=== PATIENT | male | born 1955 | race Caucasian/White ===

== ENCOUNTER 2017-03-15 04:21 | Inpatient (IN) | payer MEDICAID ==
[~2017-03-15] VITALS: Ht 170.2 cm; Wt 123.0 kg
[~2017-03-15 04:21] MED LIST: ADVAIR 250-501 EACH; ALBUTEROL2.5 MG/0.1 INH; AMARYL4 MG PO; ASPIRIN EC325 M1 PO; AZITHROMYCIN 2250 MG PO; B-121000 MC2 PO; CELEXA 20 MG TA20 MG PO; CLARITIN10 M2 PO; COMPLETE MULTI1 EAC3 PO; DEPAKOTE ER500 MG PO; ELIQUIS2.5 MG PO; FOLIC ACID1 MG PO; GLUCOPHAGE XR500 MG; IMDUR 30 MG TAB30 M1 PO; INVOKANA100 MG PO; JANUVIA100 MG PO; KLOR-CON 1010 MEQ PO; LASIX 20 MG TAB20 MG PO; MOBIC15 MG; NASONEX17 GM INH; NITROGLYCERIN0.4 MG SUBLING; NORCO 5-325 TA1 EACH PO; PLAVIX 75 MG TA75 MG; PRAVASTATIN SOD40 MG PO; PRINIVIL5 MG PO; SINGULAIR 10 MG10 M1 PO; SPIRIVA INH; SYMBICORT80 MCG/4.1 INH; TOPAMAX 25 MG T25 M1 PO; TRAZODONE HCL100 MG PO; ULTRAM 50MG TAB50 MG PO; VITAMIN D3400 UNIT PO; ZANTAC 150MG T150 M1 PO
[2017-03-15 04:35] LABS: ABSOLUTE EOSINOPHILS 0.1 thou/uL (0.0-0.7); ABSOLUTE LYMPHOCYTES 0.7 thou/uL (0.8-5.3); ABSOLUTE MONOCYTES 0.4 thou/uL (0.0-1.2); ABSOLUTE NEUTROPHILS 1.5 thou/uL (1.6-8.1); BASOPHILS 0.7 %; EOSINOPHILS 3.6 %; HEMATOCRIT 41.9 % (42.0-52.0); HEMOGLOBIN 13.5 gm/dL (14.0-18.0); LYMPHOCYTES 26.4 %; MCH 30.2 pg (26.0-34.0); MCHC 32.3 g/dL (28.0-37.0); MCV 93.6 fL (80.0-100.0); MONOCYTES 15.4 %; MPV 7.2 fl. (7.2-11.1); NUCLEATED RBCS 0 /100WBC; PLATELET COUNT* 80 thou/uL (150-400); POLYS 53.9 %; RBC 4.48 mil/uL (4.50-6.00); RDW-CV 16.4 % (10.5-14.5); WBC 2.8 thou/uL (4.0-11.0)
[2017-03-15 04:38] VITALS: BP 123/91
[2017-03-15 04:48] LABS: INR 1.1; PROTIME 10.8 Seconds (9.20-11.50)
[2017-03-15 05:00] LABS: ANION GAP 6 mmol/L (7-16); BUN 20 mg/dL (7-18); CALCIUM 9.2 mg/dL (8.5-10.1); CHLORIDE 103 mmol/L (98-107); CO2 31 mmol/L (21-32); CREATININE 0.9 mg/dL (0.6-1.3); GLUCOSE 76 mg/dL (70-99); POTASSIUM 3.9 mmol/L (3.5-5.1); SODIUM 140 mmol/L (136-145)
[2017-03-15 05:10] LABS: ALBUMIN 3.3 g/dL (3.4-5.0); ALKALINE PHOSPHATASE 42 U/L (46-116); NT-PRO BRAIN NAT PEPTIDE 578 pg/mL (<300); SGOT 25 U/L (15-37); SGPT 26 U/L (30-65); TOTAL BILIRUBIN 0.3 mg/dL (<0.1-1.0); TROPONIN-I LEVEL <0.06 ng/mL (<0.06)
[2017-03-15 05:48] LABS: INFLUENZA A ANTIGEN None Detected (None Detect); INFLUENZA B ANTIGEN None Detected (None Detect)
[2017-03-15 06:33] VITALS: BP 119/53
[2017-03-15 08:22] VITALS: BP 143/72
[2017-03-15 11:51] VITALS: BP 117/53
--- NOTE | 2017-03-15 13:51 | EKG ---
[place] [address] ELECTROCARDIOGRAM REPORT Name: NITZA BEAR Room: [facility] ADM IN M.R.#: [id number] Admission: 03/15/17 Attend Phys: Azra Akers MD Discharge: Date of : 51 Report #: [id number] THIS REPORT FOR: //name// [facility] ED Test Date: 2017-03-15 Test Time: 04:42:51 Pat Name: NITZA BEAR Department: Room: [facility] Gender: M Bed Manager: : 1955 Requested By: Zunilda Thomas Order Number: [id number] MD: Costa Saucedo Measurements Intervals [place] Rate: 66 P: -53 IN: 64 QRS: -64 QRSD: 195 T: 79 QT: 460 QTc: 482 Interpretive Statements AV sequential pacing No further analysis attempted due to paced rhythm Compared to ECG 11/08/2016 20:10:35 AV dual-paced complex(es) or rhythm no longer present Electronically Signed On 03-15-2017 13:51:12 ORE MINER BLASTING by Costa Saucedo [email or web address] <ELECTRONICALLY SIGNED> By: Costa Saucedo MD, FACC 03/15/17 1351 [id number] [id number] Costa Saucedo MD, FAC /EPI
--- NOTE | 2017-03-15 15:24 | NUR ---
CM SPOKE TO THE PATIENT TO DISCUSS HOME SITUATION, DISCHARGE PLANNING, AND TO INFORM OF THE ROLE OF CM. PATIENT ALERT AND ORIENTED. PATIENT ABLE TO PREPARE MEALS AND PERFORM HYDROGRAPHIC SURVEYOR. PATIENT RESIDES AT HOME WITH . PATIENT USES A CANE OR WALKER AT HOME FOR MOBILITY, PATIENT USES A BIPAP AND OXYGEN AT HOME PROVIDED BY [facility]. PATIENT HAS A HX OF HH WITH [facility]. PATIENT HAS NO HX OF SNF AND PLANS TO RETURN HOME AT DISCHARGE. CM WILL REMAIN AVAILABLE TO ASSIST AND FOLLOW NEEDED.
--- NOTE | 2017-03-15 15:42 | NUR ---
ADMISSION ASSESSMENT AND HISTORY COMPLETED REFER TO COMPUTER CHARTING. BACK MAKER TRACKING SR. PATIENT RESTING IN BED REPORTING NO PAIN, NAUSEA OR INCREASED SHORTNESS OF BREATH. BED IN LOW AND LOCKED POSITION. CALL LIGHT WITHIN REACH. PATIENT ON 2.5 LITERS O2 VIA NASAL CANNULA. IV SALINE LOCKED. [facility]
[2017-03-15 15:53] VITALS: BP 127/49
[2017-03-15 20:00] VITALS: BP 106/51
[2017-03-16] VITALS (7 sets, daily range): BP systolic 111–146; BP diastolic 60–95
--- NOTE | 2017-03-16 06:57 | NUR ---
ASSUMED CARE AROUND 1930. PT A/OX4, LETHARGIC AT TIMES- AROUSABLE TO MILD PHYSICAL STIMULI. TELE MONITOR TRACING AVPACED. BP STABLE- LOW GRADE TEMP TONIGHT, TREATED WITH ICE PACKS. ON 2L NC. IV SALINE LOCKED. ATTEMPTED BM IN BEDPAN. VOIDING PER URINAL. H/A AND PAIN TREATED WITH PRN MEDS. SEE CHARTING. CALL LIGHT IN REACH, WILL CONTINUE WITH PLAN OF CARE.
--- NOTE | 2017-03-16 18:38 | NUR ---
ASSUMED PT CARE AT 0730, FULL ASSESMENT DONE CHARTED. PT ORIENTED X4, DROWSY AND HARD TO WAKE AT TIMES. PT C/O SOME PAIN IN RIGHT KNEE. PT ON 2.5L O2 SATS 99%PT REPORTS HE WEARS BIPAP AT HOME, RECIEVED ORDER TO HAVE PT ON BIPAP HS WHILE HERE. VSS, AV PACED ON THE MONITOR. PT USING URINAL/BSC.PT UP TO CHAIR FOR MEALS AND WITH PHYSICAL THERAPY. PT CALLS APPROPRIALTY FOR HELP. FALL PRECATUIONS IN PLACE, CALL LIGHT IN REACH WILL CONTINUE WITH PLAN OF CARE.
[2017-03-17] VITALS (7 sets, daily range): BP systolic 115–137; BP diastolic 57–75
--- NOTE | 2017-03-17 05:31 | NUR ---
PT IS ABLE TO COMMUNICATE NEEDS TO STAFF EFFECTIVELY. CURRENT PAIN MEDICATION REGIMEN HAS BEEN ADEQUATE FOR CONTROLLING HIS PAIN UP TO THIS TIME. PT TRIED TO USE HOSPITAL BIPAP LAST NIGHT, BUT COULD NOT TOLERATE; TO BRING HIS BIPAP FROM HOME, POSSIBLY TODAY.
[2017-03-17 06:35] LABS: URINE BILIRUBIN NEGATIVE (Negative); URINE BLOOD NEGATIVE (Negative); URINE CLARITY CLEAR; URINE COLOR YELLOW; URINE GLUCOSE-RANDOM 1+ (Negative); URINE KETONES TRACE (Negative); URINE LEUKOCYTES-REFLEX NEGATIVE (Negative); URINE NITRITE-REFLEX NEGATIVE (Negative); URINE PROTEIN NEGATIVE (Negative); URINE UROBILINOGEN 0.2 E.U./dl (0.2-1.0)
[2017-03-17 16:08] LABS: HEMATOCRIT 37.1 % (42.0-52.0); HEMOGLOBIN 12.4 gm/dL (14.0-18.0); MCH 30.8 pg (26.0-34.0); MCHC 33.3 g/dL (28.0-37.0); MCV 92.4 fL (80.0-100.0); MPV 7.4 fl. (7.2-11.1); RBC 4.01 mil/uL (4.50-6.00); RDW-CV 15.9 % (10.5-14.5); WBC 3.5 thou/uL (4.0-11.0)
[2017-03-17 16:18] LABS: CALCIUM 9.1 mg/dL (8.5-10.1); POTASSIUM 4.7 mmol/L (3.5-5.1)
--- NOTE | 2017-03-17 17:59 | NUR ---
RECEIVED REPORT FROM MARGARETTE RN. PT SITTING IN CHAIR DURING UPON FIRST ENCOUNTER. VS OBTAINED. ASSESSMENT COMPLETE. A/V PACED ON THE MONITOR. O2 SATS >92% ON 2L NC. A & O X4. ABLE TO COMMUNICATE NEEDS TO STAFF. MEDS GIVEN PER APR. PT C/O HEADACHE THIS AFTERNOON, PRN TRAMADOL GIVEN PER APR. PT AMBULATED WITH KNEE BRACE AND WALKER TO BR WITH SUPERVISION. OBSERVED STEADY GAIT WHILE AMBULATING. PT DYSPNEIC WHEN RETURNED TO BED. RECOVERED COMFORTABLE BREATHING IN SHORT AMOUNT OF TIME. NEEDED ITEMS AND CALL LIGHT WITHIN REACH OF PT. HOURLY ROUNDING WITH GOAL OF PT SAFETY.
[2017-03-18 03:47] VITALS: BP 136/74
--- NOTE | 2017-03-18 05:39 | NUR ---
PT IS ABLE TO COMMUNICATE HIS NEEDS TO STAFF EFFECTIVELY. CURRENT PAIN MEDICATION REGIMEN HAS BEEN ADEQUATE FOR CONTROLLING HIS PAIN UP TO THIS TIME. PT WEARING HIS BIPAP FROM HOME WHILE SLEEPING, DURING THIS SHIFT.
[2017-03-18 08:00] VITALS: BP 137/64
[2017-03-18] MEDS ORDERED: AZITHROMYCIN 2250 MG PO (10:42)
[2017-03-18] MEDS ORDERED: CEFDINIR300 MG PO (10:42)
[2017-03-18] MEDS ORDERED: PREDNISONE 10 M10 MG PO (10:42)
[2017-03-18 11:53] VITALS: BP 117/62
--- NOTE | 2017-03-19 08:37 | NUR ---
CALLED AND FAXED DC ORDERS TO [facility]/NIA [phone]
== END 2017-03-18 15:00 | disposition home health service (06) | DRG 871 ==
LOC: M.ERS 04:21 → M.TBA-ER 06:03 → M.2W 06:03
PROVIDERS: Emergency Medicine; Internal Medicine; ADMIT Internal Medicine
PROC: 5A09357 Assistance with Respiratory Ventilation, Less than 24 Consecutive Hours, Continuous Positive Airway Pressure (ICD-10-PCS; principal; 2017-03-16)
PROC: 5A09357 Assistance with Respiratory Ventilation, Less than 24 Consecutive Hours, Continuous Positive Airway Pressure (ICD-10-PCS; 2017-03-17)
DX: A41.9 Sepsis, unspecified organism (principal); J15.9 Unspecified bacterial pneumonia; J96.11 Chronic respiratory failure with hypoxia; I25.110 Atherosclerotic heart disease of native coronary artery with unstable angina pectoris; I50.22 Chronic systolic (congestive) heart failure; J44.1 Chronic obstructive pulmonary disease with (acute) exacerbation; J44.0 Chronic obstructive pulmonary disease with (acute) lower respiratory infection; E11.9 Type 2 diabetes mellitus without complications; I48.91 Unspecified atrial fibrillation; I11.0 Hypertensive heart disease with heart failure; G43.909 Migraine, unspecified, not intractable, without status migrainosus; J06.9 Acute upper respiratory infection, unspecified; H53.8 Other visual disturbances; D64.9 Anemia, unspecified; F39 Unspecified mood [affective] disorder; R12 Heartburn; K21.9 Gastro-esophageal reflux disease without esophagitis; E11.649 Type 2 diabetes mellitus with hypoglycemia without coma; T38.3X5A Adverse effect of insulin and oral hypoglycemic [antidiabetic] drugs, initial encounter; Z95.5 Presence of coronary angioplasty implant and graft; Z90.49 Acquired absence of other specified parts of digestive tract; Z87.891 Personal history of nicotine dependence; Z88.0 Allergy status to penicillin; Z88.8 Allergy status to other drugs, medicaments and biological substances; Z99.81 Dependence on supplemental oxygen; Z95.810 Presence of automatic (implantable) cardiac defibrillator; Y92.89 Other specified places as the place of occurrence of the external cause; Z79.84 Long term (current) use of oral hypoglycemic drugs; Z79.899 Other long term (current) drug therapy

== ENCOUNTER 2017-03-31 03:38 | Inpatient (IN) | payer MEDICAID ==
[~2017-03-31] VITALS: Ht 170.2 cm; Wt 124.7 kg
[~2017-03-31 03:38] MED LIST changes: +CEFDINIR300 MG PO; +PREDNISONE 10 M10 MG PO
[2017-03-31 03:39] VITALS: BP 116/63
[2017-03-31 04:54] LABS: URINE BILIRUBIN NEGATIVE (Negative); URINE BLOOD NEGATIVE (Negative); URINE CLARITY CLEAR; URINE COLOR YELLOW; URINE GLUCOSE-RANDOM 3+ (Negative); URINE KETONES 1+ (Negative); URINE LEUKOCYTES-REFLEX NEGATIVE (Negative); URINE NITRITE-REFLEX NEGATIVE (Negative); URINE PROTEIN NEGATIVE (Negative); URINE SPECIFIC GRAVITY 1.015 (1.005-1.030); URINE UROBILINOGEN 0.2 E.U./dl (0.2-1.0)
[2017-03-31 05:23] LABS: HEMATOCRIT 36.8 % (42.0-52.0); MCH 30.5 pg (26.0-34.0); MCHC 32.5 g/dL (28.0-37.0); MCV 93.8 fL (80.0-100.0); MPV 7.7 fl. (7.2-11.1); NUCLEATED RBCS 0 /100WBC; PLATELET COUNT* 86 thou/uL (150-400); RBC 3.92 mil/uL (4.50-6.00); RDW-CV 16.4 % (10.5-14.5); WBC 7.3 thou/uL (4.0-11.0)
[2017-03-31 05:32] LABS: INFLUENZA A ANTIGEN None Detected (None Detect); INFLUENZA B ANTIGEN None Detected (None Detect)
[2017-03-31 05:46] LABS: CALCIUM 8.6 mg/dL (8.5-10.1); POTASSIUM 4.3 mmol/L (3.5-5.1)
[2017-03-31 05:58] LABS: ALBUMIN 3.1 g/dL (3.4-5.0); TOTAL BILIRUBIN 0.6 mg/dL (<0.1-1.0); TOTAL PROTEIN 6.4 g/dL (6.4-8.2)
[2017-03-31 06:31] LABS: ABSOLUTE EOSINOPHILS 0.1 thou/uL (0.0-0.7); ABSOLUTE LYMPHOCYTES 0.5 thou/uL (0.8-5.3); ABSOLUTE MONOCYTES 0.5 thou/uL (0.0-1.2); ABSOLUTE NEUTROPHILS 6.2 thou/uL (1.6-8.1)
[2017-03-31 06:32] LABS: ANISOCYTOSIS 1+; HYPOCHROMASIA 1+; PLATELET ESTIMATE DECREASED
[2017-03-31 08:11] VITALS: BP 115/70
[2017-03-31 08:30] VITALS: BP 131/78
[2017-03-31] MEDS ORDERED: HYDROCODONE-AP1 EAC6 PO (08:53)
[2017-03-31 12:00] VITALS: BP 116/63
[2017-03-31 12:57] LABS: BE -3.3 mmol/L (-2 to +3); HCO3 20.1 mmol/L (22.0-26.0); PCO2 30.9 mmHg (35.0-45.0); PO2 78.4 mmHg (75.0-100.0); pH 7.431 (7.340-7.450)
--- NOTE | 2017-03-31 16:37 | EKG ---
[place] [address] ELECTROCARDIOGRAM REPORT Name: NITZA BEAR Room: [address] ADM IN M.R.#: [id number] Admission: 03/31/17 Attend Phys: Azra Akers MD Discharge: Date of : 51 Report #: [id number] THIS REPORT FOR: //name// [facility] ED Test Date: 2017-03-31 Test Time: 03:54:05 Pat Name: NITZA BEAR Department: Room: [facility] Gender: M Blade Operator: ARIANNA Arnold : 1955 Requested By: Zunilda Thomas Order Number: [id number] Reading MD: Rakesh Hawkins Measurements Intervals [place] Rate: 87 P: -82 FL: 57 QRS: -47 QRSD: 170 T: 95 QT: 395 QTc: 476 Interpretive Statements Atrial-sensed ventricular-paced complexes No further analysis attempted due to paced rhythm Compared to ECG 03/15/2017 04:42:51 AV dual-paced complex(es) or rhythm no longer present Electronically Signed On 03-31-2017 16:36:55 PASTING INSPECTOR by Rakesh Hawkins [email or web address] <ELECTRONICALLY SIGNED> By: Jennifer Hawkins MD, [facility] 03/31/17 1636 0354 0354 Jennifer Hawkins MD, [facility] /EPI
[2017-03-31 20:00] VITALS: BP 130/68
[2017-04-01] VITALS: BP 147/69
[2017-04-01 05:05] LABS: HEMATOCRIT 35.7 % (42.0-52.0); HEMOGLOBIN 11.5 gm/dL (14.0-18.0); MCH 30.1 pg (26.0-34.0); MCHC 32.2 g/dL (28.0-37.0); MCV 93.6 fL (80.0-100.0); MPV 7.2 fl. (7.2-11.1); RBC 3.82 mil/uL (4.50-6.00); RDW-CV 16.6 % (10.5-14.5); WBC 4.1 thou/uL (4.0-11.0)
[2017-04-01 06:09] LABS: CREATININE 0.9 mg/dL (0.6-1.3); MAGNESIUM 2.2 mg/dL (1.8-2.4); POTASSIUM 4.4 mmol/L (3.5-5.1)
[2017-04-01 09:00] VITALS: BP 152/79
[2017-04-01 20:10] VITALS: BP 118/47
[2017-04-02 05:12] LABS: ABSOLUTE LYMPHOCYTES 0.3 thou/uL (0.8-5.3); ABSOLUTE MONOCYTES 0.2 thou/uL (0.0-1.2); ABSOLUTE NEUTROPHILS 4.1 thou/uL (1.6-8.1); BASOPHILS 0.3 %; EOSINOPHILS 0.1 %; HEMATOCRIT 34.2 % (42.0-52.0); HEMOGLOBIN 11.2 gm/dL (14.0-18.0); LYMPHOCYTES 6.4 %; MCH 30.6 pg (26.0-34.0); MCHC 32.7 g/dL (28.0-37.0); MCV 93.6 fL (80.0-100.0); MONOCYTES 3.7 %; MPV 7.7 fl. (7.2-11.1); NUCLEATED RBCS 0 /100WBC; PLATELET COUNT* 69 thou/uL (150-400); POLYS 89.5 %; RBC 3.66 mil/uL (4.50-6.00); RDW-CV 16.2 % (10.5-14.5); WBC 4.6 thou/uL (4.0-11.0)
[2017-04-02 05:42] LABS: ALBUMIN 2.8 g/dL (3.4-5.0); CALCIUM 8.7 mg/dL (8.5-10.1); CREATININE 0.9 mg/dL (0.6-1.3); MAGNESIUM 2.2 mg/dL (1.8-2.4); POTASSIUM 4.2 mmol/L (3.5-5.1); TOTAL BILIRUBIN 0.5 mg/dL (<0.1-1.0); TOTAL PROTEIN 6.4 g/dL (6.4-8.2)
[2017-04-02 10:00] VITALS: BP 152/71
[2017-04-02 16:12] VITALS: BP 119/61
[2017-04-03] VITALS: BP 135/67
[2017-04-03 08:05] VITALS: BP 155/92
[2017-04-03 16:10] VITALS: BP 135/69
[2017-04-04] VITALS: BP 119/52
[2017-04-04 04:43] LABS: ALBUMIN 2.9 g/dL (3.4-5.0); CALCIUM 8.9 mg/dL (8.5-10.1); CREATININE 0.8 mg/dL (0.6-1.3); MAGNESIUM 2.2 mg/dL (1.8-2.4); POTASSIUM 4.8 mmol/L (3.5-5.1); TOTAL BILIRUBIN 0.6 mg/dL (<0.1-1.0); TOTAL PROTEIN 6.3 g/dL (6.4-8.2)
[2017-04-04 04:53] LABS: HEMATOCRIT 36.1 % (42.0-52.0); HEMOGLOBIN 11.7 gm/dL (14.0-18.0); MCHC 32.5 g/dL (28.0-37.0); MCV 92.4 fL (80.0-100.0); MPV 7.8 fl. (7.2-11.1); RBC 3.91 mil/uL (4.50-6.00); WBC 3.3 thou/uL (4.0-11.0)
[2017-04-04 07:55] VITALS: BP 155/91
[2017-04-04 17:09] VITALS: BP 140/80
[2017-04-04 21:00] VITALS: BP 147/75
[2017-04-05 02:07] LABS: ADENOVIRUS Negative (Negative); INFLUENZA A Negative (Negative); INFLUENZA B Negative (Negative); METAPNEUMOVIRUS Negative (Negative); PARAINFLUENZA 1 Negative (Negative); PARAINFLUENZA 2 Negative (Negative); PARAINFLUENZA 3 Negative (Negative); RHINOVIRUS Negative (Negative); RSV A Negative (Negative); RSV B Negative (Negative)
[2017-04-05 08:50] VITALS: BP 130/68
[2017-04-05] MEDS ORDERED: TRAMADOL 50 MG50 MG PO (09:21)
[2017-04-05] MEDS ORDERED: LEVAQUIN 500 M500 M2 PO (09:21)
[2017-04-05] MEDS ORDERED: PREDNISONE 10 M10 MG PO (09:21)
[2017-04-05] MEDS ORDERED: DUONEB 2.5-0.5 M3 ML INH (09:21)
[2017-04-05] MEDS ORDERED: PULMICORT0.5 MG/2 M INH (09:21)
[2017-04-05 09:46] LABS: HEMATOCRIT 43.6 % (42.0-52.0); MCH 31.1 pg (26.0-34.0); MCHC 33.5 g/dL (28.0-37.0); MCV 92.9 fL (80.0-100.0); MPV 7.7 fl. (7.2-11.1); RBC 4.7 mil/uL (4.50-6.00); WBC 4.7 thou/uL (4.0-11.0)
[2017-04-05 10:08] LABS: HEMOGLOBIN 14.6 gm/dL (14.0-18.0)
[2017-04-05 11:37] VITALS: BP 130/68
[2017-04-05 11:45] VITALS: BP 130/68
== END 2017-04-05 14:41 | disposition home health service (06) | DRG 193 ==
LOC: M.ERS 03:38 → M.3W 06:45 → M.TBA-ER 06:45 → M.2W 08:18 → M.3W 04-01 16:56
PROVIDERS: Emergency Medicine; ADMIT Internal Medicine
DX: J18.9 Pneumonia, unspecified organism (principal); J96.21 Acute and chronic respiratory failure with hypoxia; I50.20 Unspecified systolic (congestive) heart failure; J90 Pleural effusion, not elsewhere classified; D61.818 Other pancytopenia; J44.0 Chronic obstructive pulmonary disease with (acute) lower respiratory infection; E11.9 Type 2 diabetes mellitus without complications; I25.10 Atherosclerotic heart disease of native coronary artery without angina pectoris; I48.91 Unspecified atrial fibrillation; I11.0 Hypertensive heart disease with heart failure; G43.909 Migraine, unspecified, not intractable, without status migrainosus; Z90.49 Acquired absence of other specified parts of digestive tract; Z88.0 Allergy status to penicillin; Z88.8 Allergy status to other drugs, medicaments and biological substances; Z95.5 Presence of coronary angioplasty implant and graft; Z87.891 Personal history of nicotine dependence; Z79.899 Other long term (current) drug therapy

== ENCOUNTER 2017-05-12 18:15 | Inpatient (IN) | payer MEDICAID ==
[~2017-05-12] VITALS: Ht 170.2 cm; Wt 121.5 kg
[~2017-05-12 18:15] MED LIST changes: +DUONEB 2.5-0.5 M3 ML INH; +HYDROCODONE-AP1 EAC6 PO; +LEVAQUIN 500 M500 M2 PO; +PULMICORT0.5 MG/2 M INH; +TRAMADOL 50 MG50 MG PO
[2017-05-12 18:18] VITALS: BP 119/51
[2017-05-12 19:27] LABS: ABSOLUTE LYMPHOCYTES 0.6 thou/uL (0.8-5.3); ABSOLUTE MONOCYTES 0.4 thou/uL (0.0-1.2); ABSOLUTE NEUTROPHILS 2.1 thou/uL (1.6-8.1); BASOPHILS 0.6 %; EOSINOPHILS 1.1 %; HEMATOCRIT 37.1 % (42.0-52.0); HEMOGLOBIN 12.2 gm/dL (14.0-18.0); LYMPHOCYTES 19.6 %; MCH 31.3 pg (26.0-34.0); MCV 94.8 fL (80.0-100.0); MONOCYTES 12.8 %; NUCLEATED RBCS 0 /100WBC; PLATELET COUNT* 82 thou/uL (150-400); POLYS 65.9 %; RBC 3.92 mil/uL (4.50-6.00); RDW-CV 17.4 % (10.5-14.5); WBC 3.2 thou/uL (4.0-11.0)
[2017-05-12 19:37] LABS: ANION GAP 6 mmol/L (7-16); BUN 13 mg/dL (7-18); CHLORIDE 105 mmol/L (98-107); CO2 31 mmol/L (21-32); GLUCOSE 86 mg/dL (70-99); POTASSIUM 3.8 mmol/L (3.5-5.1); SODIUM 142 mmol/L (136-145)
[2017-05-12 19:45] LABS: INFLUENZA A ANTIGEN None Detected (None Detect); INFLUENZA B ANTIGEN None Detected (None Detect)
[2017-05-12 19:48] LABS: ALBUMIN 3.2 g/dL (3.4-5.0); ALKALINE PHOSPHATASE 43 U/L (46-116); NT-PRO BRAIN NAT PEPTIDE 974 pg/mL (<300); SGOT 25 U/L (15-37); SGPT 21 U/L (30-65); TOTAL BILIRUBIN 0.4 mg/dL (<0.1-1.0); TOTAL PROTEIN 6.4 g/dL (6.4-8.2); TROPONIN-I LEVEL <0.06 ng/mL (<0.06)
[2017-05-12] MEDS ORDERED: CEFUROXIME500 MG PO (21:29)
--- NOTE | 2017-05-12 22:30 | NUR ---
SPOKE TO PT REGARDING [facility] CARE AND THE PT STATED HE WAS WILLING TO GO TO A [facility] IF HIS CONTINUED TO HAVE MONEY TO LIVE ON.
[2017-05-12 23:55] VITALS: BP 112/51
[2017-05-13 00:20] VITALS: BP 130/60
[2017-05-13 00:34] LABS: URINE BILIRUBIN NEGATIVE (Negative); URINE BLOOD TRACE (Negative); URINE CLARITY CLEAR; URINE COLOR YELLOW; URINE GLUCOSE-RANDOM NEGATIVE (Negative); URINE KETONES NEGATIVE (Negative); URINE LEUKOCYTES-REFLEX 1+ (Negative); URINE NITRITE-REFLEX NEGATIVE (Negative); URINE PROTEIN NEGATIVE (Negative); URINE SPECIFIC GRAVITY 1.025 (1.005-1.030); URINE UROBILINOGEN 0.2 E.U./dl (0.2-1.0)
[2017-05-13 00:51] LABS: BACTERIA-REFLEX >30 Many /HPF (None Seen); SQUAMOUS 0-3 Few /LPF (0-3); URINE RBC 3-10 Few /HPF (0-2); WBC CLUMPS Few (None Seen)
[2017-05-13 00:52] LABS: CASTS None Seen /LPF (None Seen); CRYSTALS None Seen /LPF (None Seen); MUCUS 4-6 Moderate strn/LPF (None Seen)
[2017-05-13 03:51] VITALS: BP 109/34
--- NOTE | 2017-05-13 05:24 | NUR ---
PT ARRIVED ON UNIT AT 0020, REPORT RECIEVED FROM LIO IN ER. PT ORIENTED TO ROOM, FALL AGREEMENT WENT OVER AND SIGNED, CALL LIGHT SHOWN. PT STATED UNDERSTANDING. ASSESSMENT DOCUMENTED. IV PATENT. PT REPORTED PAIN, DR NOTIFIED, ORDERS RECIEVED. PT AWAKE MOST OF SHIFT. PT HAD 2 EPISODED OF DIARRHEA. PT STATES HE NEEDS TO STAY 3 DAYS SO HE CAN GO TO [facility] TO REGAIN HIS STREANGTH. WILL CONTINUE WITH PLAN OF CARE.
[2017-05-13 09:00] VITALS: BP 131/62
--- NOTE | 2017-05-13 12:41 | EKG ---
[place] [address] ELECTROCARDIOGRAM REPORT Name: MARIANELA,NITZA E Room: [address] ADM IN .R.#: [id number] Admission: 05/12/17 Attend Phys: Xander Zuniga Discharge: Date of : 51 Report #: [id number] THIS REPORT FOR: //name// [facility] ED Test Date: 2017-05-12 Test Time: 18:22:05 Pat Name: NITZA BEAR Department: Room: [facility] Gender: M Curing Supervisor: ASHKAN : 1955 Requested By: Valeria Whaley Order Number: [id number] MD: Allan Wellington Measurements Intervals [place] Rate: 67 P: -16 [place]: 64 QRS: -47 QRSD: 201 T: 73 QT: 468 QTc: 494 Interpretive Statements Ventricular-paced complexes No further analysis attempted due to paced rhythm Compared to ECG 03/31/2017 03:54:05 Atrial-sensed ventricular-paced complex(es) or rhythm no longer present Electronically Signed On 05-13-2017 12:41:10 CDT by Allan Wellington [email or web address] <ELECTRONICALLY SIGNED> By: Allan Wellington MD, FACC 05/13/17 [phone] Allan Wellington MD, FAC /EPI
[2017-05-13 13:17] LABS: ABSOLUTE LYMPHOCYTES 0.7 thou/uL (0.8-5.3); ABSOLUTE MONOCYTES 0.4 thou/uL (0.0-1.2); ABSOLUTE NEUTROPHILS 1.9 thou/uL (1.6-8.1); BASOPHILS 0.2 %; EOSINOPHILS 0.8 %; HEMOGLOBIN 12.4 gm/dL (14.0-18.0); LYMPHOCYTES 23.4 %; MCH 30.6 pg (26.0-34.0); MCHC 32.5 g/dL (28.0-37.0); MONOCYTES 12.7 %; MPV 7.4 fl. (7.2-11.1); NUCLEATED RBCS 0 /100WBC; PLATELET COUNT* 82 thou/uL (150-400); POLYS 62.9 %; RBC 4.04 mil/uL (4.50-6.00); RDW-CV 17.9 % (10.5-14.5)
[2017-05-13 13:21] LABS: CREATININE 0.9 mg/dL (0.6-1.3); MAGNESIUM 1.9 mg/dL (1.8-2.4); POTASSIUM 3.8 mmol/L (3.5-5.1)
[2017-05-13 16:52] VITALS: BP 110/52
--- NOTE | 2017-05-13 19:56 | NUR ---
PATIENT HAS BEEN A/O X 4 THIS SHIFT. HAS DENIED PAIN THIS SHIFT. PLACED ON B2B SALES CONSULTANT, TRACING V PACED. PATIENT SEEN BY PULMONARY AND CARDIOLOGY THIS SHIFT, TO HAVE STRESS TEST IN THE AM. CONTINUES ON O2 AT 2L/NC. REFUSING TO TURN OR ELEVATE HEELS THIS SHIFT. UTILIZING THE BEDPAN, KIT-CARE PROVIDED AND BARRIER CREAM APPLIED. SALINE LOCK PATENT. STEROIDS TO START THIS EVENING AND CONTINUES ON RT TREATMENTS. FALL PRECAUTIONS IN PLACE. HOURLY ROUNDING COMPLETED. CALL LIGHT WITHIN REACH. WILL CONTINUE WITH PLAN OF CARE.
[2017-05-13 23:54] VITALS: BP 118/66
[2017-05-14 04:29] VITALS: BP 138/79
--- NOTE | 2017-05-14 05:23 | NUR ---
PT SLEPT MOST OF SHIFT. ASSESSMENT DOCUMENTED. MEDS GIVEN PER E-MAR. NEW IV STARTED IN LEFT HAND. PT REQUESTING HIS HOME MEDICATIONS BE REORDERED, DR NOTIFIED, ORDERS RECIEVED. PT REFUSED MOST OF REPOSITIONINGS THIS SHIFT, PT STATED HE IS JUST TO UNCOMFORTABLE ANYWHERE OTHER THAN FLAT ON HIS BACK. TELE MONITOR ON READING PACED RHYTHM. NO REPORTS OF PAIN. WILL CONTINUE WITH PLAN OF CARE.
[2017-05-14 08:00] VITALS: BP 131/71
--- NOTE | 2017-05-14 09:55 | CON ---
[address] [address] CONSULTATION Name: NITZA BEAR Room: [address] IN M.R.#: [id number] Admission: 05/12/17 Attend Phys: Xander Zuniga Discharge: Date of : 51 Report #: [id number] THIS REPORT FOR: //name// CC: Maicol Gonzalez DO DATE OF SERVICE: 05/13/2017 ATTENDING PHYSICIAN: Dr. Herbie Gonzalez. INDICATION FOR CONSULTATION: COPD and obstructive sleep apnea. HISTORY OF PRESENT ILLNESS: The patient is a 61-year-old male, remote smoker, who was admitted to the hospital with shortness of air. The patient was sleepy during the day. When he stood up yesterday afternoon, he felt lightheaded and fell and hit his face. He hit the right side of his face and his forehead on his oxygen concentrator. He denies any focal weakness. He denied any loss of consciousness. He has had a couple episodes of bronchitis over the past couple of months, he has been oxygen dependent at night at 2 liters, he is on CPAP at 9 cm with nasal pillows that he has had for about the last 7 or 8 years and states he has been using that. He did bring it in with him. He denies that he is having more restless sleep or daytime hypersomnolence at least to me at this time. He is asking for another breathing treatment. He appears clear and comfortable on 2 liters at this time. PAST MEDICAL HISTORY: He has a history of COPD for the past several years, he has been oxygen dependent, he has not been steroid dependent. He has had a recent facial injury and fall. He has had a couple episodes of bronchitis and also appears to look to have cor pulmonale on his chest x-ray. ALLERGIES: INCLUDE LOVENOX WITH WHICH SUPPOSEDLY HE HAD SOME TREMORS AND THEN PENICILLIN, POSSIBLE RASH. OUTPATIENT MEDICATIONS: Included inhaled Pulmicort nebulizer, but he is only taking his breathing treatments, DuoNeb p.r.n. at home. He was on tramadol 50 mg q.4 hours given to him on 04/05/2017 and he was on a Prednisone taper 60 tabs also given to him on 04/05/2017. He has finished his Levaquin, which was mg for 7 tabs given to him on 04/05/2017. Other outpatient meds, DuoNeb treatments 4 times a day and albuterol nebulizer p.r.n. He states he was on Advair 250/50 one puff b.i.d. and Spiriva inhaler 1 puff daily. I do not see those on his list though. Also, he was supposed to be on apixaban 5 mg daily, not certain what indication that is 4. He is on Depakote 500 mg t.i.d. He was on Spiriva and HandiHaler 1 puff daily and Imdur 30 mg daily, lisinopril was 5 mg daily, Lasix was 20 mg daily. He was not steroid dependent. [address] [place] [address] CONSULTATION Name: NITZA BEAR Room: [address] IN M.R.#: [id number] Admission: 05/12/17 Attend Phys: Xander Zuniga Discharge: Date of : 51 Report #: [id number] OTHER PAST MEDICAL HISTORY: Diabetes, coronary artery disease with stent placement, chronic migraines, hypertension, obesity, obstructive sleep apnea on CPAP 9 cm with nasal pillows. He has had previous biopsy of temporal arteries, pacemaker noted. He does have myelofibrosis also. SOCIAL HISTORY: He has a 29-islx-eevm history of smoking. He states he quit about 7-8 years ago. He states he uses alcohol on special occasions. Lives at home. FAMILY HISTORY: Negative for premature cardiopulmonary disease. REVIEW OF SYSTEMS: A 14-point review of systems reviewed and negative except for pertinent positives noted in HPI. PHYSICAL EXAMINATION: GENERAL: This is a 61-year-old male lying comfortably in bed, in no acute distress. VITAL SIGNS: Blood pressure is 110/54, heart rate is 66, respirations 16, temperature is 37.7, saturation on 2 liters is 95%. He is 5 feet 9 inches tall, weight 121 kilograms or 250 pounds, BMI is 42. HEENT: Some mild erythema and ecchymoses across his right forehead. Pupils are reactive and equal. He is alert and oriented. Pharynx is clear. NECK: Supple without nodes. It is thick. CHEST: Shows clear breath sounds, mildly diminished with prolonged expiratory phase. CARDIOVASCULAR: Regular rate and rhythm without murmur, gallop or rub. Heart rate is 66. ABDOMEN: Obese without masses or megaly. EXTREMITIES: He has some chronic venous stasis changes. He has a knee brace on his right knee. Negative Homans sign bilaterally. NEUROLOGIC: Grossly intact. LABORATORY DATA: Hemoglobin is 12, white count 3000, platelets are 82,000. He has had previous platelets of 60,000 prior to transfusion from myelofibrosis. I think he sees the [facility] for his fibrosis. Sodium is 141, potassium 3.8, bicarbonate is mildly elevated at 33 and glucose is 114. Anion gap is 5, BUN 13, creatinine 0.9. Troponin less than 0.6. Influenza A and B smears were negative. Chest x-ray shows a patchy left lower lobe infiltrate, elevated left hemidiaphragm. I think he has some pulmonary artery enlargement bilaterally. Pacemaker noted. IMPRESSION: 1. Moderately severe chronic obstructive pulmonary disease, oxygen dependent, exacerbation. 2. Falls at home, probably multiple factors, could [place] [address] CONSULTATION Name: NITZA BEAR Room: [address] IN [facility].#: [id number] Admission: 05/12/17 Attend Phys: Xander Zuniga Discharge: Date of : 51 Report #: [id number] chronic obstructive pulmonary disease and possibly from obstructive sleep apnea. 3. Chronic venous stasis changes in his extremities. 4. Myelofibrosis. 5. Obstructive sleep apnea. PLAN: Continue on his home CPAP at this time. He may need to repeat sleep study at some point in time if he is adequately treated. He may need ABGs again at some point in time to see if he has any CO2 retention. We will just start him back on his routine meds, some oral montelukast and we can resume Advair at home. A short course of IV Solu-Medrol at a lower dose so as not to exacerbate his diabetes, and he has been on antibiotics from the primary care service, Levaquin mg p.o. daily. We will see if he does not get some improvement, do another followup PA and lateral chest x-ray in a couple of days and then proceed from there. He may need some full outpatient PFTs again as well as a repeat sleep study at some point in time. He may also need an echocardiogram to rule out pulmonary artery hypertension. Thank you very much for allowing us to participate in this man's care. We will follow up along with you while he is in the hospital. <ELECTRONICALLY SIGNED> By: Vinicius Neri MD 05/14/17 0955 1430 [id number] Neri MD /nt
[2017-05-14 12:00] VITALS: BP 135/67
--- NOTE | 2017-05-14 12:30 | NUR ---
SW met with pt to complete initial assessment, introduce self, and SW role as well as discuss safe dc planning. Pt known to this SW from previous admission. Pt lives at home with his and niece's family. Pt nurse today discussed with SW that pt expressed wanting a SNF placement possibly at dc. SW explained to pt that Medicaid does not cover SNF/therapy or HH therapy only inpt therapies if pt would meet criteria for that. Pt felt that he probably wouldn't be able to tolerate 3 hrs of therapy. SW discussed LTC option and pt said that he would think about everything and discuss with his as well. SW discussed with nurse the pt situation to clarify options. Doctor Radha ordered a Palliative Care Consult...SW to arrange meeting and SW to continue to follow to assist with safe dc planning.
[2017-05-14] MEDS ORDERED: NEURONTIN 300M300 M2 PO (14:23)
[2017-05-14] MEDS ORDERED: JANUVIA100 MG PO (14:24)
[2017-05-14] MEDS ORDERED: HYDROCODONE-AP1 EAC6 PO (14:25)
[2017-05-14 16:00] VITALS: BP 128/77
--- NOTE | 2017-05-14 17:09 | CARDNUC ---
[place] [address] CARDIAC NUCLEAR IMAGING REPORT Name: NITZA BEAR Room: [facility]-[address] [facility] IN [facility]#: [id number] Admission: 05/12/17 Attend Phys: Herbie Gonzalez Discharge: Date of : 51 Date of Service: 05/14/17 1709 Report #: [id number] THIS REPORT FOR: //name// APPROVED REPORT Study performed: 05/13/2017 13:12:00 Exam: Nuclear Stress Test Indication: Chest pain Patient Location: In-Patient Room #: 304 Stress Tech: Raya Klein Stress Nurse: Tiara Gaytan RN Ht: 5 ft 7 in Wt: 267 lbs BSA: 2.29 m2 BMI: 41.81 Medical History Medical History: CAD s/p [place], CAD s/p stent, HTN, Hyperlipidemia, Diabetes, Pacemaker in situ, CHF, Atrial Fibrillation, COPD Medications: apixaban, atorvastatin, isosorbide, lisinopril, asa, furosemide Allergies: PCN, enoxaparin Cardiac Risk Factors: Age, DM, HTN, Hyperlipidemia Previous Cardiac Procedures: PCI, Myocardial infarction Exercise History: Sedentary Stress Test Details Stress Test: Pharmacologic stress testing performed using 0.4 mg of regadenoson per 5 mL given IV over 10 seconds. Reason for pharmacologic stress test: physical limitation. HR Resting HR: 72 bpm Max Heart Rate (APMHR): 157 bpm Max HR Achieved: 88 bpm Target HR (85% APMHR): 133 bpm % of APMHR: 56 Recovery HR: 86 bpm BP Resting BP: 117/72 mmHg Max BP: 149/72 mmHg ECG Resting ECG: [place] [address] CARDIAC NUCLEAR IMAGING REPORT Name: MARIANELANITZA E Room: [address]#: [id number] Admission: 05/12/17 Attend Phys: Herbie Gonzalez Discharge: Date of : 51 Date of Service: 05/14/17 1709 Report #: [id number] Stress ECG: Ventricular paced rhythm ST Change: None Arrhythmia: None Recovery ECG: Ventricular paced rhythm Recovery ST Change: None Recovery Arrhythmia: None Clinical Reason for Termination: Completed protocol Stress Symptoms: None Exercise duration: 0 min sec Exercise capacity: 1.0 METs The patient tolerated Lexiscan infusion without symptoms. Stress ECG Conclusion The baseline 12-lead elect cardiogram showed a ventricularly paced rhythm. EKGs obtained during and post Lexiscan infusion showed a ventricularly paced rhythm. There were no stress-induced arrhythmias. NM EXAM: Myocardial Perfusion REST/STRESS Imaging Protocol: Stress Tc-99m/Rest Tc-99m 2 days Pharmacologic Stress Pharmacologic stress test was performed by injecting Regadenoson 0.4 mg IV push followed by the intravenous injection of 37.7 mCi of Tc-99m Sestamibi. Time of stress injection: 13:30 Date: 05/14/2017 Time of stress imagin:10 Date: 05/14/2017 Administration Route: IV Administration Site: Left Hand Heart Rate at time of stress injection: 88 bpm. Gated Stress SPECT was performed 40 minutes after stress injection. The images were gated to evaluate regional wall motion and calculate left ventricular ejection fraction. Study Quality Study: Good Artifact: No artifact Study Data Post stress, the left ventricular ejection was 48%.. [place] [address] CARDIAC NUCLEAR IMAGING REPORT Name: MARIANELANITZA E Room: [address] IN [facility]#: [id number] Admission: 05/12/17 Attend Phys: Herbie Gonzalez Discharge: Date of : 51 Date of Service: 05/14/17 1709 Report #: [id number] Perfusion images obtained post Lexiscan infusion show no defect to suggest infarct or ischemia. Wall Motion There was a septal wall motion abnormality noted consistent with paced rhythm. No other wall motion abnormalities noted. Nuclear Conclusion ECG Findings: non-diagnostic Clinical Findings: negative for ischemia Nuclear Findings: negative for ischemia Exercise Capacity: not assessed Left Ventricular Function: abnormal Risk Study: low Myocardial perfusion images showed no defect to suggest infarct or ischemia. Left ventricular systolic function was mildly decreased with an ejection fraction calculated be percent with a septal wall motion abnormality noted consistent with a paced rhythm. This is not a high risk study. <Conclusion> The baseline 12-lead elect cardiogram showed a ventricularly paced rhythm. EKGs obtained during and post Lexiscan infusion showed a ventricularly paced rhythm. There were no stress-induced arrhythmias. <ELECTRONICALLY SIGNED> By: Costa Saucedo MD, FACC 05/14/17 1709 08 08 Costa Saucedo MD, FACC /INF
--- NOTE | 2017-05-14 17:11 | NUR ---
PT RESTING IN BED THROUGHOUT SHIFT. PT TO STRESS TEST THIS AFTERNOON. UP TO CHAIR WITH MUCH ENCOURAGEMENT. PT STATES HE IS WORRIED ABOUT FALLING. PT UP WITH SB ASSIST,STEADY. PT ON O2@2L WHICH IS HIS HOME USE. VOIDING PER URINAL
--- NOTE | 2017-05-14 18:45 | NUR ---
PT CALLED STAFF INTO HIS ROOM. PT STATES "I HAVEN'T BEEN TRUTHFUL WITH WHAT IS GOING ON. I DIDN'T PASS OUT. I FELL BECAUSE I CAN'T HARDLY FEEL MY LEFT LEG." NO NEURO DEFICITS NOTICED. DR BRANCH NOTIFIED
[2017-05-14 20:00] VITALS: BP 106/61
[2017-05-15 00:10] VITALS: BP 134/66
[2017-05-15 04:18] VITALS: BP 131/61
--- NOTE | 2017-05-15 05:57 | NUR ---
PT SLEPT FAIRLY WELL OVERNIGHT, O2 2L NC. TELE VPACED. HAS DENIED PAIN OR PROBLEMS THIS SHIFT. USING URINAL TO VOID. UP WITH SBA FROM CHAIR TO BED AT HS. CO LLE NUMBNESS, MAINLY FROM KNEE DOWN AND BOTTOM OF FOOT. LLE PINK, WARM, BRISK CAP REFILL, +PEDAL PULSE. HS ACCUCHECK 185, HAD BOX LUNCH SHORTLY BEFORE ACCUCHECK OBTAINED. NO LABS THIS MORNING. LUNGS WITH WHEEZES, ELECTRONIC OPERATOR COUGH HEARD OCC, RT TX GIVEN ORDERED. PT/OT WORKING WITH PT. ABLE TO USE CALL LITE AND MAKE NEEDS KNOWN. BED ALARM ON FOR SAFETY OVERNIGHT.
[2017-05-15 08:30] VITALS: BP 123/56
[2017-05-15] MEDS ORDERED: PREDNISONE 10 M10 MG PO (09:31)
[2017-05-15] MEDS ORDERED: SINGULAIR 10 MG10 M1 PO (09:31)
[2017-05-15] MEDS ORDERED: LEVAQUIN 750 M750 MG PO (09:31)
[2017-05-15 10:30] VITALS: BP 123/56
--- NOTE | 2017-05-15 10:40 | NUR ---
MARISOL discussed with Raquel with [facility] pt possibility of dc today. Raquel met with pt and pt who are in agreement with hospice services and Raquel accepted referral and has needed info and orders. Pt to dc home with and [facility] services.
[2017-05-15 11:39] VITALS: BP 104/54
--- NOTE | 2017-05-15 12:05 | NUR ---
RECIEVED O.T. ORDERS AND CHART REVIEWED. PER CASE MANAGMENT, O.T. SERVICES ARE NO LONGER NECESSARY SINCE PT. WILL DISCHARGE TO HOME WITH [facility] AND HOSPICE CAN PROVIDE WHAT TRAINING AND/OR DME NEEDED. THUS, O.T. SERVICES ARE NOT INDICATED NOW.
--- NOTE | 2017-05-15 14:36 | NUR ---
PATIENT ON BUS GREASER THIS SHIFT, V-PACED. CARDIOLOGY SAW PATIENT THIS AM. OK FOR PATIENT TO DC BEFORE PULMONARY SEES PATIENT. PATIENT DISCHARGING WITH [facility]. IV DC'D. VERBALIZES UNDERSTANDING OF PAPERWORK AND SCRIPTS. ALL BELONGINGS SENT WITH PATIENT, PATIENT TAKEN OUT VIA WHEELCHAIR WITH STAFF.
--- NOTE | 2017-05-18 11:18 | CON ---
[address] [address] CONSULTATION Name: NITZA BEAR Room: [address] IN .R.#: [id number] Admission: 05/12/17 Attend Phys: Xander Zuniga Discharge: 05/15/17 Date of : 51 Report #: [id number] THIS REPORT FOR: //name// CC: Maicol Gonzalez PRIMARY CARE PHYSICIAN: Dr. Hoyt REASON FOR CONSULTATION: Chest pain and coronary artery disease. HISTORY OF PRESENT ILLNESS: The patient is a 61-year-old man who presented with a COPD exacerbation and near syncopal episode after a severe episode of coughing. During this, he had been having complaints of some chest discomfort. Occasionally, he will use nitroglycerin for chest discomfort lasting more than a few minutes along with resolution of his symptoms. They are not always reproducible with physical activity, but they are left-sided and sometimes radiates upward towards his neck. He has an underlying paced rhythm. He is anticoagulated because of atrial arrhythmias and denies falls, GI or bleeding otherwise. He usually receives his cardiovascular care at [facility]. He has a routine device followup at the hospital. This hospitalization, he presented more with COPD exacerbation with minimal weight gain. He does have a history of mild LV dysfunction and is on diuretic therapy. PAST MEDICAL HISTORY: He has a history of an ischemic cardiomyopathy, ejection fraction in the 40-45% range based on hospital testing last year when he presented with symptoms of respiratory failure. He has a history of coronary artery disease, prior PCI in 2008. He has a history of permanent pacemaker implanted at [facility]. Details of this are not available. He has the aforementioned chronic COPD, hypertension, hyperlipidemia, diabetes mellitus, and morbid obesity. HOME MEDICATIONS: Include the following: Eliquis, baby aspirin, Lasix 20 mg daily, potassium chloride 20 mEq daily, Celexa, Prinivil 5 mg daily, Imdur 30 mg daily, pravastatin 40 mg daily, Invokana 100 mg daily and his Eliquis dose is 2.5 mg p.o. b.i.d. SOCIAL HISTORY: He is a tobacco user, 2 packs per day, done so for more than 3 decades. REVIEW OF SYSTEMS: GASTROINTESTINAL: No nausea, abdominal pain, hematemesis or melena. GENITOURINARY: No dysuria [place] [address] CONSULTATION Name: NITZA BEAR Room: [address]#: [id number] Admission: 05/12/17 Attend Phys: Xander Zuniga Discharge: 05/15/17 Date of : 51 Report #: [id number] CARDIOVASCULAR: Positive chest discomfort, positive dizziness upon standing. No orthopnea, no PND. Positive dyspnea with exertion. PULMONARY: Positive shortness of breath, positive cough. MUSCULOSKELETAL: Chronic back pain. EXTREMITIES: No new symptoms though. He has mild chronic lower extremity edema. SKIN: No rashes. NEUROLOGIC: Denies focal symptoms of slurred speech, numbness, weakness, visual changes or facial numbness. PSYCHIATRIC: No depression or anxiety. VITAL SIGNS: Blood pressure this morning is 109/34 with a heart rate of 66, temperature 37.7, O2 sats on 2 liters is 92%. GENERAL: A morbidly obese, middle-aged male. He is pleasant, sitting up, breathing comfortably. CARDIOVASCULAR: Regular, heart tones are distant. I cannot hear a rub or gallop. LUNGS: Diminished breath sounds bilaterally. Faint expiratory wheezes noted. ABDOMEN: Protuberant, nontender, nondistended. EXTREMITIES: There is 1-2+ pretibial edema with some brawny edema appearance. LABORATORY DATA: Electrocardiogram is a V-paced rhythm. Chest x-ray shows mild increased opacity to the left lung base, mild cardiomegaly. Pulmonary vasculature is normal though. CT of the head demonstrated no evidence for maxillofacial fracture, chronic sinus disease. Cardiac troponin level yesterday was 0.06, second set is pending. Sodium is 142, potassium 3.8, BUN is 13, creatinine is 1.0, and glucose is 125. D-dimer is 0.6. IMPRESSION: 1. Chest pain, certainly a substrate for angina. He has a history of an ischemic cardiomyopathy. He has a remote history of PCI in 2008, his last evaluation apparently was at this institution with a pharmacologic stress test, which revealed a fixed defect. Given his use of frequent nitrates and his chest discomfort, I have arranged for further evaluation with cardiac troponin level and if this is normal, then we can proceed with a pharmacologic stress test tomorrow. 2. Chronic systolic congestive heart failure. His x-ray was unremarkable for the presence of congestive heart failure. I will continue with his low-dose Lasix. I think he has mostly right-sided heart failure. 3. Coronary artery disease. We will evaluate him with a pharmacologic stress testing. I would like to continue with his current medications, but I will hold his nitrate for his pharmacologic stress test. 4. Chronic obstructive pulmonary disease exacerbation as per hospital colleagues. 5. Permanent pacemaker. He is V paced on the telemetry and apparently his device was checked within the last year. Details of this evaluation are not available at this time. [address] [place] [address] CONSULTATION Name: NITZA BEAR Room: [address] IN M.R.#: [id number] Admission: 05/12/17 Attend Phys: Xander Zuniga Discharge: 05/15/17 Date of : 51 Report #: [id number] 6. History of atrial arrhythmias. I will continue with anticoagulation. He is asymptomatic. <ELECTRONICALLY SIGNED> By: Allan Wellington MD, FACC 05/18/17 1118 1320 1401Allan Wellington MD, FACC /nt
== END 2017-05-15 14:44 | disposition home or self-care (01) | DRG 194 ==
LOC: M.ERS 18:15 → M.TBA-ER 22:50 → M.3W 22:50
PROVIDERS: Nurse Practitioner Family; ADMIT Internal Medicine
DX: J18.9 Pneumonia, unspecified organism (principal); J96.11 Chronic respiratory failure with hypoxia; Z68.41 Body mass index [BMI] 40.0-44.9, adult; I50.22 Chronic systolic (congestive) heart failure; J44.0 Chronic obstructive pulmonary disease with (acute) lower respiratory infection; J44.1 Chronic obstructive pulmonary disease with (acute) exacerbation; D75.81 Myelofibrosis; N39.0 Urinary tract infection, site not specified; D61.818 Other pancytopenia; I25.10 Atherosclerotic heart disease of native coronary artery without angina pectoris; I48.91 Unspecified atrial fibrillation; G43.909 Migraine, unspecified, not intractable, without status migrainosus; I11.0 Hypertensive heart disease with heart failure; I25.5 Ischemic cardiomyopathy; E78.5 Hyperlipidemia, unspecified; E66.01 Morbid (severe) obesity due to excess calories; I87.8 Other specified disorders of veins; G47.33 Obstructive sleep apnea (adult) (pediatric); I95.1 Orthostatic hypotension; I27.81 Cor pulmonale (chronic); Z51.5 Encounter for palliative care; E11.42 Type 2 diabetes mellitus with diabetic polyneuropathy; Z90.49 Acquired absence of other specified parts of digestive tract; Z95.0 Presence of cardiac pacemaker; Z95.5 Presence of coronary angioplasty implant and graft; Z79.899 Other long term (current) drug therapy; Z88.0 Allergy status to penicillin; Z88.8 Allergy status to other drugs, medicaments and biological substances; Z87.891 Personal history of nicotine dependence

== ENCOUNTER 2017-10-10 03:00 | Observation (INO) | payer MEDICAID ==
[2017-10-10] VITALS (7 sets, daily range): BP systolic 119–137; BP diastolic 63–80
[~2017-10-10] VITALS: Ht 170.2 cm; Wt 122.5 kg
--- NOTE | ~2017-10-10 | EKG ---
[place] [address] ELECTROCARDIOGRAM REPORT Name: NITZA BEAR Room: [address] ADM IN M.R.#: [id number] Admission: 10/10/17 Attend Phys: Xander Zuniga Discharge: Date of : 51 Report #: [id number] THIS REPORT FOR: //name// [facility] Test Date: 2017-10-10 Test Time: 15:41:45 Pat Name: NITZA BEAR Department: Room: [address] Gender: M Body Specialist: JOCELINE : 1955 Requested By: Ashish Javed Order Number: [id number] Feliciano MD: Measurements Intervals [place] Rate: 63 P: -50 SC: 67 QRS: -67 QRSD: 197 T: 57 QT: 467 QTc: 479 Interpretive Statements Ventricular-paced rhythm No further analysis attempted due to paced rhythm Compared to ECG 05/12/2017 18:22:05 No significant changes [email or web address] By: 1541 1541 Epiphany EpiphanyMD /EPI
--- NOTE | ~2017-10-10 | EKG ---
[place] [address] ELECTROCARDIOGRAM REPORT Name: MARIANELANITZA DAVENPORT Room: [address] ADM IN .R.#: [id number] Admission: 10/10/17 Attend Phys: Xander Zuniga Discharge: Date of : 51 Report #: [id number] THIS REPORT FOR: //name// [facility] ED Test Date: 2017-10-10 Test Time: 03:07:24 Pat Name: NITZA BEAR Department: Room: [facility] Gender: M City Dispatch Supervisor: DEMETRIO : 1955 Requested By: Mela Romero Order Number: [id number] MD: Measurements Intervals [place] Rate: 90 P: NV: QRS: 256 QRSD: 195 T: 80 QT: 461 QTc: 564 Interpretive Statements Afib/flut and V-paced complexes No further analysis attempted due to paced rhythm Baseline wander in lead(s) V3,V4,V5 No previous ECG available for comparison [email or web address] By: 0307 0307 Epiphany Epiphany, /EPI
--- NOTE | ~2017-10-10 | EKG ---
[place] [address] ELECTROCARDIOGRAM REPORT Name: NITZA BEAR Room: [address] ADM IN M.R.#: [id number] Admission: 10/10/17 Attend Phys: Xander Zuniga Discharge: Date of : 51 Report #: [id number] THIS REPORT FOR: //name// [facility] Test Date: 2017-10-11 Test Time: 08:27:55 Pat Name: NITZA BEAR Department: Room: [address] Gender: M Interior Assemblies Developer Prover: : 1955 Requested By: Ashish Javed Order Number: [id number] Reading MD: Measurements Intervals [place] Rate: 64 P: 0 NM: 126 QRS: -49 QRSD: 197 T: 63 QT: 440 QTc: 454 Interpretive Statements Atrial-ventricular dual-paced rhythm No further analysis attempted due to paced rhythm Compared to ECG 05/12/2017 18:22:05 No significant changes [email or web address] By: 0827 0827 Epiphany EpiphanyMD /EPI
[~2017-10-10 03:00] MED LIST changes: +CEFUROXIME500 MG PO; +LEVAQUIN 750 M750 MG PO; +NEURONTIN 300M300 M2 PO
[2017-10-10 03:49] LABS: ABSOLUTE EOSINOPHILS 0.1 thou/uL (0.0-0.7); ABSOLUTE MONOCYTES 0.3 thou/uL (0.0-1.2); ABSOLUTE NEUTROPHILS 2.7 thou/uL (1.6-8.1); BASOPHILS 0.8 %; EOSINOPHILS 2.6 %; HEMATOCRIT 38.4 % (42.0-52.0); HEMOGLOBIN 12.7 gm/dL (14.0-18.0); LYMPHOCYTES 24.7 %; MCH 31.1 pg (26.0-34.0); MONOCYTES 7.3 %; MPV 7.5 fl. (7.2-11.1); NUCLEATED RBCS 0 /100WBC; PLATELET COUNT* 90 thou/uL (150-400); POLYS 64.6 %; RBC 4.09 mil/uL (4.50-6.00); RDW-CV 15.7 % (10.5-14.5); WBC 4.2 thou/uL (4.0-11.0)
[2017-10-10 04:01] LABS: APTT 25.1 Seconds (25.0-31.3)
[2017-10-10 04:08] LABS: NT-PRO BRAIN NAT PEPTIDE 338 pg/mL (<300); TROPONIN-I LEVEL <0.06 ng/mL (<0.06)
[2017-10-10 05:02] LABS: ALBUMIN 3.2 g/dL (3.4-5.0); CALCIUM 8.5 mg/dL (8.5-10.1); CREATININE 0.8 mg/dL (0.6-1.3); POTASSIUM 4.3 mmol/L (3.5-5.1); TOTAL BILIRUBIN 0.3 mg/dL (<0.1-1.0); TOTAL PROTEIN 6.7 g/dL (6.4-8.2)
--- NOTE | 2017-10-10 05:48 | NUR ---
PATIENT WAS ADMITTED TO THE FLOOR FOR CHEST PAIN. DENIES ANY FURTHER COMPLAINTS OF CP. NO SIGN OF DISTRESS. CONT. 02 AT 2 LITERS. UP WITH CANE GERHARD. CONT. WITH PLAN OF CARE AT THIS TIME.
--- NOTE | 2017-10-10 11:15 | NUR ---
SW met with pt to complete initial assessment, introduce self, and SW role. Pt known to this SW from pt previous admissions. Pt lives at home with and niece and niece's family. Pt has oxygen, cane, RW, nebulizer. Pt has history with [facility] and [facility] services. Pt anticipates to be able to dc home with family and does not express any dc needs or concerns at this time. SW to continue to follow to assist with safe dc planning.
--- NOTE | 2017-10-10 13:45 | NUR ---
PT RETURNED FROM CARDIAC CATH. R GROIN INSERTION. SITE SOFT, NO BRUISING OR DRAINAGE. DRESSING CDI.
--- NOTE | 2017-10-10 19:18 | NUR ---
PT C/O PAIN IN R KNEE. PAIN MED GIVEN WITH STATED RELIEF ON REASSESSMENT.
[2017-10-11] VITALS: BP 105/61
[2017-10-11 04:00] VITALS: BP 142/77
[2017-10-11 05:41] LABS: HEMATOCRIT 38.9 % (42.0-52.0); MCH 31.1 pg (26.0-34.0); MCHC 33.3 g/dL (28.0-37.0); MCV 93.5 fL (80.0-100.0); RBC 4.16 mil/uL (4.50-6.00); RDW-CV 16.1 % (10.5-14.5); WBC 4.4 thou/uL (4.0-11.0)
[2017-10-11 06:05] LABS: ALBUMIN 3.2 g/dL (3.4-5.0); ALKALINE PHOSPHATASE 42 U/L (46-116); ANION GAP 5 mmol/L (7-16); BUN 14 mg/dL (7-18); CALCIUM 8.4 mg/dL (8.5-10.1); CHLORIDE 102 mmol/L (98-107); CO2 29 mmol/L (21-32); CREATININE 0.9 mg/dL (0.6-1.3); GLUCOSE 90 mg/dL (70-99); POTASSIUM 4.3 mmol/L (3.5-5.1); SGOT 23 U/L (15-37); SGPT 28 U/L (30-65); SODIUM 136 mmol/L (136-145); TOTAL BILIRUBIN 0.4 mg/dL (<0.1-1.0); TOTAL PROTEIN 6.8 g/dL (6.4-8.2)
[2017-10-11 06:06] LABS: SERUM ASSESSMENT CLEAR
[2017-10-11 06:16] LABS: CHOLESTEROL 142 mg/dL (<200); HDL CHOLESTEROL 33 mg/dL (>40); LDL CHOLESTEROL 61 mg/dL (<100); TC:HDL 4.3 Ratio (Not establshd); TRIGLYCERIDE 243 mg/dL (<150); VLDL 49 mg/dL (<40)
[2017-10-11 08:00] VITALS: BP 122/66
--- NOTE | 2017-10-11 08:06 | NUR ---
RECEIVED REPORT AND ASSUMED CARE AT 1900. VSS. CARDIAC MONITORING IN PLACE. PT DENIES ANY COMPLAINTS OF PAIN. ASSESSMENT COMPLETED CHARTED. DISCUSSED PLAN OF CARE WITH PT. VERBALIZED UNDERSTANDING. MEDICATION ADMIN PER EMAR. PT UP WITH ASSIST WITH CANE IN ROOM, 2L NC. BED LOCKED IN LOWEST POSITION, CALL LIGHT WITHIN REACH. HOURLY ROUNDING COMPLETED. ALL NEEDS MET. WILL CONTINUE TO MONITOR
--- NOTE | 2017-10-11 08:44 | NUR ---
ASSUMED PT CARE AT 0730, FULL ASSESMENT DONE CHARTED. PT A/O X4, DENIES PAIN, STATES HE "IS FEELING MUCH BETTER". VSS, AV PACED ON THE MONITOR, RIGHT GROIN SOFT, NO DRAINAGE, SMALL AMOUNT OF BRUISING PRESENT. DRESSING FROM CATH IN PLACE. PT WANTS TO SHOWER, PT EDUCATED TO WAIT UNTILL LUNCH TIME. PT VERBALIZED UNDERSTANDING OF EDUCATION. PT USES CALL LIGHT APPROPRIALTY. WILL CONTINUE WITH PLAN OF CARE.
[2017-10-11 11:14] VITALS: BP 132/77
[2017-10-11] MEDS ORDERED: EFFIENT10 MG PO (11:30)
[2017-10-11] MEDS ORDERED: ASPIR 8181 MG PO (11:30)
--- NOTE | 2017-10-12 11:50 | CARD ---
[address] [address] CARDIAC CATH REPORT Name: NITZA BEAR Room: [address] Vinicio Malik#: [id number] Admission: 10/10/17 Attend Phys: Xander Zuniga Discharge: 10/11/17 Date of : 51 Report #: [id number] THIS REPORT FOR: //name// APPROVED REPORT Study performed: 10/10/2017 10:36:42 Patient Details Patient Status: In-Patient Room #: 229 The patient is a 62 year-old male Event Personnel Ashish Javed Substitute Nurse, Magdalene Carrera RN Balloon Artist, Vinicisu Kowalski (R) Monitor, Laura Mack RTR Scrub, Mackenzie Frias RTR Monitor Procedures Performed Art Access - R femoral artery* , Left Heart Catheterization BEATRIZ Place w/wo Plasty Single LAD BEATRIZ place w/wo Plasty Single Circ Indication Unstable angina Risk Factors Hypercholesterolemia, Hypertension Admission/Lab Medications/Medications given during procedure Aspirin, Platelet Aff. Inhib. Procedure Narrative The patient was brought electively to the Cardiac Catheterization Laboratory and was prepped and draped in a sterile manner. The right femoral was infiltrated with 2% Lidocaine subcutaneous anesthesia. A 6Fr pinnacle sheath was inserted into the right femoral artery. Coronary angiography was performed using coronary diagnostic catheters. The right coronary system was accessed and visualized with a Diagnostic 6Fr JR4 catheter. The left coronary system was accessed and visualized with a Diagnostic 6Fr JL4 catheter. The left ventricle was accessed and visualized with a Diagnostic 6Fr straight pigtail catheter. Left ventricular/Aortic Valve gradient assessed via catheter pullback. An aortogram of the KIM was performed. Closure device was deployed with a 6 Fr Angioseal STS 6Fr. Hemostasis was obtained with manual pressure following sheath removal without any complications. The patient tolerated [place] [address] CARDIAC CATH REPORT Name: NITZA BEAR Room: [address] M.RLudin#: [id number] Admission: 10/10/17 Attend Phys: Xander Zuniga Discharge: 10/11/17 Date of : 51 Report #: [id number] were no complications associated with the procedure. There was no hematoma. Intraoperative Conscious Sedation Sedation start time: 11:20am Case end Time: 1:00pm Fentanyl 100 mcg Versed 2 mg Fluoro Time: 23.6 minutes Dose: DAP 080837 cGycm2 4562 mGy Contrast Type and Amount: Visipaque 510 ml Diagnostic Cath Left Main 0% narrowing LAD 30% proximal narrowing with 70-90% calcified mid vessel stenosis and 30% distal narrowing Circumflex Large dominant vessel with 80% stenosis of the second posterior lateral branch of the distal circumflex Right Coronary Small nondominant vessel with 30% proximal narrowing Hemodynamics The aortic pressure is 126/63 mmHg with a mean of 86 mmHg. The left ventricular pressure is 127/5 mmHg with a mean of mmHg. The left ventricular end diastolic pressure is 13 mmHg. There was no gradient across the aortic valve upon pullback. PCI Technique Lesion Percutaneous coronary intervention was performed on the second left posterolateral descending artery segment. The lesion stenosis prior to intervention was 80% with MOISES 3 flow. A 6FR XB 3.5 100CM Guide Catheter was used to engage the ostium. A BMMW 190CM Interventional Guidewire was used to cross the lesion. BALLOON DILATION A Balloon catheter NC Trek RX 2.5 X 12 was inserted and inflated up to 10.00atm for 14seconds. STENT DEPLOYMENT A drug-eluting stent Xience Alpine RX 2.75X15 was inserted and inflated up to 10.00atm for 11seconds. Additional Inflation: 14.00atm for 13seconds. Additional Inflation: 16.00atm for 10seconds. Final angiography reveals 10 % stenosis with MOISES 3 flow. PCI Technique Lesion 2 [place] [address] CARDIAC CATH REPORT Name: NITZA BEAR Room: [address] Vinicio Malik#: [id number] Admission: 10/10/17 Attend Phys: Xander Zuniga Discharge: 10/11/17 Date of : 51 Report #: [id number] Percutaneous Coronary Intervention was performed on the mid left anterior descending artery segment. The lesion stenosis prior to intervention was 90% with MOISES 3 flow. A 6FR XB 3.5 100CM Guide Catheter was used to engage the ostium. A BMW 190 Interventional Guidewire was used to cross the lesion. Balloon Dilation A Balloon catheter NC Trek RX 2.25x12 was inserted and inflated up to 18.00atm for 18seconds. Additional Inflation: 18.00atm for 11seconds. Additional Inflation: 20.00atm for 11seconds. Stent Deployment A drug-eluting stent Xience Alpine RX 2.25X23 was inserted and inflated up to 12.00atm for 12seconds. Additional Inflation: 15.00atm for 15seconds. XIENCE ALPINE RX 2.5X12 INSERTED INTO MID LEFT ANTERIOR DESCENDING ARTERY SEGMENT INFLATED FOR 10 MARIIA @ 12 SEC, 12 MARIIA @ 11 SEC Post Stent Deployment Balloon Dilation A Balloon catheter NC Trek RX 2.5 X 12 was inserted and inflated up to 14.00atm for 7seconds. Additional Inflation: 15:00atm for 10seconds. Additional Inflation: 16:00atm for 11seconds. Final angiography reveals 0 % stenosis with MOISES 3 flow. Comments Mid LAD was a heavily calcified segment Conclusion #1 significant coronary artery disease characterized by the following: A 30% proximal with 90% heavily calcified mid LAD stenosis B large dominant circumflex with 80% narrowing of the proximal portion of the second posterior lateral branch of the distal circumflex C small nondominant right coronary artery 30% proximal narrowing #2 normal left ventricular systolic function, estimate ejection fraction being 60% #3 normal left-[place] [address] CARDIAC CATH REPORT Name: NITZA BEAR Room: [address] Vinicio Malik#: [id number] Admission: 10/10/17 Attend Phys: Xander Zuniga Discharge: 10/11/17 Date of : 51 Report #: [id number] #4 successful percutaneous coronary intervention with deployment of a drug-eluting stent inside 80% stenosis in the second posterolateral branch of the distal circumflex with 10% residual narrowing #5 successful percutaneous coronary intervention with deployment of drug-eluting stent at site of 90% calcified mid LAD stenosis with 0% residual narrowing and MOISES-3 flow to the distal vessel Recommendations Cardiac Risk Reduction Program Aggressive Medical Therapy Medications Administered Aspirin (any) Prasugrel Diagnostic Cath Approved by: Ashish Javed MD Date/Time: 10/12/2017 11:49:58 <ELECTRONICALLY SIGNED> By: Ashish Javed MD, [facility] 10/12/17 1150 1150 1150Ashish Javde MD, FAC /INF
== END 2017-10-11 13:38 | disposition home or self-care (01) ==
LOC: M.ERS 03:00 → M.TBA-ER 03:56 → M.2W 03:56
PROVIDERS: Internal Medicine; Personal Emergency Response Attendant; ADMIT Internal Medicine
DX: R07.9 Chest pain, unspecified (principal); I25.119 Atherosclerotic heart disease of native coronary artery with unspecified angina pectoris; I11.0 Hypertensive heart disease with heart failure; I50.20 Unspecified systolic (congestive) heart failure; J44.9 Chronic obstructive pulmonary disease, unspecified; E11.9 Type 2 diabetes mellitus without complications; I48.91 Unspecified atrial fibrillation; I25.2 Old myocardial infarction; I49.9 Cardiac arrhythmia, unspecified; Z95.0 Presence of cardiac pacemaker; Z87.891 Personal history of nicotine dependence; Z72.89 Other problems related to lifestyle; Z95.5 Presence of coronary angioplasty implant and graft; I42.9 Cardiomyopathy, unspecified; Z90.49 Acquired absence of other specified parts of digestive tract; Z98.890 Other specified postprocedural states

== ENCOUNTER 2017-10-11 14:56 | Emergency (ER) | payer MEDICAID ==
[~2017-10-11] VITALS: Ht 170.2 cm; Wt 130.6 kg
[~2017-10-11 14:56] MED LIST changes: +ASPIR 8181 MG PO; +EFFIENT10 MG PO
[2017-10-11 17:09] VITALS: BP 127/50
--- NOTE | 2017-10-23 11:01 | EKG ---
[place] [address] ELECTROCARDIOGRAM REPORT Name: NITZA BEAR [id number] Admission: 10/11/17 Attend Phys: Discharge: 10/11/17 Date of : 51 Report #: [id number] THIS REPORT FOR: //name// Atrial-ventricular dual-paced rhythm No further analysis attempted due to paced rhythm Compared to ECG 05/12/2017 18:22:05 No significant changes Electronically Signed On 10-12-2017 10:22:42 CDT by Allan Wellington By: 1022 1058 Allan Wellington MD, FACC /JW
--- NOTE | 2017-10-23 11:04 | EKG ---
[place] [address] ELECTROCARDIOGRAM REPORT Name: NITZA BEAR [id number] Admission: 10/11/17 Attend Phys: Discharge: 10/11/17 Date of : 51 Report #: [id number] THIS REPORT FOR: //name// Ventricular-paced rhythm No further analysis attempted due to paced rhythm Compared to ECG 05/12/2017 18:22:05 No significant changes Electronically Signed On 10-12-2017 10:21:31 CDT by Allan Wellington By: 1021 1103 Allan Wellington MD, FACC /JW
--- NOTE | 2017-10-23 11:07 | EKG ---
[address] [address] ELECTROCARDIOGRAM REPORT Name: NITZA BEAR Room: [facility]#: [id number] Admission: 10/11/17 Attend Phys: Discharge: 10/11/17 Date of : 51 Report #: [id number] THIS REPORT FOR: //name// Afib/flut and V-paced complexes No further analysis attempted due to paced rhythm Baseline wander in lead(s) V3,V4,V5 Compared to ECG 05/12/2017 18:22:05 No significant changes Electronically Signed On 10-11-2017 17:29:35 CDT by Allan Wellington By: 1729 1105 Allan Wellington MD, FACC /JW
== END 2017-10-11 17:10 | disposition short-term general hospital (02) ==
LOC: M.ERS 14:56
DX: S09.90XA Unspecified injury of head, initial encounter (principal); R07.9 Chest pain, unspecified; E11.9 Type 2 diabetes mellitus without complications; I11.0 Hypertensive heart disease with heart failure; I50.9 Heart failure, unspecified; J44.9 Chronic obstructive pulmonary disease, unspecified; Z95.0 Presence of cardiac pacemaker; Z87.891 Personal history of nicotine dependence; Z88.0 Allergy status to penicillin; W10.9XXA Fall (on) (from) unspecified stairs and steps, initial encounter; Y93.89 Activity, other specified; Y92.009 Unspecified place in unspecified non-institutional (private) residence as the place of occurrence of the external cause; Y99.8 Other external cause status

== ENCOUNTER 2017-11-13 15:24 | Inpatient (IN) | payer MEDICAID ==
[~2017-11-13] VITALS: Ht 170.2 cm; Wt 128.2 kg
--- NOTE | ~2017-11-13 | H ---
[address] [address] HISTORY AND PHYSICAL Name: NITZA BEAR Room: [address] IN .R.#: [id number] Admission: 11/13/17 Attend Phys: Jose G Toribio MD, F Discharge: 11/14/17 Date of : 51 Report #: [id number] THIS REPORT FOR: //name// Please refer to the History and Physical performed in the physician's office. By: 0654Medical Records Staff JULITO /VANNESSA
[2017-11-13 15:52] LABS: ABSOLUTE EOSINOPHILS 0.1 thou/uL (0.0-0.7); ABSOLUTE MONOCYTES 0.5 thou/uL (0.0-1.2); ABSOLUTE NEUTROPHILS 4.1 thou/uL (1.6-8.1); BASOPHILS 0.8 %; EOSINOPHILS 2.4 %; HEMATOCRIT 41.1 % (42.0-52.0); HEMOGLOBIN 13.5 gm/dL (14.0-18.0); LYMPHOCYTES 18.1 %; MCHC 32.8 g/dL (28.0-37.0); MCV 94.6 fL (80.0-100.0); MONOCYTES 7.9 %; MPV 6.9 fl. (7.2-11.1); NUCLEATED RBCS 0 /100WBC; PLATELET COUNT* 117 thou/uL (150-400); POLYS 70.8 %; RBC 4.34 mil/uL (4.50-6.00); RDW-CV 16.2 % (10.5-14.5); WBC 5.7 thou/uL (4.0-11.0)
[2017-11-13 16:00] LABS: APTT 28.8 Seconds (25.0-31.3); PROTIME 10.7 Seconds (9.20-11.50)
[2017-11-13 16:03] LABS: ANION GAP 9 mmol/L (7-16); BUN 19 mg/dL (7-18); CALCIUM 8.5 mg/dL (8.5-10.1); CHLORIDE 101 mmol/L (98-107); CO2 29 mmol/L (21-32); GLUCOSE 136 mg/dL (70-99); SODIUM 139 mmol/L (136-145)
[2017-11-13 16:26] LABS: ALBUMIN 3.4 g/dL (3.4-5.0); ALKALINE PHOSPHATASE 59 U/L (46-116); CK-MB MASS 1.1 ng/mL (<0.5-3.6); LIPASE 145 U/L (73-393); MAGNESIUM 1.7 mg/dL (1.8-2.4); NT-PRO BRAIN NAT PEPTIDE 306 pg/mL (<300); SGOT 15 U/L (15-37); SGPT 21 U/L (30-65); TOTAL BILIRUBIN 0.3 mg/dL (<0.1-1.0); TOTAL PROTEIN 7.1 g/dL (6.4-8.2); TROPONIN-I LEVEL <0.06 ng/mL (<0.06)
[2017-11-13 16:42] VITALS: BP 139/93
[2017-11-13 16:50] VITALS: BP 127/73
[2017-11-13 20:00] VITALS: BP 111/63
[2017-11-14] VITALS (10 sets, daily range): BP systolic 82–145; BP diastolic 47–77
--- NOTE | 2017-11-14 10:01 | EKG ---
[place] [address] ELECTROCARDIOGRAM REPORT Name: NITZA BEAR Room: [address] ADM IN .R.#: [id number] Admission: 11/13/17 Attend Phys: Jose G Toribio MD, F Discharge: Date of : 51 Report #: [id number] THIS REPORT FOR: //name// [facility] ED Test Date: 2017-11-13 Test Time: 15:29:24 Pat Name: NITZA BEAR Department: Room: [facility] Gender: M Paste Up Artist: RUTH : 1955 Requested By: Lj Pat Order Number: [id number] MD: Jose G Toribio Measurements Intervals [place] Rate: 74 P: 0 AR: 200 QRS: -61 QRSD: 190 T: 66 QT: 446 QTc: 495 Interpretive Statements A-V dual-paced complexes w/ some inhibition pvc's No further analysis attempted due to paced rhythm Compared to ECG 10/11/2017 08:27:55 pvc's noted Electronically Signed On 11-14-2017 10:01:13 CDT by Jose G Toribio [email or web address] <ELECTRONICALLY SIGNED> By: Jose G Toribio MD, FAC 11/14/17 1001 1529 1529 Jose G Toribio MD, [facility] /EPI
--- NOTE | 2017-11-14 10:10 | EKG ---
[place] [address] ELECTROCARDIOGRAM REPORT Name: NITZA BEAR Room: [address] ADM IN M.R.#: [id number] Admission: 11/13/17 Attend Phys: Jose G Toribio MD, F Discharge: Date of : 51 Report #: [id number] THIS REPORT FOR: //name// [facility] Test Date: 2017-11-14 Test Time: 08:51:48 Pat Name: NITZA BEAR Department: Room: [address] Gender: M Development Manager: : 1955 Requested By: Jose G Toribio Order Number: [id number] Feliciano MD: Jose G Toribio Measurements Intervals [place] Rate: 61 P: 0 OK: 149 QRS: -58 QRSD: 200 T: 63 QT: 475 QTc: 479 Interpretive Statements ventricular paced rhythm No further analysis attempted due to paced rhythm Compared to ECG 10/11/2017 08:27:55 pvc's no longer seen Electronically Signed On 11-14-2017 10:09:47 CDT by Jose G Toribio [email or web address] <ELECTRONICALLY SIGNED> By: Jose G Toribio MD, [facility] 11/14/17 1009 0851 0851 Jose G Toribio MD, [facility] /EPI
--- NOTE | 2017-11-14 18:45 | CARD ---
[address] [address] CARDIAC CATH REPORT Name: NITZA BEAR Room: [address] IN [facility]#: [id number] Admission: 11/13/17 Attend Phys: Jose G Toribio MD, F Discharge: 11/14/17 Date of : 51 Report #: [id number] THIS REPORT FOR: //name// APPROVED REPORT Study performed: 11/14/2017 12:15:34 Patient Details Patient Status: In-Patient Room #: The patient is a 62 year-old male Event Personnel Jose G Toribio [employer] Customer Service, Ene Rodriguez Ultrasound Tester , Magdalene Carrera RN Monitor, Vinicius Kowalski (R) Scrub Procedures Performed Right transradial approach, Left Heart Catheterization Indication Abnormal ECG, Chest pain Risk Factors Dysplipidemia , Coronary Artery Disease, Diabetes Tobacco History () Previous Procedures/Diagnoses Previous PCI Admission/Lab Medications/Medications given during procedure Aspirin, Lipid Lowering Agents, Platelet Aff. Inhib. Procedure Narrative The patient was brought electively to the Cardiac Catheterization Laboratory and was prepped and draped in a sterile manner. The right wrist was infiltrated with 1% Lidocaine subcutaneous anesthesia. A 6Fr Slender [place] sheath was inserted into the Right radial Artery. Coronary angiography was performed using coronary diagnostic catheters. The right coronary system was accessed and visualized with a 6Fr JR4 catheter. The left coronary system was accessed and visualized with a 6Fr JL4 catheter. Left ventricular/Aortic Valve gradient assessed via catheter pullback There was no gradient.. The patient tolerated the procedure well and there were no complications associated with the procedure. There was no hematoma. Hemostasis was obtained with a radial VascBand with 9[place] [address] CARDIAC CATH REPORT Name: NITZA BEAR Room: [address]#: [id number] Admission: 11/13/17 Attend Phys: Jose G Toribio MD, F Discharge: 11/14/17 Date of : 51 Report #: [id number] pressure. Intraoperative Conscious Sedation Fentanyl 25 mcg Fluoro Time: 1.6 minutes Dose: DAP 01427 cGycm2 833 mGy Contrast Type and Amount: 65 Coronary Angiography The patient's coronary anatomy is left dominant. Diagnostic Cath Left Main 0% stenosis LAD 30% proximal stenosis. Long stent in mid lad with 0% stenosis Circumflex 0% stenosis OM2 30% proximal stenosis L GEENA stent with 0% stenosis Right Coronary 0% stenosis Left Ventriculography Left Ventriculography was not performed. Hemodynamics The aortic pressure is 90/56 mmHg with a mean of 69 mmHg. The left ventricular pressure is 97/15 mmHg with a mean of mmHg. The left ventricular end diastolic pressure is 15 mmHg. There was no gradient across the aortic valve upon pullback. Pullback from the left ventricle to the aorta revealed no gradient across the aortic valve. Conclusion 1. no restenosis of stents in the mid lad and distal circumflex Recommendations Aggressive Medical Therapy <ELECTRONICALLY SIGNED> By: Jose G Toribio MD, [facility] 11/14/171843 43 shikha Toribio MD, FAC /INF
--- NOTE | 2017-11-14 18:50 | D ---
[address] [address] DISCHARGE SUMMARY Name: NITZA BEAR Room: [address] IN M.R.#: [id number] Admission: 11/13/17 Attend Phys: Jose G Toribio MD, F Discharge: 11/14/17 Date of : 51 Report #: [id number] THIS REPORT FOR: //name// CC: Maicol Toribio DATE OF SERVICE: 11/14/2017 DISCHARGE DIAGNOSES: 1. Unstable angina. 2. Coronary artery disease. 3. Sick sinus syndrome. 4. Paroxysmal atrial fibrillation. 5. History of deep venous thrombosis. 6. Diabetes. 7. Cardiomyopathy. CONSULTANTS: None. PROCEDURE: Left heart catheterization from the right radial artery. HISTORY OF PRESENT ILLNESS: The patient is a 62-year-old white male who was admitted after an episode of chest pain. The patient has an extensive past medical history. He received a lot of his care in [place], [place]. He had been a heavy smoker in the past. He has also had a gastric bypass surgery for obesity. He has a long history of diabetes. He had previous stents placed in [place], [place]. He had a history of paroxysmal atrial fibrillation and had a previous pacemaker inserted in [place]. He is not very active because of his multiple medical problems. He was admitted to [facility] a month ago with chest pain. He ruled out for myocardial infarction. Dr. Javed performed repeat cardiac catheterization. He had restenosis of the stent in the mid LAD. There was also stenosis in the distal circumflex artery. His ejection fraction was normal. Dr. Javed then placed new drug-eluting stents in the LAD and distal circumflex. He was discharged on aspirin and Effient, but was switched to Brilinta to obtain free samples. The patient returned to the office on 11/13/2017. However, on the way, he did begin to have severe chest heaviness, numbness of his jaw, he felt it was similar to his previous angina. He was seen by my nurse practitioner, Allyson Brito, and sent to the Emergency Room to be admitted. He denies any bleeding, fever. He is on oxygen at home. PAST MEDICAL HISTORY: Otherwise significant for hypertension, hyperlipidemia. MEDICATIONS: Consists of Eliquis, aspirin, Invokana, Celexa, Depakote, Lasix, Neurontin, Amaryl, Imdur, lisinopril, Singulair, potassium, Pravachol, Zantac, Januvia, Brilinta, [place] [address] DISCHARGE SUMMARY Name: NITZA BEAR Room: [address] IN ..#: [id number] Admission: 11/13/17 Attend Phys: Jose G Toribio MD, F Discharge: 11/14/17 Date of : 51 Report #: [id number] ALLERGIES: He had a previous intolerance to PENICILLIN. PHYSICAL EXAMINATION: GENERAL: Revealed a middle-aged male, appeared in no acute distress. VITAL SIGNS: Blood pressure 110/60, pulse is 70. CHEST: Clear to auscultation. HEART: Regular rate and rhythm. ABDOMEN: Obese. EXTREMITIES: No edema. SKIN: Warm and dry. ECG on admission showed a ventricular paced rhythm. His workup in the Emergency Room, he had a portable chest x-ray that showed heart size upper limits normal, pacemaker in place, clear lung cifuentes. LABORATORY DATA: Sodium 139, creatinine 1.0. Liver function studies were normal. Troponin 0.06. His white blood cell count 5.7, hemoglobin 13.5. HOSPITAL COURSE: The patient admitted to a monitored bed. During the second hospital day, I performed coronary angiography from the right radial artery. Results showed no significant restenosis of the stents in the LAD or circumflex. It was felt his chest pain was noncardiac. He tolerated the procedure well. Prior to discharge, there was no hematoma in the wrist. He was discharged to return to care of Dr. Hoyt for routine medical care. He will see Dr. Javed in [facility] one month. He was discharged on his home medications, although he is not to resume Eliquis for 24 hours. He was to continue aspirin 81 mg a day, Invokana, Celexa, Depakote, Lasix, Neurontin, Amaryl, Imdur, Prinivil, Singulair, potassium, pravastatin, ranitidine, Januvia. The patient cannot afford the Brilinta, he was therefore switched to Plavix 75 mg a day and he was to continue Topamax. He was felt to have a good prognosis from cardiac standpoint because of preserved left ventricular function by echocardiogram. I did recommend he start an exercise program and attempt to lose weight. If he continues to have chest pain, he might talk to Dr. Hoyt about other cause of chest pain such as GI tract. <ELECTRONICALLY SIGNED> By: Jose G Toribio MD, [facility] 11/14/17 1850 [id number] [id number] Toribio MD, FACC /nt
== END 2017-11-14 18:21 | disposition home or self-care (01) | DRG 287 ==
LOC: M.ERS 15:24 → M.2W 16:10 → M.TBA-ER 16:10 → M.2W 16:47
PROVIDERS: Family Medicine; ADMIT Internal Medicine Cardiovascular Disease
PROC: B2111ZZ Fluoroscopy of Multiple Coronary Arteries using Low Osmolar Contrast (ICD-10-PCS; principal; 2017-11-14)
PROC: 4A023N7 Measurement of Cardiac Sampling and Pressure, Left Heart, Percutaneous Approach (ICD-10-PCS; principal; 2017-11-14)
DX: I25.110 Atherosclerotic heart disease of native coronary artery with unstable angina pectoris (principal); Z68.41 Body mass index [BMI] 40.0-44.9, adult; I11.0 Hypertensive heart disease with heart failure; I50.9 Heart failure, unspecified; J44.9 Chronic obstructive pulmonary disease, unspecified; E11.9 Type 2 diabetes mellitus without complications; E66.9 Obesity, unspecified; G43.909 Migraine, unspecified, not intractable, without status migrainosus; I49.5 Sick sinus syndrome; I48.0 Paroxysmal atrial fibrillation; E78.5 Hyperlipidemia, unspecified; Z86.718 Personal history of other venous thrombosis and embolism; I25.5 Ischemic cardiomyopathy; I25.2 Old myocardial infarction; Z95.0 Presence of cardiac pacemaker; Z79.899 Other long term (current) drug therapy; Z79.82 Long term (current) use of aspirin; Z88.8 Allergy status to other drugs, medicaments and biological substances; Z88.0 Allergy status to penicillin; Z87.891 Personal history of nicotine dependence; Z98.84 Bariatric surgery status; Z95.5 Presence of coronary angioplasty implant and graft; Z82.49 Family history of ischemic heart disease and other diseases of the circulatory system

== ENCOUNTER 2018-07-09 04:25 | Inpatient (IN) | payer MEDICAID ==
[~2018-07-09] VITALS: Ht 170.2 cm; Wt 127.9 kg
[2018-07-09 04:26] VITALS: BP 145/70
[2018-07-09 04:52] LABS: ABSOLUTE BASOPHILS 0.1 thou/uL (0.0-0.2); ABSOLUTE EOSINOPHILS 0.1 thou/uL (0.0-0.7); ABSOLUTE LYMPHOCYTES 1.5 thou/uL (0.8-5.3); ABSOLUTE MONOCYTES 0.3 thou/uL (0.0-1.2); ABSOLUTE NEUTROPHILS 2.5 thou/uL (1.6-8.1); BASOPHILS 1.5 %; EOSINOPHILS 2.7 %; HEMATOCRIT 41.6 % (42.0-52.0); HEMOGLOBIN 13.5 gm/dL (14.0-18.0); LYMPHOCYTES 33.3 %; MCH 30.3 pg (26.0-34.0); MCHC 32.5 g/dL (28.0-37.0); MCV 93.3 fL (80.0-100.0); MONOCYTES 6.9 %; MPV 7.5 fl. (7.2-11.1); NUCLEATED RBCS 0 /100WBC; PLATELET COUNT* 69 thou/uL (150-400); POLYS 55.6 %; RBC 4.46 mil/uL (4.50-6.00); RDW-CV 15.7 % (10.5-14.5); WBC 4.6 thou/uL (4.0-11.0)
[2018-07-09] MEDS ORDERED: IMDUR 30 MG TAB30 M1 (04:57)
[2018-07-09] MEDS ORDERED: SYMBICORT (05:02)
[2018-07-09] MEDS ORDERED: FLONASE 0.05%50 MCG (05:03)
[2018-07-09 05:04] LABS: ANION GAP 9 mmol/L (7-16); BUN 12 mg/dL (7-18); CALCIUM 9.3 mg/dL (8.5-10.1); CHLORIDE 102 mmol/L (98-107); CO2 30 mmol/L (21-32); CREATININE 1.1 mg/dL (0.6-1.3); GLUCOSE 159 mg/dL (70-99); POTASSIUM 3.9 mmol/L (3.5-5.1); SODIUM 141 mmol/L (136-145)
[2018-07-09 05:09] LABS: PROTIME 9.9 Seconds (9.20-11.50)
[2018-07-09 05:15] LABS: ALBUMIN 3.4 g/dL (3.4-5.0); ALKALINE PHOSPHATASE 58 U/L (46-116); NT-PRO BRAIN NAT PEPTIDE 532 pg/mL (<300); SGOT 39 U/L (15-37); SGPT 52 U/L (30-65); TOTAL BILIRUBIN 0.4 mg/dL (<0.1-1.0); TOTAL PROTEIN 7.6 g/dL (6.4-8.2); TROPONIN-I LEVEL <0.06 ng/mL (<0.06)
[2018-07-09 05:59] LABS: URINE BILIRUBIN NEGATIVE (Negative); URINE BLOOD NEGATIVE (Negative); URINE CLARITY CLEAR; URINE COLOR YELLOW; URINE GLUCOSE-RANDOM 3+ (Negative); URINE KETONES TRACE (Negative); URINE LEUKOCYTES-REFLEX NEGATIVE (Negative); URINE NITRITE-REFLEX NEGATIVE (Negative); URINE PROTEIN NEGATIVE (Negative); URINE SPECIFIC GRAVITY 1.015 (1.005-1.030); URINE UROBILINOGEN 0.2 E.U./dl (0.2-1.0)
--- NOTE | 2018-07-09 07:45 | NUR ---
PT RECIEVED BREAKFAST TRAY WITH MILK, COFFEE, AND OJ AT THIS TIME.
[2018-07-09 09:21] VITALS: BP 133/62
--- NOTE | 2018-07-09 12:50 | NUR ---
PT RECIEVED LUNCH TRAY AT THIS TIME
--- NOTE | 2018-07-09 12:56 | EKG ---
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: : 1955 Requested By: Zunilda Thomas Order Number: [id number] MD: Costa Saucedo Measurements Intervals [place] Rate: 77 P: [place]: QRS: -48 QRSD: 196 T: 82 QT: 450 QTc: 510 Interpretive Statements Atrial fibrillation and V-paced complexes No further analysis attempted due to paced rhythm Compared to ECG 11/14/2017 08:51:48 No significant changes Electronically Signed On 07-09-2018 12:56:29 CDT by Costa Saucedo [email or web address] <ELECTRONICALLY SIGNED> By: Costa Saucedo MD, [facility] 07/09/18 1256 0517 0517 Costa Saucedo MD, [facility] /EPI
[2018-07-09 13:11] VITALS: BP 105/54
[2018-07-09 14:12] VITALS: BP 105/54
[2018-07-09 14:45] VITALS: BP 104/62
--- NOTE | 2018-07-09 18:38 | NUR ---
PATIENT ADMITTED TO ROOM 308 FROM ER. ALERT AND ORIENTED X 4. IV TO RIGHT AC WAS OUT WHEN PATIENT ARRIVED TO FLOOR. RIGHT HAND IV WAS DISCONTINUED BY PATIENT WHEN USING THE BATHROOM, BLOOD WAS NOTED IN THE TOILET. PATIENT AND STAFF BELEIVE IT WAS FROM THE IV WHEN PATIENT WAS ADJUSTING SELF ON TOILET. DR. VALE NOTIFIED. UP WITH ASSISTANCE TO BATHROOM, UTILIZING CANE. [address] NO SKIN BREAKDOWN NOTED. INSULIN GIVEN WITH EVENING MEAL ORDERED. ORIENTED TO CALL LIGHT. CALL LIGHT WITHN REACH, WILL CONTINUE TO MONITOR.
[2018-07-10] VITALS: BP 108/63
[2018-07-10 04:00] VITALS: BP 124/63
--- NOTE | 2018-07-10 05:04 | NUR ---
PATIENT SLEPT WELL DURING THIS SHIFT. PT UP TO BATHROOM WITH USE OF HIS CANE AND O2. PT WEARS O2 @ 3 LITERS DURING THE DAY AND HOME CPAP AT NIGHT. PT WITH DIMINISHED LUNG SOUNDS. PT WITH GENERALIZED EDEMA. PT DENIES PAIN/NAUSEA. FREQUENTLY USED ITEMS AND CALL LIGHT WITHIN REACH. SIDERAILS UPX2. WILL CONTINUE TO MONITOR.
[2018-07-10 07:40] VITALS: BP 136/49
--- NOTE | 2018-07-10 10:23 | NUR ---
SW met with pt to complete initial assessment, introduce self, and SW role. Pt alert, oriented, talkative. Pt continues to live at home with his . Pt has hx of [facility] and [facility]; pt says that all services have signed off for now. Pt has cane, RW, O2, nebulizer. Pt has hx of needing cab voucher rides home; pt and pt still don't have a car. Pt last hospitalization at [facility] was 11/06; pt says that he feels things are going well for him at home. SW to continue to follow to assist with safe dc planning.
[2018-07-10 15:45] VITALS: BP 113/60
--- NOTE | 2018-07-10 17:49 | NUR ---
PATIENT REMAINS ON 3L NC, NO DIFFICULTY NOTED. INSULIN GIVEN WITH MEALS WHEN REQUIRED. IV ABX INFUSED THIS AM ORDERED. PATIENT C/P RIGHT KNEE PAIN AFTER SCOOTING HIMSELF UP IN BED, PRN TRAMADOL AND LIDODERM PATCH ORDERED AND GIVEN. 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 BORREGO WAS NOTIFIED THIS AM THAT WHEN PATIENT COUGHS HR GOES UP. NOTED OT BE 170 THEN BACK DOWN TO 60'S. SCHED COUGH SUPPRESSANTS ORDERED.
[2018-07-11] VITALS (7 sets, daily range): BP systolic 95–136; BP diastolic 48–78
[2018-07-11 04:51] LABS: HEMOGLOBIN 11.7 gm/dL (14.0-18.0); MCH 30.2 pg (26.0-34.0); MCHC 32.6 g/dL (28.0-37.0); MCV 92.8 fL (80.0-100.0); MPV 7.8 fl. (7.2-11.1); RBC 3.88 mil/uL (4.50-6.00); RDW-CV 15.1 % (10.5-14.5); WBC 3.9 thou/uL (4.0-11.0)
[2018-07-11 05:01] LABS: CALCIUM 8.9 mg/dL (8.5-10.1); CREATININE 1.1 mg/dL (0.6-1.3); POTASSIUM 4.8 mmol/L (3.5-5.1)
--- NOTE | 2018-07-11 05:21 | NUR ---
PATIENT SLEPT WELL DURING THIS SHIFT. PT IS ON O2 @ 3 LITERS PER NASAL CANNULA WITH HOME CPAP AT NIGHT. PT REQUESTED PAIN MEDICATION THIS AM AND RECEIVED TRAMADOL X2 FOR KNEE PAIN. PT RETURNED TO SLEEP. PT DENIES NEEDS AT THIS TIME. FREQUENTLY USED ITEMS AND CALL LIGHT WITHIN REACH. SIDERAILS UPX2 AND BED ALARM ON. PT USES CALL LIGHT APPROPRIATELY FOR ASSISTANCE TO BATHRROM. PT IS UP WITH ONE PLUS USE OF CANE. WILL CONTINUE TO MONITOR.
[2018-07-12] VITALS: BP 126/70
[2018-07-12 04:00] VITALS: BP 132/67
--- NOTE | 2018-07-12 06:35 | NUR ---
PT AOX4, PLEASANT, [place]. AWAKE MUCH OF THE NIGHT. UP WITH SBA AND CANE TO BR TO VOID. O2 3L NC WHILE AWAKE AND CPAP WHILE SLEEPING-WEARS AT HOME. PT STATES HE FEELS BETTER BUT STILL A LITTLE "TIGHT". RT TX GIVEN. RFA SL, SOLUMEDROL GIVEN ORDERED, TESSALON PERLES FOR OCC COUGH. HS ACCUCHECK 241, INSULIN GIVEN WITH SNACK. NO LABS THIS MORNING. HAD TYLENOL FOR HEADACHE OVERNIGHT WITH GOOD RESULTS. TELE VPACED. ABLE TO USE CALL LITE AND MAKE NEEDS KNOWN.
[2018-07-12 08:15] VITALS: BP 125/62
--- NOTE | 2018-07-12 14:23 | NUR ---
PATIENT IS ALERT AND ORIENTED TODAY VERY PLEASANT, VITAL SIGNS STABLE ON 2 LITERS OF OXYGEN THROUGH NASAL CANNULA. APPETITE IS GOOD, UP WITH STAND BY TO THE BATHROOM. NO COMPLAINTS OF PAIN TODAY. CALL LIGHT IS IN REACH, WILL CONTINUE TO MONITOR.
[2018-07-12 16:00] VITALS: BP 111/50
--- NOTE | 2018-07-12 17:51 | NUR ---
PT RESTING IN ROOM. PT ALERT AND ORIENTED. PT RESTING IN ROOM. FALL RISK PRECAUTIONS IN PLACE. HOURLY ROUNDING COMPLETED. WILL CONTINUE TO MONITOR.
[2018-07-12 22:15] VITALS: BP 127/65
--- NOTE | 2018-07-13 05:54 | NUR ---
PATIENT HAS SLEPT WELL THROUGHOUT THE NIGHT. VSS ON 3L 02 VIA NASAL CANNULA. PATIENT UP WITH SBA TO THE BATHROOM. MEDICATIONS GIVEN ORDERED AND CHARTED. IV IN RIGHT FOREARM-SL. PATIENT INSTRUCTED TO USE CALL LIGHT WHEN NEEDING ASSISTANCE. HOURLY ROUNDS MADE. WILL CONTINUE WITH PLAN OF CARE AND NURSING TO MONITOR.
[2018-07-13 08:00] VITALS: BP 126/75
[2018-07-13 16:00] VITALS: BP 85/61
--- NOTE | 2018-07-13 17:24 | NUR ---
SHIFT NOTE - PT UP IN CHAIR FOR PART OF THIS SHIFT. O2 PRESENT AT 3L NC. USING URINAL. WILL CONTINUE TO MONITOR.
[2018-07-13 21:40] VITALS: BP 104/53
--- NOTE | 2018-07-14 05:33 | NUR ---
PT ALERT AND ORIENTED. VSS ON CPAP CPAP @ HS, OTHERWISE 3 L NC. MEDS GIVEN PER EMAR. PT WALK UP TO BATHROOM WITH CANE ON STANDBY ASSIST, TOLERATES WELL. PT CALLS OUT APPROPRIATELY. CALL LIGHT WITHIN REACH. HOURLY ROUNDINGS MADE. WILL CONTINUE PLAN OF CARE.
[2018-07-14 07:20] VITALS: BP 107/62
--- NOTE | 2018-07-14 16:04 | NUR ---
PATIENT SITTING IN CHAIR OR UP ON SIDE OF BED MOST OF SHIFT. UP WITH SBA AND USE OF CANE. 02 REMAINS AT 3L NC. PATIENT GIVEN ONE TIME IV DOSE OF STEROIDS THIS AM AND ONE TIME ZOFRAN DOSE FOR NAUSEA WITH GOOD RELIEF NOTED. VOIDING LARGE AMOUNTS OF URINE PER URINAL. PATIENT HOPING TO GO HOME SOON.
[2018-07-14 16:41] VITALS: BP 130/46
[2018-07-14 19:50] VITALS: BP 109/53
--- NOTE | 2018-07-15 05:22 | NUR ---
PATIENT HAS REMAINED ALERT AND ORIENTED X 4 THROUGHOUT THE SHIFT AND RESTING QUIETLY AT INTERVALS. UP AT BEDSIDE WITH CGA/SBA AND CANE. O2 AT 3L/MIN NASAL CANNULA WAKING HOURS AND HOME CPAP HS. VITAL SIGNS WITH O2 SATS STABLE. PATIENT DID REPORT HE BIT HIS TONGUE. BLEEDING SUBSIDED WITHOUT INTERVENTION. NOTED SMALL LACERATION AT TIP OF TONGUE. NO INCREASE IN SHORTNESS OF AIR AND NO NAUSEA TONIGHT REPORTED. CONTINUE TO MONITOR.
[2018-07-15 08:00] VITALS: BP 104/62
[2018-07-15] MEDS ORDERED: LIDOPATCH1 EACH TOP (08:51)
[2018-07-15] MEDS ORDERED: IPRAT-ALBUT 0.5-3 ML INH (08:51)
[2018-07-15] MEDS ORDERED: PULMICORT0.5 MG/2 M INH (08:51)
[2018-07-15] MEDS ORDERED: CEFDINIR300 MG PO (08:51)
[2018-07-15] MEDS ORDERED: DELSYM COU30 MG/5 M1 PO (08:51)
[2018-07-15] MEDS ORDERED: PREDNISONE 10 M10 MG PO (08:51)
[2018-07-15] MEDS ORDERED: BENZONATATE100 MG PO (08:51)
[2018-07-15] MEDS ORDERED: MUCINEX600 MG PO (08:51)
[2018-07-15 09:34] VITALS: BP 109/53
== END 2018-07-15 19:25 | disposition home or self-care (01) | DRG 189 ==
LOC: M.ERS 04:25 → M.TBA-ER 05:11 → M.3W 14:25 → M.ORTHSURG 07-12 17:34
PROVIDERS: Emergency Medicine; ADMIT Internal Medicine
DX: J96.01 Acute respiratory failure with hypoxia (principal); I50.32 Chronic diastolic (congestive) heart failure; J44.1 Chronic obstructive pulmonary disease with (acute) exacerbation; I11.0 Hypertensive heart disease with heart failure; E11.9 Type 2 diabetes mellitus without complications; I25.10 Atherosclerotic heart disease of native coronary artery without angina pectoris; J40 Bronchitis, not specified as acute or chronic; Z88.0 Allergy status to penicillin; Z88.8 Allergy status to other drugs, medicaments and biological substances; Z79.899 Other long term (current) drug therapy; Z95.0 Presence of cardiac pacemaker; Z87.891 Personal history of nicotine dependence

== ENCOUNTER 2018-08-05 04:27 | Inpatient (IN) | payer MEDICAID ==
[~2018-08-05] VITALS: Ht 170.2 cm; Wt 129.3 kg
[~2018-08-05 04:27] MED LIST changes: +BENZONATATE100 MG PO; +DELSYM COU30 MG/5 M1 PO; +FLONASE 0.05%50 MCG; +IMDUR 30 MG TAB30 M1; +IPRAT-ALBUT 0.5-3 ML INH; +LIDOPATCH1 EACH TOP; +MUCINEX600 MG PO; +SYMBICORT
[2018-08-05 04:28] VITALS: BP 115/83
[2018-08-05] MEDS ORDERED: DAILY VITE1 EACH (04:45)
[2018-08-05 04:59] LABS: ABSOLUTE EOSINOPHILS 0.1 thou/uL (0.0-0.7); ABSOLUTE LYMPHOCYTES 0.7 thou/uL (0.8-5.3); ABSOLUTE MONOCYTES 0.2 thou/uL (0.0-1.2); ABSOLUTE NEUTROPHILS 1.9 thou/uL (1.6-8.1); BASOPHILS 0.7 %; EOSINOPHILS 2.6 %; HEMATOCRIT 39.3 % (42.0-52.0); HEMOGLOBIN 12.7 gm/dL (14.0-18.0); LYMPHOCYTES 23.4 %; MCH 29.9 pg (26.0-34.0); MCHC 32.3 g/dL (28.0-37.0); MCV 92.4 fL (80.0-100.0); MONOCYTES 7.5 %; NUCLEATED RBCS 0 /100WBC; POLYS 65.8 %; RBC 4.25 mil/uL (4.50-6.00); RDW-CV 16.1 % (10.5-14.5); WBC 2.9 thou/uL (4.0-11.0)
[2018-08-05 05:02] LABS: PLATELET COUNT* 49 thou/uL (150-400)
[2018-08-05 05:14] LABS: PROTIME 10.6 Seconds (9.20-11.50)
[2018-08-05 05:17] LABS: ANION GAP 9 mmol/L (7-16); BUN 10 mg/dL (7-18); CALCIUM 8.7 mg/dL (8.5-10.1); CHLORIDE 103 mmol/L (98-107); CO2 29 mmol/L (21-32); CREATININE 0.9 mg/dL (0.6-1.3); GLUCOSE 89 mg/dL (70-99); POTASSIUM 4.1 mmol/L (3.5-5.1); SODIUM 141 mmol/L (136-145)
[2018-08-05 05:21] LABS: ALBUMIN 3.1 g/dL (3.4-5.0); ALKALINE PHOSPHATASE 48 U/L (46-116); NT-PRO BRAIN NAT PEPTIDE 634 pg/mL (<300); SGOT 44 U/L (15-37); SGPT 65 U/L (30-65); TOTAL BILIRUBIN 0.4 mg/dL (<0.1-1.0); TOTAL PROTEIN 6.4 g/dL (6.4-8.2); TROPONIN-I LEVEL <0.06 ng/mL (<0.06)
[2018-08-05 07:43] VITALS: BP 94/47
[2018-08-05 08:52] LABS: URINE BILIRUBIN NEGATIVE (Negative); URINE BLOOD NEGATIVE (Negative); URINE CLARITY CLEAR; URINE COLOR YELLOW; URINE GLUCOSE-RANDOM NEGATIVE (Negative); URINE KETONES NEGATIVE (Negative); URINE LEUKOCYTES-REFLEX TRACE (Negative); URINE NITRITE-REFLEX NEGATIVE (Negative); URINE PROTEIN NEGATIVE (Negative); URINE SPECIFIC GRAVITY 1.015 (1.005-1.030); URINE UROBILINOGEN 0.2 E.U./dl (0.2-1.0)
[2018-08-05 08:59] LABS: URINE RBC 0-2 Rare /HPF (0-2); URINE WBC-REFLEX 0-5 Rare /HPF (0-5)
[2018-08-05 09:00] LABS: BACTERIA-REFLEX 1-9 Few /HPF (None Seen); CASTS None Seen /LPF (None Seen); CRYSTALS None Seen /LPF (None Seen); MUCUS 0-3 Light strn/LPF (None Seen)
[2018-08-05 09:02] LABS: SQUAMOUS 0-3 Few /LPF (0-3)
--- NOTE | 2018-08-05 09:28 | NUR ---
PT GIVEN REGULAR BREAKFAST TRAY
[2018-08-05 15:20] VITALS: BP 108/61
--- NOTE | 2018-08-05 16:51 | EKG ---
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 : 1955 Requested By: Zunilda Thomas Order Number: [id number] MD: Jose G Toribio Measurements Intervals [place] Rate: 84 P: 0 NM: 160 QRS: -55 QRSD: 207 T: 83 QT: 431 QTc: 510 Interpretive Statements Ventricular-paced complexes No further analysis attempted due to paced rhythm Compared to ECG 07/09/2018 05:17:26 no change Electronically Signed On 08-05-2018 16:50:49 CDT by Joes G Toribio [email or web address] <ELECTRONICALLY SIGNED> By: Jose G Toribio MD, [facility] 08/05/18 1650 0431 0431 Jose G Toribio MD, [facility] /EPI
--- NOTE | 2018-08-05 17:09 | EKG ---
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
[2018-08-05 19:54] VITALS: BP 119/48
[2018-08-05 20:15] VITALS: BP 152/77
--- NOTE | 2018-08-05 23:24 | NUR ---
PT ADMITTED TO ROOM 226 AT 2014. PT REPORTS BEING SHORT OF BREATH WITH CHEST PAIN PRIOR TO COMING TO HOSPITAL. PT IN PACED RHYTHM ON MONITOR, VITAL SIGNS WITHIN NORMAL LIMITS. PT DENIES CHEST PAIN OR DISCOMORT. PT ASSISTED WITH SHOWER AT 2130. CALL LIGHT IN REACH, PT DEMONSTRATES PROPER USE.
[2018-08-06] VITALS: BP 123/65
[2018-08-06 04:00] VITALS: BP 165/66
--- NOTE | 2018-08-06 07:25 | NUR ---
CHANGE OF SHIFT, BEDSIDE REPORT GIVEN PATIENT SEEN AT BEDSIDE, IN BED RESTING ASSUMED PATIENT CARE
[2018-08-06 08:00] VITALS: BP 142/74
--- NOTE | 2018-08-06 11:28 | NUR ---
SW met with pt to complete assessment, pt known to this SW due to pt previous admissions. Last assessment was 07/10/18. Pt alert, oriented. Pt continues to live at home with his and has DME: cane, RW, oxygen, nebulizer. Pt has hx with [facility] and [facility]. Pt unsure of any dc needs at this time. SW to continue to follow.
[2018-08-06 11:44] VITALS: BP 124/65
--- NOTE | 2018-08-06 16:17 | CARDNUC ---
[place] [address] CARDIAC NUCLEAR IMAGING REPORT Name: NITZA BEAR Room: [address] IN [facility]#: [id number] Admission: 08/05/18 Attend Phys: Iker Garcia, Discharge: Date of : 51 Date of Service: 08/06/18 1616 Report #: [id number] THIS REPORT FOR: //name// APPROVED REPORT Study performed: 08/06/2018 14:49:01 Exam: Nuclear Stress Test Indication: CAD Ht: 5 ft 7 in Wt: 284 lbs BSA: 2.35 m2 BMI: 44.47 Medical History Medications: asa nitrate -held, lipitor Stress Test Details Stress Test: Pharmacologic stress testing performed using 0.4 mg of regadenoson per 5 mL given IV over 10 seconds. HR Resting HR: 66 bpm Max Heart Rate (APMHR): 156 bpm Max HR Achieved: 78 bpm Target HR (85% APMHR): 132 bpm % of APMHR: 50 HR response to stress: Normal HR response to stress BP Resting BP: 132/92 mmHg Max BP: 105/70 mmHg ECG Resting ECG: paced Stress ECG: paced ST Change: none Arrhythmia: none Recovery ECG: paced Recovery ST Change: none Recovery Arrhythmia: none Clinical Stress Symptoms: none Stress ECG Conclusion nondiagnostic ecg [facility] [address] [place] [address] CARDIAC NUCLEAR IMAGING REPORT Name: NITZA BEAR Room: [address] IN [facility]#: [id number] Admission: 08/05/18 Attend Phys: Iker Garcia, Discharge: Date of : 51 Date of Service: 08/06/18 1616 Report #: [id number] NM EXAM: Myocardial Perfusion REST/STRESS Pharmacologic Stress Pharmacologic stress test was performed by injecting Regadenoson 0.4 mg IV push followed by the intravenous injection of 36.9 mCi of Tc-99m Sestamibi. Time of stress injection: 14:55 Date: 08/06/2018 Administration Route: IV Administration Site: Right Arm Heart Rate at time of stress injection: 78 bpm. Gated Stress SPECT was performed 40 minutes after stress injection. The images were gated to evaluate regional wall motion and calculate left ventricular ejection fraction. Prone imaging was performed. Study Quality Study: Good Artifact: Mild Motion artifact Lung Uptake: Normal Study Data Post stress, the left ventricular ejection was 65%.. Perfusion Stress only SPECT images are normal in supine and prone positions, without any perfusion defects. Wall Motion normal Nuclear Conclusion ECG Findings: nondiag. Clinical Findings: neg Nuclear Findings: negative Exercise Capacity: not assessed Left Ventricular Function: normal Risk Study: low Negative stress only lexiscan perfusion stress test for ischemia/[place] [address] CARDIAC NUCLEAR IMAGING REPORT Name: NITZA BEAR Room: [address] IN .R.#: [id number] Admission: 08/05/18 Attend Phys: Iker Garcia, Discharge: Date of : 51 Date of Service: 08/06/181615 Report #: [id number] <Conclusion> nondiagnostic ecg <ELECTRONICALLY SIGNED> By: Allan Wellington MD, FACC 08/06/181615 15 15 Allan Wellington MD, FACC /INF
[2018-08-06 20:00] VITALS: BP 140/56
[2018-08-07] VITALS: BP 100/50
[2018-08-07 04:00] VITALS: BP 104/51
--- NOTE | 2018-08-07 07:10 | NUR ---
CHANGE OF SHIFT BESDIE REPORT GIVEN PATIENT SEEN IN BED RESTING ASSUMED PATIENT CARE
[2018-08-07 08:00] VITALS: BP 137/68
[2018-08-07 12:02] VITALS: BP 122/69
[2018-08-07 15:41] VITALS: BP 113/49
[2018-08-07 17:11] LABS: URINE BILIRUBIN NEGATIVE (Negative); URINE BLOOD NEGATIVE (Negative); URINE CLARITY CLEAR; URINE COLOR YELLOW; URINE GLUCOSE-RANDOM TRACE (Negative); URINE KETONES NEGATIVE (Negative); URINE LEUKOCYTES NEGATIVE (Negative); URINE NITRITE NEGATIVE (Negative); URINE PROTEIN NEGATIVE (Negative); URINE UROBILINOGEN 0.2 E.U./dl (0.2-1.0)
[2018-08-07 20:20] VITALS: BP 124/71
[2018-08-08] VITALS (7 sets, daily range): BP systolic 118–145; BP diastolic 46–94
--- NOTE | 2018-08-08 05:18 | NUR ---
PT SLEPT MOST OF SHIFT. ASSESSMENT DOCUMENTED. MEDS GIVEN PER E-MAR. IV PATENT. PAIN MEDS GIVEN PER E-MAR FOR HEADACHE. ORTHOSTATIC BP'S OBTAINED DOCUMENTED. O2 WORN WHILE AWAKE, CPAP WORN WHILE SLEEPING. WILL CONTINUE WITH PLAN OF CARE.
--- NOTE | 2018-08-08 07:15 | NUR ---
CHANGE OF SHIFT BEDSIDE REPORT GIVEN PATIENT SEEN IN BED SITTING AT EDGE OF BED ASSUMED PATIENT CARE
--- NOTE | 2018-08-08 20:00 | NUR ---
RECEIVED REPORT AND ASSUMED CARE OF PT, ASSESSMENT COMPLETED. SITTING UPON SIDE OF BED. STATES DIZZINESS HAS IMPROVED BUT STILL THERE IF HE GOT UP AND WALKED. STATES TELLEZ IS A CONSTANT 05/29. TELEMETRY ON SHOWING A-V PACED. WILL CONT TO MONITOR AND ASSIST NEEDED.
[2018-08-09] VITALS: BP 148/83
[2018-08-09 04:00] VITALS: BP 142/73
--- NOTE | 2018-08-09 06:53 | NUR ---
SLEPT WELL TONIGHT. PT WEARING HOME CPAP WHILE SLEEPING. NO CHANGE IN ASSESSMENT. TO BR WITH ASSIST AND STEADY GAIT. HS GOALS OF REST AND SAFETY ACHIEVED. HOURLY ROUNDING OBSERVED.
[2018-08-09 07:41] VITALS: BP 136/66
--- NOTE | 2018-08-09 08:15 | NUR ---
ASSUMED CARE AFTER REPORT. ABLE TO COMMUNICATE NEEDS TO STAFF. STONEWORKING SANDER IN PLACE, AV PACED, 63. O2 SAT 98% 3L, ALSO HOME REGIMIN. BLOOD GLUCOSE 151, URINE CONCENTRATED, YELLOW VIA URINAL. PASSING FLATUS. EDEMA APPEARS MORE PRONOUNCED NEAR R EYE. PATIENT C/O MILD H/A, KNEE PAIN. UP WITH ASSISTANCE D/T DIZZINESS, WHICH PATIENT DESCRIBES "THE SAME YESTERDAY EVEN THOUGH I HAVE THIS PATCH." CALL LIGHT IN REACH. HOURLY ROUNDING FOR SAFETY AND PATIENT NEEDS.
[2018-08-09 12:35] VITALS: BP 128/68
--- NOTE | 2018-08-09 15:38 | NUR ---
PATIENT HAS BEEN NPO SINCE 1300 FOR CTA, TRANSPORTED TO RADIOLOGY VIA , OXYGEN. EDUCATION PROVIDED TO PATIENT FOR RATIONALE FOR IMAGING. PATIENT VOICED AGREEMENT WITH PLAN OF CARE.
--- NOTE | 2018-08-09 18:40 | NUR ---
PATIENT RETURNED TO UNIT APPROX 1630, REQUESTS PAIN MED FOR H/A RATED AT 7/10 PER NUMERIC PAIN SCALE. PRN PAIN MED EFFECTIVE. PATIENT STATES, "MY RIGHT EYE SIGHT HAS CHANGED. IT'S MORE BLURRY THAN BEFORE." NIH STROKE SCALE PERFORMED WITH SCORE OF ZERO AND IS DOCUMENTED. CONTINUE TO MONITOR PATIENT FOR CHANGE IN STATUS. CALL LIGHT IN REACH. PROVIDED SUPPORT OF THERAPEUTIC COMMUNICATION.
[2018-08-09 19:45] VITALS: BP 122/69
--- NOTE | 2018-08-09 20:00 | NUR ---
RECEIVED REPORT AND ASSUMED CARE OF PT, ASSESSMENT COMPLETED. PT C/O TELLEZ AND CONT WITH DIZZINESS. WILL GIVE MEDS. O2 ON AT 3L/NC. TELEMETRY ON SHOWING A-V PACED. WILL CONT TO MONITOR AND ASSIST NEEDED.
[2018-08-10] VITALS: BP 116/68
[2018-08-10 04:00] VITALS: BP 127/75
[2018-08-10 05:40] LABS: CHOLESTEROL 113 mg/dL (<200); HDL CHOLESTEROL 29 mg/dL (>40); LDL CHOLESTEROL 58 mg/dL (<100); TC:HDL 3.9 Ratio (Not establshd); TRIGLYCERIDE 130 mg/dL (<150); VLDL 26 mg/dL (<40)
[2018-08-10 05:42] LABS: SERUM ASSESSMENT Clear
--- NOTE | 2018-08-10 06:52 | NUR ---
SLEPT WELL WITH HOME CPAP ON AND OXYGEN. NIH SCORE 0. PT STATES ANTIVERT WORKED WELL, DOES NOT FEEL LIKE HE COULD FALL INTO A WALL WHEN HE GETS UP. DOES C/O FACE AND ARMS ITCHING. STATES HE CAN PUT UP WITH THAT TO GET OVER THE DIZZINESS. NO RASH NOTED. TELEMETRY SHOWING A-V PACED. HS GOALS OF REST AND SAFETY ACHIEVED. HOURLY ROUNDING OBSERVED.
[2018-08-10 09:00] VITALS: BP 130/71
[2018-08-10 10:08] LABS: GLYCOHEMOGLOBIN (HGB A1C) 6.9 % (4.8-5.6)
[2018-08-10 11:47] VITALS: BP 92/61
--- NOTE | 2018-08-10 15:53 | NUR ---
ASSUMED PT CARE AT 729, FULL ASSESMENT DONE CHARTED. PT A/O X4, STATES HE IS STILL HAVING VERTIGO, HE DOES REPORT THAT IT HAS IMPROVED SINCE TAKING NEW MEDS FOR VERTIGO. PT C/O TELLEZ, MEDS GIVEN PER APR. VSS, AV PACED ON THE MONIOTR. FALL PRECAUTIONS IN PLACE, PT USES CALL LIGHT APPROPRIALTY FOR ASSISTANCE, USING URINAL TO VOID. WILL CONTINUE WITH PLAN OF CARE
[2018-08-10 16:16] VITALS: BP 121/68; BP 96/55
--- NOTE | 2018-08-10 18:40 | NUR ---
PT RESTING IN BED THIS EVENING WEARING CPAP. PT DENIES NEED FOR MORE PAIN MEDS. VS REMAIN STABLE. PTS BS MONITORED CHARTED. PT EDUCATED ON PLAN OF CARE, VERBALIZED UNDERSTANDING. FALL PRECAUTIONS IN PLACE. WILL CONTINUE TO MONITOR.
[2018-08-10 20:00] VITALS: BP 123/67
[2018-08-11] VITALS: BP 140/83
[2018-08-11 03:47] VITALS: BP 126/72
--- NOTE | 2018-08-11 04:10 | NUR ---
ASSUMED PT CARE AT 1930. NURSING ASSESSMENT COMPLETED AT START OF SHIFT. A/AV PACED ON PULLEY MAINTAINER. HOURLY ROUNDING COMPLETED. PT C/O H/A AT START OF SHIFT. PRN PAIN MEDICATION ADMINISTERED AND EFFECTIVE. HOURLY ROUNDING COMPLETED. CALL LIGHT WTIHIN REACH.
[2018-08-11 08:30] VITALS: BP 141/65
[2018-08-11] MEDS ORDERED: DEPAKOTE ER250 MG PO (09:32)
[2018-08-11] MEDS ORDERED: ANTIVERT25 MG PO (09:41)
[2018-08-11] MEDS ORDERED: TOPAMAX 25 MG T25 M1 PO (09:41)
[2018-08-11] MEDS ORDERED: ASPIR 8181 MG PO (09:41)
--- NOTE | 2018-08-11 11:17 | CON ---
[address] [address] CONSULTATION Name: MARIANELANITZA Abhishek Room: [address] IN M.R.#: [id number] Admission: 08/05/18 Attend Phys: Iker Garcia MD Discharge: Date of : 51 Report #: [id number] THIS REPORT FOR: //name// CC: Maicol Garcia NEUROLOGY CONSULT HISTORY OF PRESENT ILLNESS: The patient is a 62-year-old male who has had some difficulty with gait. When the patient first presented to the hospital on the , he had been admitted for chest pain, but when he went to stand up and go into the bathroom, he became very unsteady. Apparently, the patient as he was about to be discharged yesterday, experienced the same feeling. He is now wearing a scopolamine patch and states that the dizziness is approximately 40% improved. He also tells me that he has now developed double vision that began just this morning. He had not mentioned this to his nurse. He only has the double vision when he is looking to the extreme right or left. The patient also has a history of migraine headache. He had seen a neurologist in [place] for this and was taking Depakote 500 mg twice a day, although now he is being given the medication 3 times a day and topiramate 25 mg twice a day. The patient is not headache free. He continues to have a headache approximately every day, but the headache is not as intense. PAST MEDICAL HISTORY: Hypertension, diabetes mellitus, congestive heart failure, chronic obstructive pulmonary disease, migraine headache, hyperlipidemia, gastroesophageal reflux. PAST SURGICAL HISTORY: Pacemaker. MEDICATIONS: At home, citalopram 20 mg daily, topiramate 25 mg b.i.d., Depakote 500 mg b.i.d. (it states that he is taking it 3 times a day, but the patient told me he only takes it twice a day), pravastatin 40 mg a day, multivitamin, Zantac 150 mg b.i.d., potassium 20 mEq daily, folic acid 1 mg daily, Eliquis 5 mg b.i.d., Invokana 300 mg daily, gabapentin 300 mg t.i.d., Januvia 100 mg daily, isosorbide 30 mg daily. ALLERGIES: PENICILLIN AND LOVENOX. PHYSICAL EXAMINATION: VITAL SIGNS: Temperature is 36.6, pulse rate 60, respiratory rate 18, blood pressure 92/61, bedside pulse oximetry 100% on 3 liters. LABORATORY DATA: Hematology: White blood cell count 2.9, hemoglobin 12.7, hematocrit 39.3, platelet count 49. Chemistry: Sodium 141, potassium 4.1, chloride 103, carbon dioxide 29, BUN 10, creatinine 0.9. Hemoglobin A1c 6.9. Liver functions normal with the exception of AST, which is 44. [place] [address] CONSULTATION Name: NITZA BEAR Room: [address]#: [id number] Admission: 08/05/18 Attend Phys: Iker Garcia MD Discharge: Date of : 51 Report #: [id number] IMAGING STUDIES: CT angiogram of the head is unremarkable for any acute event, atrophy and microvascular disease is seen. NEUROLOGIC EXAM: Cranial nerves 2-12 are grossly intact. Motor exam demonstrates symmetrical strength in all 4 extremities with tone and bulk normal. Reflexes are symmetrical throughout. Coordination reveals intact [id number]. Gait was not tested. IMPRESSION: Some of the patient's dizziness and double vision may be secondary to Depakote. The patient only takes the medication twice a day, but he is now being prescribed this medication 3 times a day. I would also like to further reduce the dose of Depakote and increase topiramate. The patient states that he has gone from 400 pounds to less than 300 pounds and does not feel that the Depakote has caused weight gain, but I do think that he is being given the medication in a manner in which he does not take it at home and therefore this is contributing to these other symptoms like dizziness and double vision. I also think that because the patient is still not headache free, he would benefit from either a trial of Botox, which would be the next best step or CGRP inhibitor, these issues can be taken care of as an outpatient. If reducing the dose of Depakote is ineffective, then further diagnostic studies may need to be done as an outpatient, like a referral to hearing and balance for the dizziness and perhaps to the activity director for the double vision or as an outpatient drawing labs for myasthenia gravis, which I doubt this patient has. I thank you for your kind referral of this patient and we will continue to follow him with you. <ELECTRONICALLY SIGNED> By: Sierra Sebastian DO 08/11/18 1117 1304 [id number] Sebastian DO /nt
--- NOTE | 2018-08-11 11:40 | NUR ---
ASSUMED CARE OF PATIENT AT 0730. PATIENT WAS SITTING UP ON THE SIDE OF THE BED THIS AM. VITALS TAKEN AND HEAD TO TOE ASSESSMENT WAS COMPLETED. PATIENT UP AND TO THE BATHROOM WITH THE WALKER WITH STAND BY ASSIST. HOURLY ROUNDING OCCURING. PATIENT TO BE DISCHARGED THIS AFTERNOON.
[2018-08-11 12:00] VITALS: BP 113/59
[2018-08-11 13:24] VITALS: BP 113/59
--- NOTE | 2018-08-11 14:36 | NUR ---
AFTER RECIEVING D/C ORDERS NEUROLGY CONTACTED TO INQUIRE ABOUT FOLLOW UP FOR PATIENT. PER DR. SLADE PATIENT WILL BE CALLED ON 08/12/18 FOR FOLLOW UP APPOINTMENT. PATIENT REMOVED FROM MONITOR AND IV D/MANDIE. PATIENT VERBALIZED UNDERSTANDING OF D/C INSTRUCTIONS. PATIENT PUSHED DOWN TO CAB VIA WHEELCHAIR AT 1435.
--- NOTE | 2018-08-11 17:32 | NUR ---
I HAVE REVIEWED AND AGREE WITH THE CHARTING OF MEREDITH Pulliam RN. ON 08/11/18
[2018-08-12] MEDS ORDERED: TRANSDERM-SCOP1 EACH TD (09:38)
--- NOTE | 2018-08-12 09:38 | NUR ---
PT DISCHARGED ON 08/11/18, PT CALLED TODAY ASKING "WAS I SUPPOSED TO GET A PERSCRIPTION FOR A PATCH BEHIND MY EAR"? PT HAD RECIEVED A SCOPALAMINE PATCH IN HOSPITAL. SPOKE TO DISCHARGING DR AND RECIEVED ORDER TO CALL IN A SCRIPT. SPOKE TO PT TO INFORM HIM, CALLED HIS PHARMACY WITH SCRIPT.
== END 2018-08-11 14:35 | disposition home or self-care (01) | DRG 303 ==
LOC: M.ERS 04:27 → M.TBA-ER 05:42 → M.2W 20:15
PROVIDERS: Emergency Medicine; Internal Medicine; ADMIT Internal Medicine
DX: I25.118 Atherosclerotic heart disease of native coronary artery with other forms of angina pectoris (principal); D61.818 Other pancytopenia; I11.0 Hypertensive heart disease with heart failure; I50.9 Heart failure, unspecified; E11.9 Type 2 diabetes mellitus without complications; J44.9 Chronic obstructive pulmonary disease, unspecified; E78.5 Hyperlipidemia, unspecified; G47.33 Obstructive sleep apnea (adult) (pediatric); I48.0 Paroxysmal atrial fibrillation; K21.9 Gastro-esophageal reflux disease without esophagitis; G43.909 Migraine, unspecified, not intractable, without status migrainosus; D46.9 Myelodysplastic syndrome, unspecified; Z95.5 Presence of coronary angioplasty implant and graft; Z95.0 Presence of cardiac pacemaker; Z87.891 Personal history of nicotine dependence; Z79.01 Long term (current) use of anticoagulants; Z79.899 Other long term (current) drug therapy; Z88.0 Allergy status to penicillin; Z88.8 Allergy status to other drugs, medicaments and biological substances

== ENCOUNTER 2019-01-10 01:36 | Inpatient (IN) | payer MEDICARE, MEDICAID ==
[2019-01-10] VITALS (14 sets, daily range): BP systolic 122–175; BP diastolic 54–101
[~2019-01-10] VITALS: Ht 167.6 cm; Wt 126.1 kg
[~2019-01-10 01:36] MED LIST changes: +ANTIVERT25 MG PO; +DAILY VITE1 EACH PO; +DEPAKOTE ER250 MG PO; -IMDUR 30 MG TAB30 M1; +TRANSDERM-SCOP1 EACH TD
[2019-01-10 02:10] LABS: ABSOLUTE EOSINOPHILS 0.1 thou/uL (0.0-0.7); ABSOLUTE LYMPHOCYTES 0.5 thou/uL (0.8-5.3); ABSOLUTE MONOCYTES 0.2 thou/uL (0.0-1.2); ABSOLUTE NEUTROPHILS 1.5 thou/uL (1.6-8.1); BASOPHILS 1.1 %; HEMATOCRIT 39.3 % (42.0-52.0); HEMOGLOBIN 12.8 gm/dL (14.0-18.0); LYMPHOCYTES 21.7 %; MCH 28.3 pg (26.0-34.0); MCHC 32.5 g/dL (28.0-37.0); MCV 87.1 fL (80.0-100.0); MONOCYTES 9.5 %; MPV 7.4 fl. (7.2-11.1); NUCLEATED RBCS 0 /100WBC; PLATELET COUNT* 63 thou/uL (150-400); POLYS 63.7 %; RBC 4.51 mil/uL (4.50-6.00); RDW-CV 15.9 % (10.5-14.5); WBC 2.3 thou/uL (4.0-11.0)
[2019-01-10 02:21] LABS: CALCIUM 9.2 mg/dL (8.5-10.1); POTASSIUM 4.4 mmol/L (3.5-5.1)
[2019-01-10 02:26] LABS: APTT 21.7 Seconds (25.0-31.3); INR 1.1; PROTIME 10.9 Seconds (9.20-11.50)
[2019-01-10 02:28] LABS: BE -1.2 mmol/L (-2 to +3); PCO2 39.7 mmHg (35.0-45.0); PO2 97.9 mmHg (75.0-100.0); pH 7.391 (7.340-7.450)
[2019-01-10 02:31] LABS: ALBUMIN 3.4 g/dL (3.4-5.0); TOTAL BILIRUBIN 0.4 mg/dL (<0.1-1.0); TOTAL PROTEIN 6.9 g/dL (6.4-8.2)
--- NOTE | 2019-01-10 04:30 | NUR ---
RECEIVED REPORT FROM ER AND PT ADMITTED TO ROOM AT 0415. NO ACUTE DISTRESS. SITTING UPON SIDE OF BED, O2 ON AT 2L/NC, SOB WITH ACTIVITY. MARTINEZ LOWER LEGS DISCOLORED AND WITH 2+ EDEMA. RT QUARLES HAS WOUND, PT STATES HIT BED FRAME WITH LEG. TELEMETRY ON SHOWING AV PACED. WILL CONT TO MONITOR AND ASSIST NEEDED.
--- NOTE | 2019-01-10 09:13 | NUR ---
ASSUMED CARE OF PT THIS AM AROUND 0715- SANITARY LANDFILL SUPERVISOR IN PLACE ORDERED, TRACING A/V PACED WITH BBB- UPON ASSESSMENT PT NOTED TO BE RESTING IN BED, WATCHING TV- PT A&O X4- CONTINENT OF B/B- AX 1 WITH TRANSFERS- DIMINISHED LUNG SOUNDS NOTED, RESP EVEN AND UN-LABORED- VSS, O2 SAT 98% ON 2L VIA NC- ABD SOFT/ROUND/NON-TENDER, BS X4 QUADS- LAST BM REPORTED 01/09/19- IV NOTED TO LEFT UPPER ARM/CHEST INTACT, IV ABT INFUSSING PRESCIBED THIS AM- PT CURRENTLY NPO PENDING CARDIOLOGY PLANS- FLU SHOT GIVEN IN RIGHT UE THIS AM PRESCIBED- ECHO ORDERED PER CARDIOLOGY- PT REPORTS SLIGHT DISCOMFORT TO LEFT SHOULDER AND JAW, NITRO PASTE NOTED IN PLACE- CALL LIGHT AND PERSONAL BELONGINGS WITH IN REACH- PT MAKES NEEDS KNOWN- ALL NEEDS MET AT THIS TIME-WCTM
[2019-01-10 10:31] LABS: CHOLESTEROL 148 mg/dL (<200); HDL CHOLESTEROL 36 mg/dL (>40); LDL CHOLESTEROL 90 mg/dL (<100); TC:HDL 4.1 Ratio (Not establshd); TRIGLYCERIDE 113 mg/dL (<150); VLDL 23 mg/dL (<40)
[2019-01-10 10:34] LABS: SERUM ASSESSMENT Clear
--- NOTE | 2019-01-10 11:44 | NUR ---
MET WITH PT AND TO DISCUSS HOME SITUATION/DC PLANNING. PT LIVES WITH SPOUSE. HE IS FAIRLY INDEPENDENT AT HOME. ASSISTS NEEDED. PT USES WALKER OR CANE, OXYGEN, NEBULIZER AND BIPAP. STATES HIS O2 IS THRU [facility] AND BIPAP THRU [facility] IN [place]. PT HAS HAD HH IN PAST THRU [facility]. PLANS TO RETURN HOME AT [place]. HAVING HEART CATH TODAY. WILL FOLLOW
--- NOTE | 2019-01-10 13:51 | 2DMMODE ---
[place] [address] 2 D/M-MODE ECHOCARDIOGRAM Name: MARIANELANITZA E Room: [address] IN [facility]#: [id number] Admission: 01/10/19 Attend Phys: Iker Garcia, Discharge: Date of : 51 Date of Service: 01/10/19 1350 Report #: [id number] THIS REPORT FOR: //name// APPROVED REPORT Study performed: 01/10/2019 10:40:01 EXAM: Comprehensive 2D, Doppler, and color-flow Echocardiogram Patient Location: In-Patient Room #: 219 Status: routine BSA: 2.29 HR: 67 bpm BP: 150/83 mmHg Rhythm: NSR Other Information Study Quality: Good Indications Dyspnea CAD Chest Pain 2D Dimensions IVSd: 11.76 (7-11mm) LVOT Diam: 23.92 (18-24mm) LVDd: 54.38 mm PWd: 12.32 (7-11mm) Ascending Ao: 38.17 (22-36mm) LVDs: 36.12 (25-40mm) Aortic Root: 36.64 mm Volumes Left Atrial Volume (Systole) LA ESV Index: 35.30 mL/m2 Aortic Valve AoV Peak Scot.: 2.00 m/s AO Peak Gr.: 16.07 mmHg LVOT Max P.22 mmHg AO Mean Gr.: 9.50 mmHg LVOT Mean P.01 mmHg LVOT Max V: 1.25 m/s AO V2 VTI: 39.11 cm LVOT Mean V: 0.79 m/s NOHEMI (VTI): 3.01 cm2 LVOT V1 VTI: 26.17 cm Mitral Valve E/A Ratio: 1.59 [place] [address] 2 D/M-MODE ECHOCARDIOGRAM Name: NITZA BEAR Room: [address] IN M.R.#: [id number] Admission: 01/10/19 Attend Phys: Iker Garcia, Discharge: Date of : 51 Date of Service: 01/10/19 1350 Report #: [id number] MV Decel. Time: 277.64 ms MV E Max Scot.: 1.03 m/s MV PHT: 80.52 ms MVA (PHT): 2.73 cm2 TDI E/Lateral E': 9.36 E/Medial E': 17.17 Medial E' Scot.: 0.06 m/s Lateral E' Scot.: 0.11 m/s Pulmonary Valve PV Peak Scot.: 1.15 m/s PV Peak Gr.: 5.32 mmHg Tricuspid Valve RAP Estimate: 5.00 mmHg TR Peak Gr.: 37.80 mmHg RVSP: 42.00 mmHg PA Pressure: 42.00 mmHg Left Ventricle The left ventricle is normal size. There is normal LV segmental wall motion. Mild concentric left ventricular hypertrophy. Left ventricular systolic function is normal. The left ventricular ejection fraction is within the normal range. LVEF is 55-60%. Grade IV - fixed restrictive diastolic dysfunction. Right Ventricle Right ventricle is mildly dilated. The right ventricular systolic function is normal. Atria Left atrium is mildly dilated. Right atrium is mildly dilated. Aortic Valve Mild aortic valve sclerosis. Trace aortic regurgitation. There is no aortic valvular stenosis. Mitral Valve There is mitral annular calcification. Mild mitral regurgitation. No evidence of mitral valve stenosis. Tricuspid Valve The tricuspid valve is normal in structure. Mild tricuspid regurgitation. Moderate pulmonary hypertension[place] [address] 2 D/M-MODE ECHOCARDIOGRAM Name: NITZA BEAR Room: [address]#: [id number] Admission: 01/10/19 Attend Phys: Iker Garcia, Discharge: Date of : 51 Date of Service: 01/10/19 1350 Report #: [id number] The pulmonary valve is normal in structure. There is no pulmonic valvular regurgitation. Great Vessels The aortic root is normal in size. IVC is normal in size and collapses >50% with inspiration. Pericardium There is no pericardial effusion. <Conclusion> The left ventricle is normal size. Mild concentric left ventricular hypertrophy. Left ventricular systolic function is normal. The left ventricular ejection fraction is within the normal range. LVEF is 55-60%. Grade IV - fixed restrictive diastolic dysfunction. Right ventricle is mildly dilated. The right ventricular systolic function is normal. Left atrium is mildly dilated. Right atrium is mildly dilated. Mild aortic valve sclerosis. Trace aortic regurgitation. There is no aortic valvular stenosis. There is mitral annular calcification. Mild mitral regurgitation. No evidence of mitral valve stenosis. The tricuspid valve is normal in structure. Mild tricuspid regurgitation. Moderate pulmonary hypertension. IVC is normal in size and collapses >50% with inspiration. There is no pericardial effusion. There is normal LV segmental wall motion. <ELECTRONICALLY SIGNED> By: Ashish Javed MD, FACC 01/10/19 1350 1350 1350 Ashish Javed MD, FACC /INF
--- NOTE | 2019-01-10 13:57 | EKG ---
[place] [address] ELECTROCARDIOGRAM REPORT Name: MARIANELANITZA Abhishek Room: [address] ADM IN M.R.#: [id number] Admission: 01/10/19 Attend Phys: Iker Garcia MD Discharge: Date of : 51 Report #: [id number] THIS REPORT FOR: //name// [facility] ED Test Date: 2019-01-10 Test Time: 01:42:51 Pat Name: NITZA BEAR Department: Room: [facility] Gender: M [employer]: ERVIN : 1955 Requested By: Mela Romero Order Number: [id number] MD: Ashish Javed Measurements Intervals [place] Rate: 67 P: 0 NM: 32 QRS: -57 QRSD: 208 T: 82 QT: 475 QTc: 502 Interpretive Statements Ventricular-paced complexes No further rhythm analysis attempted due to paced rhythm Left bundle branch block Baseline wander in lead(s) II,III,aVF,V2 Compared to ECG 08/05/2018 12:37:44 no significant change Electronically Signed On 01-10-2019 13:57:09 CASE WORKER by Ashish Javed [email or web address] <ELECTRONICALLY SIGNED> By: Ashish Javed MD, [facility] 01/10/19 1357 1 1 Ashish Javed MD, FAC /EPI
--- NOTE | 2019-01-10 14:07 | CARD ---
[address] [address] CARDIAC CATH REPORT Name: NITZA BEAR Room: [address] IN [facility].#: [id number] Admission: 01/10/19 Attend Phys: Iker Garcia MD Discharge: Date of : 53 Report #: [id number] THIS REPORT FOR: //name// APPROVED REPORT Study performed: 01/10/2019 11:30:04 Patient Details Patient Status: In-Patient Room #: The patient is a 63 year-old male Event Personnel Ashish Javed Senior Applications Engineer, Margoth Lira RN Nascar Racer, Iker Brock AFTER SCHOOL COORDINATORJay Morales Jessie RTR Monitor, Trish Russell RN Nascar Racer, Magdalene Carrera RN Nascar Racer Procedures Performed Art Access - R radial artery Left Heart Cath w/or w/o Coronaries Hemostasis with Hemoband Indication Unstable angina Risk Factors Obesity, Hypercholesterolemia, Hypertension, Diabetes Admission/Lab Medications/Medications given during procedure Heparin IV 7000 units Procedure Narrative The patient was brought electively to the Cardiac Catheterization Laboratory and was prepped and draped in a sterile manner. The right wrist was infiltrated with 2% Lidocaine subcutaneous anesthesia. A Slender Glidesheath sheath was inserted into the right radial artery. Coronary angiography was performed using coronary diagnostic catheters. The right coronary system was accessed and visualized with a Diagnostic AR 1 Mod 6 Fr catheter. The left coronary system was accessed and visualized with a Diagnostic JL 4 6 Fr catheter. The left ventricle was accessed and visualized with a Diagnostic Pigtail 6 Fr catheter. Left ventricular/Aortic Valve gradient assessed via catheter pullback. Left ventriculogram was performed in KIM projection. Closure device was deployed with a Fr Regular Vasc Band. The patient tolerated the procedure well and there were no complications associated with the [place] [id number] CARDIAC CATH REPORT Name: NITZA BEAR Room: [address] IN [facility]#: [id number] Admission: 01/10/19 Attend Phys: Iker Garcia MD Discharge: Date of : 51 Report #: [id number] hematoma. Intraoperative Conscious Sedation Sedation start time: 12:17 Case end Time: 13:00 Fentanyl 25 mcg Versed 1 mg Fluoro Time: 9.0 minutes Dose: DAP 542252 cGycm2 1648 mGy Contrast Type and Amount: Visipaque 195 ml Coronary Angiography The patient's coronary anatomy is left dominant. Diagnostic Cath Left Main 0% narrowing LAD 30% mid vessel narrowing with widely patent mid LAD stents Circumflex Large dominant vessel with 30% first and second marginal narrowing and a widely patent distal circumflex stent Right Coronary Small nondominant vessel with 0% narrowing Left Ventriculography The left ventricle is normal in size with normal contractility. The left ventricular ejection fraction is estimated to be 65%. Left ventricular wall motion abnormalities are not present. There is no mitral insufficiency. Hemodynamics The aortic pressure is 129/68 mmHg with a mean of 93 mmHg. The left ventricular pressure is 129/6 mmHg with a mean of mmHg. The left ventricular end diastolic pressure is 27 mmHg. There was no gradient across the aortic valve upon pullback. Conclusion #1 coronary artery disease characterized by the following: A 30% mid LAD narrowing with widely patent LAD stents B large dominant circumflex with 30% first and second marginal narrowings and a widely patent distal circumflex stent C normal left main and small nondominant right coronary artery #2 normal left ventricular systolic function, estimate ejection fraction being 65% [place] [id number] CARDIAC CATH REPORT Name: NITZA BEAR Room: [address] IN [facility]#: [id number] Admission: 01/10/19 Attend Phys: Iker Garcia MD Discharge: Date of : 51 Report #: [id number] #3 abnormal hemodynamic study with marked increase in left ventricular end-diastolic pressure at rest Recommendations Cardiac Risk Reduction Program Aggressive Medical Therapy Weight Loss Reduction Program Diagnostic Cath Approved by: Ashish Javed MD Date/Time: 01/10/2019 14:06:53 <ELECTRONICALLY SIGNED> By: Ashish Javed MD, [facility] 01/10/19 1407 1407 1407Jocirstobal Javed MD, FACC /INF
--- NOTE | 2019-01-10 14:45 | NUR ---
WOUND CARE NOTE: CONSULT RECEIVED FOR WOUND RT LEG. PATIENT PRESENTS WITH A TRAUMATIC LESION TO THE RIGHT ANTERIOR LEG. WOUND MEASURES 2.5X3.5X0.1. DRY, RED WOUND BED. KIT-WOUND DISCOLORED, BELIEVE PATIENT HAS CHRONIC VENOUS STASIS CHANGES. 2+ PEDAL PULSES. AREA IS WARM TO TOUCH, BUT NO ACTIVE DRAINAGE TO ALLOW FOR A CULTURE. APPLIED OPTIFOAM AG AND SECURED WITH DOUBLE LAYER TUBIGRIP SIZE F. EDUCATED PATIENT ON DRESSING SELECTION, COMMUNICATED UNDERSTANDING. RECOMMEND DAILY DRESSING CHANGES WHILE IN HOSPITAL DOUBLE LAYER TUBIGRIP FOLLOW UP IN WOUND CENTER MAY NEED TO FOLLOW UP WITH LYMPHEDEMA THERAPY FOR LONG-TERM COMPRESSION OPTIONS TIGHT BLOOD GLUCOSE CONTROL ENCOURAGE GOOD NUTRTION/HYDRATION FOR WOUND HEALING.
[2019-01-11] VITALS: BP 150/77
[2019-01-11 04:00] VITALS: BP 144/72
[2019-01-11 05:23] LABS: ABSOLUTE EOSINOPHILS 0.1 thou/uL (0.0-0.7); ABSOLUTE LYMPHOCYTES 0.6 thou/uL (0.8-5.3); ABSOLUTE MONOCYTES 0.2 thou/uL (0.0-1.2); ABSOLUTE NEUTROPHILS 1.9 thou/uL (1.6-8.1); BASOPHILS 0.5 %; EOSINOPHILS 4.1 %; HEMATOCRIT 39.1 % (42.0-52.0); HEMOGLOBIN 12.6 gm/dL (14.0-18.0); LYMPHOCYTES 21.2 %; MCH 27.8 pg (26.0-34.0); MCHC 32.2 g/dL (28.0-37.0); MCV 86.6 fL (80.0-100.0); MONOCYTES 8.5 %; NUCLEATED RBCS 0 /100WBC; PLATELET COUNT* 71 thou/uL (150-400); POLYS 65.7 %; RBC 4.52 mil/uL (4.50-6.00); RDW-CV 16.2 % (10.5-14.5); WBC 2.9 thou/uL (4.0-11.0)
[2019-01-11 05:29] LABS: CALCIUM 8.8 mg/dL (8.5-10.1); CREATININE 0.9 mg/dL (0.6-1.3); POTASSIUM 3.8 mmol/L (3.5-5.1)
--- NOTE | 2019-01-11 06:03 | NUR ---
ASSUMED CARE OF PT AFTER REPORT AT 1930. PT A&OX4. VSS. PHYSICAL ASSESSMENT COMPLETED AND CHARTED. PT O2 AT 2L NC/CPAP WHEN SLEEPING. PT TRACING AV PACED ON TELE. PT UPSTANDBY TO BSC. POST CATH SITE TO RIGHT WRIST CLEAN, DRY & INTACT. NO BLEEDING OR HEMATOMA NOTED. DENIES ANY PAIN OR DISCOMFORT. PT ABLE TO SLEEP WELL ON BED. CALL LIGHT WITHIN REACH.
[2019-01-11 08:10] VITALS: BP 147/85
--- NOTE | 2019-01-11 09:25 | NUR ---
ASSUMED CARE OF PT THIS AM AROUND 07- SCREEN PRINTING LOADER UNLOADER IN PLACE ORDERED, TRACING A-V-PACED WITH BBB- UPON ASSESSMENT PT NOTED TO BE RESTING ON SIDE OF BED, WATCHING TV- PT A&O X4- CONTIENT OF B/B- SBA WITH TRANSFERS FOR SAFETY- DIMINISHED LUNG SOUNDS NOTED, RESP EVEN AND UN-LABORED- VSS, O2 SAT 96% ON RA- ABD SOFT/ROUND/NON-TENDER, BS X4 QUADS- LAST BM NOTED 01/10/19- IV NOTED TO RUE/CHEST AND LEFT UE/CHEST INTACT AND SL- GOOD PO INTAKE NOTED THIS AM WITH BREAKFAST, BS MONITORED ORDERED- RIGHT WRIST WITH C/D/I DRESSING, NO HEMATOMA NOTED- DRESSING WITH LEG WRAP IN PLACE INDICATED- PT DENIES ANY C/O PAIN/DISCOMFORT AT THIS TIME- CALL LIGHT AND PERSONAL BELONGINGS WITH IN REACH- PT MAKES NEEDS KNOWN- ALL NEEDS MET AT THIS TIME-WCTM
[2019-01-11 12:00] VITALS: BP 114/60
[2019-01-11] MEDS ORDERED: MINOCYCLINE HC100 M2 PO (12:17)
[2019-01-11 12:19] VITALS: BP 147/85
[2019-01-12 02:12] LABS: HEPATITIS B SURFACE AG Negative (Negative)
--- NOTE | 2019-01-13 14:26 | NUR ---
Spoke with the patient by phone, he states he is doing well and does not have any questions or concerns for me. He was able to get all his medications, he knows when his follow up visits are and his right wrist cath site is healing well.
--- NOTE | 2019-01-17 07:19 | CON ---
[address] [address] CONSULTATION Name: NITZA BEAR Room: [address] IN [facility].#: [id number] Admission: 01/10/19 Attend Phys: Iker Garcia MD Discharge: 01/11/19 Date of : 51 Report #: [id number] THIS REPORT FOR: //name// CC: CESAR physician/PCP Iker Garcia DATE OF SERVICE: 01/10/2019 REASON FOR CONSULTATION: Pancytopenia. SUBJECTIVE: A 63-year-old male who has been evaluated because of abnormal CBC. The patient per his records has a presumed diagnosis of myelodysplastic syndrome. However, the patient told me that he has not seen his car ferry captain, Dr. Amber Lea for 2 years. Never had a bone marrow biopsy. The patient presented today because of chest pain with no aggravating or relieving factors. He denies any cough or phlegm production. No shortness of breath. The patient was evaluated by Cardiology for his chest pain. He will have serial troponins. His EKG was nondiagnostic. REVIEW OF SYSTEMS: All systems were reviewed. It was negative except the above. PAST MEDICAL HISTORY: Coronary artery disease, chronic obstructive pulmonary disease, pacemaker in 2013, hypertension, diabetes. MEDICATIONS: Per admission list. ALLERGIES: PENICILLIN, LOVENOX. SOCIAL HISTORY: The patient quit in 1997. He drinks a beer occasionally. FAMILY HISTORY: Noncontributory. PHYSICAL EXAMINATION: VITAL SIGNS: Today, temperature 36.3, pulse 65, respirations 16, blood pressure is 130/58, SpO2 98% on 2 liters. GENERAL: The patient was sitting at the edge of the bed. He was not in acute distress. LUNGS: Clear to auscultations bilaterally. HEART: Regular rate and rhythm. S1, S2 within normal limits. ABDOMEN: Soft, nontender, nondistended, bowel sounds positive. EXTREMITIES: +2 edema bilaterally. NEUROLOGIC: He is awake, alert, oriented x 3. LABORATORY DATA: Today, WBC 2.3, hemoglobin 12.8, MCV 87.1, platelets 63. PT 10.9, PTT 21.7, creatinine 1.0, bilirubin 0.4, AST is 30, [place] 36[place] [address] CONSULTATION Name: NITZA BEAR Room: [address]#: [id number] Admission: 01/10/19 Attend Phys: Iker Garcia MD Discharge: 01/11/19 Date of : 51 Report #: [id number] IMAGING: A CT angiogram showed no evidence of pulmonary embolism; however, there was nonspecific changes of the splenomegaly with nodularity and heterogenicity of the liver suggestive of cirrhosis and fatty infiltration. ASSESSMENT AND PLAN: A 63-year-old male who has been evaluated because of chronic pancytopenia, especially thrombocytopenia at 61. The patient's imaging revealed changes consistent with cirrhosis/a fatty liver, which could explain his chronic pancytopenia; however, I would like to review the records whether the patient had a prior workup for myelodysplastic syndrome. We will obtain a B12, copper level, folic acid, peripheral blood smear, hemolysis workup. At this point, continue current supportive care. Recommend to follow up with Dr. Lea as an outpatient. <ELECTRONICALLY SIGNED> By: Sheyla Park MD 01/17/19 0719 1526 [id number] Park MD /nt
== END 2019-01-11 14:31 | disposition home or self-care (01) | DRG 286 ==
LOC: M.ERS 01:36 → M.2W 03:04 → M.TBA-ER 03:04 → M.2W 04:15
PROVIDERS: Internal Medicine; Personal Emergency Response Attendant; Registered Nurse; ADMIT Internal Medicine
PROC: 5A09357 Assistance with Respiratory Ventilation, Less than 24 Consecutive Hours, Continuous Positive Airway Pressure (ICD-10-PCS; principal; 2019-01-10)
PROC: B215YZZ Fluoroscopy of Left Heart using Other Contrast (ICD-10-PCS; principal; 2019-01-10)
PROC: B211YZZ Fluoroscopy of Multiple Coronary Arteries using Other Contrast (ICD-10-PCS; principal; 2019-01-10)
PROC: 4A023N7 Measurement of Cardiac Sampling and Pressure, Left Heart, Percutaneous Approach (ICD-10-PCS; principal; 2019-01-10)
PROC: 5A09357 Assistance with Respiratory Ventilation, Less than 24 Consecutive Hours, Continuous Positive Airway Pressure (ICD-10-PCS; 2019-01-11)
DX: I25.110 Atherosclerotic heart disease of native coronary artery with unstable angina pectoris (principal); I50.33 Acute on chronic diastolic (congestive) heart failure; D61.818 Other pancytopenia; L03.119 Cellulitis of unspecified part of limb; Z68.41 Body mass index [BMI] 40.0-44.9, adult; I50.9 Heart failure, unspecified; I11.0 Hypertensive heart disease with heart failure; J44.9 Chronic obstructive pulmonary disease, unspecified; E11.42 Type 2 diabetes mellitus with diabetic polyneuropathy; G47.33 Obstructive sleep apnea (adult) (pediatric); D46.9 Myelodysplastic syndrome, unspecified; E78.5 Hyperlipidemia, unspecified; I48.0 Paroxysmal atrial fibrillation; E11.36 Type 2 diabetes mellitus with diabetic cataract; E66.01 Morbid (severe) obesity due to excess calories; K74.60 Unspecified cirrhosis of liver; Z95.0 Presence of cardiac pacemaker; Z95.5 Presence of coronary angioplasty implant and graft; Z90.89 Acquired absence of other organs; Z90.49 Acquired absence of other specified parts of digestive tract; Z87.891 Personal history of nicotine dependence; Z79.82 Long term (current) use of aspirin; Z79.899 Other long term (current) drug therapy; Z88.0 Allergy status to penicillin; Z88.8 Allergy status to other drugs, medicaments and biological substances; Z79.02 Long term (current) use of antithrombotics/antiplatelets; Z98.42 Cataract extraction status, left eye; Z98.41 Cataract extraction status, right eye; Z23 Encounter for immunization

== ENCOUNTER 2019-01-16 13:46 | Emergency (ER) | payer MEDICARE, MEDICAID ==
[~2019-01-16] VITALS: Ht 167.6 cm; Wt 123.8 kg
[~2019-01-16 13:46] MED LIST changes: +MINOCYCLINE HC100 M2 PO
[2019-01-16 15:05] LABS: ABSOLUTE EOSINOPHILS 0.1 thou/uL (0.0-0.7); ABSOLUTE MONOCYTES 0.2 thou/uL (0.0-1.2); ABSOLUTE NEUTROPHILS 1.8 thou/uL (1.6-8.1); BASOPHILS 0.7 %; EOSINOPHILS 3.3 %; HEMATOCRIT 38.9 % (42.0-52.0); HEMOGLOBIN 12.8 gm/dL (14.0-18.0); LYMPHOCYTES 32.4 %; MCH 28.2 pg (26.0-34.0); MCHC 32.9 g/dL (28.0-37.0); MCV 85.9 fL (80.0-100.0); MONOCYTES 7.9 %; MPV 7.1 fl. (7.2-11.1); NUCLEATED RBCS 0 /100WBC; PLATELET COUNT* 61 thou/uL (150-400); POLYS 55.7 %; RBC 4.53 mil/uL (4.50-6.00); RDW-CV 15.9 % (10.5-14.5); WBC 3.1 thou/uL (4.0-11.0)
[2019-01-16 15:13] LABS: APTT 26.4 Seconds (25.0-31.3); INR 1.1; PROTIME 11.1 Seconds (9.20-11.50)
[2019-01-16 15:15] LABS: CALCIUM 8.5 mg/dL (8.5-10.1); POTASSIUM 3.9 mmol/L (3.5-5.1)
[2019-01-16 15:28] LABS: ALBUMIN 3.4 g/dL (3.4-5.0); CK-MB MASS 1.4 ng/mL (<0.5-3.6); MAGNESIUM 1.9 mg/dL (1.8-2.4); TOTAL BILIRUBIN 0.4 mg/dL (<0.1-1.0); TOTAL PROTEIN 6.4 g/dL (6.4-8.2)
[2019-01-16] MEDS ORDERED: NORCO 5-325 TA1 EAC1 PO (15:33)
[2019-01-16 16:18] VITALS: BP 121/64
--- NOTE | 2019-01-17 10:13 | EKG ---
[place] [address] ELECTROCARDIOGRAM REPORT Name: MARIANELANITZA Abhishek [id number] Admission: 01/16/19 Attend Phys: Discharge: 01/16/19 Date of : 51 Report #: [id number] THIS REPORT FOR: //name// [facility] ED Test Date: 2019-01-16 Test Time: 13:50:59 Pat Name: NITZA BEAR Department: Room: Gender: M Quality Assurance Monitor Chassis: : 1955 Requested By: Lj Pat Order Number: [id number] MD: Jose G Toribio Measurements Intervals [place] Rate: 80 P: 121 MS: 209 QRS: -80 QRSD: 205 T: 77 QT: 473 QTc: 546 Interpretive Statements ventricular paced rhythm No further analysis attempted due to paced rhythm Compared to ECG 01/10/2019 01:42:51 no change Electronically Signed On 01-17-2019 10:12:57 TITLE INSPECTOR by Jose G Toribio [email or web address] <ELECTRONICALLY SIGNED> By: Jose G Toribio MD, [facility] 01/17/19 1012 1350 1350 Jose G Toribio MD, FACC /EPI
== END 2019-01-16 16:19 | disposition home or self-care (01) ==
LOC: M.ERS 13:46
PROVIDERS: Family Medicine
DX: R07.89 Other chest pain (principal); I11.0 Hypertensive heart disease with heart failure; I50.9 Heart failure, unspecified; J44.9 Chronic obstructive pulmonary disease, unspecified; E11.41 Type 2 diabetes mellitus with diabetic mononeuropathy; Z87.891 Personal history of nicotine dependence; Z88.0 Allergy status to penicillin; Z88.8 Allergy status to other drugs, medicaments and biological substances; Z95.5 Presence of coronary angioplasty implant and graft; Z90.49 Acquired absence of other specified parts of digestive tract; G47.33 Obstructive sleep apnea (adult) (pediatric)

== ENCOUNTER 2019-02-15 16:13 | Emergency (ER) | payer MEDICARE, MEDICAID ==
[~2019-02-15] VITALS: Ht 170.2 cm; Wt 119.3 kg
[~2019-02-15 16:13] MED LIST changes: +NORCO 5-325 TA1 EAC1 PO
[2019-02-15 16:37] LABS: ABSOLUTE EOSINOPHILS 0.2 thou/uL (0.0-0.7); ABSOLUTE LYMPHOCYTES 0.6 thou/uL (0.8-5.3); ABSOLUTE MONOCYTES 0.3 thou/uL (0.0-1.2); ABSOLUTE NEUTROPHILS 2.3 thou/uL (1.6-8.1); BASOPHILS 1.1 %; EOSINOPHILS 4.8 %; HEMATOCRIT 40.2 % (42.0-52.0); HEMOGLOBIN 13.3 gm/dL (14.0-18.0); LYMPHOCYTES 18.2 %; MCH 28.2 pg (26.0-34.0); MCHC 33.2 g/dL (28.0-37.0); MCV 85.1 fL (80.0-100.0); MONOCYTES 8.3 %; MPV 7.4 fl. (7.2-11.1); NUCLEATED RBCS 0 /100WBC; PLATELET COUNT* 97 thou/uL (150-400); POLYS 67.6 %; RBC 4.72 mil/uL (4.50-6.00); RDW-CV 16.3 % (10.5-14.5); WBC 3.4 thou/uL (4.0-11.0)
[2019-02-15 16:43] LABS: APTT 25.8 Seconds (25.0-31.3); INR 1.1; PROTIME 10.9 Seconds (9.20-11.50)
[2019-02-15 17:55] LABS: CALCIUM 8.9 mg/dL (8.5-10.1); CREATININE 1.1 mg/dL (0.6-1.3); POTASSIUM 3.6 mmol/L (3.5-5.1)
[2019-02-15 18:04] LABS: ALBUMIN 3.2 g/dL (3.4-5.0); CK-MB MASS 1.2 ng/mL (<0.5-3.6); MAGNESIUM 1.9 mg/dL (1.8-2.4); TOTAL BILIRUBIN 0.3 mg/dL (<0.1-1.0)
[2019-02-15 18:22] VITALS: BP 140/52
--- NOTE | 2019-02-17 08:36 | EKG ---
[place] [address] ELECTROCARDIOGRAM REPORT Name: NITZA EBAR [id number] Admission: 02/15/19 Attend Phys: Discharge: 02/15/19 Date of : 51 Report #: [id number] THIS REPORT FOR: //name// [facility] ED Test Date: 2019-02-15 Test Time: 16:15:11 Pat Name: NITZA BEAR Department: Room: Gender: M Electric Transfer Operator: : 1955 Requested By: Lj Pat Order Number: [id number] MD: Jose G Toribio Measurements Intervals [place] Rate: 83 P: 0 [place]: 136 QRS: -61 QRSD: 197 T: 84 QT: 428 QTc: 503 Interpretive Statements Ventricular-paced complexes No further analysis attempted due to paced rhythm Compared to ECG 01/16/2019 13:50:59 No significant changes Electronically Signed On 02-17-2019 8:36:06 RESEARCH ASSOCIATE MOLECULAR BIOLOGY by Jose G Toribio [email or web address] <ELECTRONICALLY SIGNED> By: Jose G Toribio MD, [facility] 02/17/19 0836 1615 14 Jose G Toribio MD, FACC /EPI
== END 2019-02-15 18:23 | disposition home or self-care (01) ==
LOC: M.ERS 16:13
PROVIDERS: Family Medicine
DX: R07.89 Other chest pain (principal); I11.0 Hypertensive heart disease with heart failure; I50.9 Heart failure, unspecified; J44.9 Chronic obstructive pulmonary disease, unspecified; E11.41 Type 2 diabetes mellitus with diabetic mononeuropathy; G47.33 Obstructive sleep apnea (adult) (pediatric); Z88.0 Allergy status to penicillin; Z87.891 Personal history of nicotine dependence; Z88.8 Allergy status to other drugs, medicaments and biological substances; Z95.5 Presence of coronary angioplasty implant and graft; Z90.49 Acquired absence of other specified parts of digestive tract

== ENCOUNTER 2019-02-25 17:40 | Inpatient (IN) | payer MEDICARE, MEDICAID ==
[~2019-02-25] VITALS: Ht 167.6 cm; Wt 121.0 kg
[2019-02-25 17:42] VITALS: BP 139/79
[2019-02-25 18:07] LABS: ABSOLUTE EOSINOPHILS 0.1 thou/uL (0.0-0.7); ABSOLUTE LYMPHOCYTES 0.3 thou/uL (0.8-5.3); ABSOLUTE MONOCYTES 0.2 thou/uL (0.0-1.2); ABSOLUTE NEUTROPHILS 1.9 thou/uL (1.6-8.1); BASOPHILS 1.1 %; EOSINOPHILS 3.8 %; HEMATOCRIT 39.4 % (42.0-52.0); HEMOGLOBIN 12.8 gm/dL (14.0-18.0); LYMPHOCYTES 12.8 %; MCH 27.9 pg (26.0-34.0); MCHC 32.6 g/dL (28.0-37.0); MCV 85.7 fL (80.0-100.0); MONOCYTES 9.4 %; MPV 7.3 fl. (7.2-11.1); NUCLEATED RBCS 0 /100WBC; POLYS 72.9 %; RDW-CV 16.8 % (10.5-14.5); WBC 2.6 thou/uL (4.0-11.0)
[2019-02-25 18:09] LABS: PLATELET COUNT* 49 thou/uL (150-400)
[2019-02-25 18:22] LABS: CALCIUM 8.4 mg/dL (8.5-10.1); POTASSIUM 3.6 mmol/L (3.5-5.1)
[2019-02-25 18:30] LABS: ALBUMIN 3.3 g/dL (3.4-5.0); CK-MB MASS 1.8 ng/mL (<0.5-3.6); MAGNESIUM 1.8 mg/dL (1.8-2.4); TOTAL BILIRUBIN 0.4 mg/dL (<0.1-1.0); TOTAL PROTEIN 6.8 g/dL (6.4-8.2)
[2019-02-25 18:32] LABS: APTT 28.2 Seconds (25.0-31.3); INR 1.1; PROTIME 11.1 Seconds (9.20-11.50)
[2019-02-25 20:32] VITALS: BP 171/90
[2019-02-25 20:59] VITALS: BP 164/88
[2019-02-26] VITALS (7 sets, daily range): BP systolic 116–166; BP diastolic 48–89
--- NOTE | 2019-02-26 05:30 | NUR ---
PATIENT ADMITTED APPROX 2039. ADMISSION HX AND ASSESSMENT COMPLETED CHARTED. PATIENT DENIES PAIN AND DISCOMFORT. MAIN CONCERN IS HIS SOA AND DIZZINESS. SCOPALAMINE PATCH PLACED BEHIND LEFT EAR, DIZZINESS HAS IMPROVED SLIGHTLY. O2 SATURATION MAINTAINED >90% ON 2L O2 NC AND HOME BIPAP UNIT. PT AMBULATES WITH SBA AND CANE. CALL LIGHT WITHIN REACH
--- NOTE | 2019-02-26 09:59 | NUR ---
ASSUMED CARE OF PT AT 0730. PT RESTING IN BED. AT BEDSIDE. PT A&0X4, DENIES ANY PAIN AT THIS TIME. 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 ON 2L NC SAT 97%, COMPLAINS OF SHORTNESS OF BREATH AT REST AND WITH EXERCISE. HOME BIPAP AT [facility]. PT UP WITH SBA AND CANE TO BATHROOM. PT GOAL FOR TODAY IS REMAIN FREE FROM DIZZINESS AND CHEST PAIN, INCREASE ACTIVITY, IV STEROIDS, BREATHING TREATMENTS AND MAINTAIN BLOOD GLUCOSE LESS THAN 200. AM ASSESSMENT CHARTED. MEDICATIONS PER APR. PT REPOSITIONS SELF. HOURLY ROUNDING OBSERVED. BED IN LOW POSITION. CALL LIGHT WITHIN REACH. WILL CONTINUE PLAN OF CARE.
--- NOTE | 2019-02-26 10:11 | EKG ---
[place] [address] ELECTROCARDIOGRAM REPORT Name: CHERYL BEARUEL Abhishek Room: [place] [address] ADM IN M.R.#: [id number] Admission: 02/25/19 Attend Phys: Teresa Ferguson Discharge: Date of : 51 Report #: [id number] THIS REPORT FOR: //name// [facility] ED Test Date: 2019-02-25 Test Time: 17:44:54 Pat Name: NITZA BEAR Department: Room: [facility] Gender: M Pipe Coremaker: VANNESSA : 1955 Requested By: Lj Pat Order Number: [id number] MD: Jose G Toribio Measurements Intervals [place] Rate: 77 P: [place]: QRS: -64 QRSD: 203 T: 89 QT: 487 QTc: 552 Interpretive Statements ventricular paced rhythm No further analysis attempted due to paced rhythm Compared to ECG 02/15/2019 16:15:11 No significant changes Electronically Signed On 02-26-2019 10:11:17 JUDGE'S CLERK by Jose G Toribio [email or web address] <ELECTRONICALLY SIGNED> By: Jose G Toribio MD, [facility] 02/26/19 1011 1744 1744 Jose G Toribio MD, [facility] /EPI
--- NOTE | 2019-02-26 14:42 | NUR ---
CM ASSESSMENT: VISITED WITH PT IN ROOM. PT LIVES AT HOME WITH HIS ,NIECE AND HIS NIECES' 3 CHILDREN. HIS NIECE AND DO ALL OF THE CLEANING,COOKING AND DRIVING. PT INDEPENDENT WITH ADLS. USES A CANE FOR AMBULATION O2@ HOME PROVIDED BY [employer]. PT ASKS FOR ASSISTANCE IN FINDING A PRIMARY CARE DR THAT IS AT [facility] HIS OTHER DRS ARE HERE. HIS PCP RETIRED AND HE DOES NOT WANT TO CONTINUE TO GO TO THAT OFFICE. PT GIVEN A LIST OF PCPS IN [place].
--- NOTE | 2019-02-26 16:55 | NUR ---
NO ACUTE CHANGES THROUGHOUT SHIFT. REFER TO CHARTING. PT DENIED ANY CHEST PAIN OR DIZZINESS THROUGHOUT SHIFT. PT SHOWERED WITH NURSING ASSIST IN ROOM-TOLERATED WELL. NEW IV PLACED BY PEACE OFFICERJENNY TO LEFT FOREARM 20G. PHYSICAL THERAPY CONSULTED FOR DIZZINESS. PT PROGRESSING TOWARDS GOALS. 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 ON 2L NC SAT UPPER 90'S. PT UP WITH SBA AND CANE TO BATHROOM. MEDICATIONS PER APR. PT REPOSITIONS SELF. HOURLY ROUNDING OBSERVED. BED IN LOW POSITION. CALL LIGHT WITHIN REACH. WILL CONTINUE PLAN OF CARE.
[2019-02-27] VITALS: BP 128/82
--- NOTE | 2019-02-27 00:25 | NUR ---
CHANGE OF SHIFT, BEDSIDE REPORT GIVEN PATIENT SEEN AT BEDSIDE, IN BED WATCHING TV ASSUMED PATIENT CARE
[2019-02-27 04:00] VITALS: BP 125/63
--- NOTE | 2019-02-27 05:14 | NUR ---
PATIENT PROGRESSING TOWARDS GOALS FOR DISCHARGE. HE REMAINS ON HOME FLOW OF OXYGEN AND MAINTAINING SATURATION >90%. PATIENT STATES THE SCOPALAMINE PATCH IS EFFECTIVE FOR HIS DIZZINESS. CALL LIGHT WITHIN REACH
[2019-02-27 06:02] LABS: CALCIUM 8.3 mg/dL (8.5-10.1); CREATININE 1.1 mg/dL (0.6-1.3); MAGNESIUM 2.2 mg/dL (1.8-2.4); POTASSIUM 4.4 mmol/L (3.5-5.1)
[2019-02-27 08:00] VITALS: BP 166/61
[2019-02-27 11:56] VITALS: BP 103/51
[2019-02-27 16:52] VITALS: BP 116/59
[2019-02-27 21:00] VITALS: BP 102/52
[2019-02-28 00:05] VITALS: BP 137/78
[2019-02-28 04:34] VITALS: BP 139/76
[2019-02-28 05:34] LABS: CALCIUM 8.6 mg/dL (8.5-10.1); CREATININE 1.2 mg/dL (0.6-1.3); MAGNESIUM 2.2 mg/dL (1.8-2.4); POTASSIUM 4.8 mmol/L (3.5-5.1)
--- NOTE | 2019-02-28 06:30 | NUR ---
NO CHANGES IN PATIENT STATUS OVERNIGHT. PATIENT REMAINS ON 2L O2 NC AND HOME BIPAP WITH O2 SATURATION >90%. TOLERATING AMBULATION WELL WITH MINIMAL DIZZINESS. DENIES PAIN AND DISCOMFORT. CALL LIGHT WITHIN REACH
[2019-02-28 07:40] VITALS: BP 123/55
[2019-02-28] MEDS ORDERED: PREDNISONE 10 M10 MG PO (08:34)
[2019-02-28] MEDS ORDERED: SPIRIVA INH (08:34)
[2019-02-28] MEDS ORDERED: AZITHROMYCIN 2250 MG PO (08:34)
[2019-02-28] MEDS ORDERED: SYMBICORT160 MCG/4. INH (08:34)
[2019-02-28] MEDS ORDERED: TRANSDERM-SCOP1 EACH TD (08:36)
[2019-02-28] MEDS ORDERED: LASIX 20 MG TAB20 MG PO (08:40)
[2019-02-28 09:50] VITALS: BP 117/48
--- NOTE | 2019-02-28 10:43 | NUR ---
WHEN REVIEWING DISCHARGE INSTRUCTIONS WITH THE PATIENT, RN HAD NOTED FOLLOW-UP APPOINTMENT WAS 03/15/19 AT 1515; HOWEVER, PATIENT FELT IT WAS SCHEDULED FOR 03/05/19 AT 1515 - RN CALLED TO VERIFY APPOINTMENT WAS MADE AND IT WAS FOR 03/05/19.
--- NOTE | 2019-02-28 10:55 | NUR ---
PATIENT DISCHARGED FROM THE HOSPITAL TO HOME WITH SPOUSE. ALL DISCHARGE INSTRUCTIONS WERE REVIEWED WITH BOTH PARTIES - BOTH DENIED QUESTIONS. PATIENT DOES HAVE AN APPOINTMENT WITH ONCOLOGY TODAY AT [place] FOR A NEW CANCER DIAGNOSIS. PATIENT WAS TAKEN BY WHEELCHAIR TO [facility] WITH ALL BELONGINGS.
--- NOTE | 2019-02-28 15:03 | NUR ---
SET UP OUTPT PHYSICAL THERAPY WITH [facility] FOR PT PER HIS CHOICE. FAXED ORDERS/H&P AND DC SUMMARY TO ANGEL/KIARA. THEY WILL F/U WITH PT. HE IS AWARE
== END 2019-02-28 11:00 | disposition home or self-care (01) | DRG 189 ==
LOC: M.ERS 17:40 → M.TBA-ER 19:17 → M.2W 19:17
PROVIDERS: Family Medicine; Internal Medicine; ADMIT Family Medicine
PROC: 5A09357 Assistance with Respiratory Ventilation, Less than 24 Consecutive Hours, Continuous Positive Airway Pressure (ICD-10-PCS; principal; 2019-02-25)
PROC: 5A09357 Assistance with Respiratory Ventilation, Less than 24 Consecutive Hours, Continuous Positive Airway Pressure (ICD-10-PCS; 2019-02-26)
PROC: 5A09357 Assistance with Respiratory Ventilation, Less than 24 Consecutive Hours, Continuous Positive Airway Pressure (ICD-10-PCS; 2019-02-27)
PROC: 5A09357 Assistance with Respiratory Ventilation, Less than 24 Consecutive Hours, Continuous Positive Airway Pressure (ICD-10-PCS; 2019-02-28)
DX: J96.21 Acute and chronic respiratory failure with hypoxia (principal); I25.110 Atherosclerotic heart disease of native coronary artery with unstable angina pectoris; C91.50 Adult T-cell lymphoma/leukemia (HTLV-1-associated) not having achieved remission; J44.1 Chronic obstructive pulmonary disease with (acute) exacerbation; J44.0 Chronic obstructive pulmonary disease with (acute) lower respiratory infection; I50.32 Chronic diastolic (congestive) heart failure; E44.1 Mild protein-calorie malnutrition; Z68.41 Body mass index [BMI] 40.0-44.9, adult; J96.22 Acute and chronic respiratory failure with hypercapnia; E11.42 Type 2 diabetes mellitus with diabetic polyneuropathy; E66.01 Morbid (severe) obesity due to excess calories; K21.9 Gastro-esophageal reflux disease without esophagitis; I11.0 Hypertensive heart disease with heart failure; G47.33 Obstructive sleep apnea (adult) (pediatric); J20.9 Acute bronchitis, unspecified; Z95.0 Presence of cardiac pacemaker; Z98.42 Cataract extraction status, left eye; Z98.41 Cataract extraction status, right eye; Z87.891 Personal history of nicotine dependence; Z90.49 Acquired absence of other specified parts of digestive tract; Z88.0 Allergy status to penicillin; Z88.8 Allergy status to other drugs, medicaments and biological substances

== ENCOUNTER 2019-04-06 15:42 | Inpatient (IN) | payer MEDICARE, MEDICAID ==
[~2019-04-06] VITALS: Ht 167.6 cm; Wt 105.5 kg
[~2019-04-06 15:42] MED LIST changes: +SYMBICORT160 MCG/4. INH
[2019-04-06 15:50] VITALS: BP 140/57
[2019-04-06 16:10] LABS: ABSOLUTE EOSINOPHILS 0.1 thou/uL (0.0-0.7); ABSOLUTE LYMPHOCYTES 1.3 thou/uL (0.8-5.3); ABSOLUTE MONOCYTES 0.5 thou/uL (0.0-1.2); ABSOLUTE NEUTROPHILS 2.2 thou/uL (1.6-8.1); BASOPHILS 0.2 %; EOSINOPHILS 1.2 %; HEMATOCRIT 40.9 % (42.0-52.0); HEMOGLOBIN 13.7 gm/dL (14.0-18.0); MCH 28.8 pg (26.0-34.0); MCHC 33.4 g/dL (28.0-37.0); MCV 86.3 fL (80.0-100.0); MONOCYTES 11.3 %; MPV 7.4 fl. (7.2-11.1); NUCLEATED RBCS 0 /100WBC; PLATELET COUNT* 87 thou/uL (150-400); POLYS 54.3 %; RBC 4.74 mil/uL (4.50-6.00); RDW-CV 17.2 % (10.5-14.5)
[2019-04-06 16:17] LABS: CALCIUM 8.6 mg/dL (8.5-10.1); CREATININE 1.2 mg/dL (0.6-1.3); POTASSIUM 3.6 mmol/L (3.5-5.1)
[2019-04-06 16:21] LABS: BE 0.2 mmol/L (-2 to +3); PCO2 35.7 mmHg (35.0-45.0); PO2 70.2 mmHg (75.0-100.0); pH 7.443 (7.340-7.450)
[2019-04-06 16:30] LABS: ALBUMIN 2.9 g/dL (3.4-5.0); MAGNESIUM 1.8 mg/dL (1.8-2.4); TOTAL BILIRUBIN 0.7 mg/dL (<0.1-1.0); TOTAL PROTEIN 7.2 g/dL (6.4-8.2)
[2019-04-06 17:06] LABS: INFLUENZA A ANTIGEN Negative (Negative); INFLUENZA B ANTIGEN Negative (Negative)
[2019-04-06 17:11] LABS: URINE BILIRUBIN NEGATIVE (Negative); URINE BLOOD TRACE (Negative); URINE CLARITY CLEAR; URINE COLOR YELLOW; URINE GLUCOSE-RANDOM NEGATIVE (Negative); URINE KETONES NEGATIVE (Negative); URINE LEUKOCYTES-REFLEX TRACE (Negative); URINE NITRITE-REFLEX NEGATIVE (Negative); URINE PROTEIN 1+ (Negative); URINE SPECIFIC GRAVITY 1.025 (1.005-1.030)
[2019-04-06 17:36] LABS: SQUAMOUS 0-3 Few /LPF (0-3)
[2019-04-06 17:41] LABS: BACTERIA-REFLEX 1-9 Few /HPF (None Seen); URINE WBC-REFLEX 0-5 Rare /HPF (0-5)
[2019-04-06 17:42] LABS: MUCUS None Seen strn/LPF (None Seen)
[2019-04-06 17:43] LABS: CASTS None Seen /LPF (None Seen); CRYSTALS None Seen /LPF (None Seen); URINE RBC 0-2 Rare /HPF (0-2)
[2019-04-06 19:51] VITALS: BP 105/78
[2019-04-06 20:37] VITALS: BP 134/45
[2019-04-06 23:34] VITALS: BP 123/79
[2019-04-07 03:30] VITALS: BP 122/50
--- NOTE | 2019-04-07 04:09 | NUR ---
ASSUMED CARE OF PT AT 2004. PT IS ALERT AND ORIENTED. VSS. PERRLA. NO COMPLAINTS OF PAIN. PTS LACTIC IS 4.4. DR VALE NOTIFIED. PT IS GETTING AN ADDITIONAL 1 LITER BOLUS OF NORMAL SALINE. PT IS V PACED ON THE TELEMETRY. PT IS RESTING COMFORTABLY IN BED. RESPIRATIONS ARE EVEN AND NONLABORED. WILL CONTINUE TO MONITOR PT.
[2019-04-07 08:00] VITALS: BP 116/63
[2019-04-07 12:00] VITALS: BP 99/54
--- NOTE | 2019-04-07 12:19 | NUR ---
Nutrition: Pt admitted with PNA. Consult received for DM. RD has educated pt on CHO controlled diet in past. Pt has low income issues when it comes to buying food, as he's told me in the past. Just saw pt a few weeks ago and he declined further nutrition education at that timeBG was 308, now 187, alb 2.9. Meds noted. H/o DM, CHF, OBE, HTN. Wt: 258#. RECOMMEND SW TO AID IN COMMUNITY FOOD RESOURCES FOR PT ON CHO CONTROLLED DIET. Not ready for lifestyle changes R/T diet AEB multiple attempts to educate and pt not interested in changes. Mild risk.
--- NOTE | 2019-04-07 15:31 | NUR ---
cm completed initial assessment to discuss d/c planning. pt a&o. talkative. pt lives w/spuse. good family dynamic. independent w/cares. gave up drive a while ago d/t vision impairment. pt had 02 applied upon arrival. pt has o2 equip at home, service/provided by [employer]. pt has used [employer] in past but does not recall the company. pt has no hx w/snf. cm to remain avail.
[2019-04-07 16:00] VITALS: BP 116/56
--- NOTE | 2019-04-07 16:04 | 2DMMODE ---
[place] [address] 2 D/M-MODE ECHOCARDIOGRAM Name: NITZA BEAR Abhishek Room: [address] IN .R.#: [id number] Admission: 04/06/19 Attend Phys: Herbie Gonzalez Discharge: Date of : 51 Date of Service: 04/07/19 1603 Report #: [id number] THIS REPORT FOR: cc: FAM - Family physician unknown FAM - Family physician unknown Ashish Javed MD [facility] ~ APPROVED REPORT Study performed: 04/07/2019 10:23:36 EXAM: Comprehensive 2D, Doppler, and color-flow Echocardiogram BSA: 2.20 HR: 73 bpm BP: 122/50 mmHg Other Information Study Quality: Fair Indications Dyspnea Pacemaker 2D Dimensions IVSd: 17.75 (7-11mm) LVOT Diam: 18.19 (18-24mm) LVDd: 50.39 mm PWd: 14.47 (7-11mm) Ascending Ao: 37.91 (22-36mm) LVDs: 39.68 (25-40mm) Aortic Root: 35.10 mm Volumes Left Atrial Volume (Systole) LA ESV Index: 21.30 mL/m2 Aortic Valve AoV Peak Scot.: 1.76 m/s AO Peak Gr.: 12.33 mmHg LVOT Max P.42 mmHg AO Mean Gr.: 6.88 mmHg LVOT Mean P.02 mmHg LVOT Max V: 1.36 m/s AO V2 VTI: 19.92 cm LVOT Mean V: 0.93 m/s NOHEMI (VTI): 2.94 cm2 LVOT V1 VTI: 22.57 cm Mitral Valve E/A Ratio: 0.77 [place] [address] 2 D/M-MODE ECHOCARDIOGRAM Name: NITZA BEAR Room: [address] IN .R.#: [id number] Admission: 04/06/19 Attend Phys: Herbie Gonzalez Discharge: Date of : 51 Date of Service: 04/07/19 1603 Report #: [id number] MV Decel. Time: 220.95 ms MV E Max Scot.: 0.70 m/s MV PHT: 64.08 ms MVA (PHT): 3.43 cm2 TDI E/Lateral E': 7.78 E/Medial E': 7.78 Medial E' Scot.: 0.09 m/s Lateral E' Scot.: 0.09 m/s Pulmonary Valve PV Peak Scot.: 1.38 m/s PV Peak Gr.: 7.63 mmHg Tricuspid Valve RAP Estimate: 20.00 mmHg TR Peak Gr.: 33.66 mmHg RVSP: 53.66 mmHg PA Pressure: 53.66 mmHg Left Ventricle The left ventricle is normal size. There is normal LV segmental wall motion. Mild concentric left ventricular hypertrophy. Left ventricular systolic function is normal. The left ventricular ejection fraction is within the normal range. LVEF is 55-60%. Grade I - abnormal relaxation pattern. Right Ventricle The right ventricle is normal size. The right ventricular systolic function is normal. Pacemaker lead is present in the right ventricle. Atria The left atrium size is normal. The right atrium size is normal. Aortic Valve The aortic valve is normal in structure. No aortic regurgitation is present. There is no aortic valvular stenosis. Mitral Valve Mild mitral annular calcification. There is no mitral valve regurgitation noted. No evidence of mitral valve stenosis. Tricuspid Valve The tricuspid valve is normal in structure. Trace tricuspid regurgitation[place] [address] 2 D/M-MODE ECHOCARDIOGRAM Name: NITZA BEAR Room: [address] IN [facility]#: [id number] Admission: 04/06/19 Attend Phys: Herbie Gonzalez Discharge: Date of : 51 Date of Service: 04/07/19 1603 Report #: [id number] The pulmonary valve is normal in structure. There is no pulmonic valvular regurgitation. Great Vessels The aortic root is normal in size. Pericardium There is no pericardial effusion. <Conclusion> The left ventricle is normal size. Mild concentric left ventricular hypertrophy. Left ventricular systolic function is normal. The left ventricular ejection fraction is within the normal range. LVEF is 55-60%. Grade I - abnormal relaxation pattern. The right ventricle is normal size. The left atrium size is normal. The right atrium size is normal. The aortic valve is normal in structure. Mild mitral annular calcification. There is no mitral valve regurgitation noted. No evidence of mitral valve stenosis. The tricuspid valve is normal in structure. There is no pericardial effusion. There is normal LV segmental wall motion. <ELECTRONICALLY SIGNED> By: Ashish Javed MD, FACC 04/07/19 1603 1603 1603 Ashish Javed MD, FACC /INF
--- NOTE | 2019-04-07 16:45 | EKG ---
[place] [address] ELECTROCARDIOGRAM REPORT Name: NITZA BEAR Room: [address] ADM IN M.R.#: [id number] Admission: 04/06/19 Attend Phys: Herbie Gonzalez Discharge: Date of : 51 Date of Service: 04/06/19 1547 Report #: [id number] THIS REPORT FOR: //name// [facility] ED Test Date: 2019-04-06 Test Time: 15:47:25 Pat Name: NITZA BEAR Department: Room: [facility] Gender: M Lead Manufacturing Engineering Tech: CALI : 1955 Requested By: Mela Romero Order Number: [id number] MD: Ashsih Javed Measurements Intervals [place] Rate: 84 P: [place]: QRS: -74 QRSD: 182 T: 85 QT: 414 QTc: 490 Interpretive Statements Atrial-sensed ventricular-paced complexes No further analysis attempted due to paced rhythm Compared to ECG 02/25/2019 17:44:54 No significant changes Electronically Signed On 04-07-2019 16:44:39 VIDEOTAPE OPERATOR by Ashish Javed [email or web address] <ELECTRONICALLY SIGNED> By: Ashish Javed MD, [facility] 04/07/19 1644 1547 1547 Ashish Javed MD, [facility] /EPI
--- NOTE | 2019-04-07 16:49 | EKG ---
[place] [address] ELECTROCARDIOGRAM REPORT Name: NITZA BEAR Room: [address] ADM IN M.R.#: [id number] Admission: 04/06/19 Attend Phys: Herbie Gonzalez Discharge: Date of : 51 Date of Service: 04/06/192117 Report #: [id number] THIS REPORT FOR: //name// [facility] Test Date: 2019-04-06 Test Time: 21:18:17 Pat Name: NITZA BEAR Department: Room: [address] Gender: M Marble Carver: CELESTE : 1955 Requested By: Herbie Gonzalez Order Number: [id number] Feliciano MD: Ashish Javed Measurements Intervals [place] Rate: 87 P: [place]: QRS: -81 QRSD: 198 T: 89 QT: 419 QTc: 504 Interpretive Statements Afib/flut and V-paced complexes No further analysis attempted due to paced rhythm Compared to ECG 02/25/2019 17:44:54 There is irregular ventricular pacing Electronically Signed On 04-07-2019 16:48:04 POULTRY FARMER MEAT by Ashish Javed [email or web address] <ELECTRONICALLY SIGNED> By: Ashish Javed MD, [facility] 04/07/19 1648 17 17 Ashish Javed MD, [facility] /EPI
--- NOTE | 2019-04-07 18:11 | NUR ---
PATIENT UP IN ROOM. TAKING PO WELL. [place] PROGRESSING
[2019-04-07 20:00] VITALS: BP 123/68
[2019-04-08] VITALS (7 sets, daily range): BP systolic 127–156; BP diastolic 65–88
[2019-04-08 06:59] LABS: ABSOLUTE LYMPHOCYTES 0.3 thou/uL (0.8-5.3); ABSOLUTE MONOCYTES 0.1 thou/uL (0.0-1.2); ABSOLUTE NEUTROPHILS 1.7 thou/uL (1.6-8.1); BASOPHILS 0.2 %; EOSINOPHILS 0.1 %; HEMATOCRIT 37.5 % (42.0-52.0); HEMOGLOBIN 12.3 gm/dL (14.0-18.0); LYMPHOCYTES 15.9 %; MCH 28.5 pg (26.0-34.0); MCHC 32.8 g/dL (28.0-37.0); MCV 86.8 fL (80.0-100.0); MPV 7.4 fl. (7.2-11.1); NUCLEATED RBCS 0 /100WBC; PLATELET COUNT* 73 thou/uL (150-400); POLYS 78.8 %; RBC 4.32 mil/uL (4.50-6.00); RDW-CV 16.9 % (10.5-14.5); WBC 2.2 thou/uL (4.0-11.0)
--- NOTE | 2019-04-08 07:10 | NUR ---
CHANGE OF SHIFT, BEDSIDE REPORT GIVEN PATIENT SEEN AT BEDSIDE, IN BED ASLEEP ASSUMED PATIENT CARE
[2019-04-08 07:36] LABS: CREATININE 1.1 mg/dL (0.6-1.3); MAGNESIUM 2.2 mg/dL (1.8-2.4)
--- NOTE | 2019-04-08 08:41 | NUR ---
ASSUMED PATIENT CARE AT 1900. ASSESSMENT COMPLETED CHARTED. PATIENT IS V-PACED ON THE MONITOR. HOURLY ROUNDING IN PLACE FOR PATIENT SAFETY. CLWR.
[2019-04-08 12:28] LABS: URINE BILIRUBIN NEGATIVE (Negative); URINE BLOOD NEGATIVE (Negative); URINE CLARITY CLEAR; URINE COLOR YELLOW; URINE GLUCOSE-RANDOM 2+ (Negative); URINE KETONES NEGATIVE (Negative); URINE LEUKOCYTES-REFLEX NEGATIVE (Negative); URINE NITRITE-REFLEX NEGATIVE (Negative); URINE PROTEIN NEGATIVE (Negative); URINE SPECIFIC GRAVITY 1.015 (1.005-1.030); URINE UROBILINOGEN 0.2 E.U./dl (0.2-1.0)
[2019-04-08 13:25] LABS: INR 1.1; PROTIME 11.5 Seconds (9.20-11.50)
--- NOTE | 2019-04-08 13:54 | NUR ---
Spoke with Dr faviola pavon in the next few days. Following.
[2019-04-09 00:21] VITALS: BP 145/70
[2019-04-09 04:55] VITALS: BP 137/68
--- NOTE | 2019-04-09 06:38 | NUR ---
VSS. SEE MAR. SEE CHARTING. FALL PRECAUTIONS IN PLACE. HOURLY ROUNDING FOR SAFETY.
--- NOTE | 2019-04-09 07:15 | NUR ---
CHANGE OF SHIFT, BEDSIDE REPORT GIVEN PATIENT SEEN AT BEDSIDE, IN BED RESTING ASSUMED PATIENT CARE
[2019-04-09 08:00] VITALS: BP 145/73
[2019-04-09 09:11] LABS: HEPATITIS B SURFACE AG Negative (Negative)
[2019-04-09 09:18] LABS: % SATURATION 21 % (20-39); IRON 67 ug/dL (50-175)
[2019-04-09 11:42] VITALS: BP 151/93
[2019-04-09 14:12] LABS: ANA INTERPRETATION Negative (Negative)
[2019-04-09 17:10] VITALS: BP 112/54
[2019-04-10] VITALS: BP 134/69
[2019-04-10 02:08] LABS: IgG 594 mg/dL (700-1600); IgM 22 mg/dL (20-172)
[2019-04-10 03:58] VITALS: BP 118/59
--- NOTE | 2019-04-10 04:43 | NUR ---
PT SLEPT MOST OF SHIFT. ASSESSMENT DOCUMENTED. MEDS GIVEN PER E-MAR. IV PATENT. O2 WORN WHILE AWAKE, CPAP WORN WHILE SLEEPING. PT REPORTS HIP PAIN BUT DOES NOT WANT ANYTHING FOR IT AT THIS TIME. FALL PRECAUTIONS IN PLACE. WILL CONTINUE WITH PLAN OF CARE.
[2019-04-10 05:34] LABS: HEMATOCRIT 35.2 % (42.0-52.0); HEMOGLOBIN 11.7 gm/dL (14.0-18.0); MCHC 33.3 g/dL (28.0-37.0); MCV 86.9 fL (80.0-100.0); MPV 7.2 fl. (7.2-11.1); RBC 4.05 mil/uL (4.50-6.00); RDW-CV 16.5 % (10.5-14.5); WBC 2.4 thou/uL (4.0-11.0)
[2019-04-10 05:47] LABS: CALCIUM 8.8 mg/dL (8.5-10.1); CREATININE 1.2 mg/dL (0.6-1.3); MAGNESIUM 2.3 mg/dL (1.8-2.4); POTASSIUM 4.4 mmol/L (3.5-5.1)
[2019-04-10 08:00] VITALS: BP 102/64
[2019-04-10 12:00] VITALS: BP 111/60
[2019-04-10 15:39] VITALS: BP 94/80
--- NOTE | 2019-04-10 19:00 | NUR ---
ASSUMED PT CARE AT 0730. ASSESSMENT COMPLETED CHARTED. ABLE TO MAKE NEEDS KNOWN. NO C/O PAIN OR DISCOMFORT. UP WITH SBA. CALL LIGHT WITHIN REACH. PT HAD ANGINA EPISODE AROUND 1530, GAVE 1 DOSE OF NITRO. PARTIAL PAIN RELIEF BUT BLOOD PRESSURE TOO LOW TO GIVE ANOTHER DOSE. NOTIFIED DR. Rasheed. RESTING IN BED AT THIS TIME. WILL CONTINUE TO MONITOR.
[2019-04-10 20:30] VITALS: BP 128/61
[2019-04-11 00:12] VITALS: BP 109/44
[2019-04-11 04:42] LABS: HEMATOCRIT 37.6 % (42.0-52.0); HEMOGLOBIN 12.5 gm/dL (14.0-18.0); MCH 28.6 pg (26.0-34.0); MCHC 33.2 g/dL (28.0-37.0); MPV 7.4 fl. (7.2-11.1); RBC 4.37 mil/uL (4.50-6.00); RDW-CV 16.7 % (10.5-14.5); WBC 3.3 thou/uL (4.0-11.0)
[2019-04-11 04:47] VITALS: BP 160/81
[2019-04-11 05:10] LABS: ALBUMIN 2.8 g/dL (3.4-5.0); CALCIUM 8.6 mg/dL (8.5-10.1); CREATININE 1.2 mg/dL (0.6-1.3); POTASSIUM 4.1 mmol/L (3.5-5.1); TOTAL BILIRUBIN 0.3 mg/dL (<0.1-1.0); TOTAL PROTEIN 6.3 g/dL (6.4-8.2)
--- NOTE | 2019-04-11 06:49 | NUR ---
PT CARE ASSUMED AT 1930. SAT MAINTAINED IN O2. ALERT AND ORIENTED X4. DENIES PAIN AND SOB. CALL LIGHT WITHIN REACH AND BED IN LOW POSITION. HOURLY ROUNDING DONE FOR PT SAFETY.
[2019-04-11 08:00] VITALS: BP 141/77
--- NOTE | 2019-04-11 11:30 | CON ---
[address] [address] CONSULTATION Name: NITZA BEAR Room: [address] IN .R.#: [id number] Admission: 04/06/19 Attend Phys: Xander Zuniga Discharge: Date of : 51 Report #: [id number] THIS REPORT FOR: //name// cc: FAM - Family physician unknown FAM - Family physician unknown ~ THIS REPORT FOR: //name// CC: CESAR unknown Herbie Gonzalez DATE OF SERVICE: 04/09/2019 CARDIOLOGY CONSULTATION HISTORY OF PRESENT ILLNESS: The patient is a 63-year-old male with complex multisystem problems. He presented in September 2017 with significant coronary artery disease and underwent stenting of the distal circumflex and mid LAD. He was discharged on dual antiplatelet therapy. He has been continued on single antiplatelet therapy after a year of dual antiplatelet therapy. In the context of paroxysmal atrial fibrillation, he has been anticoagulated with new oral anticoagulants in the form of Eliquis 5 mg b.i.d. He has additional problems including chronic pulmonary disease with recurrent pneumonia, lymphoma, and a question of cirrhosis. Liver biopsy is planned and the question is whether or not he can be off anticoagulants and antiplatelet therapy prior to that procedure. PAST MEDICAL HISTORY: Remarkable for coronary artery disease, hypertension, weight excess, diabetes, chronic pulmonary disease, and hyperlipidemia. PRIOR SURGERIES: Included coronary stenting of the LAD and circumflex. FAMILY HISTORY: Remarkable for hyperlipidemia, heart disease. SOCIAL HISTORY: The patient is a prior smoker. REVIEW OF SYSTEMS: Remarkable for the following: GENERAL: He notes chronic weight excess. ENDOCRINE: There is a history of hyperlipidemia. PULMONARY: He has obstructive airways disease and recurrent pneumonitis. EXTREMITIES: He notes chronic lower extremity edema. PHYSICAL EXAMINATION: GENERAL: Reveals an overweight, middle-aged male. VITAL SIGNS: Blood pressure is 130/70, pulse rate is 82, respirations are [address] [place] [address] CONSULTATION Name: NITZA BEAR Room: [address]#: [id number] Admission: 04/06/19 Attend Phys: Xander Zuniga Discharge: Date of : 51 Report #: [id number] per minute. NECK: Jugular venous pressure is difficult to ascertain. CHEST: Clear without wheezing detected. CARDIAC: Reveals a regular rhythm. ABDOMEN: Moderately obese. EXTREMITIES: Reveal modest lower extremity edema. DIAGNOSTIC DATA: EKGs demonstrate sinus rhythm. IMPRESSION: 1. Coronary artery disease, status post prior stenting of the left anterior descending and circumflex. 2. Chronic pulmonary disease with recurrent pneumonitis. 3. Weight excess. 4. Hyperlipidemia. 5. Question cirrhosis of the liver. RECOMMENDATIONS: At present, given the infrequent episodes of paroxysmal atrial fibrillation, I think it is safe to hold his Eliquis and would recommend doing so for at least 48 hours prior to liver biopsy. I would also hold the aspirin for blind liver biopsy. Both have been discontinued. After completion of the procedure with no evidence of bleeding, I would resume the aforementioned anticoagulant and antiplatelet therapy. This has been discussed with the patient. Thank you for allowing us to see the patient in cardiovascular assessment. <ELECTRONICALLY SIGNED> By: Ashish Javed MD, FACC 04/11/19 1130 1728 0021Jocristobal Javed MD, FACC /nt
--- NOTE | 2019-04-11 11:35 | EKG ---
[place] [address] ELECTROCARDIOGRAM REPORT Name: NITZA BEAR Room: [address] ADM IN M.R.#: [id number] Admission: 04/06/19 Attend Phys: Herbie Gonzalez Discharge: Date of : 51 Date of Service: 04/10/19 1454 Report #: [id number] THIS REPORT FOR: //name// [facility] Test Date: 2019-04-10 Test Time: 14:54:01 Pat Name: NITZA BEAR Department: Room: [address] Gender: M Leaded Glass Installer: MONO : 1955 Requested By: Herbie Gonzalez Order Number: [id number] Feliciano MD: Ashish Javed Measurements Intervals [place] Rate: 60 P: [place]: QRS: -54 QRSD: 188 T: 68 QT: 477 QTc: 477 Interpretive Statements Afib/flut and V-paced complexes No further analysis attempted due to paced rhythm Baseline wander in lead(s) V3 Compared to ECG 04/06/2019 21:18:17 No significant changes Electronically Signed On 04-11-2019 11:34:40 SAFETY OFFICER by Ashish Javed [email or web address] <ELECTRONICALLY SIGNED> By: Ashish Javed MD, FACC 04/11/19 1134 1454 1454 Ashish Javed MD, FAC /EPI
--- NOTE | 2019-04-11 11:36 | EKG ---
[place] [address] ELECTROCARDIOGRAM REPORT Name: NITZA BEAR Room: [address] ADM IN M.R.#: [id number] Admission: 04/06/19 Attend Phys: Herbie Gonzalez Discharge: Date of : 51 Date of Service: 04/10/19 1455 Report #: [id number] THIS REPORT FOR: //name// [facility] Test Date: 2019-04-10 Test Time: 14:55:26 Pat Name: NITZA BEAR Department: Room: [address] Gender: M Raised Printer: NV : 1955 Requested By: Herbie Gonzalez Order Number: [id number] Feliciano MD: Ashish Javed Measurements Intervals [place] Rate: 60 P: 0 [place]: 64 QRS: -55 QRSD: 182 T: 66 QT: 478 QTc: 478 Interpretive Statements Ventricular-paced complexes No further analysis attempted due to paced rhythm Electronically Signed On 04-11-2019 11:35:03 [employer] LEVERMAN by Ashish Javed [email or web address] <ELECTRONICALLY SIGNED> By: Ashish Javed MD, [facility] 04/11/19 1135 1455 145 Ashish Javed MD, FACC /EPI
--- NOTE | 2019-04-11 15:30 | NUR ---
ASSUMED PT CARE AT 0730. ASSESSMENT COMPLETED CHARTED. ABLE TO MAKE NEEDS KNOWN. NO C/O PAIN OR DISCOMFORT. UP SBA WITH CANE. CALL LIGHT WITHIN REACH. PT BECAME MED-SURG STATUS AND LEFT TO GO JSSI AROUND 1520 WITH ALL BELONGINGS. REPORT CALLED TO NURSE AT THE TIME HE LEFT. WILL CONTINUE TO MONITOR.
--- NOTE | 2019-04-11 17:47 | NUR ---
PT ARRIVED TO FLOOR FROM TELE ABOUT 1530. AGREE WITH PREVIOUS ASSESSMENT. PT STABLE. UP AD JESSICA. ON 3LO2. CALL LIGHT WITHIN REACH. WILL CONTINUE TO MONITOR.
[2019-04-11 19:50] VITALS: BP 127/68
[2019-04-12 04:00] VITALS: BP 160/90
[2019-04-12 04:19] LABS: CALCIUM 8.7 mg/dL (8.5-10.1); CREATININE 1.1 mg/dL (0.6-1.3); MAGNESIUM 2.4 mg/dL (1.8-2.4); POTASSIUM 4.2 mmol/L (3.5-5.1)
--- NOTE | 2019-04-12 04:43 | NUR ---
PATIENT HAS REMAINED ALERT AND ORIENTED X 4 THORUGHOUT THE SHIFT AND RESTING QUIETLY ON HOURLY ROUNDS. CPAP HS WITH O2 AT 3L/MIN. RT TX PER ORDER. MEDS PER ORDER. VITAL SIGNS STABLE. PATIENT REPORTS IMPROVEMENT IN OVERALL WELL BEING AND HOPES TO GO HOME TODAY. CONTINUE TO MONITOR.
[2019-04-12 08:00] VITALS: BP 146/88
[2019-04-12] MEDS ORDERED: ASPIR 8181 MG PO (08:20)
[2019-04-12] MEDS ORDERED: LASIX 20 MG TAB20 MG PO (08:20)
[2019-04-12] MEDS ORDERED: PREDNISONE 10 M10 MG PO (08:20)
[2019-04-12] MEDS ORDERED: BENZONATATE100 MG PO (08:20)
[2019-04-12] MEDS ORDERED: OMEPRAZOLE40 MG PO ×2 (08:20→13:02)
[2019-04-12] MEDS ORDERED: MUCINEX600 MG PO (08:20)
[2019-04-12] MEDS ORDERED: TOPAMAX 25 MG T25 M1 PO (08:20)
[2019-04-12 12:41] VITALS: BP 146/88
--- NOTE | 2019-04-12 14:10 | NUR ---
AM ASSESSMENT AND VITAL SIGNS COMPLETED DOCUMENTED. PT STATES HE IS FEELING MUCH BETTER. LUNGS ARE CLEAR, O2 SAT 99% ON 3L. DISCHARGE INSTRUCTIONS DISCUSSED WITH PT AND HIS DAUGHTER. PT AND HIS BELONGINGS TRANSPORTED TO EXIT, ASSISTED INTO CAR, DISCHARGED HOME IN STABLE CONDITION.
--- NOTE | 2019-04-14 18:15 | CON ---
[address] [address] CONSULTATION Name: MARIANELANITZA E Room: [address] IN M.R.#: [id number] Admission: 04/06/19 Attend Phys: Xander Zuniga Discharge: 04/12/19 Date of : 51 Report #: [id number] THIS REPORT FOR: //name// cc: CESAR - Family physician unknown FAM - Family physician unknown ~ THIS REPORT FOR: //name// CC: Dandy Noe MD FAM unknown Herbie Gonzalez DICTATED BY: Ana Hernandez [facility] DATE OF SERVICE: 04/08/2019 Please note at the time of this dictation, the patient was seen and physically examined by myself. REASON FOR CONSULTATION: Cirrhosis of the liver. HISTORY OF PRESENT ILLNESS: This is a 63-year-old male who was a direct admit from his PCP with chief complaint of having increased shortness of breath, fever, cough, congestion, and conjunctivitis. He also recently had a CT scan that was done by his oncologist, Dr. Lea, for his T-cell lymphoma that was showing cirrhosis of the liver. He had never been told that he had cirrhosis of the liver, but remotely, he does recall being told that he did have fatty liver disease. The patient did have an EGD and colonoscopy at [facility] some time ago. He states that he was told he did have some colon polyps that were removed, does not recall when he should have reattempting recall for that, we will attempt to get those records. The patient does take Prilosec regularly for an occasional heartburn that he states he has been taking Prilosec for some time. The patient has been taking Depakote for the last 11 years for his migraine headaches and he is wondering if this is not a contributing factor possibly too for his cirrhosis of his liver. Otherwise, he has no other complaints noted at this time. ALLERGIES: PENICILLIN, LOVENOX. MEDICATIONS: From home include aspirin, Topamax, prednisone, Symbicort, Spiriva, transderm scopolamine patch, Lasix with Depakote, Januvia, Imdur, pravastatin, potassium, folic acid, Eliquis. PAST MEDICAL HISTORY: Atrial fibrillation, hypertension, diabetes, congestive heart failure, COPD requiring 3.5 liters at home, peripheral neuropathy, sleep apnea, wears BiPAP at night, and recent diagnosis [place] [address] CONSULTATION Name: NITZA BEAR Room: [address]#: [id number] Admission: 04/06/19 Attend Phys: Xander Zuniga Discharge: 04/12/19 Date of : 51 Report #: [id number] PAST SURGICAL HISTORY: Pacemaker; stent placement, most recent in 2017; tonsils and adenoids; bilateral cataracts; cholecystectomy; torn right ACL. FAMILY HISTORY: Negative for any GI or female cancers. SOCIAL HISTORY: Used to smoke, quit back in 1997. Denies any alcohol use except once in a while socially and denies any illegal drug use. REVIEW OF SYSTEMS: Twelve-point review of systems is essentially negative except what is mentioned in the HPI. PHYSICAL EXAMINATION: VITAL SIGNS: Temperature 36.5, pulse 60, respirations 20, blood pressure 156/75. HEART: Irregular rate and rhythm. LUNGS: Diminished, few faint crackles noted. ABDOMEN: Soft, very round, positive bowel sounds in all 4 quadrants with no masses or tenderness noted. LABORATORY DATA: Hemoglobin 12.3, white count 2.2, platelets 73. GFR 67. Total bilirubin 0.7, alkaline phosphatase 64, ALT 40, AST is 29. IMPRESSION: 1. Cirrhosis. 2. Thrombocytopenia. 3. Leukopenia. 4. T-cell lymphoma. 5. Chronic obstructive pulmonary disease with O2 dependency. 6. Pneumonia. 7. Anticoagulant therapy, atrial fibrillation, Eliquis. PLAN: 1. Labs PT/INR, AFP, acute hepatitis panel, PENNIE, ASMA and AMA. 2. We will get an ultrasound of his abdomen with Dopplers. 3. We will obtain records from [facility] regarding his EGD and colonoscopy. 4. Further recommendations to be made once all of the above has been reviewed and Dr. Walker has seen the patient later today. Thank you for allowing us to participate in this patient's care. Please do not hesitate to call with any questions in regard to this consult. <ELECTRONICALLY SIGNED> By: Markie Walker DO 04/14/19 1815 1125 [id number] Walker DO /nt
== END 2019-04-12 14:24 | disposition home health service (06) | DRG 177 ==
LOC: M.ERS 15:42 → M.2W 18:45 → M.TBA-ER 18:45 → M.2W 19:42 → M.ORTHSURG 04-11 15:18
PROVIDERS: Internal Medicine; Internal Medicine Gastroenterology; Nurse Practitioner Adult Health; Personal Emergency Response Attendant; ADMIT Internal Medicine
PROC: 5A09357 Assistance with Respiratory Ventilation, Less than 24 Consecutive Hours, Continuous Positive Airway Pressure (ICD-10-PCS; principal; 2019-04-07)
PROC: 5A09357 Assistance with Respiratory Ventilation, Less than 24 Consecutive Hours, Continuous Positive Airway Pressure (ICD-10-PCS; 2019-04-08)
PROC: 5A09357 Assistance with Respiratory Ventilation, Less than 24 Consecutive Hours, Continuous Positive Airway Pressure (ICD-10-PCS; 2019-04-09)
PROC: 5A09357 Assistance with Respiratory Ventilation, Less than 24 Consecutive Hours, Continuous Positive Airway Pressure (ICD-10-PCS; 2019-04-10)
PROC: 5A09357 Assistance with Respiratory Ventilation, Less than 24 Consecutive Hours, Continuous Positive Airway Pressure (ICD-10-PCS; 2019-04-11)
DX: J15.6 Pneumonia due to other Gram-negative bacteria (principal); J96.21 Acute and chronic respiratory failure with hypoxia; J44.1 Chronic obstructive pulmonary disease with (acute) exacerbation; I50.32 Chronic diastolic (congestive) heart failure; C91.50 Adult T-cell lymphoma/leukemia (HTLV-1-associated) not having achieved remission; J44.0 Chronic obstructive pulmonary disease with (acute) lower respiratory infection; D68.69 Other thrombophilia; K74.60 Unspecified cirrhosis of liver; I11.0 Hypertensive heart disease with heart failure; I25.10 Atherosclerotic heart disease of native coronary artery without angina pectoris; E11.42 Type 2 diabetes mellitus with diabetic polyneuropathy; G47.33 Obstructive sleep apnea (adult) (pediatric); K75.81 Nonalcoholic steatohepatitis (NASH); D69.6 Thrombocytopenia, unspecified; I48.0 Paroxysmal atrial fibrillation; E78.5 Hyperlipidemia, unspecified; K21.9 Gastro-esophageal reflux disease without esophagitis; R16.1 Splenomegaly, not elsewhere classified; G43.909 Migraine, unspecified, not intractable, without status migrainosus; E66.01 Morbid (severe) obesity due to excess calories; Z68.37 Body mass index [BMI] 37.0-37.9, adult; Z88.1 Allergy status to other antibiotic agents; Z88.8 Allergy status to other drugs, medicaments and biological substances; Z79.899 Other long term (current) drug therapy; Z79.82 Long term (current) use of aspirin; Z79.01 Long term (current) use of anticoagulants; Z95.5 Presence of coronary angioplasty implant and graft; Z95.0 Presence of cardiac pacemaker; Z98.42 Cataract extraction status, left eye; Z98.41 Cataract extraction status, right eye; Z90.49 Acquired absence of other specified parts of digestive tract; Z87.891 Personal history of nicotine dependence; Z72.89 Other problems related to lifestyle; Z82.49 Family history of ischemic heart disease and other diseases of the circulatory system; Z88.0 Allergy status to penicillin; Z83.49 Family history of other endocrine, nutritional and metabolic diseases; Z80.8 Family history of malignant neoplasm of other organs or systems

== ENCOUNTER → 2019-04-15 | Outpatient (CLI) | payer MEDICARE, MEDICAID ==
[~2019-04-15] VITALS: Ht 167.6 cm; Wt 119.3 kg
[~2019-04-15] MED LIST changes: +OMEPRAZOLE40 MG PO
[2019-04-15 09:20] LABS: HEMATOCRIT 40.1 % (42.0-52.0); HEMOGLOBIN 13.4 gm/dL (14.0-18.0); MCH 28.8 pg (26.0-34.0); MCHC 33.5 g/dL (28.0-37.0); MCV 86.1 fL (80.0-100.0); MPV 7.1 fl. (7.2-11.1); RBC 4.66 mil/uL (4.50-6.00); RDW-CV 17.1 % (10.5-14.5); WBC 3.9 thou/uL (4.0-11.0)
[2019-04-15 09:22] VITALS: BP 147/76
[2019-04-15 09:31] LABS: APTT 23.5 Seconds (25.0-31.3); PROTIME 10.7 Seconds (9.20-11.50)
== END | disposition home or self-care (01) ==
LOC: M.ULTRA 08:17
PROVIDERS: Radiology Diagnostic Radiology
DX: K75.81 Nonalcoholic steatohepatitis (NASH) (principal); R16.0 Hepatomegaly, not elsewhere classified; I11.0 Hypertensive heart disease with heart failure; I50.30 Unspecified diastolic (congestive) heart failure; I48.91 Unspecified atrial fibrillation; E11.9 Type 2 diabetes mellitus without complications; G47.33 Obstructive sleep apnea (adult) (pediatric); G62.9 Polyneuropathy, unspecified; J44.9 Chronic obstructive pulmonary disease, unspecified; Z90.49 Acquired absence of other specified parts of digestive tract; Z98.41 Cataract extraction status, right eye; Z98.42 Cataract extraction status, left eye; Z98.890 Other specified postprocedural states; Z87.891 Personal history of nicotine dependence

== ENCOUNTER 2019-06-09 00:22 | Inpatient (IN) | payer MEDICARE, MEDICAID ==
[2019-06-09] VITALS (7 sets, daily range): BP systolic 108–180; BP diastolic 55–94
[~2019-06-09] VITALS: Ht 167.6 cm; Wt 120.2 kg
[2019-06-09 01:02] LABS: ABSOLUTE EOSINOPHILS 0.1 thou/uL (0.0-0.7); ABSOLUTE LYMPHOCYTES 0.5 thou/uL (0.8-5.3); ABSOLUTE MONOCYTES 0.2 thou/uL (0.0-1.2); ABSOLUTE NEUTROPHILS 1.2 thou/uL (1.6-8.1); BASOPHILS 0.9 %; EOSINOPHILS 2.5 %; HEMATOCRIT 36.2 % (42.0-52.0); LYMPHOCYTES 24.7 %; MCH 29.9 pg (26.0-34.0); MCV 90.6 fL (80.0-100.0); MONOCYTES 8.6 %; MPV 7.6 fl. (7.2-11.1); NUCLEATED RBCS 0 /100WBC; PLATELET COUNT* 60 thou/uL (150-400); POLYS 63.3 %; RDW-CV 16.9 % (10.5-14.5)
[2019-06-09 01:09] LABS: PROTIME 10.7 Seconds (9.20-11.50)
[2019-06-09 01:13] LABS: PCO2 45.2 mmHg (35.0-45.0); pH 7.412 (7.340-7.450)
[2019-06-09 01:14] LABS: PO2 171.3 mmHg (75.0-100.0)
[2019-06-09 01:15] LABS: POTASSIUM 3.8 mmol/L (3.5-5.1)
[2019-06-09 01:16] LABS: CALCIUM 8.3 mg/dL (8.5-10.1)
[2019-06-09 01:30] LABS: MAGNESIUM 1.9 mg/dL (1.8-2.4); TOTAL BILIRUBIN 0.3 mg/dL (<0.1-1.0)
[2019-06-09 01:31] LABS: ALBUMIN 3.3 g/dL (3.4-5.0); TOTAL PROTEIN 6.5 g/dL (6.4-8.2)
[2019-06-09 02:43] LABS: URINE BILIRUBIN NEGATIVE (Negative); URINE BLOOD NEGATIVE (Negative); URINE CLARITY CLEAR; URINE COLOR YELLOW; URINE GLUCOSE-RANDOM TRACE (Negative); URINE KETONES NEGATIVE (Negative); URINE LEUKOCYTES-REFLEX NEGATIVE (Negative); URINE NITRITE-REFLEX NEGATIVE (Negative); URINE PROTEIN TRACE (Negative); URINE SPECIFIC GRAVITY >= 1.030 (1.005-1.030); URINE UROBILINOGEN 0.2 E.U./dl (0.2-1.0)
--- NOTE | 2019-06-09 13:16 | EKG ---
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 : 1955 Requested By: Mela Romero Order Number: [id number] Feliciano MD: Jose G Toribio Measurements Intervals [place] Rate: 60 P: 0 ID: 69 QRS: -49 QRSD: 189 T: 85 QT: 468 QTc: 468 Interpretive Statements ventricular paced rhythm No further analysis attempted due to paced rhythm Compared to ECG 04/10/2019 14:55:26 No significant changes Electronically Signed On 06-09-2019 13:15:07 CDT by Jose G Toribio [email or web address] <ELECTRONICALLY SIGNED> By: Jose G Toribio MD, FAC 06/09/19 1315 0053 0053 Jose G Toribio MD, [facility] /EPI
[2019-06-09 18:20] LABS: CALCIUM 8.9 mg/dL (8.5-10.1); CREATININE 1.4 mg/dL (0.6-1.3); POTASSIUM 4.1 mmol/L (3.5-5.1)
[2019-06-10] VITALS (7 sets, daily range): BP systolic 113–162; BP diastolic 57–72
[2019-06-10 07:35] LABS: CREATININE 1.2 mg/dL (0.6-1.3); POTASSIUM 3.7 mmol/L (3.5-5.1)
--- NOTE | 2019-06-10 11:39 | EKG ---
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 : 1955 Requested By: Tobi Moore Order Number: [id number] Feliciano MD: Costa Saucedo Measurements Intervals [place] Rate: 66 P: 0 MS: 75 QRS: -65 QRSD: 187 T: 83 QT: 452 QTc: 474 Interpretive Statements Ventricular-paced rhythm No further analysis attempted due to paced rhythm Compared to ECG 06/09/2019 00:53:51 No significant changes Electronically Signed On 06-10-2019 11:38:05 CDT by Costa Saucedo [email or web address] <ELECTRONICALLY SIGNED> By: Costa Saucedo MD, FACC 06/10/19 1138 1638 1638 Costa Saucedo MD, [facility] /EPI
[2019-06-11] VITALS (7 sets, daily range): BP systolic 111–137; BP diastolic 62–75
[2019-06-11 08:06] LABS: CALCIUM 9.1 mg/dL (8.5-10.1); CREATININE 1.1 mg/dL (0.6-1.3); MAGNESIUM 2.2 mg/dL (1.8-2.4); POTASSIUM 4.1 mmol/L (3.5-5.1)
[2019-06-12] VITALS: BP 131/69
[2019-06-12 04:00] VITALS: BP 146/91
[2019-06-12 05:43] LABS: CALCIUM 9.3 mg/dL (8.5-10.1); MAGNESIUM 2.1 mg/dL (1.8-2.4); POTASSIUM 4.5 mmol/L (3.5-5.1)
[2019-06-12 07:00] VITALS: BP 138/85
[2019-06-12 08:35] VITALS: BP 138/85
[2019-06-12] MEDS ORDERED: SPIRONOLACTONE50 MG PO (10:20)
[2019-06-12] MEDS ORDERED: ASA81BEC PO (11:38)
== END 2019-06-12 13:20 | disposition home health service (06) | DRG 291 ==
LOC: M.ERS 00:22 → M.2W 02:23 → M.TBA-ER 02:23 → M.2W 03:08
PROVIDERS: Internal Medicine; Personal Emergency Response Attendant; ADMIT Internal Medicine
PROC: 5A09357 Assistance with Respiratory Ventilation, Less than 24 Consecutive Hours, Continuous Positive Airway Pressure (ICD-10-PCS; principal; 2019-06-09)
PROC: 5A09357 Assistance with Respiratory Ventilation, Less than 24 Consecutive Hours, Continuous Positive Airway Pressure (ICD-10-PCS; 2019-06-10)
PROC: 5A09357 Assistance with Respiratory Ventilation, Less than 24 Consecutive Hours, Continuous Positive Airway Pressure (ICD-10-PCS; 2019-06-11)
DX: I11.0 Hypertensive heart disease with heart failure (principal); J96.21 Acute and chronic respiratory failure with hypoxia; J44.1 Chronic obstructive pulmonary disease with (acute) exacerbation; D68.59 Other primary thrombophilia; E66.2 Morbid (severe) obesity with alveolar hypoventilation; Z68.41 Body mass index [BMI] 40.0-44.9, adult; I48.20 Chronic atrial fibrillation, unspecified; I50.33 Acute on chronic diastolic (congestive) heart failure; I25.10 Atherosclerotic heart disease of native coronary artery without angina pectoris; K21.9 Gastro-esophageal reflux disease without esophagitis; K74.60 Unspecified cirrhosis of liver; E11.42 Type 2 diabetes mellitus with diabetic polyneuropathy; Z95.5 Presence of coronary angioplasty implant and graft; Z95.0 Presence of cardiac pacemaker; Z98.42 Cataract extraction status, left eye; Z98.41 Cataract extraction status, right eye; Z90.49 Acquired absence of other specified parts of digestive tract; Z85.72 Personal history of non-Hodgkin lymphomas; Z79.899 Other long term (current) drug therapy; Z79.82 Long term (current) use of aspirin; Z88.0 Allergy status to penicillin; Z88.8 Allergy status to other drugs, medicaments and biological substances; Z87.891 Personal history of nicotine dependence; Z79.01 Long term (current) use of anticoagulants; Z79.4 Long term (current) use of insulin

== ENCOUNTER 2019-06-21 21:10 | Inpatient (IN) | payer MEDICARE, MEDICAID ==
[~2019-06-21] VITALS: Ht 167.6 cm; Wt 122.5 kg
[~2019-06-21 21:10] MED LIST changes: +ASA81BEC PO; +SPIRONOLACTONE50 MG PO
[2019-06-21 21:46] LABS: ABSOLUTE LYMPHOCYTES 0.7 thou/uL (0.8-5.3); ABSOLUTE MONOCYTES 0.2 thou/uL (0.0-1.2); ABSOLUTE NEUTROPHILS 2.3 thou/uL (1.6-8.1); BASOPHILS 1.4 %; EOSINOPHILS 1.5 %; HEMATOCRIT 36.4 % (42.0-52.0); HEMOGLOBIN 12.3 gm/dL (14.0-18.0); MCH 30.2 pg (26.0-34.0); MCHC 33.7 g/dL (28.0-37.0); MCV 89.5 fL (80.0-100.0); MONOCYTES 7.1 %; MPV 7.8 fl. (7.2-11.1); NUCLEATED RBCS 0 /100WBC; PLATELET COUNT* 68 thou/uL (150-400); RBC 4.07 mil/uL (4.50-6.00); WBC 3.3 thou/uL (4.0-11.0)
[2019-06-21 21:52] LABS: BE 4.8 mmol/L (-2 to +3); PCO2 46.9 mmHg (35.0-45.0); pH 7.424 (7.340-7.450)
[2019-06-21 21:53] LABS: PO2 147.5 mmHg (75.0-100.0)
[2019-06-21 21:56] LABS: APTT 23.8 Seconds (25.0-31.3); PROTIME 10.5 Seconds (9.20-11.50)
[2019-06-21 22:09] LABS: CALCIUM 8.2 mg/dL (8.5-10.1); CREATININE 1.2 mg/dL (0.6-1.3); POTASSIUM 3.8 mmol/L (3.5-5.1)
[2019-06-21 22:14] LABS: ALBUMIN 3.3 g/dL (3.4-5.0); TOTAL BILIRUBIN 0.3 mg/dL (<0.1-1.0); TOTAL PROTEIN 6.5 g/dL (6.4-8.2)
[2019-06-21 23:40] VITALS: BP 138/68
[2019-06-22] VITALS: BP 137/44
[2019-06-22 03:40] VITALS: BP 132/66
[2019-06-22 08:15] VITALS: BP 150/67
[2019-06-22 11:29] LABS: URINE BILIRUBIN NEGATIVE (Negative); URINE BLOOD NEGATIVE (Negative); URINE CLARITY CLEAR; URINE COLOR YELLOW; URINE GLUCOSE-RANDOM NEGATIVE (Negative); URINE KETONES NEGATIVE (Negative); URINE LEUKOCYTES-REFLEX NEGATIVE (Negative); URINE NITRITE-REFLEX NEGATIVE (Negative); URINE PROTEIN NEGATIVE (Negative); URINE SPECIFIC GRAVITY 1.025 (1.005-1.030); URINE UROBILINOGEN 0.2 E.U./dl (0.2-1.0)
[2019-06-22 11:45] VITALS: BP 144/80
--- NOTE | 2019-06-22 14:46 | EKG ---
[place] [address] ELECTROCARDIOGRAM REPORT Name: NITZA BEAR Room: [address] ADM IN M.R.#: [id number] Admission: 06/21/19 Attend Phys: Klaudia Mercer Discharge: Date of : 51 Date of Service: 06/21/192151 Report #: [id number] THIS REPORT FOR: //name// [facility] ED Test Date: 2019-06-21 Test Time: 21:52:09 Pat Name: NITZA BEAR Department: Room: 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 : 1955 Requested By: Mela Romero Order Number: [id number] MD: Costa Saucedo Measurements Intervals [place] Rate: 70 P: 0 TX: 67 QRS: -58 QRSD: 188 T: 80 QT: 443 QTc: 479 Interpretive Statements Ventricular-paced complexes No further analysis attempted due to paced rhythm Compared to ECG 06/09/2019 16:38:50 No significant changes Electronically Signed On 06-22-2019 14:44:21 CDT by Costa Saucedo [email or web address] <ELECTRONICALLY SIGNED> By: Costa Saucedo MD, [facility] 06/22/19 1444 215 215 Costa Saucedo MD, [facility] /EPI
[2019-06-22 16:00] VITALS: BP 114/56
[2019-06-22 20:00] VITALS: BP 116/64
[2019-06-23] VITALS: BP 120/60
[2019-06-23 04:00] VITALS: BP 133/82
[2019-06-23 05:10] LABS: HEMATOCRIT 35.6 % (42.0-52.0); HEMOGLOBIN 11.9 gm/dL (14.0-18.0); MCH 29.8 pg (26.0-34.0); MCHC 33.4 g/dL (28.0-37.0); MCV 89.4 fL (80.0-100.0); RBC 3.98 mil/uL (4.50-6.00); RDW-CV 16.2 % (10.5-14.5); WBC 3.3 thou/uL (4.0-11.0)
[2019-06-23 05:52] LABS: ALBUMIN 3.3 g/dL (3.4-5.0); CALCIUM 8.5 mg/dL (8.5-10.1); CREATININE 1.2 mg/dL (0.6-1.3); MAGNESIUM 1.9 mg/dL (1.8-2.4); POTASSIUM 4.2 mmol/L (3.5-5.1); TOTAL BILIRUBIN 0.4 mg/dL (<0.1-1.0); TOTAL PROTEIN 6.5 g/dL (6.4-8.2)
[2019-06-23 08:00] VITALS: BP 155/95
[2019-06-23 09:52] LABS: HEMOGLOBIN 12.3 gm/dL (14.0-18.0); MCHC 33.2 g/dL (28.0-37.0); MCV 90.4 fL (80.0-100.0); MPV 7.6 fl. (7.2-11.1); RBC 4.1 mil/uL (4.50-6.00); WBC 3.6 thou/uL (4.0-11.0)
[2019-06-23 11:59] LABS: BF RBC 967 /mm3; CLARITY SLIGHTLY HAZY; TOTAL CELL COUNT 174 /mm3; TOTAL VOLUME 5.8 ml
[2019-06-23 12:00] VITALS: BP 135/70
[2019-06-23 12:34] LABS: BF LYMPHOCYTES 25 %; BF MONOCYTES 66 %; BF POLYS 9 %; BF TISSUE 1 /100 WBC
[2019-06-23 17:22] VITALS: BP 129/77
[2019-06-23 20:00] VITALS: BP 105/61
[2019-06-24] VITALS: BP 131/63
[2019-06-24 04:00] VITALS: BP 131/63
[2019-06-24 05:41] LABS: HEMATOCRIT 35.7 % (42.0-52.0); HEMOGLOBIN 11.8 gm/dL (14.0-18.0); MCH 29.6 pg (26.0-34.0); MCHC 33.1 g/dL (28.0-37.0); MCV 89.2 fL (80.0-100.0); MPV 7.7 fl. (7.2-11.1); WBC 4.1 thou/uL (4.0-11.0)
[2019-06-24 06:04] LABS: ALBUMIN 3.4 g/dL (3.4-5.0); CREATININE 1.1 mg/dL (0.6-1.3); MAGNESIUM 2.2 mg/dL (1.8-2.4); POTASSIUM 4.3 mmol/L (3.5-5.1); TOTAL BILIRUBIN 0.3 mg/dL (<0.1-1.0); TOTAL PROTEIN 6.6 g/dL (6.4-8.2)
[2019-06-24 07:45] VITALS: BP 143/79
[2019-06-24 12:00] VITALS: BP 121/68
[2019-06-24 16:00] VITALS: BP 131/74
[2019-06-24 19:50] VITALS: BP 130/63
[2019-06-25] VITALS: BP 118/56
[2019-06-25 04:00] VITALS: BP 146/84
[2019-06-25 05:34] LABS: HEMATOCRIT 35.5 % (42.0-52.0); HEMOGLOBIN 11.8 gm/dL (14.0-18.0); MCH 29.8 pg (26.0-34.0); MCHC 33.3 g/dL (28.0-37.0); MCV 89.6 fL (80.0-100.0); MPV 7.6 fl. (7.2-11.1); RBC 3.96 mil/uL (4.50-6.00); RDW-CV 16.2 % (10.5-14.5); WBC 3.1 thou/uL (4.0-11.0)
[2019-06-25 05:50] LABS: ALBUMIN 3.3 g/dL (3.4-5.0); CALCIUM 8.9 mg/dL (8.5-10.1); CREATININE 1.1 mg/dL (0.6-1.3); MAGNESIUM 2.1 mg/dL (1.8-2.4); TOTAL BILIRUBIN 0.3 mg/dL (<0.1-1.0); TOTAL PROTEIN 6.4 g/dL (6.4-8.2)
[2019-06-25 08:00] VITALS: BP 145/74
[2019-06-25 15:41] VITALS: BP 113/75
[2019-06-25 16:00] VITALS: BP 135/66
[2019-06-25 20:00] VITALS: BP 148/82
[2019-06-26 00:05] VITALS: BP 120/58
[2019-06-26 04:00] VITALS: BP 148/76
[2019-06-26 08:43] VITALS: BP 141/75
[2019-06-26] MEDS ORDERED: LIDOPATCH1 EACH TOP (10:12)
[2019-06-26] MEDS ORDERED: HYDROCODON-ACE1 EAC7 PO (10:12)
[2019-06-26] MEDS ORDERED: DOXYCYCLINE 10100 MG PO (10:14)
[2019-06-26 11:55] VITALS: BP 106/58
== END 2019-06-26 15:00 | disposition home or self-care (01) | DRG 189 ==
LOC: M.ERS 21:10 → M.2W 22:59 → M.TBA-ER 22:59 → M.2W 06-22
PROVIDERS: Internal Medicine; Orthopaedic Surgery; Personal Emergency Response Attendant; ADMIT Internal Medicine
PROC: 5A09357 Assistance with Respiratory Ventilation, Less than 24 Consecutive Hours, Continuous Positive Airway Pressure (ICD-10-PCS; principal; 2019-06-22)
PROC: 0S993ZZ Drainage of Right Hip Joint, Percutaneous Approach (ICD-10-PCS; 2019-06-23)
PROC: 5A09357 Assistance with Respiratory Ventilation, Less than 24 Consecutive Hours, Continuous Positive Airway Pressure (ICD-10-PCS; 2019-06-23)
PROC: 5A09357 Assistance with Respiratory Ventilation, Less than 24 Consecutive Hours, Continuous Positive Airway Pressure (ICD-10-PCS; 2019-06-24)
PROC: 5A09357 Assistance with Respiratory Ventilation, Less than 24 Consecutive Hours, Continuous Positive Airway Pressure (ICD-10-PCS; 2019-06-25)
DX: J96.01 Acute respiratory failure with hypoxia (principal); E87.2 Acidosis; J44.1 Chronic obstructive pulmonary disease with (acute) exacerbation; D68.69 Other thrombophilia; Z68.41 Body mass index [BMI] 40.0-44.9, adult; I48.91 Unspecified atrial fibrillation; K74.60 Unspecified cirrhosis of liver; E11.42 Type 2 diabetes mellitus with diabetic polyneuropathy; G47.33 Obstructive sleep apnea (adult) (pediatric); Z87.891 Personal history of nicotine dependence; E66.01 Morbid (severe) obesity due to excess calories; J40 Bronchitis, not specified as acute or chronic; I25.10 Atherosclerotic heart disease of native coronary artery without angina pectoris; Z95.0 Presence of cardiac pacemaker; Z95.5 Presence of coronary angioplasty implant and graft; Z98.42 Cataract extraction status, left eye; Z98.41 Cataract extraction status, right eye; Z90.49 Acquired absence of other specified parts of digestive tract; Z88.0 Allergy status to penicillin; Z88.8 Allergy status to other drugs, medicaments and biological substances; I10 Essential (primary) hypertension; Z79.82 Long term (current) use of aspirin; Z79.899 Other long term (current) drug therapy; Z85.72 Personal history of non-Hodgkin lymphomas

== ENCOUNTER → 2019-06-30 | Outpatient (CLI) | payer MEDICARE, MEDICAID ==
[~2019-06-30] MED LIST changes: +DOXYCYCLINE 10100 MG PO; +HYDROCODON-ACE1 EAC7 PO
== END ==
LOC: M.RAD 08:38
DX: M17.11 Unilateral primary osteoarthritis, right knee (principal); M25.761 Osteophyte, right knee

== ENCOUNTER 2019-07-18 01:42 | Observation (INO) | payer MEDICARE, MEDICAID ==
[~2019-07-18] VITALS: Ht 167.6 cm; Wt 120.8 kg
[2019-07-18] VITALS (7 sets, daily range): BP systolic 122–150; BP diastolic 64–79
[2019-07-18 02:06] LABS: HEMATOCRIT 36.6 % (42.0-52.0); HEMOGLOBIN 12.2 gm/dL (14.0-18.0); MCHC 33.3 g/dL (28.0-37.0); MCV 90.3 fL (80.0-100.0); MPV 7.2 fl. (7.2-11.1); NUCLEATED RBCS 0 /100WBC; PLATELET COUNT* 55 thou/uL (150-400); RBC 4.05 mil/uL (4.50-6.00); RDW-CV 15.6 % (10.5-14.5)
[2019-07-18 02:10] LABS: WBC 1.9 thou/uL (4.0-11.0)
[2019-07-18 02:11] LABS: PROTIME 10.7 Seconds (9.20-11.50)
[2019-07-18 02:22] LABS: CALCIUM 8.2 mg/dL (8.5-10.1); CREATININE 1.3 mg/dL (0.6-1.3); POTASSIUM 3.5 mmol/L (3.5-5.1)
[2019-07-18 02:35] LABS: ALBUMIN 3.1 g/dL (3.4-5.0); MAGNESIUM 1.6 mg/dL (1.8-2.4); TOTAL BILIRUBIN 0.3 mg/dL (<0.1-1.0); TOTAL PROTEIN 6.4 g/dL (6.4-8.2)
[2019-07-18 03:15] LABS: ABSOLUTE LYMPHOCYTES 0.6 thou/uL (0.8-5.3); ABSOLUTE NEUTROPHILS 1.2 thou/uL (1.6-8.1); LARGE PLATELETS FEW; PLATELET ESTIMATE DECREASED; TOXIC GRANULATION 1+
[2019-07-18 03:16] LABS: ANISOCYTOSIS Occasional; HYPOCHROMASIA 1+; OVALOCYTES Occasional; POLYCHROMASIA Occasional
--- NOTE | 2019-07-18 16:16 | EKG ---
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 : 1955 Requested By: Tigre Gabriel Order Number: [id number] MD: Ashish Javed Measurements Intervals [place] Rate: 67 P: AL: 208 QRS: 250 QRSD: 224 T: 72 QT: 488 QTc: 516 Interpretive Statements Ventricular paced rhythm No further analysis attempted due to paced rhythm Compared to ECG 06/21/2019 21:52:09 No significant changes Electronically Signed On 07-18-2019 16:14:29 CDT by Ashish Javed [email or web address] <ELECTRONICALLY SIGNED> By: Ashish Javed MD, [facility] 07/18/19 1614 0143 0143 Ashish Javed MD, [facility] /EPI
--- NOTE | 2019-07-21 16:53 | CARDNUC ---
[place] [address] CARDIAC NUCLEAR IMAGING REPORT Name: NITZA BEAR Room: [address] M.RLudin#: [id number] Admission: 07/18/19 Attend Phys: Herbie Gonzalez Discharge: 07/18/19 Date of : 51 Date of Service: 07/21/19 1651 Report #: [id number] THIS REPORT FOR: cc: Dandy Noe MD, Dean L. MD Liston, Michael J. MD [facility] ~ APPROVED REPORT Imaging Protocol: Stress Tc-99m/Rest Tc-99m 2 days Study performed: 07/18/2019 09:50:00 Indication: Chest pain radiating to left jaw, dyspnea. Patient Location: In-Patient Room #: 207 Stress Tech: Raya Klein Stress Nurse: Iesha Pimentel RN NM Tech:CONCHA Novak Ht: 5 ft 6 in Wt: 266 lbs BSA: 2.26 m2 BMI: 42.92 Medical History Medical History: Angina radiating to left jaw, dyspnea, COPD 2L O2 NC, LE edema, HX AFib, Obesity, MERLINE-BiPAP, PPM r/t SSS, CAD s/p stent, HTN, CHF, Former Smoker, Neuropathy, right knee injury, ICD. Medications: Eliquis, Canagliflozin, K-Dur, ASA 325 Mg, Imdur, Lasix, Hydralazine, NTG, Spironolactone. Allergies: Penicillins, Enoxaparin. Cardiac Risk Factors: Age, DM, FHX of CAD, HTN, SOB, Past Smoker, Obesity, SSS, MERLINE, LE Edema, HX AFib, COPD, Chest pain, ICD. Previous Cardiac Procedures: PCI, PPM, ICD. Pretest Chest Pain Characteristics: Nonanginal chest pain/Pressure 04/28. Exercise History: Sedentary Physical Disabilities: Knee pain, LE edema, neuropathy, ICD. Meds Held (24 hrs): Imdur, NTG. Resting Data Rest SPECT myocardial perfusion imaging was performed in supine position 30 minutes following the intravenous injection of 25.7 mCi of Tc-99m Sestamibi. Time of rest injection: 14:00 Date: 07/21/2019 The images were gated to evaluate regional wall [place] [address] CARDIAC NUCLEAR IMAGING REPORT Name: NITZA BEAR Room: [address] Vinicio Malik#: [id number] Admission: 07/18/19 Attend Phys: Herbie Gonzalez Discharge: 07/18/19 Date of : 51 Date of Service: 07/21/19 1651 Report #: [id number] left ventricular ejection fraction. Administration Route: Straight Stick Administration Site: Right Hand Pharmacologic Stress Pharmacologic stress test was performed by injecting Regadenoson 0.4 mg IV push over 10-15 seconds immediately followed by the intravenous injection of 32.2 mCi of Tc-99m Sestamibi. Time of stress injection: 1340 Date: 07/18/2019 Administration Route: IV Administration Site: Left AC Gated Stress SPECT was performed 40 minutes after stress injection. The images were gated to evaluate regional wall motion and calculate left ventricular ejection fraction. Stress only was performed in the Supine position. Stress Test Details Stress Test: Pharmacologic stress testing performed using 0.4 mg of regadenoson per 5 mL given IV over 10 seconds. Reason for pharmacologic stress test: Right Knee injury/pain, LE edema, Neuropathy, ICD.. HR Max Heart Rate (APMHR): 155 bpm Resting HR: 65 bpm Target HR (85% APMHR): 131 bpm Max HR Achieved: 94 bpm % of APMHR: 60 Recovery HR: 69 bpm BP Resting BP: 131/85 mmHg Max BP: 122/81 mmHg Recovery BP: 132/76 mmHg ECG Resting ECG: Ventricular paced rhythm Stress ECG: Ventricular paced rhythm ST Change: None Arrhythmia: None Recovery ECG: Ventricular paced rhythm Recovery ST Change: None Recovery Arrhythmia: None Clinical Reason for Termination: Completed protocol Stress Symptoms: Headache, increased dyspnea. Exercise duration: 00 min 00 [place] [address] CARDIAC NUCLEAR IMAGING REPORT Name: NITZA BEAR Room: [address] Vinicio Malik#: [id number] Admission: 07/18/19 Attend Phys: Herbie Gonzalez Discharge: 07/18/19 Date of : 51 Date of Service: 07/21/19 1651 Report #: [id number] Exercise capacity: 1.00 METs The patient noted some jaw and chest pressure prior to during and post Lexiscan infusion. Nurse Comments A 63 year old male inpatient presented for a sitting Lexiscan r/t chest pain radiating to left jaw and dyspnea. Test well tolerated. Recovery unremarkable with PO caffeine. Patient was escorted via wheelchair by staff to Nuclear Medicine for imaging. Patient was stable and stated he felt good at that time. Stress ECG Conclusion The baseline twelve-lead EKG shows ventricular pacing. EKGs obtained during and post Lexiscan infusion show ventricular pacing. EKG was nondiagnostic. Study Quality Study: Fair Artifact: Moderate Diaphragmatic artifact Study Data Gated studies were faulty presumably due to the underlying paced rhythm. Calculated ejection fractions are not reliable. Perfusion Perfusion images obtained at rest show a large region of photopenia involving the inferior wall and apex. These defects resolved completely with post-rest prone imaging. Post-rest prone imaging shows no significant defect. Wall Motion Unable to properly gait images due to underlying paced rhythm. Nuclear Conclusion ECG Findings: non-diagnostic Clinical Findings: equivocal Nuclear Findings: negative for ischemia Exercise Capacity: not assessed Left Ventricular Function: Unable to evaluate The study is only fair. Perfusion images post-rest show no defect to suggest infarct or ischemia. Gated studies were not accurate likely due to the underlying paced rhythm. Suggest echocardiographic correlation. This does not appear to be [place] [address] CARDIAC NUCLEAR IMAGING REPORT Name: NITZA BEAR Room: [address] Sergio.#: [id number] Admission: 07/18/19 Attend Phys: Herbie Mathursonia Discharge: 07/18/19 Date of : 51 Date of Service: 07/21/191650 Report #: [id number] <Conclusion> The baseline twelve-lead EKG shows ventricular pacing. EKGs obtained during and post Lexiscan infusion show ventricular pacing. EKG was nondiagnostic. <ELECTRONICALLY SIGNED> By: Costa Saucedo MD, FACC 07/21/191650 50 50 Costa Saucedo MD, FACC /INF
== END 2019-07-18 19:45 | disposition home or self-care (01) ==
LOC: M.ERS 01:42 → M.2W 02:48 → M.TBA-ER 02:48 → M.ORTHSURG 03:13 → M.2W 03:14
PROVIDERS: Emergency Medicine Emergency Medical Services; ADMIT Internal Medicine
DX: R07.2 Precordial pain (principal); D68.69 Other thrombophilia; E11.9 Type 2 diabetes mellitus without complications; I11.0 Hypertensive heart disease with heart failure; I50.30 Unspecified diastolic (congestive) heart failure; J44.9 Chronic obstructive pulmonary disease, unspecified; I25.10 Atherosclerotic heart disease of native coronary artery without angina pectoris; E66.01 Morbid (severe) obesity due to excess calories; G47.33 Obstructive sleep apnea (adult) (pediatric); E11.42 Type 2 diabetes mellitus with diabetic polyneuropathy; K74.60 Unspecified cirrhosis of liver; D72.819 Decreased white blood cell count, unspecified; I48.0 Paroxysmal atrial fibrillation; Z87.891 Personal history of nicotine dependence; Z79.01 Long term (current) use of anticoagulants

== ENCOUNTER 2019-09-19 17:22 | Inpatient (IN) | payer MEDICARE, MEDICAID ==
[~2019-09-19] VITALS: Ht 167.6 cm; Wt 125.6 kg
[~2019-09-19 17:22] MED LIST changes: -ELIQUIS2.5 MG PO; +ELIQUIS5 MG PO
[2019-09-19 17:31] VITALS: BP 127/58
[2019-09-19 18:22] LABS: ABSOLUTE EOSINOPHILS 0.1 thou/uL (0.0-0.7); ABSOLUTE LYMPHOCYTES 0.7 thou/uL (0.8-5.3); ABSOLUTE MONOCYTES 0.3 thou/uL (0.0-1.2); ABSOLUTE NEUTROPHILS 3.4 thou/uL (1.6-8.1); EOSINOPHILS 1.1 %; HEMATOCRIT 40.2 % (42.0-52.0); HEMOGLOBIN 13.2 gm/dL (14.0-18.0); LYMPHOCYTES 15.1 %; MCH 28.7 pg (26.0-34.0); MCHC 32.8 g/dL (28.0-37.0); MCV 87.5 fL (80.0-100.0); MONOCYTES 6.9 %; MPV 8.2 fl. (7.2-11.1); NUCLEATED RBCS 0 /100WBC; PLATELET COUNT* 73 thou/uL (150-400); POLYS 75.9 %; RDW-CV 15.7 % (10.5-14.5); WBC 4.5 thou/uL (4.0-11.0)
[2019-09-19 18:26] LABS: INR 1.1; PROTIME 10.9 Seconds (9.20-11.50)
[2019-09-19 18:27] LABS: CALCIUM 8.6 mg/dL (8.5-10.1); CREATININE 1.4 mg/dL (0.6-1.3); POTASSIUM 4.3 mmol/L (3.5-5.1)
[2019-09-19 18:37] LABS: ALBUMIN 3.6 g/dL (3.4-5.0); MAGNESIUM 1.8 mg/dL (1.8-2.4); TOTAL BILIRUBIN 0.4 mg/dL (<0.1-1.0); TOTAL PROTEIN 6.9 g/dL (6.4-8.2)
[2019-09-19 21:48] VITALS: BP 122/57
[2019-09-19 22:15] VITALS: BP 130/65
[2019-09-20] VITALS: BP 133/61
[2019-09-20 04:12] VITALS: BP 147/76
[2019-09-20 08:20] VITALS: BP 141/81
[2019-09-20 15:29] VITALS: BP 131/65
[2019-09-20 18:01] VITALS: BP 121/56
[2019-09-20 20:10] VITALS: BP 102/54
[2019-09-21] VITALS: BP 124/50
[2019-09-21 04:00] VITALS: BP 128/53
[2019-09-21 09:00] VITALS: BP 141/73
--- NOTE | 2019-09-21 12:53 | EKG ---
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 Director: : 1955 Requested By: Tigre Gabriel Order Number: [id number] MD: Costa Saucedo Measurements Intervals [place] Rate: 87 P: ME: 211 QRS: -61 QRSD: 180 T: 61 QT: 406 QTc: 489 Interpretive Statements Atrial-ventricular dual-paced complexes No further analysis attempted due to paced rhythm Baseline wander in lead(s) V4 Compared to ECG 07/18/2019 01:43:16 No significant changes Electronically Signed On 09-21-2019 12:52:52 CDT by Costa Saucedo [email or web address] <ELECTRONICALLY SIGNED> By: Costa Saucedo MD, FACC 09/21/19 1252 1725 1725 Costa Saucedo MD, FACC /EPI
[2019-09-21 13:26] LABS: ABSOLUTE EOSINOPHILS 0.1 thou/uL (0.0-0.7); ABSOLUTE LYMPHOCYTES 0.5 thou/uL (0.8-5.3); ABSOLUTE MONOCYTES 0.2 thou/uL (0.0-1.2); ABSOLUTE NEUTROPHILS 2.3 thou/uL (1.6-8.1); BASOPHILS 0.5 %; EOSINOPHILS 1.9 %; HEMATOCRIT 37.9 % (42.0-52.0); HEMOGLOBIN 12.5 gm/dL (14.0-18.0); LYMPHOCYTES 16.6 %; MCH 28.7 pg (26.0-34.0); MCHC 32.8 g/dL (28.0-37.0); MCV 87.5 fL (80.0-100.0); MONOCYTES 6.9 %; MPV 7.7 fl. (7.2-11.1); NUCLEATED RBCS 0 /100WBC; PLATELET COUNT* 55 thou/uL (150-400); POLYS 74.1 %; RBC 4.34 mil/uL (4.50-6.00); RDW-CV 15.5 % (10.5-14.5); WBC 3.1 thou/uL (4.0-11.0)
[2019-09-21 13:41] LABS: ALBUMIN 3.3 g/dL (3.4-5.0); CALCIUM 8.5 mg/dL (8.5-10.1); MAGNESIUM 1.9 mg/dL (1.8-2.4); PHOSPHORUS* 3.1 mg/dL (2.5-4.9); POTASSIUM 3.9 mmol/L (3.5-5.1); TOTAL BILIRUBIN 0.6 mg/dL (<0.1-1.0); TOTAL PROTEIN 6.6 g/dL (6.4-8.2)
[2019-09-21 14:50] VITALS: BP 107/54
[2019-09-21 18:47] VITALS: BP 107/54
[2019-09-21 20:15] VITALS: BP 110/56
[2019-09-22 00:39] VITALS: BP 114/63
[2019-09-22 05:05] VITALS: BP 121/76
[2019-09-22 08:00] VITALS: BP 117/66
[2019-09-22] MEDS ORDERED: RANEXA500 MG PO (09:24)
[2019-09-22 12:00] VITALS: BP 109/59
[2019-09-22 16:07] VITALS: BP 92/53
--- NOTE | 2019-09-22 16:36 | CON ---
[address] [address] CONSULTATION Name: NITZA BEAR Room: [place] [address] ADM IN M.R.#: [id number] Admission: 09/21/19 Attend Phys: Frank Morin Discharge: Date of : 51 Report #: [id number] THIS REPORT FOR: //name// cc: Dandy Noe MD, Dean L. MD ~ THIS REPORT FOR: //name// CC: Tobi Javed MD FAC INDICATION: Chest pain. HISTORY OF PRESENT ILLNESS: The patient is a 64-year-old gentleman with history of coronary artery disease, sick sinus syndrome, paroxysmal atrial fibrillation, hypertension, hyperlipidemia, type 2 diabetes mellitus, ischemic cardiomyopathy, chronic congestive heart failure and status post pacemaker placement. The patient has had percutaneous coronary interventions in the past. By most recent catheterization, he appeared to have preserved left ventricular systolic function. Catheterization in 12/2018 revealed 30% mid LAD narrowing with a widely patent LAD stent. A large, dominant circumflex had a 30% first and second marginal narrowing and a widely patent distal stent. The left main and a small nondominant right were normal. EF at that time was 65%. By echocardiogram, he has preserved left ventricular systolic function, mild LVH and grade 1 diastolic dysfunction. Stress testing in 07/2019 showed no evidence of ischemia. He has been having progressive and persistent mid sternal chest discomfort with radiation to the left jaw and shoulder, which he describes as angina. Troponins are less than 0.06 on 2 separate occasions here. EKG shows a ventricularly paced rhythm with what appears to be underlying atrial fibrillation. He is chronically anticoagulated and having no bleeding problems. He describes the pain as starting last Sunday and being relatively persistent over the last several days. The pain is worse with activity, but persists even at rest. He has partial relief with nitroglycerin. PAST MEDICAL HISTORY: 1. Coronary artery disease with previous percutaneous coronary intervention. 2. Paroxysmal atrial fibrillation and sick sinus syndrome, status post dual chamber pacemaker placement. 3. Hypertension. 4. Hyperlipidemia. 5. [place] [address] CONSULTATION Name: NITZA BEAR Room: [address] IN [facility]#: [id number] Admission: 09/21/19 Attend Phys: Frank Morin Discharge: Date of : 51 Report #: [id number] 6. Type 2 diabetes mellitus. 7. COPD. PAST SURGICAL HISTORY: 1. Percutaneous coronary intervention to the LAD and circumflex. 2. Cholecystectomy. 3. Tonsillectomy. FAMILY HISTORY: Noncontributory. SOCIAL HISTORY: The patient quit smoking in 1997. He drinks alcohol very rarely. ALLERGIES: LOVENOX, NOVOLOG INSULIN, AND PENICILLIN. CURRENT MEDICATIONS: Eliquis 5 mg p.o. b.i.d., aspirin 81 mg p.o. daily, Symbicort inhaler b.i.d., Invokana 100 mg 3 tablets daily, Celexa 20 mg daily, Depakote ER 250 mg b.i.d., folate 1 mg daily, furosemide 40 mg daily as needed, gabapentin 300 mg t.i.d., guaifenesin 1200 mg b.i.d., hydrocodone with acetaminophen q. 4 hours p.r.n., Imdur 30 mg daily, Lidoderm patch topically daily, multivitamin 1 tablet daily, omeprazole 40 mg daily, potassium chloride 20 mEq with furosemide, pravastatin 40 mg daily, scopolamine patch q. 72 hours, Januvia 100 mg daily, Aldactone 50 mg daily, Spiriva HandiHaler 1 capsule daily, Topamax 25 mg daily. REVIEW OF SYSTEMS: A 14-point review of systems is positive for chest discomfort, dyspnea on exertion, orthopnea, peripheral edema, type 2 diabetes mellitus, seasonal allergies, medical allergies, penicillin allergy, chronically discolored lower extremities. Wears glasses without acute visual loss and decreased hearing. PHYSICAL EXAMINATION: VITAL SIGNS: Blood pressure 141/81, pulse is 65 and regular. GENERAL: This is a morbidly obese white male who is in no distress. Mood and affect appropriate. HEENT: The patient is wearing glasses. Extraocular muscles intact. Mucous membranes are moist. NECK: Shows a thick neck with no obvious jugular venous distention. CHEST: Reveals diminished breath sounds throughout without wheezes or rales. CARDIAC: Reveals a distant S1 and S2 without gallop or murmur. ABDOMEN: Reveals a protuberant abdomen, soft. EXTREMITIES: Shows trace ankle and pedal edema. SKIN: Dry. LABORATORY DATA: A 12-lead EKG shows ventricular paced rhythm with underlying atrial fibrillation. [address] [address] CONSULTATION Name: NITZA BEAR Room: [facility] ADM IN Sergio.#: [id number] Admission: 09/21/19 Attend Phys: Frank Morin Discharge: Date of : 51 Report #: [id number] Troponins are less than 0.06 on 2 separate occasions. IMPRESSION AND RECOMMENDATIONS: 1. Chest pain. Etiology not entirely clear. The patient reports this as being similar to his angina. He has ruled out for myocardial infarction. I am making adjustments to his antianginal regimen including the addition of ranolazine 500 mg b.i.d. We will continue Imdur at the current dose. I do not plan invasive evaluation at this time. 2. Hypertension. Blood pressure appears to be adequately controlled on current regimen. 3. Dyslipidemia. Continue statin agent with goal LDL of 70 or less. 4. Diabetes per hospitalist. 5. Paroxysmal atrial fibrillation. Continue Eliquis 5 mg b.i.d. 6. Sick sinus syndrome, status post pacemaker placement. Pacemaker appears to be functioning normally. <ELECTRONICALLY SIGNED> By: Costa Saucedo MD, FACC 09/22/19 1636 1245 [id number] Saucedo MD, FACC /nt
[2019-09-22 19:40] VITALS: BP 148/84
[2019-09-23] VITALS: BP 123/75
[2019-09-23 04:00] VITALS: BP 140/59
[2019-09-23 07:30] VITALS: BP 138/58
[2019-09-23 09:54] VITALS: BP 138/58
[2019-09-23 09:58] VITALS: BP 138/58
[2019-09-23 12:11] VITALS: BP 120/66
--- NOTE | 2019-09-23 12:35 | CON ---
[address] [address] CONSULTATION Name: NITZA BEAR Room: [place] [address] ADM IN M.R.#: [id number] Admission: 09/21/19 Attend Phys: Frank Morin Discharge: Date of : 51 Report #: [id number] THIS REPORT FOR: //name// cc: Dandy Noe MD, Dean L. MD ~ THIS REPORT FOR: //name// CC: Dandy Mercer DATE OF SERVICE: 09/21/2019 REQUESTING PHYSICIAN: Consult has been requested by Dr. Mercer. INDICATION FOR CONSULTATION: Shortness of breath/obstructive sleep apnea, possibly not fully controlled with the BiPAP. HISTORY OF PRESENT ILLNESS: A 64-year-old gentleman with past medical history includes a history of coronary artery disease as well as COPD. The patient is on oxygen 2 liters continuous at home. He is also on a BiPAP while asleep. I do not have his BiPAP settings available for obstructive sleep apnea. The patient also has had paroxysmal atrial fibrillation as well as bradycardia and he is therefore on anticoagulation. The patient also does have a pacemaker as well. At this time, the patient was admitted on 09/18, presentation is with vague chest discomfort. The patient also reports having had an increase in shortness of breath. The patient reports that he has been coughing; however, there has not been much sputum. He does not describe upper respiratory complaints. He does have swelling of lower extremities. He does not have calf pain. The patient has not had fever or chills. Since the patient was initially admitted, he has been treated with nebulized bronchodilators. He has not been on corticosteroids. He reports improvement in shortness of breath and chest pain compared with when he was initially admitted. The patient also has a longstanding history of disturbed sleep at night as well as sleepiness during the day. He reports regular use of BiPAP and oxygen as prescribed. The patient reports improvement, but not full control of these complaints. I asked him 12 other questions for review of systems. The patient answered to the negative except as mentioned above with the exception that the patient has had some orthopnea. The patient did not describe nausea, vomiting, diarrhea, constipation or abdominal pain and he did not have urinary complaints. PAST MEDICAL AND SURGICAL HISTORY: Coronary artery disease[place] [address] CONSULTATION Name: NITZA BEAR Room: [address] IN [facility]#: [id number] Admission: 09/21/19 Attend Phys: Frank Morin Discharge: Date of : 51 Report #: [id number] nuclear stress test performed earlier this year, which does not show major abnormalities. He has also had an echocardiogram earlier this year. His left ventricular ejection fraction of 55-60%. His right heart pressures were mildly elevated to 54. 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 I do not have his BiPAP settings. The patient's baseline creatinine is 1.0, which is normal. The patient's baseline pCO2 is only mildly elevated to 45, atrial fibrillation as well as bradyarrhythmias. He has a pacemaker. He is on anticoagulation half-way. Congestive heart failure, likely secondary to diastolic dysfunction, diabetes; cirrhosis, the etiology of cirrhosis is not known to me at this time; tonsillectomy; cataract surgery; cholecystectomy; torn ACL; peripheral neuropathy; T-cell lymphoma. SOCIAL HISTORY: Has an extensive history of smoking. He says he started smoking in the 1960s and smoked 2 packs a day, discontinued in the late , did use snuff for few years after, only occasional alcohol intake. No known history of illegal drug use. CURRENT MEDICATIONS: Listed in [facility] reviewed. HOME MEDICATIONS: List also in [facility] reviewed. FAMILY HISTORY: There is no pertinent family history. ALLERGIES: THE PATIENT IS REPORTED TO HAVE A HISTORY OF SHAKING WITH LOVENOX, THIS IS UNLIKELY TO BE AN ALLERGY; HOWEVER, I DO NOT HAVE FULL DETAILS AVAILABLE. PENICILLIN IS ALSO MENTIONED AN ALLERGY, BUT THERE IS PREVIOUS DOCUMENTATION OF ADMINISTRATION OF CEPHALOSPORIN WITHOUT DOCUMENTATION OF ANY REACTION. PHYSICAL EXAMINATION: GENERAL: He is alert, awake, and oriented; however, he is hard of hearing. VITAL SIGNS: Has a pulse of 65 and a blood pressure of 141/73. He does not appear to be in any distress. His respiratory rate is 16 to 18. He is afebrile with a temperature of 36.4. He is saturating 98%. He is on his baseline 2 liters oxygen. His body mass index is elevated to 45. HEENT: Head is normocephalic and atraumatic. Pupils are equal and reactive. There is no throat erythema. He has a narrow airway. Mallampati 4. NECK: Does not show raised JVP, asymmetry, mass or lymph nodes. CHEST: Symmetrical expansion on inspection and palpation. On auscultation, breath sounds are bilaterally equal, but decreased. I do not hear any added sounds. HEART: Regular. There is no murmur. ABDOMEN: Mildly distended, nontender. EXTREMITIES: Lower extremities do show 1+ edema. There are significant skin changes consistent with chronic venous insufficiency. There is no calf [facility] [address] [address] CONSULTATION Name: NITZA BEAR Room: [place] [address] ADM IN M.R.#: [id number] Admission: 09/21/19 Attend Phys: Frank Morin Discharge: Date of : 51 Report #: [id number] tenderness. SKIN: However, is dry and intact. NEUROLOGICAL: Moves all extremities bilaterally equally and spontaneously with no focal deficit identified. LABORATORY DATA: The patient had a chest x-ray done on . I reviewed both the films as well as the report. There is cardiomegaly. There is a pacemaker present. There are some chronic changes. I do not see any acute findings. The patient's lab work performed on 09/18 also reviewed. This includes a CBC, which does show a platelet count decreased to 73. The patient's creatinine was 1.4. Note that his baseline creatinine is 1.0. ASSESSMENT AND PLAN: 1. Shortness of breath and chest pain. These complaints are already improved over the 2 days that he has been in the hospital, I would defer evaluation regarding cardiac etiologies to the Cardiology Service. See further discussion as above. From a pulmonary point of view, it does appear that he has a component of bronchospasm, which from the history provided appears to have already improved over the last 2 days. The patient also does appear to be fluid overloaded as well. 2. Chronic obstructive pulmonary disease. I feel that there is a component of bronchospasm. The patient clearly states that his symptoms are improved and he is given a DuoNeb breathing treatment. Therefore, I went ahead and ordered a dose of Solu-Medrol now, I did start with prednisone tomorrow morning as well. Note that his blood glucoses are already elevated. He likely will need more insulin. As a result, I would defer this to the primary service. I would also go ahead and do a chest x-ray now and then assess as to whether there is a need to administer antibiotics. Unless there no new findings on perhaps we inclined to hold off. 3. Fluid overload/mild renal insufficiency. The patient's creatinine was 1.4 on admission. Note that his baseline creatinine is 1.0. on my exam, he does appear to be fluid overloaded. I will go ahead and repeat labs now. If his creatinine is trending downwards, then in that case, I will consider giving him a dose of Lasix. If creatinine is still elevated, then I will be inclined to obtain a renal ultrasound to evaluate etiology of the rise in creatinine. 4. Obstructive sleep apnea. He is on a BiPAP while asleep group home. Settings are not available. The patient's symptoms are partially improved with this. I will be happy to see the patient in a couple of weeks after discharge in the office and then evaluate further and then also arrange another sleep study. It does appear that the patient may benefit from further titration of his BiPAP pressures. 5. Paroxysmal atrial fibrillation/bradyarrhythmias. He is status post pacemaker and is also on anticoagulation. 6. History of lymphoma. 7. History of thrombocytopenia. The patient's platelet count is 73, which is unchanged compared with his previous platelet counts. [address] [place] [address] CONSULTATION Name: NITZA BEAR Room: [address] IN M.R.#: [id number] Admission: 09/21/19 Attend Phys: Frank Morin Discharge: Date of : 53 Report #: [id number] 8. Morbid obesity. Weight loss is strongly recommended. 9. History of diabetes. Thanks for this consultation. <ELECTRONICALLY SIGNED> By: Leonardo Donnelly MD 09/23/19 1235 1244 1534Arajiv Donnelly MD /nt
== END 2019-09-23 18:58 | disposition hospice, home (50) | DRG 302 ==
LOC: M.ERS 17:22 → M.2W 18:50 → M.TBA-ER 18:50 → M.2W 22:15
PROVIDERS: Emergency Medicine Emergency Medical Services; Internal Medicine Critical Care Medicine; ADMIT Internal Medicine; ATTEND Internal Medicine
PROC: 5A09357 Assistance with Respiratory Ventilation, Less than 24 Consecutive Hours, Continuous Positive Airway Pressure (ICD-10-PCS; 2019-09-20)
PROC: 5A09357 Assistance with Respiratory Ventilation, Less than 24 Consecutive Hours, Continuous Positive Airway Pressure (ICD-10-PCS; principal; 2019-09-22)
DX: I25.110 Atherosclerotic heart disease of native coronary artery with unstable angina pectoris (principal); N17.0 Acute kidney failure with tubular necrosis; Z68.41 Body mass index [BMI] 40.0-44.9, adult; J96.11 Chronic respiratory failure with hypoxia; I50.32 Chronic diastolic (congestive) heart failure; I49.5 Sick sinus syndrome; G47.33 Obstructive sleep apnea (adult) (pediatric); E66.01 Morbid (severe) obesity due to excess calories; E11.42 Type 2 diabetes mellitus with diabetic polyneuropathy; I48.0 Paroxysmal atrial fibrillation; E78.5 Hyperlipidemia, unspecified; K74.60 Unspecified cirrhosis of liver; J44.9 Chronic obstructive pulmonary disease, unspecified; E11.51 Type 2 diabetes mellitus with diabetic peripheral angiopathy without gangrene; G43.909 Migraine, unspecified, not intractable, without status migrainosus; I27.20 Pulmonary hypertension, unspecified; E87.70 Fluid overload, unspecified; N40.1 Benign prostatic hyperplasia with lower urinary tract symptoms; R35.0 Frequency of micturition; I11.0 Hypertensive heart disease with heart failure; Z20.828 Contact with and (suspected) exposure to other viral communicable diseases; Z51.5 Encounter for palliative care; Z72.89 Other problems related to lifestyle; I25.2 Old myocardial infarction; Z85.72 Personal history of non-Hodgkin lymphomas; Z95.5 Presence of coronary angioplasty implant and graft; Z95.0 Presence of cardiac pacemaker; Z98.42 Cataract extraction status, left eye; Z98.41 Cataract extraction status, right eye; Z90.49 Acquired absence of other specified parts of digestive tract; Z87.891 Personal history of nicotine dependence; Z79.01 Long term (current) use of anticoagulants; Z79.82 Long term (current) use of aspirin; Z79.899 Other long term (current) drug therapy; Z88.0 Allergy status to penicillin; Z88.8 Allergy status to other drugs, medicaments and biological substances

== ENCOUNTER 2019-10-04 21:51 | Inpatient (IN) | payer MEDICARE, MEDICAID ==
[~2019-10-04] VITALS: Ht 167.6 cm; Wt 127.9 kg
[~2019-10-04 21:51] MED LIST changes: +RANEXA500 MG PO
[2019-10-04 22:45] LABS: PCO2 45.7 mmHg (35.0-45.0); pH 7.381 (7.340-7.450)
[2019-10-04 22:50] LABS: PO2 137.9 mmHg (75.0-100.0)
[2019-10-04 22:51] LABS: ABSOLUTE EOSINOPHILS 0.1 thou/uL (0.0-0.7); ABSOLUTE LYMPHOCYTES 0.6 thou/uL (0.8-5.3); ABSOLUTE MONOCYTES 0.2 thou/uL (0.0-1.2); ABSOLUTE NEUTROPHILS 2.2 thou/uL (1.6-8.1); BASOPHILS 0.5 %; HEMATOCRIT 39.8 % (42.0-52.0); LYMPHOCYTES 18.4 %; MCH 29.1 pg (26.0-34.0); MCHC 32.6 g/dL (28.0-37.0); MCV 89.3 fL (80.0-100.0); MONOCYTES 7.3 %; MPV 7.8 fl. (7.2-11.1); NUCLEATED RBCS 0 /100WBC; PLATELET COUNT* 61 thou/uL (150-400); POLYS 71.8 %; RBC 4.45 mil/uL (4.50-6.00); RDW-CV 16.3 % (10.5-14.5); WBC 3.1 thou/uL (4.0-11.0)
[2019-10-04 23:05] LABS: CALCIUM 8.6 mg/dL (8.5-10.1); CREATININE 1.1 mg/dL (0.6-1.3); POTASSIUM 3.9 mmol/L (3.5-5.1)
[2019-10-04 23:10] LABS: ALBUMIN 3.3 g/dL (3.4-5.0); MAGNESIUM 1.8 mg/dL (1.8-2.4); TOTAL BILIRUBIN 0.3 mg/dL (<0.1-1.0); TOTAL PROTEIN 6.6 g/dL (6.4-8.2)
[2019-10-04 23:17] LABS: URINE BILIRUBIN NEGATIVE (Negative); URINE BLOOD NEGATIVE (Negative); URINE CLARITY CLEAR; URINE COLOR YELLOW; URINE GLUCOSE-RANDOM 3+ (Negative); URINE KETONES NEGATIVE (Negative); URINE LEUKOCYTES-REFLEX NEGATIVE (Negative); URINE NITRITE-REFLEX NEGATIVE (Negative); URINE PROTEIN NEGATIVE (Negative); URINE SPECIFIC GRAVITY 1.025 (1.005-1.030); URINE UROBILINOGEN 0.2 E.U./dl (0.2-1.0)
[2019-10-05] VITALS (7 sets, daily range): BP systolic 111–140; BP diastolic 42–73
--- NOTE | 2019-10-05 06:09 | NUR ---
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 HE IS ABLE TO COMMUNICATE HIS NEEDS WITH MINOR DIFFICULTY; HE IS [id number]. CURRENT PAIN MEDICATION REGIMEN HAS BEEN ADEQUATE FOR CONTROLLING HIS PAIN UP TO THIS TIME.
[2019-10-05 09:05] LABS: CALCIUM 8.7 mg/dL (8.5-10.1); CREATININE 1.1 mg/dL (0.6-1.3); MAGNESIUM 1.7 mg/dL (1.8-2.4); POTASSIUM 3.4 mmol/L (3.5-5.1)
[2019-10-05 09:06] LABS: APTT 23.6 Seconds (25.0-31.3); INR 1.1; PROTIME 11.2 Seconds (9.20-11.50)
--- NOTE | 2019-10-05 14:20 | NUR ---
ASSUMED CARE OF PATIENT THIS AM AT 0730. PATIENT IS ALERT AND ORIENTED X 4. HE HAS HAD VARIOUS C/O MINIR DISCOMFORTS. TELE SHOWS AV PACED. BLOOD SUGARS REMAINS ELEVATED TODAY. PATIENT EDUCATED ON DIET AND MONITORING FLUID INTAKE. IV ANTIBIOTICS INFUSED. NO FALLS OR INJURY. RESPIRATORY TX PER RT.
[2019-10-06] VITALS: BP 138/65
[2019-10-06 04:00] VITALS: BP 138/68
[2019-10-06 05:32] LABS: HEMATOCRIT 34.1 % (42.0-52.0); HEMOGLOBIN 11.3 gm/dL (14.0-18.0); MCH 29.1 pg (26.0-34.0); MCHC 33.2 g/dL (28.0-37.0); MCV 87.5 fL (80.0-100.0); MPV 8.1 fl. (7.2-11.1); RBC 3.9 mil/uL (4.50-6.00); WBC 2.9 thou/uL (4.0-11.0)
--- NOTE | 2019-10-06 05:36 | NUR ---
PT IS ABLE TO COMMUNICATE HIS NEEDS TO STAFF EFFECTIVELY. CURRENT PAIN MEDICATION REGIMEN HAS BEEN ADEQUATE FOR CONTROLLING HIS PAIN UP TO THIS TIME. PT WEARING CPAP OVERNIGHT TONIGHT WHILE SLEEPING. POSSIBLE DISCHARGE LATER TODAY.
[2019-10-06 05:47] LABS: CALCIUM 8.6 mg/dL (8.5-10.1); CREATININE 1.1 mg/dL (0.6-1.3); POTASSIUM 5.4 mmol/L (3.5-5.1)
[2019-10-06 09:00] VITALS: BP 149/77
[2019-10-06 11:46] VITALS: BP 122/67
--- NOTE | 2019-10-06 15:46 | NUR ---
Pt is A&O. Resides at home with his . Independent. Pt uses a cane or walker for mobility, Pt states that he is working on getting a wc for longer distances. Pt wears home o2 continuous and has a bipap through [facility], can bring a tank to the hospital at [facility]. Pt is current with [facility] and wants to resume at [facility]. Pt is current with [facility] and wants to resume at [facility]. Goal is home at [facility].
[2019-10-06 16:00] VITALS: BP 130/76
--- NOTE | 2019-10-06 18:21 | NUR ---
I ASSUMED CARE OF THE PATIENT AT 0700. HE IS ALERT AND ORIENTED X4 AND IS UP WITH SBA TO THE BATHROOM. BED IS IN THE LOW LOCKED POSITION AND CALL LIGHT IS IN REACH. HOURLY ROUNDING IS COMPLETED AND PATIENT NEEDS ARE MET. PAIN IS DENIED. OXYGEN IS BEING WORN AND CPAP IS AT THE BEDSIDE FOR NIGHT. BULLDOZER/LOADER/COMPACTOR/SCRAPER IS IN PLACE. BLOOD SUGAR IS MONITORED AND CONTROLLED WITH INSULIN. VSS ARE STABLE. WILL CONTINUE TO MONITOR.
[2019-10-06 20:20] VITALS: BP 120/66
[2019-10-07] VITALS: BP 137/74
--- NOTE | 2019-10-07 02:43 | NUR ---
PATIENT HAS REMAINED ALERT AND ORIENTED X 4 THROUGHOUT THE SHIFT AND RESTING QUIETLY ON HOURLY ROUNDS. STANDS AT BEDSIDE TO VOID INDEPENDENTLY. CGA WITH CANE TO BR. O2 AT 2L/MIN NASAL CANNULA. HS CPAP WITH O2 BLEED IN. MEDS PER ORDER. BLOOD SUGAR REMAINS ELEVATED. SLIDING SCALE INSULIN PER ORDER. VITAL SIGNS STABLE. V-PACED/AV-PACED ON MONITOR. RATES 60'S BPM. NO NEW CONCERNS. CONTINUE TO MONITOR.
[2019-10-07 04:00] VITALS: BP 126/78
[2019-10-07 08:00] VITALS: BP 133/53
[2019-10-07] MEDS ORDERED: AZITHROMYCIN500 MG PO (09:37)
[2019-10-07] MEDS ORDERED: PREDNISONE 10 M10 MG PO (09:37)
[2019-10-07] MEDS ORDERED: CEFDINIR300 MG PO (09:37)
[2019-10-07] MEDS ORDERED: NOVOLOG FL100 UNIT/M SUBQ (09:37)
[2019-10-07] MEDS ORDERED: LANTUS SOL100 UNIT/1 SUBQ (09:37)
[2019-10-07 09:38] VITALS: BP 133/53
[2019-10-07] MEDS ORDERED: LANCET 30G-GLU1 EACH SUBQ (09:38)
[2019-10-07 12:02] VITALS: BP 113/66
--- NOTE | 2019-10-07 13:24 | NUR ---
ASSUMED PT CARE AT 0730, PT AOX4 AND HAS C/O PAIN TO RT KNEE BUT WANTED LIDOCAINE PATCH. GAVE LIDOCAINE PATCH ALONG W/ OTHER MORNING MEDS. PT HAD NO C/O SHORTNESS OF BREATH. PT GOAL IS TO WORK ON DC TO HOME AND KEEP SUGARS UNDER CONTROL. AM ASSESSMENT CHARTED, MEDS PER MAR, HOURLY ROUNDING OBSERVED, FALL PRECAUTIONS IN PLACE, CALL LIGHT W/IN REACH, DC ORDERS RECEIVED. DC INSTRUCTIONS, CARE NOTES, SCRIPTS SENT TO PHARM, AND F/U APPTS GIVEN TO PT, PT COMMUNICATES UNDERSTANDING OF DC TEACHING. IV AND ASSISTANT DIRECTOR OF NURSING REMOVED. PT DC'D W/ ALL PERSONAL BELONGINGS AND PAPERWORK VIA WC W/ NURSING STAFF TO 'S PERSONAL VEHICLE AT APPROX 1320.
--- NOTE | 2019-10-07 14:28 | EKG ---
[place] [address] ELECTROCARDIOGRAM REPORT Name: NITZA BEAR Room: [address] IN M.R.#: [id number] Admission: 10/04/19 Attend Phys: Azra Akers, Discharge: 10/07/19 Date of : 51 Date of Service: 10/04/192200 Report #: [id number] THIS REPORT FOR: //name// [facility] ED Test Date: 2019-10-04 Test Time: 22:01:15 Pat Name: NITZA BEAR Department: Room: [address] Gender: M Boiler Fitter: : 1955 Requested By: Mela Romero Order Number: [id number] Feliciano MD: Ashish Javed Measurements Intervals [place] Rate: 67 P: 0 CA: 168 QRS: -61 QRSD: 199 T: 77 QT: 476 QTc: 503 Interpretive Statements Sinus rhythm with ventricular pacing Atrial premature complexes Nonspecific IVCD with LAD Baseline wander in lead(s) II,III,aVL,aVF,V4,V5 Compared to ECG 09/19/2019 17:25:37 Atrial premature complex(es) now present AV dual-paced complex(es) persists Electronically Signed On 10-07-2019 14:28:15 CDT by Ashish Javed [email or web address] <ELECTRONICALLY SIGNED> By: Ashish Javed MD, [facility] 10/07/19 1428 00 00 Ashish Javed MD, [facility] /EPI
== END 2019-10-07 13:20 | disposition home health service (06) | DRG 178 ==
LOC: M.ERS 21:51 → M.2W 23:43 → M.TBA-ER 23:43 → M.2W 10-05 01:20
PROVIDERS: Internal Medicine; Personal Emergency Response Attendant; ADMIT Internal Medicine; ATTEND Internal Medicine
PROC: 5A09357 Assistance with Respiratory Ventilation, Less than 24 Consecutive Hours, Continuous Positive Airway Pressure (ICD-10-PCS; principal; 2019-10-05)
PROC: 5A09357 Assistance with Respiratory Ventilation, Less than 24 Consecutive Hours, Continuous Positive Airway Pressure (ICD-10-PCS; 2019-10-06)
PROC: 5A09357 Assistance with Respiratory Ventilation, Less than 24 Consecutive Hours, Continuous Positive Airway Pressure (ICD-10-PCS; 2019-10-07)
DX: J69.0 Pneumonitis due to inhalation of food and vomit (principal); J44.1 Chronic obstructive pulmonary disease with (acute) exacerbation; J96.11 Chronic respiratory failure with hypoxia; I50.32 Chronic diastolic (congestive) heart failure; D68.69 Other thrombophilia; Z68.42 Body mass index [BMI] 45.0-49.9, adult; C85.80 Other specified types of non-Hodgkin lymphoma, unspecified site; I49.5 Sick sinus syndrome; I48.91 Unspecified atrial fibrillation; I25.10 Atherosclerotic heart disease of native coronary artery without angina pectoris; E11.42 Type 2 diabetes mellitus with diabetic polyneuropathy; I11.0 Hypertensive heart disease with heart failure; G47.33 Obstructive sleep apnea (adult) (pediatric); E66.01 Morbid (severe) obesity due to excess calories; T38.0X5A Adverse effect of glucocorticoids and synthetic analogues, initial encounter; K74.60 Unspecified cirrhosis of liver; E11.65 Type 2 diabetes mellitus with hyperglycemia; Z20.828 Contact with and (suspected) exposure to other viral communicable diseases; Z95.5 Presence of coronary angioplasty implant and graft; Z90.49 Acquired absence of other specified parts of digestive tract; Z98.42 Cataract extraction status, left eye; Z98.41 Cataract extraction status, right eye; Z79.899 Other long term (current) drug therapy; Z79.82 Long term (current) use of aspirin; Z88.0 Allergy status to penicillin; Z88.8 Allergy status to other drugs, medicaments and biological substances; Z87.891 Personal history of nicotine dependence; Z95.0 Presence of cardiac pacemaker; Y92.89 Other specified places as the place of occurrence of the external cause

== ENCOUNTER 2020-01-14 21:40 | Emergency (ER) | payer MEDICARE, MEDICAID ==
[~2020-01-14] VITALS: Ht 167.6 cm; Wt 123.2 kg
[~2020-01-14 21:40] MED LIST changes: +AZITHROMYCIN500 MG PO; +LANCET 30G-GLU1 EACH SUBQ; +LANTUS SOL100 UNIT/1 SUBQ; +NOVOLOG FL100 UNIT/M SUBQ
[2020-01-14 22:31] LABS: ABSOLUTE BASOPHILS 0.1 thou/uL (0.0-0.2); ABSOLUTE LYMPHOCYTES 1.2 thou/uL (0.8-5.3); ABSOLUTE MONOCYTES 0.6 thou/uL (0.0-1.2); ABSOLUTE NEUTROPHILS 6.1 thou/uL (1.6-8.1); EOSINOPHILS 0.5 %; HEMATOCRIT 41.9 % (42.0-52.0); HEMOGLOBIN 13.8 gm/dL (14.0-18.0); LYMPHOCYTES 14.5 %; MCH 29.1 pg (26.0-34.0); MCV 88.3 fL (80.0-100.0); MONOCYTES 7.8 %; MPV 8.1 fl. (7.2-11.1); NUCLEATED RBCS 0 /100WBC; PLATELET COUNT* 102 thou/uL (150-400); POLYS 76.2 %; RBC 4.75 mil/uL (4.50-6.00); RDW-CV 16.7 % (10.5-14.5); WBC 8.1 thou/uL (4.0-11.0)
[2020-01-14 22:38] LABS: CALCIUM 9.1 mg/dL (8.5-10.1); CREATININE 2.3 mg/dL (0.6-1.3); POTASSIUM 4.6 mmol/L (3.5-5.1)
[2020-01-14 22:42] LABS: ALBUMIN 3.5 g/dL (3.4-5.0); MAGNESIUM 2.3 mg/dL (1.8-2.4); TOTAL BILIRUBIN 0.5 mg/dL (<0.1-1.0); TOTAL PROTEIN 6.8 g/dL (6.4-8.2)
[2020-01-14 22:46] LABS: BE 5.8 mmol/L (-2 to +3); pH 7.377 (7.340-7.450)
[2020-01-14 22:47] LABS: PCO2 57.1 mmHg (35.0-45.0)
[2020-01-14 22:48] LABS: PO2 138.5 mmHg (75.0-100.0)
[2020-01-15 02:10] VITALS: BP 100/78
--- NOTE | 2020-01-19 11:37 | EKG ---
[place] [address] ELECTROCARDIOGRAM REPORT Name: NITZA BEAR Room: [facility]#: [id number] Admission: 01/14/20 Attend Phys: Discharge: 01/15/20 Date of : 51 Date of Service: 01/14/202147 Report #: [id number] THIS REPORT FOR: //name// [facility] ED Test Date: 2020-01-14 Test Time: 21:48:16 Pat Name: NITZA BEAR Department: Room: Gender: Biztalk Developer: MINO : 1955 Requested By: Mela Romero Order Number: [id number] Feliciano MD: Jose G Toribio Measurements Intervals [place] Rate: 68 P: VA: QRS: -58 QRSD: 205 T: 80 QT: 479 QTc: 510 Interpretive Statements Afib/flut and V-paced complexes No further analysis attempted due to paced rhythm Compared to ECG 10/04/2019 22:01:15 no change Electronically Signed On 01-19-2020 11:37:36 ASSEMBLER FINAL by Jose G Toribio [email or web address] <ELECTRONICALLY SIGNED> By: Jose G Toribio MD, FACC 01/19/20 1137 Jose G Toribio MD, FAC /EPI
== END 2020-01-15 02:10 | disposition home or self-care (01) ==
LOC: M.ERS 21:40
PROVIDERS: Personal Emergency Response Attendant
DX: R10.31 Right lower quadrant pain (principal); Z20.828 Contact with and (suspected) exposure to other viral communicable diseases; R51.9 Headache, unspecified; R11.0 Nausea; I48.91 Unspecified atrial fibrillation; I10 Essential (primary) hypertension; E11.9 Type 2 diabetes mellitus without complications; I25.10 Atherosclerotic heart disease of native coronary artery without angina pectoris; J44.9 Chronic obstructive pulmonary disease, unspecified; Z79.899 Other long term (current) drug therapy; Z79.82 Long term (current) use of aspirin; Z88.0 Allergy status to penicillin; Z88.8 Allergy status to other drugs, medicaments and biological substances; Z87.891 Personal history of nicotine dependence

== ENCOUNTER 2020-04-24 20:45 | Emergency (ER) | payer MEDICARE, MEDICAID ==
[~2020-04-24] VITALS: Ht 167.6 cm; Wt 125.7 kg
--- NOTE | ~2020-04-24 | EMS ---
[address] [place] [address] EMS Patient Care Report Name: NITZA BEAR Room: [facility] M.RLudin#: [id number] Admission: 04/24/20 Attend Phys: Discharge: 04/25/20 Date of : 53 Report #: [id number] THIS REPORT FOR: //name// Report Transmitted: 04/27/2020 10:06 EMS Care Summary MARZENA BUCKNER Incident [id number] @ 04/24/2020 20:11 Incident Location [id number] [place], [place] [id number] Patient NITZA BEAR Male, 64 Years 1955 Patient Address [address] [place] [address] Patient History Cirrhosis of Liver,Chronic Obstructive Pulmonary Disease (COPD),Endocrine Condition - Other,Unspecified asthma,Myocardial Infarction (MT), Patient Allergies , Patient Medications Celexa, Depakote, Nexium, Furosemide, Neurontin, Chief Complaint Breathing difficulty Disposition Transported No Lights/[place] Dispatch Reason Breathing Problem Transported To [facility] Narrative [facility] 308 dispatched to stated location for male pt, difficulty breathing. On arrival to the scene, we were directed to the pt's room, where he was found seated in a wheelchair. Staff advised that he was just admitted to the facility [address] [place] [address] EMS Patient Care Report Name: NITZA BEAR Room: [facility]#: [id number] Admission: 04/24/20 Attend Phys: Discharge: 04/25/20 Date of : 51 Report #: [id number] approximately three hours prior, but felt that he was having difficulty breathing. Staff advised that they noted no abnormalities with the pt's vitals, but the pt wished to be transported anyway. Pt advised that he felt the facility he was discharged from "didn't do anything," because he felt he was still having trouble breathing. Pt was assisted to the stretcher, secured, and moved to the ambulance for transport. Once on board, vitals were as documented. Pt rested comfortably for the duration of transport, with no obvious signs of distress noted during contact. No overall change in pt condition noted during transport. In person handoff report given to receiving nurse as indicated. Pt care transferred without incident. Unit in service. End of report Mackenzie Mejiaiott [id number] Initial Vitals @20:31SpO2: 98, @20:42SpO2: 97, @20:30 @20:31P: 86,R: 18,BP: 183/96, @20:42P: 100,R: 18,BP: 166/92, @20:31GCS: 15, @20:42GCS: 15, Assessments @20:24MENTAL:SKIN:HEENT:LUNG SOUNDS:ABDOMEN:PELVIS//GI:EXTREMITIES:PULSE:NEURO: Impression Acute Respiratory Distress (Dyspnea) Procedures @20:24Other - Medication - 4.000 Liters per Minute (l/min [fluid]) - Nasal CannulaResponse: Unchanged@20:303-Lead ECGResponse: UnchangedSucceeded Timeline 20:11,Call Received 20:11,Dispatch Notified 20:11,Psap Call 20:11,Dispatched 20:12,En Route 20:22,On Scene 20:24,At Patient 20:24,Other - Medication - 4.000 Liters per Minute (l/min [fluid]) - Nasal Cannula,Response: Unchanged 20:30,3-Lead ECG,Response: UnchangedSucceeded, 20:30,BP: / M,PULSE: ,RR: R,SPO2: Ox,ETCO2: ,BG: ,PAIN: ,GCS: , 20:31,BP: / M,PULSE: ,RR: R,SPO2: 98 Ox,ETCO2: ,BG: ,PAIN: ,GCS: , 20:31,BP: 183/96 M,PULSE: 86,RR: 18 R,SPO2: Ox,ETCO2: ,BG: ,PAIN: ,GCS: , [place] [address] EMS Patient Care Report Name: MARIANELA,NITZASHAHAB LOCKWOOD [facility] [id number] Admission: 04/24/20 Attend Phys: Discharge: 04/25/20 Date of : 51 Report #: [id number] 20:31,BP: / M,PULSE: ,RR: R,SPO2: Ox,ETCO2: ,BG: ,PAIN: ,GCS: 15, 20:33,Depart Scene 20:42,BP: / M,PULSE: ,RR: R,SPO2: 97 Ox,ETCO2: ,BG: ,PAIN: ,GCS: , 20:42,BP: 166/92 M,PULSE: 100,RR: 18 R,SPO2: Ox,ETCO2: ,BG: ,PAIN: ,GCS: , 20:42,BP: / M,PULSE: ,RR: R,SPO2: Ox,ETCO2: ,BG: ,PAIN: ,GCS: 15, 20:42,At Destination 21:01,Call Closed Disclaimer v1.1 Copyright 2020 [employer] This EMS Care Summary contains data elements from the applicable legal record (which may be displayed differently). It is designed to provide pertinent information for the following purposes: continuity of care, clinical quality, and state data reporting. The complete legal record is available to ED staff and administrators of the receiving hospital in [facility] Patient Tracker. All data is provided "as is."
[2020-04-24] MEDS ORDERED: GLIMEPIRIDE4 MG PO (21:17)
[2020-04-24] MEDS ORDERED: TOPROL XL25 MG PO (21:18)
[2020-04-24] MEDS ORDERED: MONTELUKAST SODI4 M1 PO (21:19)
[2020-04-24 21:27] LABS: ABSOLUTE LYMPHOCYTES 0.4 thou/uL (0.8-5.3); ABSOLUTE MONOCYTES 0.2 thou/uL (0.0-1.2); ABSOLUTE NEUTROPHILS 2.5 thou/uL (1.6-8.1); BASOPHILS 0.7 %; EOSINOPHILS 0.1 %; HEMATOCRIT 35.9 % (42.0-52.0); HEMOGLOBIN 11.6 gm/dL (14.0-18.0); LYMPHOCYTES 11.6 %; MCH 27.9 pg (26.0-34.0); MCHC 32.4 g/dL (28.0-37.0); MCV 86.2 fL (80.0-100.0); MONOCYTES 5.5 %; MPV 7.1 fl. (7.2-11.1); NUCLEATED RBCS 0 /100WBC; PLATELET COUNT* 85 thou/uL (150-400); POLYS 82.1 %; RBC 4.16 mil/uL (4.50-6.00); WBC 3.1 thou/uL (4.0-11.0)
[2020-04-24 21:28] LABS: URINE BILIRUBIN NEGATIVE (Negative); URINE BLOOD NEGATIVE (Negative); URINE CLARITY CLEAR; URINE COLOR YELLOW; URINE GLUCOSE-RANDOM 3+ (Negative); URINE KETONES NEGATIVE (Negative); URINE LEUKOCYTES-REFLEX NEGATIVE (Negative); URINE NITRITE-REFLEX NEGATIVE (Negative); URINE PROTEIN NEGATIVE (Negative); URINE SPECIFIC GRAVITY 1.015 (1.005-1.030)
[2020-04-24 21:29] LABS: BE 5.5 mmol/L (-2 to +3); pH 7.406 (7.340-7.450)
[2020-04-24 21:35] LABS: PCO2 51.1 mmHg (35.0-45.0)
[2020-04-24 21:37] LABS: CALCIUM 9.5 mg/dL (8.5-10.1); POTASSIUM 4.3 mmol/L (3.5-5.1)
[2020-04-24 21:41] LABS: MAGNESIUM 2.4 mg/dL (1.8-2.4); TOTAL BILIRUBIN 0.6 mg/dL (<0.1-1.0); TOTAL PROTEIN 6.8 g/dL (6.4-8.2)
[2020-04-24 23:45] VITALS: BP 143/71
--- NOTE | 2020-04-26 13:39 | EKG ---
[place] [address] ELECTROCARDIOGRAM REPORT Name: NITZA BEAR Room: [facility]#: [id number] Admission: 04/24/20 Attend Phys: Discharge: 04/25/20 Date of : 51 Date of Service: 04/24/202052 Report #: [id number] THIS REPORT FOR: //name// [facility] ED Test Date: 2020-04-24 Test Time: 20:53:29 Pat Name: NITZA BEAR Department: Room: Gender: Kinesiotherapist: DC : 1955 Requested By: Mela Romero Order Number: [id number] Feliciano MD: Ashish Javed Measurements Intervals [place] Rate: 64 P: 0 MI: 51 QRS: -52 QRSD: 218 T: 77 QT: 484 QTc: 500 Interpretive Statements A-V dual-paced complexes w/ some inhibition No further analysis attempted due to paced rhythm Baseline wander in lead(s) V4,V5 Compared to ECG 01/14/2020 21:48:16 Atrial fibrillation no longer present Electronically Signed On 04-26-2020 13:39:16 AIRCRAFT INSTRUMENT ENGINEER by Ashish Javed [email or web address] <ELECTRONICALLY SIGNED> By: Ashish Javed MD, FAC 04/26/20 1339 52 52 Ashish Javed MD, FAC /EPI
== END 2020-04-25 00:26 | disposition home or self-care (01) ==
LOC: M.ERS 20:45
PROVIDERS: Personal Emergency Response Attendant
DX: E11.65 Type 2 diabetes mellitus with hyperglycemia (principal); J96.10 Chronic respiratory failure, unspecified whether with hypoxia or hypercapnia; E11.41 Type 2 diabetes mellitus with diabetic mononeuropathy; I48.91 Unspecified atrial fibrillation; I11.0 Hypertensive heart disease with heart failure; I50.32 Chronic diastolic (congestive) heart failure; I25.10 Atherosclerotic heart disease of native coronary artery without angina pectoris; E66.01 Morbid (severe) obesity due to excess calories; Z68.41 Body mass index [BMI] 40.0-44.9, adult; Z87.891 Personal history of nicotine dependence; Z88.0 Allergy status to penicillin; Z88.8 Allergy status to other drugs, medicaments and biological substances; Z95.5 Presence of coronary angioplasty implant and graft; Z90.89 Acquired absence of other organs; Z90.49 Acquired absence of other specified parts of digestive tract

== ENCOUNTER 2020-06-27 20:29 | Inpatient (IN) | payer MEDICARE, MEDICAID ==
[~2020-06-27] VITALS: Ht 167.6 cm; Wt 123.0 kg
[~2020-06-27 20:29] MED LIST changes: +GLIMEPIRIDE4 MG PO; +MONTELUKAST SODI4 M1 PO; +TOPROL XL25 MG PO
[2020-06-27 20:42] VITALS: BP 129/55
[2020-06-27] MEDS ORDERED: LISINOPRIL5 MG PO (20:52)
[2020-06-27] MEDS ORDERED: CELEXA 20 MG TA20 MG PO (20:56)
[2020-06-27] MEDS ORDERED: MUCINEX600 MG PO (20:59)
[2020-06-27 21:03] LABS: ABSOLUTE LYMPHOCYTES 0.4 thou/uL (0.8-5.3); ABSOLUTE MONOCYTES 0.3 thou/uL (0.0-1.2); ABSOLUTE NEUTROPHILS 2.8 thou/uL (1.6-8.1); BASOPHILS 0.8 %; EOSINOPHILS 0.8 %; HEMATOCRIT 30.4 % (42.0-52.0); HEMOGLOBIN 10.1 gm/dL (14.0-18.0); LYMPHOCYTES 12.1 %; MCH 29.5 pg (26.0-34.0); MCHC 33.3 g/dL (28.0-37.0); MCV 88.4 fL (80.0-100.0); MONOCYTES 8.2 %; MPV 7.2 fl. (7.2-11.1); NUCLEATED RBCS 0 /100WBC; PLATELET COUNT* 91 thou/uL (150-400); POLYS 78.1 %; RBC 3.44 mil/uL (4.50-6.00); RDW-CV 17.8 % (10.5-14.5); WBC 3.6 thou/uL (4.0-11.0)
[2020-06-27 21:09] LABS: CALCIUM 8.6 mg/dL (8.5-10.1); CREATININE 0.9 mg/dL (0.6-1.3); POTASSIUM 4.3 mmol/L (3.5-5.1)
[2020-06-27 21:16] LABS: INR 1.1; PROTIME 11.2 Seconds (9.20-11.50)
[2020-06-27 21:27] LABS: ALBUMIN 2.6 g/dL (3.4-5.0); MAGNESIUM 1.8 mg/dL (1.8-2.4); TOTAL BILIRUBIN 0.4 mg/dL (<0.1-1.0); TOTAL PROTEIN 6.6 g/dL (6.4-8.2)
[2020-06-27 23:54] LABS: URINE BILIRUBIN NEGATIVE (Negative); URINE BLOOD 2+ (Negative); URINE CLARITY CLEAR; URINE COLOR YELLOW; URINE GLUCOSE-RANDOM 2+ (Negative); URINE KETONES NEGATIVE (Negative); URINE LEUKOCYTES-REFLEX NEGATIVE (Negative); URINE NITRITE-REFLEX NEGATIVE (Negative); URINE PROTEIN NEGATIVE (Negative); URINE SPECIFIC GRAVITY 1.015 (1.005-1.030); URINE UROBILINOGEN 0.2 E.U./dl (0.2-1.0)
[2020-06-28 00:35] LABS: CASTS None Seen /LPF (None Seen); SQUAMOUS NONE SEEN /LPF (0-3); URINE WBC-REFLEX 0-5 Rare /HPF (0-5)
[2020-06-28 00:36] LABS: BACTERIA-REFLEX None Seen /HPF (None Seen); CRYSTALS None Seen /LPF (None Seen); URINE RBC 3-10 Few /HPF (0-2)
[2020-06-28 00:52] LABS: BE 4.3 mmol/L (-2 to +3); PCO2 45.6 mmHg (35.0-45.0); pH 7.425 (7.340-7.450)
[2020-06-28 01:00] VITALS: BP 115/53
[2020-06-28 02:00] VITALS: BP 112/47
--- NOTE | 2020-06-28 04:49 | NUR ---
RECEIVED REPORT FROM AMARI SIMON. PT TRANSFERRED TO 205. PT A&OX4. FUSE MAKER IN PLACE. VSS. ADMISSION HISTORY & PHYSICAL ASSESSMENT COMPLETED AND CHARTED. ORIENTED TO ROOM & CALL LIGHT. PT ON O2 AT 3L NC. PT TRACING VPACED ON TELE. PT COMPLAINED NECK, SHOULDER & KNEE PAIN- DR BRUCE MADE AWARE WITH NEW ORDER. FALL PRECAUTIONS IN PLACE. CALL LIGHT WITHIN REACH.
[2020-06-28 11:40] VITALS: BP 132/57
--- NOTE | 2020-06-28 13:45 | NUR ---
Pt is A&O. Resides at . Independent. Pt has a cane and walker at home for mobility. Has home o2 and a bipap through [facility]. Hx of [facility]. Hx of [facility] palliative care. Pt wants to return to [facility] skilled at dc. Therapies to see today. Anticipate dc in a few days to skilled. Following.
--- NOTE | 2020-06-28 15:27 | EKG ---
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 Ticket Worker: ERVIN : 1955 Requested By: Zunilda Thomas Order Number: [id number] MD: Ashish Javed Measurements Intervals [place] Rate: 74 P: 264 CT: 68 QRS: -59 QRSD: 184 T: 83 QT: 433 QTc: 481 Interpretive Statements Atrial-sensed ventricular-paced rhythm No further analysis attempted due to paced rhythm Compared to ECG 04/24/2020 20:53:29 No significant changes Electronically Signed On 06-28-2020 15:27:07 CDT by Ashish Javed [email or web address] <ELECTRONICALLY SIGNED> By: Ashish Javed MD, [facility] 06/28/20 1527 39 39 Ashish Javed MD, [facility] /EPI
[2020-06-28 16:34] VITALS: BP 135/76
--- NOTE | 2020-06-28 17:16 | NUR ---
ASSUMED PT CARE AT 0730. PT IS A&OX4. ASSESSMENT COMPLETED, PT DENIES ANY SOA AT THIS TIME. O2 ON AT 3L PER NC. PT ENCOURAGED AND ASSISTED WITH REPOSITIONING. MEDICATIONS ADMINISTERED ORDERED. PT C/O NECK AND BACK PAIN, PRN MEDICATION ADMINISTERED ORDERED WITH EFFECTIVE RESULTS. SAFETY MEASURES IN PLACE. ROUNDING COMPLETED. PT DENIES ANY CONCERNS AT THIS TIME.
[2020-06-28 20:00] VITALS: BP 119/53
[2020-06-28 23:52] VITALS: BP 108/49
[2020-06-29] MEDS ORDERED: LANTUS SUBQ (03:22)
[2020-06-29 04:26] VITALS: BP 143/79
[2020-06-29 04:51] LABS: CALCIUM 8.9 mg/dL (8.5-10.1); CREATININE 0.9 mg/dL (0.6-1.3); POTASSIUM 3.9 mmol/L (3.5-5.1)
[2020-06-29 05:01] LABS: ABSOLUTE LYMPHOCYTES 0.3 thou/uL (0.8-5.3); ABSOLUTE MONOCYTES 0.2 thou/uL (0.0-1.2); ABSOLUTE NEUTROPHILS 2.4 thou/uL (1.6-8.1); BASOPHILS 0.2 %; EOSINOPHILS 0.3 %; HEMATOCRIT 27.3 % (42.0-52.0); HEMOGLOBIN 9.1 gm/dL (14.0-18.0); LYMPHOCYTES 9.3 %; MCH 28.9 pg (26.0-34.0); MCHC 33.2 g/dL (28.0-37.0); MONOCYTES 6.7 %; MPV 7.1 fl. (7.2-11.1); NUCLEATED RBCS 0 /100WBC; PLATELET COUNT* 80 thou/uL (150-400); POLYS 83.5 %; RBC 3.14 mil/uL (4.50-6.00); RDW-CV 17.6 % (10.5-14.5); WBC 2.8 thou/uL (4.0-11.0)
--- NOTE | 2020-06-29 05:52 | NUR ---
PATIENT SLEPT MOST OF THE NIGHT. IV ANTIBIOTIC WAS GIVEN ORDERED. PATIENT WAS GIVEN PAIN MEDICINE ONCE THIS SHIFT. PATIENT REMAINS ON OXYGEN AT 3L PER NASAL CANNULA. WILL CONTINUE TO MONITOR.
[2020-06-29 12:02] VITALS: BP 117/58
--- NOTE | 2020-06-29 13:26 | NUR ---
[facility] can accept Pt for skilled at dc, await PT eval, CM to fax when available. CM to fax bipap settings and orders. Anticipate dc in a few days. Plan dc to a SNF LOC. [facility] p:[phone] f:[phone]
[2020-06-29 16:00] VITALS: BP 108/55
--- NOTE | 2020-06-29 16:05 | NUR ---
ASSUMED PT CARE AT 0730. PT IS A&O X4, PLEASANT AND COOPERATIVE. ASSESSMENT COMPLETED AND PT VOICES NO CONCERN AT THIS TIME. PT WORKED WITH OT AND PT TODAY. PT UP WITH ASSIST X1. MEDICATIONS ADMINISTERED ORDERED. ECHO COMPLETED TODAY. SAFETY MEASURES IN PLACE. ROUNDING DONE PER PROTOCOL.
--- NOTE | 2020-06-29 17:29 | 2DMMODE ---
[place] [address] 2 D/M-MODE ECHOCARDIOGRAM Name: NITZA BEAR Room: [address] IN [facility].#: [id number] Admission: 06/28/20 Attend Phys: Melanie Rodriguez Discharge: Date of : 51 Date of Service: 06/29/20 1729 Report #: [id number] THIS REPORT FOR: cc: Dandy Noe MD, Dean L. MD Liston, Michael J. MD [facility] ~ APPROVED REPORT Study performed: 06/29/2020 14:30:12 EXAM: Comprehensive 2D, Doppler, and color-flow Echocardiogram Patient Location: In-Patient Room #: [facility] BSA: 2.27 HR: 73 bpm BP: 117/58 mmHg Other Information Study Quality: Fair Indications Congestive Heart Failure 2D Dimensions IVSd: 14.03 (7-11mm) LVOT Diam: 21.93 (18-24mm) LVDd: 55.32 mm PWd: 12.53 (7-11mm) Ascending Ao: 38.61 (22-36mm) LVDs: 34.79 (25-40mm) Aortic Root: 37.45 mm Volumes Left Atrial Volume (Systole) LA ESV Index: 19.30 mL/m2 Aortic Valve AoV Peak Scot.: 2.27 m/s AO Peak Gr.: 20.67 mmHg LVOT Max P.79 mmHg AO Mean Gr.: 12.15 mmHg LVOT Mean P.60 mmHg LVOT Max V: 1.30 m/s AO V2 VTI: 47.44 cm LVOT Mean V: 0.88 m/s NOHEMI (VTI): 2.27 cm2 LVOT V1 VTI: 28.56 cm AI Gallia: 2.83 m/s2 AI PHT: 431.37 [place] [address] 2 D/M-MODE ECHOCARDIOGRAM Name: NITZA BEAR Room: [address] IN .R.#: [id number] Admission: 06/28/20 Attend Phys: Melanie Rodriguez Discharge: Date of : 51 Date of Service: 06/29/20 1729 Report #: [id number] Mitral Valve E/A Ratio: 1.00 MV Decel. Time: 343.94 ms MV E Max Scot.: 0.89 m/s MV PHT: 99.74 ms MVA (PHT): 2.21 cm2 TDI E/Lateral E': 9.89 E/Medial E': 12.71 Medial E' Scot.: 0.07 m/s Lateral E' Scot.: 0.09 m/s Pulmonary Valve PV Peak Scot.: 1.39 m/s PV Peak Gr.: 7.70 mmHg Tricuspid Valve RAP Estimate: 5.00 mmHg TR Peak Gr.: 23.48 mmHg RVSP: 28.48 mmHg PA Pressure: 28.48 mmHg Left Ventricle The left ventricle is normal size. There is normal LV segmental wall motion. Mild concentric left ventricular hypertrophy. Left ventricular systolic function is normal. LVEF is 55-60%. Transmitral Doppler flow pattern suggests restrictive physiology. Right Ventricle The right ventricle is normal size. The right ventricular systolic function is normal. Atria The left atrium size is normal. The right atrium size is normal. Aortic Valve Mild aortic valve sclerosis. Mild to moderate aortic regurgitation. There is no aortic valvular stenosis. Mitral Valve The mitral valve is normal in structure. Trace to mild mitral regurgitation. No evidence of mitral valve stenosis. Tricuspid Valve The tricuspid valve is normal in structure. Mild tricuspid regurgitation. No [place] [address] 2 D/M-MODE ECHOCARDIOGRAM Name: NITZA BEAR Room: [address] IN ..#: [id number] Admission: 06/28/20 Attend Phys: Melanie Rodriguez Discharge: Date of : 51 Date of Service: 06/29/20 1729 Report #: [id number] Pulmonic Valve The pulmonary valve is normal in structure. There is no pulmonic valvular regurgitation. Great Vessels The aortic root is normal in size. The ascending aorta is mildly dilated. (3.86 cm) IVC is normal in size and collapses >50% with inspiration. Pericardium There is no pericardial effusion. <Conclusion> The left ventricle is normal size. Mild concentric left ventricular hypertrophy. Left ventricular systolic function is normal. LVEF is 55-60%. Transmitral Doppler flow pattern suggests restrictive physiology. There is normal LV segmental wall motion. Mild aortic valve sclerosis. Mild to moderate aortic regurgitation. Trace to mild mitral regurgitation. Mild tricuspid regurgitation. No apparent pulmonary hypertension. IVC is normal in size and collapses >50% with inspiration. The ascending aorta is mildly dilated. (3.86 cm) <ELECTRONICALLY SIGNED> By: Costa Saucedo MD, FACC 06/29/201728 28 28 Costa Saucedo MD, FACC /INF
[2020-06-29 20:00] VITALS: BP 125/61
[2020-06-30] VITALS (8 sets, daily range): BP systolic 92–140; BP diastolic 45–67
--- NOTE | 2020-06-30 04:29 | NUR ---
ASSUMED PT CARE AT APPROX 1930. PT IS AWAKE AND ORIENTED X4. PT IS NOT IN DISTRESS, NO DESATURAITONS NOTED ON 3L OF O2/NC. PT WEARS CPAP AT HS. PT IS VPACED ON THE EMERGENCY OPERATOR. PT VOICED CONCERNS ABOUT NOT WANTING TO BE D/C TO [facility], AND WANTS TO BE D/C'd TO [facility], STATING THAT HE'S BEEN THERE BEFORE. WILL PASS MESSAGE TO SUPERVISOR TWISTING DEPARTMENT IN AM. NO ACUTE CHANGES THIS SHIFT. CALL LIGHT WITHIN REACH. HOURLY ROUNDING DONE. HIGH FALL PRECAUTIONS IN PLACE.
--- NOTE | 2020-06-30 10:19 | NUR ---
PLEASE DISREGARD ASSESSMENTS CHARTED ON PATIENT AT 0813, THESE ARE NOT FOR THIS PATIENT.
--- NOTE | 2020-06-30 12:32 | NUR ---
Pt informed CM that he now wants to go to [facility], referral sent, they can accept Pt to skilled tomorrow. [facility] f: [phone] p:[phone]
--- NOTE | 2020-06-30 17:33 | NUR ---
PATIENT HAS REMAINED A&OX4, PLEASANT AND COOPERATIVE WITH CARES THIS SHIFT. PATIENT REPORTS HAVING HAD A BM ON 06/29. IV ANTIBIOTICS AND PO MEDICATIONS ADMINISTERED ORDERED. PATIENT WEARING O2@3L VIA NASAL CANNULA, WHICH IS WHAT HE WEARS AT HOME. PATIENT C/O CHRONIC NECK, SHOULDER, KNEE AND BACK PAIN, WHICH IS RELIEVED WITH PRN PAIN MEDICATION. PATIENT UP X1 ASSIST WITH WALKER. CALL LIGHT AND FREQUENTLY USED ITEMS WITHIN REACH.
[2020-07-01 04:02] VITALS: BP 115/60
[2020-07-01 05:09] LABS: CALCIUM 8.9 mg/dL (8.5-10.1); CREATININE 0.9 mg/dL (0.6-1.3); MAGNESIUM 2.1 mg/dL (1.8-2.4); PHOSPHORUS* 3.6 mg/dL (2.5-4.9)
--- NOTE | 2020-07-01 05:39 | NUR ---
ASSUMED PT CARE AT APPROX 1930. PT IS AWAKE AND ORIENTED X4. PT IS NOT IN DISTRESS, NO DESATURATIONS NOTED ON 3L. PAIN MEDICINE GIVEN FOR BACK AND SHOULDER PAIN WITH PARTIAL RELIEF. BLOOD SUGAR IS LOW THIS AM. OFFERED FRUIT JUICE AND SNACKS. WILL RECHECK.
[2020-07-01 08:00] VITALS: BP 146/65
[2020-07-01 09:08] VITALS: BP 146/65
[2020-07-01] MEDS ORDERED: VIBRAMYCIN 100100 M2 PO (09:37)
[2020-07-01] MEDS ORDERED: IPRAT-ALBUT 0.5-3 ML INH (09:37)
[2020-07-01] MEDS ORDERED: PREDNISONE 10 M10 MG PO (09:37)
[2020-07-01] MEDS ORDERED: PERCOCET PO (09:47)
--- NOTE | 2020-07-01 09:57 | NUR ---
Pt discharging to [facility] skilled today. Facility to pickling grader at 1:30pm. Chart copied. Nurse report number is [id number]. Updated Pt's .
--- NOTE | 2020-07-01 14:15 | NUR ---
PT DISCHARGED TO THE [facility] BY DELONTE MATIAS OFF OF 170. PT SENT WITH ALL BELONGINGS PER WHEEL CHAIR VAN. REPORT CALLED AT 1300 AND GIVEN TO EDGAR SENA RN.
== END 2020-07-01 13:45 | DRG 291 ==
LOC: M.ERS 20:29 → M.TBA-ER 23:53 → M.2W 06-28 01:04
PROVIDERS: Emergency Medicine; Internal Medicine; ADMIT Internal Medicine; ATTEND Internal Medicine
PROC: 5A09357 Assistance with Respiratory Ventilation, Less than 24 Consecutive Hours, Continuous Positive Airway Pressure (ICD-10-PCS; principal; 2020-06-29)
PROC: 5A09357 Assistance with Respiratory Ventilation, Less than 24 Consecutive Hours, Continuous Positive Airway Pressure (ICD-10-PCS; 2020-06-30)
PROC: 5A09357 Assistance with Respiratory Ventilation, Less than 24 Consecutive Hours, Continuous Positive Airway Pressure (ICD-10-PCS; 2020-07-01)
DX: I11.0 Hypertensive heart disease with heart failure (principal); R65.11 Systemic inflammatory response syndrome (SIRS) of non-infectious origin with acute organ dysfunction; J96.21 Acute and chronic respiratory failure with hypoxia; J44.1 Chronic obstructive pulmonary disease with (acute) exacerbation; D61.818 Other pancytopenia; Z68.41 Body mass index [BMI] 40.0-44.9, adult; I50.33 Acute on chronic diastolic (congestive) heart failure; I48.91 Unspecified atrial fibrillation; K74.60 Unspecified cirrhosis of liver; I25.10 Atherosclerotic heart disease of native coronary artery without angina pectoris; E66.01 Morbid (severe) obesity due to excess calories; E11.42 Type 2 diabetes mellitus with diabetic polyneuropathy; E11.51 Type 2 diabetes mellitus with diabetic peripheral angiopathy without gangrene; Z20.822 Contact with and (suspected) exposure to COVID-19; Z95.0 Presence of cardiac pacemaker; Z95.5 Presence of coronary angioplasty implant and graft; Z98.42 Cataract extraction status, left eye; Z98.41 Cataract extraction status, right eye; Z88.0 Allergy status to penicillin; Z88.8 Allergy status to other drugs, medicaments and biological substances; Z87.891 Personal history of nicotine dependence; Z79.899 Other long term (current) drug therapy

== ENCOUNTER 2020-07-03 22:29 | Inpatient (IN) | payer MEDICARE, MEDICAID ==
[~2020-07-03] VITALS: Ht 167.6 cm; Wt 127.0 kg
[~2020-07-03 22:29] MED LIST changes: +LANTUS SUBQ; +LISINOPRIL5 MG PO; +PERCOCET PO; +VIBRAMYCIN 100100 M2 PO
[2020-07-03 22:35] VITALS: BP 112/56
[2020-07-03 23:07] LABS: ABSOLUTE LYMPHOCYTES 0.7 thou/uL (0.8-5.3); ABSOLUTE MONOCYTES 0.3 thou/uL (0.0-1.2); ABSOLUTE NEUTROPHILS 3.3 thou/uL (1.6-8.1); EOSINOPHILS 0.6 %; HEMATOCRIT 33.7 % (42.0-52.0); HEMOGLOBIN 11.1 gm/dL (14.0-18.0); LYMPHOCYTES 16.8 %; MCH 29.2 pg (26.0-34.0); MCHC 32.9 g/dL (28.0-37.0); MCV 88.7 fL (80.0-100.0); MPV 7.1 fl. (7.2-11.1); NUCLEATED RBCS 0 /100WBC; PLATELET COUNT* 97 thou/uL (150-400); POLYS 74.6 %; RDW-CV 17.3 % (10.5-14.5); WBC 4.5 thou/uL (4.0-11.0)
[2020-07-03 23:12] LABS: CALCIUM 8.6 mg/dL (8.5-10.1); CREATININE 1.1 mg/dL (0.6-1.3); POTASSIUM 3.8 mmol/L (3.5-5.1)
[2020-07-03 23:15] LABS: PROTIME 11.1 Seconds (9.20-11.50)
[2020-07-03 23:23] LABS: ALBUMIN 2.7 g/dL (3.4-5.0); MAGNESIUM 1.9 mg/dL (1.8-2.4); TOTAL BILIRUBIN 0.2 mg/dL (<0.1-1.0); TOTAL PROTEIN 6.2 g/dL (6.4-8.2)
[2020-07-03] MEDS ORDERED: JANUVIA100 MG PO (23:23)
[2020-07-03] MEDS ORDERED: NEXIUM 40 MG CA40 M1 PO (23:24)
[2020-07-04 03:53] VITALS: BP 118/59
[2020-07-04 08:10] VITALS: BP 95/38
[2020-07-04 12:00] VITALS: BP 133/69
--- NOTE | 2020-07-04 13:12 | CON ---
[address] [address] CONSULTATION Name: NITZA BAER Room: [address] Vinicio FranksR.#: [id number] Admission: 07/03/20 Attend Phys: Tobi Moore MD Discharge: Date of : 51 Report #: [id number] THIS REPORT FOR: cc: Dandy Noe MD, Dean L. MD Blick, David R. MD [facility] ~ DOC #: [id number] cc: MD Jose G Galvan MD [facility] DATE OF CONSULTATION: 07/04/2020 CARDIOLOGY CONSULTATION HISTORY OF PRESENT ILLNESS: The patient is a 64-year-old white male whom I was asked to see in the hospital today after he complained of chest pain. The patient has an extensive and complicated past medical history. He states he had his first heart attack back in 2008 and had a stent placed at [facility]. He also required placement of a pacemaker. He required additional stents several years ago here at [facility]. He has been followed by my partner, Dr. Javed. He is not very active because of balance problems and uses a walker. He was actually just admitted to [facility] recently with shortness of breath. He was found to have COPD. He was discharged to [facility] a week ago. He was brought back to the emergency room last night after complaining of chest discomfort that went to his jaw and left shoulder. He felt short of breath. He was brought to the hospital and admitted. He does get short of breath with exertion, has chronic edema. He denies any palpitations or syncope. PAST MEDICAL HISTORY: Otherwise, significant for cholecystectomy, cataract extraction, diabetes, hypertension, hyperlipidemia. He has a history of cirrhosis, atrial fibrillation. He has sleep apnea, uses BiPAP. CURRENT MEDICATIONS: Include Lasix, nebulized treatments, Ranexa, Symbicort, spironolactone, insulin, glimepiride, lisinopril, pravastatin, Celexa, Neurontin, Depakote, Januvia. ALLERGIES: HE HAS AN ALLERGY TO PENICILLIN. FAMILY HISTORY: His father had bypass surgery. SOCIAL HISTORY: He is , lives with in [place], [place]. 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 Quit smoking in 1997, occasionally drinks alcohol. REVIEW OF SYSTEMS: He is overweight, being 5 feet 6, 270 pounds. He has had no [address] [place] [address] CONSULTATION Name: NITZA BEAR [address]#: [id number] Admission: 07/03/20 Attend Phys: Tobi Moore MD Discharge: Date of : 51 Report #: [id number] history of stroke. He has sleep apnea, uses BiPAP. He has COPD and uses inhaler. He has a history of cirrhosis, had a liver biopsy in the past. No kidney disease, no cancer, no psychiatric illness. No chronic skin condition. PHYSICAL EXAMINATION: GENERAL: Revealed an obese, middle-aged male, lying in bed, appeared in no acute distress. VITAL SIGNS: He had a blood pressure of 120/60, pulse 60. He is afebrile. HEENT: He was anicteric. Conjunctivae pink. Mucosa is moist. NECK: Veins difficult to assess due to obesity. No carotid bruits. CHEST: Clear to auscultation. HEART: Regular rate and rhythm. ABDOMEN: Obese. EXTREMITIES: Had trace edema noted. Dorsalis pedis pulse palpated. SKIN: Cool and dry. NEUROLOGIC: Nonfocal. LABORATORY DATA: His ECG shows what appears to represent atrial fibrillation with a ventricular paced rhythm. His workup, the patient had an echocardiogram done last week 06/28/2020, here at [facility] that showed ejection fraction 60%, left ventricular hypertrophy, aortic sclerosis, mild aortic and mitral regurgitation. The patient had a CT scan of the chest last night using a PE protocol that showed no pulmonary embolus or splenomegaly. His chest x-ray last night showed cardiomegaly, no pulmonary edema. His lab work, he had a sodium 135, BUN 23, creatinine 1.1. His liver function studies were normal. Albumin is only 2.7. His troponins are all 0.06. His white blood cell count 4.5, hemoglobin 11.1, platelet count 97,000. It was actually 55,000 last November. Unstable angina. Previous stents. The patient's last heart catheterization in 12/2018 here at [facility] [address] Javed performed from the right radial artery. Ejection fraction 65%. Stent to the LAD widely patent. Widely patent stent in the circumflex. Nondominant right coronary artery. The patient had a nuclear stress test done a year ago 06/2019 that showed ejection fraction that was normal. There is no evidence of ischemia. IMPRESSION AND RECOMMENDATIONS: 1. Unstable angina. Consider repeat cardiac catheterization. 2. Atrial fibrillation. I would consider anticoagulation. 3. Previous pacemaker insertion. 4. Obesity. 5. Sleep apnea. 6. Chronic obstructive pulmonary disease. 7. Previous tobacco abuse. 8. History of cirrhosis with thrombocytopenia. 9. Hypertension. The patient is on LILY inhibitor. [address] [place] [address] CONSULTATION Name: MARIANELACHERYLNITZASHAHAB LOCKWOOD Room: [address] Vinicio Malik#: [id number] Admission: 07/03/20 Attend Phys: Tobi Moore MD Discharge: Date of : 51 Report #: [id number] 10. Hyperlipidemia. The patient is on a statin drug. 11. Diabetes mellitus. The patient is on oral medications. MD DUKE Holloway DR[facility] <ELECTRONICALLY SIGNED> By: Jose G Toribio MD, ENEDINA 07/04/20 1312 1019 [id number] Ankit Toribio MD, [facility] /nt
--- NOTE | 2020-07-04 18:43 | NUR ---
ASSUMED CARE OF PT AT 0730. PT A&0X4, DENIES ANY PAIN OR SHORTNESS OF BREATH. ON 2-3L NC THROUGHOUT SHIFT 02 SAT UPPER 90'S. PT INCONT OF URINE MULTIPLE TIMES THROUGHOUT SHIFT. CARDIOLOGY CONSULT IN PLACE. DR WONG SEEN PT. ORDERS RECEIVED FOR HEART CATH IN AM. PT NPO AFTER MIDNIGHT. AM ASSESSMENT CHARTED. MEDICATIONS PER APR. HOURLY ROUNDING OBSERVED. BED IN LOW POSITION. CALL LIGHT WITHIN REACH. WILL CONTINUE PLAN OF CARE.
[2020-07-04 20:00] VITALS: BP 120/68
[2020-07-04 23:40] VITALS: BP 134/68
[2020-07-05] VITALS (18 sets, daily range): BP systolic 116–150; BP diastolic 42–78
--- NOTE | 2020-07-05 04:17 | NUR ---
ASSUMED CARE OF PT AFTER REPORT AT 1930. PT A&OX4. VSS. PHYSICAL ASSESSMENT COMPLETED AND CHARTED. PT ON O2 AT 3L NC. PT TRACING VPACED ON TELE. PT TURNED TO SIDES. PT WITH EPISODES OF INCONTINENT BLADDER. PT DENIES CHEST PAIN. PT INSTRUCTED ON NPO POST MIDNIGHT FOR CARDIAC CATH TODAY. COMMUNICATES UDNERSTANDING. FALL PRECAUTIONS IN PLACE. CALL LIGHT WITHIN REACH.
[2020-07-05 04:41] LABS: ABSOLUTE LYMPHOCYTES 0.5 thou/uL (0.8-5.3); ABSOLUTE MONOCYTES 0.2 thou/uL (0.0-1.2); ABSOLUTE NEUTROPHILS 2.5 thou/uL (1.6-8.1); BASOPHILS 0.5 %; HEMATOCRIT 30.8 % (42.0-52.0); HEMOGLOBIN 10.2 gm/dL (14.0-18.0); LYMPHOCYTES 15.5 %; MCH 29.4 pg (26.0-34.0); MONOCYTES 6.7 %; MPV 7.3 fl. (7.2-11.1); NUCLEATED RBCS 0 /100WBC; PLATELET COUNT* 73 thou/uL (150-400); POLYS 76.3 %; RBC 3.46 mil/uL (4.50-6.00); RDW-CV 17.3 % (10.5-14.5); WBC 3.3 thou/uL (4.0-11.0)
[2020-07-05 04:56] LABS: ALBUMIN 2.7 g/dL (3.4-5.0); CALCIUM 8.7 mg/dL (8.5-10.1); CREATININE 0.9 mg/dL (0.6-1.3); POTASSIUM 4.7 mmol/L (3.5-5.1); TOTAL BILIRUBIN 0.3 mg/dL (<0.1-1.0); TOTAL PROTEIN 5.8 g/dL (6.4-8.2)
[2020-07-05 05:03] LABS: CHOLESTEROL 134 mg/dL (<200); HDL CHOLESTEROL 47 mg/dL (>40); LDL CHOLESTEROL 66 mg/dL (<100); TC:HDL 2.9 Ratio (Not establshd); TRIGLYCERIDE 105 mg/dL (<150); VLDL 21 mg/dL (<40)
[2020-07-05 05:08] LABS: SERUM ASSESSMENT CLEAR
--- NOTE | 2020-07-05 10:26 | EKG ---
[place] [address] ELECTROCARDIOGRAM REPORT Name: NITZA BEAR Room: [address] ADM IN M.R.#: [id number] Admission: 07/03/20 Attend Phys: Tobi Moore, Discharge: Date of : 51 Date of Service: 07/03/202232 Report #: [id number] THIS REPORT FOR: //name// [facility] ED Test Date: 2020-07-03 Test Time: 22:33:27 Pat Name: NITZA BEAR Department: Room: [facility] Gender: M Rn Gyn: EDGAR : 1955 Requested By: Zunilda Thomas Order Number: [id number] MD: Jose G Toribio Measurements Intervals [place] Rate: 61 P: 0 SC: 68 QRS: -67 QRSD: 187 T: 70 QT: 469 QTc: 473 Interpretive Statements Ventricular-paced complexes No further analysis attempted due to paced rhythm Compared to ECG 06/27/2020 20:40:49 no change Electronically Signed On 07-05-2020 10:25:55 CDT by Jose G Toribio [email or web address] <ELECTRONICALLY SIGNED> By: Jose G Toribio MD, [facility] 07/05/20 1025 32 32 Jose G Toribio MD, [facility] /EPI
--- NOTE | 2020-07-05 13:15 | NUR ---
CM ASSESSMENT: PT IS A READMIT THAT HAD D/C'D 07/01/20 TO [facility]. CM SPOKE TO THE PT AND HE PLANS TO RETURN TO [facility] AT D/C. PRIOR TO PT'S LAST ADMIT PT RESIDED AT HOME WITH HIS SPOUSE AND WAS INDEPENDENT WITH ADL'S. PT USED A WALKER OR CANE FOR MOBILITY. PT USES HOME O2 AND BIPAP PROVIDED BY [facility]. PT HAS PAST HX OF HH WITH [facility]. PT ALSO HAS PAST HX WITH [facility] FOR PALLIATIVE CARE. CM ATTEMPTED TO CONTACT PT'S SPOUSE TO CONFIRM PLAN FOR PT TO RETURN TO [facility] SNF (POSSIBLY TODAY). NO ANSWER AND NO WAY TO LEAVE A VOICEMAIL. CM WILL REMAIN AVAILABLE TO ASSIST AND FOLLOW NEEDED.
--- NOTE | 2020-07-05 15:05 | CARD ---
[address] [address] CARDIAC CATH REPORT Name: NITZA BEAR Room: [facility] ADM IN .R.#: [id number] Admission: 07/03/20 Attend Phys: Tobi Moore MD Discharge: Date of : 51 Report #: [id number] THIS REPORT FOR: cc: Dandy Noe MD, Dean L. MD Blick, David R. MD [facility] ~ APPROVED REPORT Study performed: 07/05/2020 08:29:48 Patient Details Patient Status: In-Patient Room #: 224 The patient is a 64 year-old male Event Personnel Jose G Toribio Central Aisle Cashier, Tawny Rivera RN RN, Veronica Leija RTR Scrub, Dinorah Thompson RTR Monitor Procedures Performed Art Access - R radial artery Left Heart Cath w/or w/o Coronaries Hemostasis with Hemoband Indication Arrhythmia, Dyspnea, Unstable angina , Chest pain Risk Factors Obesity, Coronary Artery Disease, Diabetes Previous Procedures/Diagnoses Previous PCI Admission/Lab Medications/Medications given during procedure Heparin Unfract., Lidocaine Subcut 8 ml, Oxygen Nasal cannula 4 l per min, 0.9% Sodium Chloride IV 75 ml per hr, Nitroglycerin IA 200 mcg, Verapamil IA 2.5 mg, Heparin IV 5000 units, 0.9% Sodium Chloride IV 150 ml per hr, Nitroglycerin IA 100 mcg, Verapamil IA 1.5 mg Procedure Narrative The patient was brought electively to the Cardiac Catheterization Laboratory and was prepped and draped in a sterile manner. The right wrist was infiltrated with 2% Lidocaine subcutaneous anesthesia. A Slender Glidesheath sheath was inserted into the right radial artery. Coronary angiography was performed [place] [address] CARDIAC CATH REPORT Name: NITZA BEAR Room: [address] IN [facility].#: [id number] Admission: 07/03/20 Attend Phys: Tobi Moore MD Discharge: Date of : 51 Report #: [id number] catheters. The right coronary system was accessed and visualized with a Diagnostic 6 Fr JR 4 catheter. The left coronary system was accessed and visualized with a Diagnostic 6 Fr JL 4 catheter. The left ventricle was accessed and visualized with a Diagnostic 6 Fr Pigtail catheter. Left ventricular/Aortic Valve gradient assessed via catheter pullback. Left ventriculogram was performed in KIM projection. Closure device was deployed with a 6 Fr Vasc-Band XLng 29cm. The patient tolerated the procedure well and there were no complications associated with the procedure. There was no hematoma. Intraoperative Conscious Sedation No sedation given. Case start was 924 and case end 947. Fluoro Time: 2.7 minutes Dose: DAP 98176 cGycm2 1211 mGy Contrast Type and Amount: Omnipaque 130 ml Coronary Angiography The patient's coronary anatomy is left dominant. Diagnostic Cath Left Main 0% stenosis LAD 30% proximal stenosis. Stent in the mid LAD had 0% restenosis Circumflex 0% stenosis OM2 large vessel with stent that had 0% restenosis Right Coronary small nondominant artery with 0% stenosis Left Ventriculography The left ventricular ejection fraction is estimated to be 50-55%. Left ventricular wall motion abnormalities are not present. There is no mitral insufficiency. Hemodynamics The aortic pressure is 117/63 mmHg with a mean of 88 mmHg. The left ventricular pressure is 129/10 mmHg with a mean of mmHg. The left ventricular end diastolic pressure is 20 mmHg. There was no gradient across the aortic valve upon pullback. Pullback from the left ventricle to the aorta revealed no gradient across the aortic valve. Conclusion 1. no restenosis noted of previous stents in the mid LAD and second marginal branch of [place] [address] CARDIAC CATH REPORT Name: NITZA BEAR Room: [address] IN [facility]#: [id number] Admission: 07/03/20 Attend Phys: Tobi Moore MD Discharge: Date of : 51 Report #: [id number] 2. LVEF 50-55% 3. suspect noncardiac chest pain Recommendations Aggressive Medical Therapy <ELECTRONICALLY SIGNED> By: Jose G Toribio MD, [facility] 07/05/20 9463 1505 1505Damayr Toribio MD, [facility] /INF
--- NOTE | 2020-07-05 17:02 | NUR ---
RECEIVED REPORT AROUND 714. ASSUMED CARE. VS AND ASSESSMENT CHARTED. IV INTACT RIGHT HAND. HEART MONITOR ATTACHED AT VPACED. MEDS GIVEN PER APR. CREOSOTING ENGINEER THIS AM. NO STENTS PLACED. POST CATH VITALS CHARTED. SITE C/D/I. RAD STAT STILL IN PLACE. ALL AIR FULLY RELEASED. DISCHARE ORDERS RECEIVED. IV TAKEN OUT. HEART MONITOR OFF. PT DRESSED. VAN SERVICE SCHEDULED FOR 1700. REPORT CALLED TO [facility]. TALKED TO ANGELA. GAVE EDUCATION ON KEEPING RAD STAT IN PLACE FOR 2 MORE HOURS AND COVERING WITH GAUZE AND TRANSPARENT DRESSING. PT AT BEDSIDE CURRENTLY WAITING FOR RIDE. HOURLY ROUNDING PERFORMED. CALL LIGHT WITHIN REACH. WILL CONTINUE TO MONITOR.
== END 2020-07-05 17:35 | DRG 286 ==
LOC: M.ERS 22:29 → M.2W 23:52 → M.TBA-ER 23:52 → M.2W 07-04 03:45
PROVIDERS: Emergency Medicine; Internal Medicine; Internal Medicine Cardiovascular Disease; ADMIT Internal Medicine; ATTEND Internal Medicine
PROC: B2151ZZ Fluoroscopy of Left Heart using Low Osmolar Contrast (ICD-10-PCS; principal; 2020-07-05)
PROC: B2111ZZ Fluoroscopy of Multiple Coronary Arteries using Low Osmolar Contrast (ICD-10-PCS; principal; 2020-07-05)
PROC: 4A023N7 Measurement of Cardiac Sampling and Pressure, Left Heart, Percutaneous Approach (ICD-10-PCS; principal; 2020-07-05)
DX: I25.110 Atherosclerotic heart disease of native coronary artery with unstable angina pectoris (principal); I50.31 Acute diastolic (congestive) heart failure; J96.11 Chronic respiratory failure with hypoxia; Z68.42 Body mass index [BMI] 45.0-49.9, adult; E44.1 Mild protein-calorie malnutrition; I49.5 Sick sinus syndrome; I11.0 Hypertensive heart disease with heart failure; E11.51 Type 2 diabetes mellitus with diabetic peripheral angiopathy without gangrene; E11.42 Type 2 diabetes mellitus with diabetic polyneuropathy; G47.33 Obstructive sleep apnea (adult) (pediatric); J44.9 Chronic obstructive pulmonary disease, unspecified; E78.5 Hyperlipidemia, unspecified; K74.60 Unspecified cirrhosis of liver; I48.91 Unspecified atrial fibrillation; E66.01 Morbid (severe) obesity due to excess calories; I95.9 Hypotension, unspecified; Z20.822 Contact with and (suspected) exposure to COVID-19; Z85.72 Personal history of non-Hodgkin lymphomas; Z95.0 Presence of cardiac pacemaker; Z90.49 Acquired absence of other specified parts of digestive tract; Z98.42 Cataract extraction status, left eye; Z98.41 Cataract extraction status, right eye; Z87.891 Personal history of nicotine dependence; Z79.4 Long term (current) use of insulin; Z79.899 Other long term (current) drug therapy; Z88.0 Allergy status to penicillin; Z88.8 Allergy status to other drugs, medicaments and biological substances

== ENCOUNTER 2020-08-27 12:41 | Inpatient (IN) | payer MEDICARE, MEDICAID ==
[~2020-08-27] VITALS: Ht 167.6 cm; Wt 128.2 kg
[~2020-08-27 12:41] MED LIST changes: +NEXIUM 40 MG CA40 M1 PO
[2020-08-27 12:43] VITALS: BP 139/58
--- NOTE | 2020-08-27 13:00 | NUR ---
CANNOT OBTAIN IV. NOTIFIED PICC LINE NURSE JONES SIMON AT THIS TIME
[2020-08-27 13:21] LABS: ABSOLUTE EOSINOPHILS 0.1 thou/uL (0.0-0.7); ABSOLUTE LYMPHOCYTES 0.4 thou/uL (0.8-5.3); ABSOLUTE MONOCYTES 0.2 thou/uL (0.0-1.2); ABSOLUTE NEUTROPHILS 2.2 thou/uL (1.6-8.1); BASOPHILS 0.6 %; EOSINOPHILS 2.5 %; HEMATOCRIT 28.9 % (42.0-52.0); HEMOGLOBIN 9.3 gm/dL (14.0-18.0); MCH 28.4 pg (26.0-34.0); MCHC 32.4 g/dL (28.0-37.0); MCV 87.7 fL (80.0-100.0); MONOCYTES 5.8 %; MPV 7.3 fl. (7.2-11.1); NUCLEATED RBCS 0 /100WBC; PLATELET COUNT* 68 thou/uL (150-400); POLYS 78.1 %; RBC 3.29 mil/uL (4.50-6.00); RDW-CV 16.8 % (10.5-14.5); WBC 2.8 thou/uL (4.0-11.0)
[2020-08-27 13:25] LABS: CALCIUM 8.3 mg/dL (8.5-10.1); POTASSIUM 3.6 mmol/L (3.5-5.1)
[2020-08-27 13:36] LABS: ALBUMIN 2.9 g/dL (3.4-5.0); MAGNESIUM 1.7 mg/dL (1.8-2.4); TOTAL BILIRUBIN 0.3 mg/dL (<0.1-1.0); TOTAL PROTEIN 6.4 g/dL (6.4-8.2)
--- NOTE | 2020-08-27 15:57 | EKG ---
[place] [address] ELECTROCARDIOGRAM REPORT Name: NITZA BEAR Room: [place] [address] ADM IN M.R.#: [id number] Admission: 08/27/20 Attend Phys: Melanie Rodriguez Discharge: Date of : 51 Date of Service: 08/27/20 1246 Report #: [id number] THIS REPORT FOR: //name// [facility] ED Test Date: 2020-08-27 Test Time: 12:46:59 Pat Name: NITZA BEAR Department: Room: [facility] Gender: M Equipment Man: DEVIN : 1955 Requested By: Lj Pat Order Number: [id number] MD: Jose G Toribio Measurements Intervals [place] Rate: 72 P: MA: 229 QRS: -80 QRSD: 205 T: 90 QT: 471 QTc: 516 Interpretive Statements A-V dual-paced rhythm No further analysis attempted due to paced rhythm Baseline wander in lead(s) V4 Compared to ECG 07/03/2020 22:33:27 atrial paced beats now noted Electronically Signed On 08-27-2020 15:57:31 CDT by Jose G Toribio [email or web address] <ELECTRONICALLY SIGNED> By: Jose G Toribio MD, [facility] 08/27/20 1557 1246 1246 Jose G Toribio MD, [facility] /EPI
--- NOTE | 2020-08-27 16:00 | EKG ---
[place] [address] ELECTROCARDIOGRAM REPORT Name: NITZA BEAR Room: [place] [address] ADM IN M.R.#: [id number] Admission: 08/27/20 Attend Phys: Melanie Rodriguez Discharge: Date of : 51 Date of Service: 08/27/20 1449 Report #: [id number] THIS REPORT FOR: //name// [facility] ED Test Date: 2020-08-27 Test Time: 14:49:39 Pat Name: NITZA EBAR Department: Room: [place] [address] Gender: M Stock Shipper: SP : 1955 Requested By: Lj Pat Order Number: [id number] MD: Jose G Toribio Measurements Intervals [place] Rate: 70 P: 106 NC: 59 QRS: -61 QRSD: 194 T: 71 QT: 482 QTc: 521 Interpretive Statements Ventricular-paced complexes No further analysis attempted due to paced rhythm Compared to ECG 08/27/2020 12:46:59 atrial paced beats no longer noted Electronically Signed On 08-27-2020 16:00:07 CDT by Jose G Toribio [email or web address] <ELECTRONICALLY SIGNED> By: Jose G Toribio MD, [facility] 08/27/20 1600 1449 1449 Jose G Toribio MD, [facility] /EPI
[2020-08-27 17:43] VITALS: BP 141/56
--- NOTE | 2020-08-27 18:03 | NUR ---
PT ORIENTED TO ROOM AND UNIT, BED LOW AND LOCKED, SIDE RAILS UPX3, CALL LIGHT IN REACH, TELE APLLIED. WILL CONTINUE TO ASSESS.
[2020-08-27 18:14] VITALS: BP 111/62
[2020-08-28 00:42] VITALS: BP 129/62
[2020-08-28 03:50] VITALS: BP 140/59
[2020-08-28 06:22] LABS: HEMATOCRIT 28.3 % (42.0-52.0); HEMOGLOBIN 9.4 gm/dL (14.0-18.0); MCH 28.7 pg (26.0-34.0); MCHC 33.2 g/dL (28.0-37.0); MCV 86.4 fL (80.0-100.0); MPV 7.8 fl. (7.2-11.1); RBC 3.27 mil/uL (4.50-6.00); RDW-CV 16.6 % (10.5-14.5); WBC 2.9 thou/uL (4.0-11.0)
[2020-08-28 06:38] LABS: CALCIUM 8.5 mg/dL (8.5-10.1); CREATININE 0.9 mg/dL (0.6-1.3); POTASSIUM 4.2 mmol/L (3.5-5.1)
--- NOTE | 2020-08-28 06:48 | NUR ---
PT SLEPT WELL OVERNIGHT, RECEIVED IV ABX ORDERED R FA. USING URINAL TO VOID, BEDPAN FOR BM OVERNIGHT. O2 3L NC WHILE AWAKE AND USING HOME CPAP OVERNIGHT WITH O2. HS ACCUCHECK 329, LANTUS GIVEN ORDERED. TELE V PACED. PT CO SOB THIS MORNING, DR NOTIFIED AND RT TX ORDERS RECEIVED. TAKES PILLS WHOLE WITH WATER. ABLE TO USE CALL LITE AND MAKE NEEDS KNOWN. BED ALARM ON FOR SAFETY. PT TURNED AND REPOSITIONED HE WOULD ALLOW FOR SKIN CARE AND COMFORT. NITHIN GORDON.
[2020-08-28 08:00] VITALS: BP 134/51
[2020-08-28 11:08] VITALS: BP 130/71
[2020-08-28 16:52] VITALS: BP 94/35
[2020-08-28 19:50] VITALS: BP 117/41
[2020-08-29] VITALS: BP 126/57
[2020-08-29 04:00] VITALS: BP 116/54
[2020-08-29 05:10] LABS: HEMATOCRIT 29.3 % (42.0-52.0); HEMOGLOBIN 9.7 gm/dL (14.0-18.0); MCH 29.1 pg (26.0-34.0); MCHC 33.2 g/dL (28.0-37.0); MCV 87.6 fL (80.0-100.0); MPV 7.6 fl. (7.2-11.1); RBC 3.35 mil/uL (4.50-6.00); RDW-CV 16.7 % (10.5-14.5); WBC 2.2 thou/uL (4.0-11.0)
[2020-08-29 05:12] LABS: CALCIUM 8.5 mg/dL (8.5-10.1); CREATININE 1.1 mg/dL (0.6-1.3); POTASSIUM 4.4 mmol/L (3.5-5.1)
--- NOTE | 2020-08-29 05:51 | NUR ---
PT AO X4, ANXIOUS AT TIMES-RECEIVING XANAX PRN. UP WITH SBA TO BSC FOR BM OVENRIGHT, USING URINAL TO VOID. O2 3L NC AND CPAP AT NIGHT. R FA SL, ABX GIVEN ORDERED. PACEMAKER. TELE AV PACED. HS ACCUCHECK 305. NEED SPUTUM FOR LAB. MRSA SWAB PENDING RESULTS. AM LABS. ABLE TO USE CALL LITE AND MAKE NEEDS KNOWN.
[2020-08-29 09:04] VITALS: BP 120/60
[2020-08-29 12:18] VITALS: BP 127/47
--- NOTE | 2020-08-29 16:55 | NUR ---
PT UP TO CHAIR MOST OF THE SHIFT AND CONTINUES WITH IV ABXS. DR BRUCE ADJUSTED PT'S INSULIN REGIMEN AND ORDERED IV LASIX. PT FREQUENTLY ASKING FOR DIET SODA. INSTRUCTED TO LIMIT PT PO LIQUID INTAKE HE HAS PERIPHERAL EDEMA AND TRYING TO PULL FLUIDS OFF VIA DIURETIC. WILL CONTINUE TO ASSESS.
[2020-08-29 17:08] VITALS: BP 109/49
[2020-08-29 20:29] VITALS: BP 118/55
[2020-08-30 00:11] VITALS: BP 113/50
[2020-08-30 04:13] LABS: HEMATOCRIT 28.2 % (42.0-52.0); HEMOGLOBIN 9.4 gm/dL (14.0-18.0); MCH 28.8 pg (26.0-34.0); MCHC 33.2 g/dL (28.0-37.0); MCV 86.7 fL (80.0-100.0); MPV 7.9 fl. (7.2-11.1); RBC 3.25 mil/uL (4.50-6.00); RDW-CV 16.2 % (10.5-14.5); WBC 3.1 thou/uL (4.0-11.0)
[2020-08-30 04:34] LABS: CALCIUM 8.8 mg/dL (8.5-10.1); CREATININE 1.3 mg/dL (0.6-1.3); POTASSIUM 4.1 mmol/L (3.5-5.1)
--- NOTE | 2020-08-30 05:49 | NUR ---
PT IS ABLE TO COMMUNICATE HIS NEEDS TO STAFF EFFECTIVELY. HE HAS DENIED THE NEED FOR PAIN MEDICATION UP TO THIS TIME. PT HAS BEEN WEARING HIS CPAP WHILE SLEEPING OVERNIGHT, UP TO THIS TIME.
[2020-08-30 08:19] VITALS: BP 121/101
--- NOTE | 2020-08-30 10:18 | NUR ---
Nutrition: RD familiar with pt. He is admitted for SOA. Seen for high BMI. Wt is at usual of 282#. H/o CHF, DM, OBE, HTN. Meds: insulin, vanc, statin. Labs: BG 261-365, albumin 2.9. Regular diet is ordered - will restrict diet to CHO controlled. Pt said he is eating well. I gave him a menu. He has had DM diet educ in past. No questions today. Consider mild risk.
[2020-08-30 12:00] VITALS: BP 111/39
--- NOTE | 2020-08-30 15:44 | EKG ---
[place] [address] ELECTROCARDIOGRAM REPORT Name: NITZA BEAR Room: [address] ADM IN M.R.#: [id number] Admission: 08/27/20 Attend Phys: Melanie Rodriguez Discharge: Date of : 51 Date of Service: 08/30/20 1319 Report #: [id number] THIS REPORT FOR: //name// [facility] Test Date: 2020-08-30 Test Time: 13:19:32 Pat Name: NITZA BEAR Department: Room: [address] Gender: M Unitizer: YOUSUF : 1955 Requested By: Melanie Rodriguez Order Number: [id number] Reading MD: Ashish Javed Measurements Intervals [place] Rate: 84 P: 37 [place]: 199 QRS: -73 QRSD: 191 T: 76 QT: 464 QTc: 549 Interpretive Statements Ventricular-paced complexes with moderately frequent PVCs No further analysis attempted due to paced rhythm Compared to ECG 08/27/2020 14:49:39 PVCs are noted Electronically Signed On 08-30-2020 15:44:08 CDT by Ashish Javed [email or web address] <ELECTRONICALLY SIGNED> By: Ashish Javed MD, [facility] 08/30/20 1544 1319 1319 Ashish Javed MD, [facility] /EPI
[2020-08-30 16:00] VITALS: BP 123/58
--- NOTE | 2020-08-30 16:28 | NUR ---
CM ASSESSMENT: PT A&O, BUT FORHETFUL. PT RESIDES AT HOME WITH SPOUSE, AND SHE ASSIST THE PT NEEDED WITH ADL'S PT USES A WALKER FOR MOBILITY. PT USES HOME O2 @ 3L AND BIPAP PROVIDED BY [facility]. PT IS CURRENTLY ON SERVICE WITH [facility] PER SPOUSE. PT HAS PAST HX OF SNF. PT CURRENTLY ON-SERVICE WITH [facility]. PT WILL NEED TO RESUME HH WITH [facility] AT D/C. CM WILL REMAIN AVAILABLE TO ASSIST AND FOLLOW NEEDED. [facility] PHONE: [phone] FAX: [phone] [facility] PHONE: [phone] FAX: [phone]
[2020-08-30 20:34] VITALS: BP 117/55
[2020-08-31] VITALS: BP 121/56
[2020-08-31 05:57] VITALS: BP 116/57
--- NOTE | 2020-08-31 07:49 | NUR ---
PT IS ABLE TO COMMUNICATE HIS NEEDS TO STAFF EFFECTIVELY. HE HAS DENIED THE NEED FOR PAIN MEDICATION UP TO 0700 TODAY. HE HAS BEEN WEARING HIS CPAP WHILE SLEEPING OVERNIGHT. HE HAS BEEN UP TO THE CHAIR FOR MEALS THROUGHOUT THE DAY.
[2020-08-31 08:34] VITALS: BP 126/50
[2020-08-31] MEDS ORDERED: LEVOFLOXACIN500 MG PO (09:04)
[2020-08-31 12:00] VITALS: BP 149/83
--- NOTE | 2020-08-31 13:53 | NUR ---
PLAN OF CARE: PHYSICIAN INFORMS OF PLAN FOR THE PT TO REMAIN INPT AT THIS TIME. PT WILL NEED PT/OT EVAL TO ASSIST WITH D/C PLANNING. PT AND SPOUSE INFORM OF PLAN TO RETURN HOME WITH HH, AND [facility]. CM TO FAX BOTH CLINICAL INFO AND D/C ORDERS WHEN AVAILABLE. CM WILL REMAIN AVAILABLE TO ASSIST AND FOLLOW NEEDED.
[2020-08-31 18:21] VITALS: BP 142/58
--- NOTE | 2020-08-31 18:40 | NUR ---
Pt concerned about activity level; states is too weak for discharge. PT/OT ordered per Dr. Rodriguez. VSS. BG 300s today. Dr. Rodriguez informed, and said to continue sliding scale as ordered; and new orders for steroids (reduced dose/frequency) received. Will continue to monitor.
[2020-08-31 20:29] VITALS: BP 108/52
[2020-09-01 00:36] VITALS: BP 97/40
[2020-09-01 03:20] VITALS: BP 112/53
[2020-09-01 04:49] LABS: HEMOGLOBIN 10.4 gm/dL (14.0-18.0); MCH 28.1 pg (26.0-34.0); MCHC 32.4 g/dL (28.0-37.0); MCV 86.8 fL (80.0-100.0); MPV 7.8 fl. (7.2-11.1); RBC 3.69 mil/uL (4.50-6.00); RDW-CV 16.3 % (10.5-14.5); WBC 2.9 thou/uL (4.0-11.0)
[2020-09-01 04:59] LABS: CREATININE 0.9 mg/dL (0.6-1.3); POTASSIUM 4.1 mmol/L (3.5-5.1)
--- NOTE | 2020-09-01 07:52 | NUR ---
PT IS ABLE TO COMMUNICATE HIS NEEDS TO STAFF WITH MINOR DIFFICULTY; HE IS AUIN-[id number] BUT DOES WEAR HEARING AIDS DURING THE DAY. CURRENT PAIN MEDICATION REGIMEN HAS BEEN ADEQUATE FOR CONTROLLING HIS PAIN UP TO 0700 TODAY. PT UP TO CHAIR DURING THE DAY FOR MEALS ETC.
[2020-09-01 08:00] VITALS: BP 129/63
[2020-09-01 12:00] VITALS: BP 115/43
[2020-09-01 15:00] VITALS: BP 115/43
== END 2020-09-01 16:15 | disposition home health service (06) | DRG 871 ==
LOC: M.ERS 12:41 → M.2W 13:46 → M.TBA-ER 13:46 → M.2W 17:55
PROVIDERS: Family Medicine; ADMIT Internal Medicine; ATTEND Internal Medicine
PROC: 5A09357 Assistance with Respiratory Ventilation, Less than 24 Consecutive Hours, Continuous Positive Airway Pressure (ICD-10-PCS; principal; 2020-08-28)
PROC: 5A09357 Assistance with Respiratory Ventilation, Less than 24 Consecutive Hours, Continuous Positive Airway Pressure (ICD-10-PCS; 2020-08-29)
PROC: 5A09357 Assistance with Respiratory Ventilation, Less than 24 Consecutive Hours, Continuous Positive Airway Pressure (ICD-10-PCS; 2020-08-30)
PROC: 5A09357 Assistance with Respiratory Ventilation, Less than 24 Consecutive Hours, Continuous Positive Airway Pressure (ICD-10-PCS; 2020-08-31)
DX: A41.9 Sepsis, unspecified organism (principal); J15.6 Pneumonia due to other Gram-negative bacteria; I50.32 Chronic diastolic (congestive) heart failure; J44.1 Chronic obstructive pulmonary disease with (acute) exacerbation; J44.0 Chronic obstructive pulmonary disease with (acute) lower respiratory infection; Z68.42 Body mass index [BMI] 45.0-49.9, adult; J44.9 Chronic obstructive pulmonary disease, unspecified; I25.10 Atherosclerotic heart disease of native coronary artery without angina pectoris; E66.01 Morbid (severe) obesity due to excess calories; K74.60 Unspecified cirrhosis of liver; E83.42 Hypomagnesemia; I49.5 Sick sinus syndrome; G47.33 Obstructive sleep apnea (adult) (pediatric); D69.6 Thrombocytopenia, unspecified; I48.91 Unspecified atrial fibrillation; I11.0 Hypertensive heart disease with heart failure; E11.51 Type 2 diabetes mellitus with diabetic peripheral angiopathy without gangrene; Z20.822 Contact with and (suspected) exposure to COVID-19; Z95.5 Presence of coronary angioplasty implant and graft; Z85.72 Personal history of non-Hodgkin lymphomas; Z95.0 Presence of cardiac pacemaker; Z90.49 Acquired absence of other specified parts of digestive tract; Z98.42 Cataract extraction status, left eye; Z98.41 Cataract extraction status, right eye; Z79.4 Long term (current) use of insulin; Z79.899 Other long term (current) drug therapy; Z88.8 Allergy status to other drugs, medicaments and biological substances; Z88.0 Allergy status to penicillin; Z87.891 Personal history of nicotine dependence

== ENCOUNTER 2020-09-08 19:07 | Inpatient (IN) | payer MEDICARE, MEDICAID ==
[~2020-09-08] VITALS: Ht 167.6 cm; Wt 135.2 kg
[~2020-09-08 19:07] MED LIST changes: +LEVOFLOXACIN500 MG PO
[2020-09-08 19:10] VITALS: BP 138/53
[2020-09-08 21:05] LABS: ABSOLUTE BASOPHILS 0.1 thou/uL (0.0-0.2); ABSOLUTE EOSINOPHILS 0.1 thou/uL (0.0-0.7); ABSOLUTE LYMPHOCYTES 0.4 thou/uL (0.8-5.3); ABSOLUTE MONOCYTES 0.3 thou/uL (0.0-1.2); ABSOLUTE NEUTROPHILS 3.6 thou/uL (1.6-8.1); BASOPHILS 1.5 %; EOSINOPHILS 1.4 %; HEMATOCRIT 29.6 % (42.0-52.0); HEMOGLOBIN 9.4 gm/dL (14.0-18.0); LYMPHOCYTES 8.4 %; MCH 27.5 pg (26.0-34.0); MCHC 31.7 g/dL (28.0-37.0); MCV 86.8 fL (80.0-100.0); MONOCYTES 7.7 %; MPV 7.7 fl. (7.2-11.1); NUCLEATED RBCS 0 /100WBC; PLATELET COUNT* 51 thou/uL (150-400); RBC 3.41 mil/uL (4.50-6.00); RDW-CV 16.5 % (10.5-14.5); WBC 4.5 thou/uL (4.0-11.0)
[2020-09-08 21:11] LABS: CREATININE 0.8 mg/dL (0.6-1.3); POTASSIUM 3.9 mmol/L (3.5-5.1)
[2020-09-08 21:21] LABS: ALBUMIN 2.9 g/dL (3.4-5.0); MAGNESIUM 1.8 mg/dL (1.8-2.4); TOTAL BILIRUBIN 0.5 mg/dL (<0.1-1.0); TOTAL PROTEIN 6.3 g/dL (6.4-8.2)
[2020-09-08 22:30] VITALS: BP 138/61
[2020-09-08 22:53] VITALS: BP 138/61
[2020-09-08] MEDS ORDERED: XANAX 0.5 MG0.5 M1 PO (23:29)
[2020-09-09 04:00] VITALS: BP 131/62
[2020-09-09 08:30] VITALS: BP 131/64
[2020-09-09 09:19] LABS: % SATURATION 13 % (20-39); IRON 42 ug/dL (50-175)
--- NOTE | 2020-09-09 09:48 | EKG ---
[place] [address] ELECTROCARDIOGRAM REPORT Name: NITZA BEAR Room: [address] ADM IN M.R.#: [id number] Admission: 09/08/20 Attend Phys: Tobi Moore, Discharge: Date of : 51 Date of Service: 09/08/201942 Report #: [id number] THIS REPORT FOR: //name// [facility] ED Test Date: 2020-09-08 Test Time: 19:43:24 Pat Name: NITZA BEAR Department: Room: [facility] Gender: M Cardiograph Operator: : 1955 Requested By: Mela Romero Order Number: [id number] MD: Jose G Toribio Measurements Intervals [place] Rate: 73 P: 177 ID: [id number] QRS: -73 QRSD: 185 T: 68 QT: 450 QTc: 496 Interpretive Statements Ventricular-paced complexes No further analysis attempted due to paced rhythm Compared to ECG 08/30/2020 13:19:32 Ventricular premature complex(es) no longer present Electronically Signed On 09-09-2020 9:48:09 CDT by Jose G Toribio [email or web address] <ELECTRONICALLY SIGNED> By: Jose G Toribio MD, FAC 09/09/20 0948 42 42 Jose G Toribio MD, FAC /EPI
[2020-09-09 12:00] VITALS: BP 128/63
[2020-09-09 16:00] VITALS: BP 154/60
[2020-09-09 20:00] VITALS: BP 143/82
[2020-09-10 00:05] VITALS: BP 127/62
[2020-09-10 04:07] VITALS: BP 127/66
[2020-09-10 05:29] LABS: HEMATOCRIT 28.4 % (42.0-52.0); HEMOGLOBIN 9.2 gm/dL (14.0-18.0); MCH 28.1 pg (26.0-34.0); MCHC 32.5 g/dL (28.0-37.0); MCV 86.6 fL (80.0-100.0); MPV 6.9 fl. (7.2-11.1); RBC 3.28 mil/uL (4.50-6.00); RDW-CV 16.3 % (10.5-14.5); WBC 2.5 thou/uL (4.0-11.0)
[2020-09-10 05:50] LABS: ALBUMIN 2.6 g/dL (3.4-5.0); CALCIUM 8.1 mg/dL (8.5-10.1); POTASSIUM 4.8 mmol/L (3.5-5.1); TOTAL BILIRUBIN 0.3 mg/dL (<0.1-1.0); TOTAL PROTEIN 6.3 g/dL (6.4-8.2)
[2020-09-10 08:00] VITALS: BP 117/55
[2020-09-10 12:04] VITALS: BP 132/75
[2020-09-10 16:57] VITALS: BP 136/65
[2020-09-11 04:37] VITALS: BP 144/74
[2020-09-11 04:44] LABS: HEMATOCRIT 28.2 % (42.0-52.0); HEMOGLOBIN 9.3 gm/dL (14.0-18.0); MCH 28.1 pg (26.0-34.0); MCV 85.1 fL (80.0-100.0); MPV 7.4 fl. (7.2-11.1); RBC 3.32 mil/uL (4.50-6.00)
[2020-09-11 05:17] LABS: ALBUMIN 2.9 g/dL (3.4-5.0); CALCIUM 8.4 mg/dL (8.5-10.1); CREATININE 0.9 mg/dL (0.6-1.3); MAGNESIUM 2.1 mg/dL (1.8-2.4); POTASSIUM 4.5 mmol/L (3.5-5.1); TOTAL BILIRUBIN 0.2 mg/dL (<0.1-1.0); TOTAL PROTEIN 6.4 g/dL (6.4-8.2)
[2020-09-11 08:00] VITALS: BP 120/52
[2020-09-11 12:00] VITALS: BP 150/81
[2020-09-11 16:00] VITALS: BP 144/70
[2020-09-12] VITALS: BP 115/70
[2020-09-12 04:00] VITALS: BP 130/61
[2020-09-12 04:37] LABS: HEMATOCRIT 29.8 % (42.0-52.0); HEMOGLOBIN 9.7 gm/dL (14.0-18.0); MCH 27.7 pg (26.0-34.0); MCHC 32.4 g/dL (28.0-37.0); MCV 85.6 fL (80.0-100.0); MPV 7.4 fl. (7.2-11.1); RBC 3.49 mil/uL (4.50-6.00); RDW-CV 16.1 % (10.5-14.5); WBC 2.6 thou/uL (4.0-11.0)
[2020-09-12 04:50] LABS: ALKALINE PHOSPHATASE 80 U/L (46-116); ANION GAP < 0 mmol/L (7-16); BUN 27 mg/dL (7-18); CALCIUM 8.4 mg/dL (8.5-10.1); CHLORIDE 100 mmol/L (98-107); CO2 37 mmol/L (21-32); CREATININE 0.9 mg/dL (0.6-1.3); GLUCOSE 179 mg/dL (70-99); MAGNESIUM 2.3 mg/dL (1.8-2.4); POTASSIUM 4.3 mmol/L (3.5-5.1); SGOT 11 U/L (15-37); SGPT 53 U/L (30-65); SODIUM 136 mmol/L (136-145); TOTAL BILIRUBIN 0.2 mg/dL (<0.1-1.0); TOTAL PROTEIN 6.5 g/dL (6.4-8.2)
[2020-09-12 08:00] VITALS: BP 147/60
[2020-09-12 12:00] VITALS: BP 89/65
[2020-09-12 16:00] VITALS: BP 127/41
[2020-09-13] VITALS: BP 136/66
[2020-09-13 04:32] VITALS: BP 135/77
[2020-09-13 06:23] LABS: HEMATOCRIT 29.6 % (42.0-52.0); HEMOGLOBIN 9.4 gm/dL (14.0-18.0); MCH 27.4 pg (26.0-34.0); MCHC 31.7 g/dL (28.0-37.0); MCV 86.4 fL (80.0-100.0); MPV 7.1 fl. (7.2-11.1); RBC 3.43 mil/uL (4.50-6.00)
[2020-09-13 06:35] LABS: CALCIUM 8.3 mg/dL (8.5-10.1); CREATININE 0.8 mg/dL (0.6-1.3); MAGNESIUM 2.3 mg/dL (1.8-2.4); POTASSIUM 4.5 mmol/L (3.5-5.1); TOTAL BILIRUBIN 0.3 mg/dL (<0.1-1.0); TOTAL PROTEIN 6.1 g/dL (6.4-8.2)
[2020-09-13 06:37] LABS: WBC 1.8 thou/uL (4.0-11.0)
[2020-09-13 07:35] VITALS: BP 126/75
[2020-09-13 12:00] VITALS: BP 116/56
[2020-09-13 16:00] VITALS: BP 118/63
[2020-09-13 20:15] VITALS: BP 135/66
[2020-09-14] VITALS: BP 136/68
[2020-09-14 04:00] VITALS: BP 153/69
[2020-09-14 04:45] LABS: HEMATOCRIT 31.5 % (42.0-52.0); HEMOGLOBIN 10.1 gm/dL (14.0-18.0); MCH 27.5 pg (26.0-34.0); MCHC 31.9 g/dL (28.0-37.0); MCV 86.1 fL (80.0-100.0); RBC 3.66 mil/uL (4.50-6.00); RDW-CV 16.4 % (10.5-14.5); WBC 2.6 thou/uL (4.0-11.0)
[2020-09-14 05:02] LABS: ALBUMIN 3.2 g/dL (3.4-5.0); CALCIUM 8.4 mg/dL (8.5-10.1); CREATININE 0.9 mg/dL (0.6-1.3); MAGNESIUM 2.4 mg/dL (1.8-2.4); POTASSIUM 4.9 mmol/L (3.5-5.1); TOTAL BILIRUBIN 0.3 mg/dL (<0.1-1.0); TOTAL PROTEIN 6.3 g/dL (6.4-8.2)
[2020-09-14 07:20] VITALS: BP 123/69
[2020-09-14 17:06] VITALS: BP 123/51
[2020-09-15 00:45] VITALS: BP 153/69
[2020-09-15 04:32] LABS: HEMATOCRIT 31.6 % (42.0-52.0); HEMOGLOBIN 10.1 gm/dL (14.0-18.0); MCH 27.5 pg (26.0-34.0); MCHC 32.1 g/dL (28.0-37.0); MCV 85.9 fL (80.0-100.0); MPV 7.4 fl. (7.2-11.1); NUCLEATED RBCS 0 /100WBC; PLATELET COUNT* 52 thou/uL (150-400); RBC 3.68 mil/uL (4.50-6.00); RDW-CV 16.3 % (10.5-14.5); WBC 2.8 thou/uL (4.0-11.0)
[2020-09-15 04:55] LABS: ALBUMIN 3.2 g/dL (3.4-5.0); CALCIUM 8.6 mg/dL (8.5-10.1); CREATININE 0.8 mg/dL (0.6-1.3); POTASSIUM 4.9 mmol/L (3.5-5.1); TOTAL BILIRUBIN 0.4 mg/dL (<0.1-1.0); TOTAL PROTEIN 6.2 g/dL (6.4-8.2)
[2020-09-15 07:17] LABS: ABSOLUTE LYMPHOCYTES 0.2 thou/uL (0.8-5.3); ABSOLUTE MONOCYTES 0.1 thou/uL (0.0-1.2); ABSOLUTE NEUTROPHILS 2.5 thou/uL (1.6-8.1); PLATELET ESTIMATE DECREASED
[2020-09-15 07:18] LABS: ANISOCYTOSIS 1+; POIKILOCYTOSIS 1+
[2020-09-15] MEDS ORDERED: KRISTALOSE20 GM PO (07:49)
[2020-09-15] MEDS ORDERED: HUMALOG100 UNIT/1 SUBQ (07:52)
[2020-09-15 08:00] VITALS: BP 123/82
[2020-09-15 16:00] VITALS: BP 136/66
[2020-09-15 20:44] VITALS: BP 128/57
[2020-09-16 08:00] VITALS: BP 123/72
[2020-09-16 09:19] VITALS: BP 123/72
== END 2020-09-16 15:35 | DRG 177 ==
LOC: M.ERS 19:07 → M.2W 21:39 → M.TBA-ER 21:39 → M.2W 22:54 → M.3W 09-15 14:58
PROVIDERS: Internal Medicine; Personal Emergency Response Attendant; ADMIT Internal Medicine; ATTEND Internal Medicine
DX: J15.6 Pneumonia due to other Gram-negative bacteria (principal); J96.21 Acute and chronic respiratory failure with hypoxia; I50.33 Acute on chronic diastolic (congestive) heart failure; R65.11 Systemic inflammatory response syndrome (SIRS) of non-infectious origin with acute organ dysfunction; D68.59 Other primary thrombophilia; D61.818 Other pancytopenia; Z68.42 Body mass index [BMI] 45.0-49.9, adult; E87.3 Alkalosis; I11.0 Hypertensive heart disease with heart failure; I48.91 Unspecified atrial fibrillation; J44.9 Chronic obstructive pulmonary disease, unspecified; K74.60 Unspecified cirrhosis of liver; I25.10 Atherosclerotic heart disease of native coronary artery without angina pectoris; E66.01 Morbid (severe) obesity due to excess calories; E11.51 Type 2 diabetes mellitus with diabetic peripheral angiopathy without gangrene; E11.42 Type 2 diabetes mellitus with diabetic polyneuropathy; I49.5 Sick sinus syndrome; S80.02XA Contusion of left knee, initial encounter; W18.39XA Other fall on same level, initial encounter; E11.65 Type 2 diabetes mellitus with hyperglycemia; Z20.822 Contact with and (suspected) exposure to COVID-19; Z95.0 Presence of cardiac pacemaker; Z98.42 Cataract extraction status, left eye; Z98.41 Cataract extraction status, right eye; Z90.49 Acquired absence of other specified parts of digestive tract; Z87.891 Personal history of nicotine dependence; Z79.4 Long term (current) use of insulin; Z79.899 Other long term (current) drug therapy; Z88.8 Allergy status to other drugs, medicaments and biological substances; Z88.0 Allergy status to penicillin; Y93.89 Activity, other specified; Y92.89 Other specified places as the place of occurrence of the external cause; Y99.8 Other external cause status

== ENCOUNTER 2020-09-16 07:46 | Inpatient (IN) | payer MEDICARE, MEDICAID ==
[~2020-09-16] VITALS: Ht 167.6 cm; Wt 127.0 kg
[~2020-09-16 07:46] MED LIST changes: +HUMALOG100 UNIT/1 SUBQ; +KRISTALOSE20 GM PO; +XANAX 0.5 MG0.5 M1 PO
--- NOTE | 2020-09-16 18:31 | NUR ---
64 YEAR OLD MALE ADMITTED TO ROOM 321 WITH DEBILITY. PT ORIENTED TO ROOM, CALL LIGHT AND BED CONTROLS. ADMISSION PROCESS COMPLETED. FALL PRECAUTIONS AND HOURLY ROUNDING CONTINUE.
[2020-09-16 20:00] VITALS: BP 122/56
--- NOTE | 2020-09-17 00:14 | NUR ---
ASSUMED CARE AT 1915. ASSISTED TO BED WITH THREE STAFF AND SIT TO STAND LIFT. TOLERATED WELL. MAX ASSIST TO TURN. FELL ASLEEP AND WAS INCONTNENT OF URINE. SKIN CARE DONE, RED GROINS, THIGHS, SCROTUM AND BUTTOCKS. MOISTURE BARRIER AND AF MOISTURE BARRIER APPLIED. DOES ALSO USE URINAL. WEARING CPAP ALL THE TIME THUS FAR THIS SHIFT. TRIPLE LUMEN IJ DRESSING REINFORCED, D/I. BLOOD SUGAR 61 AT HS. LANTUS INSULIN HELD, LISPRO NOT INDICATED, GLIMEPIRIIDE HELD. HAS HAD LOW BLOOD SUGARS ALL DAY. PATIENT HAD ONE TUB OF PEANUT BUTTER, 4 SALTINE CRACKERS, 4 OZ ORANGE JUICE (CONTAINING MEDS) AND SMALL SODA. LACTULOSE GIVEN AFTER EDUCATION OF USE WITH CIRRHOSIS. VERY [place]. NO C/O PAIN. HOURLY ROUNDS CONTINUE. BED ALARM ON. CALL LITE IN REACH.
--- NOTE | 2020-09-17 00:37 | NUR ---
RECHECKED BLOOD SUGAR. 57. GIVEN TWO ENSURE CHOCOLATE PUDDINGS. EACH CONTAIN 30 G OF CHO. WILL RECHECK BLOOD SUGAR LATER. PATIENT STATES THIS HAPPENS TO HIM AT HOME SOMETIMES, AND HIS SOLUTION IS TO HOLD HIS DIABETIC MEDS.
[2020-09-17 05:21] LABS: HEMATOCRIT 30.7 % (42.0-52.0); HEMOGLOBIN 9.9 gm/dL (14.0-18.0); MCH 27.4 pg (26.0-34.0); MCHC 32.3 g/dL (28.0-37.0); MPV 6.8 fl. (7.2-11.1); RBC 3.61 mil/uL (4.50-6.00); RDW-CV 16.5 % (10.5-14.5); WBC 2.2 thou/uL (4.0-11.0)
--- NOTE | 2020-09-17 05:31 | NUR ---
SLEPT OFF AND ON THROUGH THE NIGHT. WHEN AWAKE, HE PLAYS TV VERY LOUDLY. WHEN HE SLEEPS, HE IS INCONTINENT OF LARGE AMOUNTS OF URINE. SKIN CARE DONE, MOISTURE BARRIER AND AF MOISTURE BARRIER APPLIED TO BOTTOM, GROINS, THIGHS, SCROTUM. ATTEMPTED BM PER BEDPAN, UNSUCCESSFUL. RT IJ INTACT, URINAL IN REACH. BED ALARM ON. CALL LITE IN REACH. HOURLY ROUNDS CONTINUE.
[2020-09-17 05:42] LABS: CALCIUM 8.1 mg/dL (8.5-10.1); CREATININE 0.9 mg/dL (0.6-1.3); POTASSIUM 4.6 mmol/L (3.5-5.1)
[2020-09-17 08:00] VITALS: BP 135/72
--- NOTE | 2020-09-17 10:42 | NUR ---
INITIAL ASSESSMENT: PATIENT ADMITTED TO THE [facility] ON 09/16/20 WITH A DIAGNOSIS OF DEBILITY. PT ALERT AND ORIENTED. PT RESIDES AT HOME WITH SPOUSE. PRIOR TO ADMIT PT USED A WALKER FOR MOBILITY. PT USES HOME OXYGEN @ 3L AND BIPAP PROVIDED BY [facility]. PT ON-SERVICE WITH [facility] PRIOR TO ADMIT, AND [facility]. PT ORIENTED TO THE [facility] AND PROCESSES, RESIDENT'S RIGHTS INFO, TEAM CONFRENCE, AND TO THE ROLE OF CM. CM ATTEMPTED TO CONTACT SPOUSE TO INFORM OF THE SAME. NO ANSWER, BUT CM WILL F/U WITH PT'S SPOUSE. CM WILL REMAIN AVAILABLE TO ASSIST AND FOLLOW NEEDED.
--- NOTE | 2020-09-17 10:59 | NUR ---
Nutrition: RD saw pt on other unit. Now admitted to rehab unit for debility. Pt uses CPAP. Eating CHO controlled diet well. H/o COPD, DM, CADDO, cirrhosis, HTN, CHF. Wt: 298#. Albumin 3.2, prealb 16.2. Has ben area redness. Consider mild risk. Will follow weekly.
--- NOTE | 2020-09-17 18:36 | NUR ---
AM ASSESSMENT AND VITAL SIGNS COMPLETED DOCUMENTED. PT IS A MAX ASSIST, TRANSFERS WITH A LIFT. PT IS INCONTINENT OF URINE MULTIPLE TIMES EACH SHIFT. HEMATOLOGY CONSULT PLACED FOR LOW PLATELET COUNT. FALL PRECAUTIONS AND HOURLY ROUNDING CONTINUE.
[2020-09-17 20:00] VITALS: BP 118/50
[2020-09-18 08:41] VITALS: BP 128/66
[2020-09-18 19:00] VITALS: BP 114/47
[2020-09-19 08:00] VITALS: BP 134/66
[2020-09-19 08:05] LABS: HEMOGLOBIN 9.5 gm/dL (14.0-18.0); MCHC 31.8 g/dL (28.0-37.0); MCV 85.2 fL (80.0-100.0); MPV 7.2 fl. (7.2-11.1); RBC 3.52 mil/uL (4.50-6.00); RDW-CV 16.6 % (10.5-14.5); WBC 2.5 thou/uL (4.0-11.0)
[2020-09-19 08:13] LABS: CALCIUM 8.2 mg/dL (8.5-10.1); CREATININE 0.8 mg/dL (0.6-1.3); POTASSIUM 4.5 mmol/L (3.5-5.1)
--- NOTE | 2020-09-19 18:54 | NUR ---
PT USING HIS ARMS AND LEGS TO HELP PUSH HIMSELF UP IN THE BED AND TO HELP US TURN HIM OVER TO CLEAN HIM UP. VSS AFEBRILE. BLOOD SUGARS CONTROLLED WITH S/S INSULIN. WILL CONTINUE TO MONITOR PLAN OF CARE.
[2020-09-19 20:00] VITALS: BP 132/50
[2020-09-20 08:39] VITALS: BP 150/46
--- NOTE | 2020-09-20 15:27 | NUR ---
CM SPOKE TO THE PT TO DISCUSS ANY QUESTIONS OR CONCERNS THAT HE MAY HAVE FOR THIS WEEKS TEAM CONFRENCE MEETING. PT HAS NO QUESTIONS OR CONCERNS AT THIS TIME. CM WILL REMAIN AVAILABLE TO ASSIST AND FOLLOW NEEDED.
[2020-09-20 19:00] VITALS: BP 121/49
--- NOTE | 2020-09-20 23:55 | NUR ---
ASSUMED CARE AT 1915. ASSISTED TO BED WITH THREE STAFF AND SIT TO STAND LIFT. TOLERATED WELL. MAX ASSIST TO TURN. INCONTINENT OF LARGE AMOUNTS OF URINE. SKIN CARE DONE, RED GROINS, THIGHS, SCROTUM AND BUTTOCKS. MOISTURE BARRIER AND AF MOISTURE BARRIER APPLIED. DOES ALSO USE URINAL. WEARING CPAP ALL THE TIME THUS FAR THIS SHIFT. TRIPLE LUMEN IJ DRESSING REINFORCED, D/I. VERY [place]. NO C/O PAIN. HAD FOUR PACKAGES OF ELLA CRACKERS, AND LATER FIVE PACKAGES. C/O WANTING TACOS AND CHEESEBURGERS. HOURLY ROUNDS CONTINUE. BED ALARM ON. CALL LITE IN REACH.
[2020-09-21 04:53] LABS: HEMATOCRIT 28.2 % (42.0-52.0); HEMOGLOBIN 9.1 gm/dL (14.0-18.0); MCH 27.4 pg (26.0-34.0); MCHC 32.4 g/dL (28.0-37.0); MCV 84.5 fL (80.0-100.0); MPV 7.2 fl. (7.2-11.1); RBC 3.34 mil/uL (4.50-6.00); RDW-CV 17.1 % (10.5-14.5); WBC 2.2 thou/uL (4.0-11.0)
[2020-09-21 04:57] LABS: CALCIUM 8.2 mg/dL (8.5-10.1); CREATININE 0.9 mg/dL (0.6-1.3); POTASSIUM 4.1 mmol/L (3.5-5.1)
--- NOTE | 2020-09-21 06:17 | NUR ---
SLEPT SOME THROUGH THE NIGHT, BUT MOST OF THE NIGHT PATIENT HAD TV ON VERY LOUDLY AND WAS WATCHING IT ON MANY HOURLY ROUNDS. INCONTINENT OF VERY LARGE AMOUNTS OF URINE, SKIN CARE DONE, MOISTURE BARRIER APPLIED. IN BETTER SPIRITS TONIGHT. SKIN IN GROINS, THIGHS, SCROTUM, BUTTOCKA, AND ABDOMINAL FOLDS IMPROVED THROUGH NIGHT. BRIEF WAS REMOVED AT HS TO ALLOW AIR TO AREAS. NO C/O PAIN. WORE CPAP ALL NIGHT. STILL MAX ASSIST WITH TURNS, BUT PATIENT IS TRYING TO ASSIST MORE WITH TURNS. HOURLY ROUNDS CONTINUE. BED ALARM ON. CALL LITE IN REACH.
[2020-09-21 08:21] VITALS: BP 125/56
--- NOTE | 2020-09-21 18:06 | NUR ---
pt up with gait belt and sit to stand, pt completed all therapies. No complaint if pain . pt did have bm. call light in reach and fall precautions in place.
[2020-09-21 19:00] VITALS: BP 107/53
[2020-09-22 05:38] LABS: HEMATOCRIT 29.2 % (42.0-52.0); HEMOGLOBIN 9.3 gm/dL (14.0-18.0); MCH 27.1 pg (26.0-34.0); MCHC 31.7 g/dL (28.0-37.0); MCV 85.7 fL (80.0-100.0); MPV 7.5 fl. (7.2-11.1); RBC 3.41 mil/uL (4.50-6.00); RDW-CV 16.7 % (10.5-14.5); WBC 2.1 thou/uL (4.0-11.0)
[2020-09-22 05:47] LABS: CALCIUM 8.5 mg/dL (8.5-10.1); CREATININE 0.9 mg/dL (0.6-1.3); POTASSIUM 3.9 mmol/L (3.5-5.1)
--- NOTE | 2020-09-22 07:00 | NUR ---
ASSUMED PT CARE AT 1930. ASSESSMENT COMPLETED CHARTED. ABLE TO MAKE NEEDS KNOWN. [id number] COMPLETED CHARTED. NO C/O PAIN OR DISCOMFORT. CPAP IN PLACE ALL NIGHT WITH O2 CONNECTED. WILL CONTINUE TO MONITOR.
[2020-09-22 08:30] VITALS: BP 117/61
[2020-09-22 19:00] VITALS: BP 114/54
--- NOTE | 2020-09-22 19:40 | NUR ---
ALERT AND ORIENTED X4. UP WITH 2 ASSIST AND STAND UP LIFT. DENIED NEED FOR PAIN MEDICATION. TAKES PILLS WITHOUT DIFFICULTY. ON CPAP WHILE IN BED OR RECLINER. DR NOTIFIED OF ABNORMAL LABS WITH NO NEW ORDERS. CREAMS APPLIED TO RASH IN GROIN AND KIT AREA. IV D/C WITHOUT DIFFICULTY. USES CALL LIGHT WHEN IN CLOSE REACH. WILL CALL OUT IF ITEMS ARE NOT WITHIN VERY CLOSE REACH. FALL PRECAUTIONS IN PLACE.
--- NOTE | 2020-09-22 23:01 | NUR ---
ASSUMED CARE AT 1915. MAX ASSIST TO TURN. INCONTINENT OF LARGE AMOUNTS OF URINE. SKIN CARE DONE, RED GROINS, THIGHS, SCROTUM AND BUTTOCKS. MOISTURE BARRIER AND ZINC OINTMENT AND NYSTATIN APPLIED. WEARING CPAP ALL THE TIME THUS FAR THIS SHIFT. TRIPLE LUMEN IJ DRESSING INTACT WITHOUT BLEEDING AFTER REMOVAL EARLIER TODAY. VERY [place]. NO C/O PAIN. COKE FOR HS SNACK. HOURLY ROUNDS CONTINUE. BED ALARM ON. CALL LITE IN REACH.
--- NOTE | 2020-09-23 05:31 | NUR ---
SLEPT OFF AND ON WITH TV EXTREMELY LOUD. ASSISTED WITH TURNS. INCONTINENT OF URINE AND PADS CHANGED, SKIN CARE DONE, MOISTURE BARRIER APPLIED. DRINKING SODA AT TIMES. WEARING CPAP ALL NOC WITH O2 BLED IN AT 3.5 L. HOURLY ROUNDS CONTINUE. BED ALARM LUBRICATOR GRANULATOR LITE IN REACH.
[2020-09-23 08:09] VITALS: BP 124/62
--- NOTE | 2020-09-23 16:42 | NUR ---
PT UP WITH GAIT BELT AND SIT TO STAND. PT COMPLETED ALL THERAPIES TODAY. PT IS RESTING WITH CALL LLIGHT IN REACH AND FALL PRECAUTIONS IN PLACE.
[2020-09-23 19:35] VITALS: BP 127/66
[2020-09-24 07:57] VITALS: BP 121/60
--- NOTE | 2020-09-24 16:25 | NUR ---
TEAM CONFRENCE MEETING HELD THIS WEEK. PT AND SPOUSE INFORMED OF MEETING AND PLAN TO RE-TEAM AND CONTINUE THERAPIES FOR ANOTHER WEEK. PT AND SPOUSE IN AGREEMENT. CM WILL REMAIN AVAILABLE TO ASSIST AND FOLLOW NEEDED.
--- NOTE | 2020-09-24 17:29 | NUR ---
PT WORKED WITH THERAPIES. UP WITH GAIT BELT, WALKER, AND MAX ASSIST X2. MULTIPLE STOOLS TODAY ON BSC. O2 3.5LNC. CPAP AT TIMES. PT FORGETFUL AND CONFUSED AT TIMES. REPORTS BLURRED VISION. DR COOK NOTIFIED. WILL MONITOR PER DR COOK. PT CALLS OUT FREQUENTLY. CALL LIGHT IN REACH. FALL PRECAUTIONS IN PLACE.
[2020-09-24 20:25] VITALS: BP 124/51
[2020-09-25 08:15] VITALS: BP 128/63
--- NOTE | 2020-09-25 17:32 | NUR ---
ALERT AND ORIENTED X4. PAS[place] YAQUI. UNABLE TO MOVE FEET WITH TRANSFER BY 2 ASSIST, GAIT BELT AND WALKER. STAND UP LIFT WORKED MUCH BETTER WITH TRANSFERS. DENIES NEED FOR PAIN MEDICATION. REPOSITIONED SEVERAL TIMES THROUGHOUT DAY. MEDICATION APPLIED TO RASH IN GROIN AND KIT AREA. USES CPAP OR O2 AT 3.5L TO KEEP O2 SATS IN 90'S. USES CALL LIGHT WITHIN REACH. FALL PRECAUTIONS IN PLACE.
--- NOTE | 2020-09-26 05:02 | NUR ---
ASSUMED PT CARE AT 1930. PT ALERT AND ORIENTED X4. INCONTINENT OF URINE. SKIN CARE PROVIDED, REDNESS TO GROIN, THIGHS, SCROTUM AND BUTTOCKS. BARRIER CREAM, ZINC OINTMENT AND NYSTATING APPLIED. WORE CPAP OVERNIGHT. MAX ASSIST TO TURN. VERY [place], HAS TELEVISION ON ALL NIGHT AT MAX VOLUME. NO C/O PAIN. CALL LIGHT IN REACH, BED ALARM ON FOR SAFETY. HOURLY ROUNDING IN PROGRESS, WILL CONTINUE TO MONITOR.
[2020-09-26 08:30] VITALS: BP 124/52
[2020-09-26 09:53] LABS: HEMATOCRIT 31.2 % (42.0-52.0); HEMOGLOBIN 9.5 gm/dL (14.0-18.0); MCH 26.5 pg (26.0-34.0); MCHC 30.5 g/dL (28.0-37.0); MCV 86.8 fL (80.0-100.0); MPV 7.1 fl. (7.2-11.1); RBC 3.6 mil/uL (4.50-6.00); RDW-CV 17.2 % (10.5-14.5); WBC 2.5 thou/uL (4.0-11.0)
[2020-09-26 10:05] LABS: CALCIUM 8.3 mg/dL (8.5-10.1); POTASSIUM 4.2 mmol/L (3.5-5.1)
--- NOTE | 2020-09-26 18:54 | NUR ---
ALERT AND ORIENTED X4. UP WITH STAND UP LIFT AND 2 ASSIST. HAD LARGE BM TODAY. INCONTINENT OF URINE. MEDICATION APPLIED TO RASH ON BUTTOCK AND KIT AREA. USES CPAP WITH O2 AT 3.5L OR 3.5 O2 PER NC. USES CALL LIGHT FOR ASSIST. FALL PRECAUTIONS IN PLACE BED ALARM AND CHAIR ALARM USED.
[2020-09-26 20:10] VITALS: BP 113/55
--- NOTE | 2020-09-27 04:40 | NUR ---
ASSUMED PT CARE AT 1930. PT TRANSFERRED FROM RECLINER TO BED WITH STAND TO SIT DEVICE AND ASSIST OF TWO. PT ALERT AND ORIENTED X4. INCONTINENT OF URINE. SKIN CARE PROVIDED, REDNESS TO GROIN, THIGHS, SCROTUM AND BUTTOCKS. BARRIER CREAM, ZINC OINTMENT AND NYSATIN APPLIED. WORE CPAP OVERNIGHT. MAX ASSIST TO TURN. VERY [place]. PRN TYLENOL FOR HEADACHE. CALL LIGHT IN REACH, BED ALARM ON FOR SAFETY. HOURLY ROUNDING IN PROGRESS, WILL CONTINUE TO MONITOR.
[2020-09-27 08:30] VITALS: BP 129/62
--- NOTE | 2020-09-27 14:31 | NUR ---
THIS ARTIST MODEL IS IN AGREEMENT WITH DOCUMENTATION BY ERIC GARCIA FOR THIS DAY. NICKOLAS REINOSOT
--- NOTE | 2020-09-27 18:05 | NUR ---
ALERT AND ORIENTED X4. UP WITH STAND UP LIFT AND 2 ASSIST. INCONTINENT OF LOOSE STOOL AND URINE TODAY. DR AND WOUND NURSE NOTIFIED OF LOWER LEG REDNESS AND DRY SKIN. REMAINS ON O2 AT 3.5L OR BIPAP WITH 3.5L O2 BLED IN WHEN ASLEEP. MEDICATION APPLIED TO RASH IN GROIN AND KIT AREA. USES CALL LIGHT FOR ASSIST. FALL PRECAUTIONS IN PLACE. BED ALARM AND CHAIR ALARM USED.
[2020-09-27 19:00] VITALS: BP 125/51
--- NOTE | 2020-09-28 05:04 | NUR ---
ASSUMED PT CARE AT 1930. PT TRANSFERRED TO BED WITH ASSIST OF TWO AND STAND UP LIFT. PT INCONTINENT OF URINE, PERICARE PROVIDED. MEDICATION APPLIED TO RASH IN GROIN AND KIT AREA. ON 3.5L 02 PER NC OR BIPAP WITH 3.5L 02 BLED IN WHEN ASLEEP. CALL LIGHT IN REACH, BED ALARM ON FOR SAFETY. HOURLY ROUNDING IN PROGRESS, WILL CONTINUE TO MONITOR.
[2020-09-28 07:50] VITALS: BP 123/64
[2020-09-28 10:31] LABS: BE 7.4 mmol/L (-2 to +3); PO2 77.1 mmHg (75.0-100.0)
[2020-09-28 10:34] LABS: PCO2 75.2 mmHg (35.0-45.0); pH 7.295 (7.340-7.450)
--- NOTE | 2020-09-28 16:27 | NUR ---
CM SPOKE TO THE PT AND HIS SPOUSE TO DISCUSS ANY QUESTIONS OR CONCERNS THAT THEY MAY AHVE FOR THIS WEEKS TEAM CONFRENCE MEETING. PT AND SPOUSE HAVE NO QUESTIONS OR CONCERNS AT THIS TIME. CM WILL REMAIN AVAILABLE TO ASSIST AND FOLLOW NEEDED.
--- NOTE | 2020-09-28 17:17 | NUR ---
PATIENT COMPLETED THERAPIES THIS SHIFT ORDERED. PATIENT DROWSY THIS AM. SPOKE WITH DR. QUIROZ, PATIENT C/O IT WAS HARD TO BREATH. ORDERS FOR CXR AND ABG'S. DR. COOK WAS NOTIFIED OF RESULTS AND PATIENT PLACED BACK ON CPAP AND ORDERS FOR PO LEVAQUIN TO START. PATIENT MORE ALERT THIS AFTERNOON AFTER WEARING CPAP. INSULIN GIVEN WITH MEALS ORDERED. NO COMPLAINTS OF PAIN. TUBAGRIPS REMOVED AND SKIN CHECKED AND REPLACED.
[2020-09-28 19:00] VITALS: BP 120/61
--- NOTE | 2020-09-28 23:41 | NUR ---
ASSUMED CARE AT 1915. MAX ASSIST TO TURN. INCONTINENT OF LARGE AMOUNTS OF URINE. SKIN CARE DONE, RED GROINS, THIGHS, SCROTUM AND BUTTOCKS. MOISTURE BARRIER AND ZINC OINTMENT AND NYSTATIN APPLIED. TUBIGRIPS REMOVED AT HS, LEGS ON PILLOW, HEELS OFFLOADED. LOTION APPLIED TO BILAT SHINS WHICH ARE RED AND [place]. WEARING CPAP ALL THE TIME WITH O2 4.5 L BLED IN THUS FAR THIS SHIFT. R.T. CHANGED O2 SETTINGS. VERY [place]. NO C/O PAIN. [place], CHOCOLATE PUDDING AND ELLA CRACKERS FOR HS SNACK. HOURLY ROUNDS CONTINUE. BED ALARM ON. CALL LITE IN REACH.
[2020-09-29 05:36] LABS: HEMOGLOBIN 8.7 gm/dL (14.0-18.0); RDW-CV 17.4 % (10.5-14.5); WBC 2.6 thou/uL (4.0-11.0)
[2020-09-29 05:38] LABS: HEMATOCRIT 27.8 % (42.0-52.0); MCH 27.2 pg (26.0-34.0); MCHC 31.3 g/dL (28.0-37.0); MCV 86.7 fL (80.0-100.0); MPV 7.3 fl. (7.2-11.1); RBC 3.2 mil/uL (4.50-6.00)
--- NOTE | 2020-09-29 05:43 | NUR ---
SLEPT OFF AND ON. AWAKENED BY LAB AND R.T. INCONTNENT OF LARGE AMOUNTS OF URINE. LINENS AND PADS CHANGED. SKIN CARE DONE. ASSISTED WITH TURNS. WEARING CPAP ALL NOC. HOB ELEVATED. TUBIGRIPS OFF, LEGS ELEVATED ON PILLOWS WITH HEELS OFFLOADED. HOURLY ROUNDS CONTINUE. BED ALARM ON. CALL LITE IN REACH.
[2020-09-29 05:53] LABS: CALCIUM 8.4 mg/dL (8.5-10.1); CREATININE 0.9 mg/dL (0.6-1.3); POTASSIUM 4.7 mmol/L (3.5-5.1)
[2020-09-29 08:00] VITALS: BP 114/47
[2020-09-29 12:47] VITALS: BP 139/61
--- NOTE | 2020-09-29 18:28 | NUR ---
PATIENT COMPLETED THERAPIES THIS SHIFT. UP WITH SIT TO STAND. INCONTINENT OF LARGE AMOUNTS OF URINE, RECEIVED ONE TIME IV LASIX TODAY. CPAP ON THIS SHIFT. TEAM MEETING TODAY, PULM CONSULT ORDERED. CT CHEST ORDERED THIS SHIFT AND CXR. ONE TIME IV STEROID THIS EVENING. INSULIN GIVEN WITH MEALS ORDERED. BIPAP ORDERED FOR HS AND PRN.
[2020-09-29 20:35] VITALS: BP 111/60
[2020-09-30 04:57] LABS: ABSOLUTE LYMPHOCYTES 0.3 thou/uL (0.8-5.3); ABSOLUTE NEUTROPHILS 1.8 thou/uL (1.6-8.1); BASOPHILS 0.6 %; EOSINOPHILS 0.3 %; HEMATOCRIT 28.2 % (42.0-52.0); HEMOGLOBIN 8.9 gm/dL (14.0-18.0); LYMPHOCYTES 13.2 %; MCHC 31.6 g/dL (28.0-37.0); MCV 85.3 fL (80.0-100.0); MONOCYTES 2.2 %; MPV 7.5 fl. (7.2-11.1); NUCLEATED RBCS 0 /100WBC; POLYS 83.7 %; RDW-CV 17.1 % (10.5-14.5); WBC 2.1 thou/uL (4.0-11.0)
[2020-09-30 05:25] LABS: ALBUMIN 2.9 g/dL (3.4-5.0); CALCIUM 8.3 mg/dL (8.5-10.1); CREATININE 0.9 mg/dL (0.6-1.3); MAGNESIUM 1.8 mg/dL (1.8-2.4); POTASSIUM 5.1 mmol/L (3.5-5.1); TOTAL BILIRUBIN 0.5 mg/dL (<0.1-1.0); TOTAL PROTEIN 5.7 g/dL (6.4-8.2)
--- NOTE | 2020-09-30 05:26 | NUR ---
ASSUMED PT CARE AT 1930. PT CALLING OUT SAYING HE COULDN'T BREATHE. PT WAS WEARING HIS CPAP BUT IT WAS NOT TURNED ON. RT CALLED, PLACED ON BIPAP WHICH HE WORE THE REMAINDER OF THE NIGHT. MASK CHANGED TO DIFFERENT STYLE WHEN PT INSISTED HE COULD NOT WEAR BIPAP ANY LONGER AT 0330. SOOTHED BY RT AND CONTINUED TO WEAR BIPAP THE REMAINDER OF THE NIGHT. INCONTINENT OF URINE. SKIN CARE DONE, ZINC AND NYSTATIN TO GROIN, THIGHS, SCROTUM AND BUTTOCKS. HEELS OFFLOADED ON PILLOW. VERY [place]. NO C/O PAIN. DIET DIPTI AT HS. ASSISTED WITH TURNS. CALL LIGHT IN REACH, BED ALARM ON FOR SAFETY. HOURLY ROUNDING IN PROGRESS, WILL CONTINUE TO MONITOR.
[2020-09-30 05:43] LABS: PLATELET COUNT* 49 thou/uL (150-400)
--- NOTE | 2020-09-30 06:31 | NUR ---
CALLED TO PT ROOM. PT ADAMANT HE WANTED BIPAP OFF AND CPAP BACK ON. STATED THAT HE WASN'T GOING TO WEAR BIPAP AGAIN, THAT IT KEPT HIM UP ALL NIGHT AND THAT HE COULDN'T TAKE IT OFF TO GET A DRINK.
--- NOTE | 2020-09-30 14:45 | NUR ---
THIS COMMISSIONING EDITOR IS IN AGREEMENT WITH DOCUMENTATION BY ERIC GARCIA FOR THIS DAY. NICKOLAS REINOSOT
[2020-09-30 20:26] VITALS: BP 122/61
--- NOTE | 2020-09-30 23:23 | CON ---
[address] [address] CONSULTATION Name: NITZA BEAR Room: [address] ADM IN M.R.#: [id number] Admission: 09/16/20 Attend Phys: Petros Emery MD Discharge: Date of : 51 Report #: [id number] THIS REPORT FOR: cc: Dandy Noe MD, Dean L. MD Pervez, Adeel MD ~ DATE OF CONSULTATION: 09/29/2020 REQUESTING PHYSICIAN: Petros Emery MD. INDICATION FOR CONSULTATION: Acute on chronic hypercarbic respiratory failure. HISTORY OF PRESENT ILLNESS: This is a 65-year-old gentleman. I know him from last year. I have seen him in a previous admission to this hospital last year. He has had several subsequent admissions to this hospital as well. He does have a history of COPD as well as obstructive sleep apnea. He is on oxygen long-term. He also is on a device which he uses at night, which he describes as a BiPAP while asleep. He currently has this device with him. I am not able to view as to whether this in fact is a BiPAP or CPAP; however, the pressure, it is delivering to him is about a continuous 6-7 cm of water, so essentially it is functioning like a CPAP. Apparently, the patient this time got admitted initially to the acute care to this hospital with generalized fatigue and debility, eventually got transferred to rehab after improvement. The patient is noted to have been more lethargic and therefore was evaluated yesterday. There is an arterial blood gas. It shows a low pH and high pCO2. He also appears to be fluid overloaded and has been given Lasix instead and was started on Levaquin yesterday. He has previously received other antibiotics when he was in the acute side. He provided a limited history. He does say he is short of breath. He says he coughs, not much sputum. Does not describe upper respiratory complaints. No chest pain. He has severe daytime sleepiness and is using the CPAP most of the day and he is lying in bed, is not very active at this time. He has had some joint pains, which remain at baseline. He has swelling of lower extremities, which is longstanding. REVIEW OF SYSTEMS: For 12 points is negative except as mentioned above. PAST MEDICAL HISTORY: COPD, on oxygen long-term. Obstructive sleep apnea: He states that his machine is a BiPAP, but as above, it is functioning as a CPAP at this time. Coronary artery disease: There is a recent echo. It shows left ventricular ejection fraction 55-60%, pulmonary artery systolic of 28. Baseline creatinine is normal. Status post pacemaker, atrial fibrillation, paroxysmal, as well as bradycardia, is not on long-term anticoagulation; diabetes; [place] [address] CONSULTATION Name: NITZA BEAR Room: [address] IN M.R.#: [id number] Admission: 09/16/20 Attend Phys: Petros Emery MD Discharge: Date of : 51 Report #: [id number] of liver; pancytopenia; tonsillectomy; cataract surgery; cholecystectomy; lymphoma; peripheral neuropathy. 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 SOCIAL HISTORY: Extensive history of smoking more than 2 packs a day since , discontinued late . Used snuff in the past as well. No known history of heavy alcohol use or illegal drug use. CURRENT MEDICATIONS: List in [employer] reviewed. HOME MEDICATIONS: List also in [employer] reviewed. FAMILY HISTORY: No pertinent family history known at this time. ALLERGIES: The patient reports have had shaking all over after having received Lovenox in the past. This does not appear to be an allergy to me. Regardless, his platelets are low, which is a relative contraindication to administration of Lovenox. It was mentioned in his records previously a PENICILLIN ALLERGY. I do not see it on his current records. Regardless, he has received cephalosporins in the past and no reaction to cephalosporins. PHYSICAL EXAMINATION: GENERAL: He was very drowsy. He is wearing his CPAP. I was able to arouse him. When aroused, he is alert, awake, and oriented. VITAL SIGNS: He has a pulse of 64 and a blood pressure of 139/61. Last O2 saturation was checked when he was on 3.5 liters nasal cannula and it was in the mid 90s. His respiratory rate was around 14-16, at the time of my evaluation. He is afebrile with a temperature of 35.9. Body mass index 45. HEENT: Head is normocephalic and atraumatic. Pupils are equal and reactive. No throat erythema. Airway is narrow. Mallampati 4. NECK: Does not show raised JVP, asymmetry, mass, or lymph nodes. CHEST: Symmetrical expansion on inspection and palpation. On auscultation, breath sounds are particularly decreased at bilateral lung bases. HEART: Regular. There is no murmur. ABDOMEN: Soft and nontender. EXTREMITIES: Lower extremities show 2+ edema bilaterally. There is no calf tenderness. SKIN: Dry and intact. NEUROLOGIC: Moves all extremities bilaterally equally and spontaneously with no focal deficit identified. LABORATORY AND DIAGNOSTIC DATA: The patient's chest x-ray is reviewed. Primarily, there is atelectasis and pleural effusions at bilateral lung bases. It will be possible that there are infiltrates present as well, which are masked by these changes. The patient's lab work in [facility] reviewed. Arterial blood gas in [facility] [place] [address] CONSULTATION Name: MRAIANELANITZASHAHAB LOCKWOOD Room: [address] IN .R.#: [id number] Admission: 09/16/20 Attend Phys: Petros Emery MD Discharge: Date of : 51 Report #: [id number] ASSESSMENT AND PLAN: 1. Acute on chronic hypoxemic and hypercarbic respiratory failure. His pH is low. His pCO2 is elevated. The machine he is using is essentially working as a CPAP. We will investigate further if it could be set as a BiPAP or not. Regardless, for now, I would recommend discontinuing his home machine and we will place him on one of our BiPAPs in average volume assured pressure support mode long-term. The patient needs a BiPAP or Trilogy for control of his respiratory failure. His platelets are low and therefore, I will try to limit the number of arterial blood gases be performed. Therefore, I did not order one for now, but will likely need to do another ABG tomorrow or the day after to follow up. 2. Chronic obstructive pulmonary disease exacerbation. Recommend starting steroids. We will give one dose of Solu-Medrol and then start prednisone. Continue DuoNeb. I will expect his glucoses to rise as a result and therefore, I went ahead and increased his insulin sliding scale. 3. Obstructive sleep apnea/obesity hypoventilation syndrome as above. Needs a BiPAP or Trilogy. It will not be adequately controlled with a CPAP. Weight loss is recommended. 4. Atelectasis/pleural effusion/possible infiltrates. Agree with Ike, pending further evaluation. I would like to evaluate further by doing a CT chest without contrast today. 5. Fluid overload. Also agree with Lasix. We will reassess with labs tomorrow. 6. High aspiration risk. Recommend aspiration precautions. I will see if [facility] has seen him. If not, then I may consult them as well. Regardless needs strict aspiration precautions. 7. Coronary artery disease/past history of paroxysmal atrial fibrillation. Note that he is not on anticoagulation. 8. Status post pacemaker. 9. History of lymphoma, T cells. 10. Pancytopenia/thrombocytopenia. Was recently evaluated by Dr. Canales. Thanks for this consultation. <ELECTRONICALLY SIGNED> By: Leonardo Donnelly MD 09/30/20 [id number] Donnelly MD /nt
--- NOTE | 2020-10-01 05:10 | NUR ---
ASSUMED PT CARE AT 1930. PT ALERT AND ORIENTED X4. INCONTINENT OF URINE X3, PERICARE PROVIDED. NO STOOL THIS SHIFT. PT WORE BIPAP UNTIL 003 WHEN HE DEMANDED TO WEAR HIS HOME CPAP INSTEAD. CALL LIGHT IN REACH, BED ALARM ON FOR SAFETY. HOURLY ROUNDING IN PROGRESS, WILL CONTINUE TO MONITOR.
[2020-10-01 08:01] VITALS: BP 120/55
[2020-10-01 13:25] LABS: CALCIUM 9.1 mg/dL (8.5-10.1); CREATININE 1.1 mg/dL (0.6-1.3)
--- NOTE | 2020-10-01 15:13 | NUR ---
THIS [employer] OPERATOR IS IN AGREEMENT WITH DOCUMENTATION BY ERIC GARCIA FOR THIS DAY. NICKOLAS REINOSOT
--- NOTE | 2020-10-01 17:29 | NUR ---
PT UP WITH SIT TO STAND. WORKED WITH THERAPIES. IV TO LUE SL. NEW [employer] FIELD CONTROL INSPECTOR TO BLE. O2 3LNC. WEARS HIS CPAP WHILE IN BED. TO WEAR BIPAP AT HS. BLOOD GLUCOSE LEVELS HIGH. SCHEDULED SSI GIVEN. DENIES PAIN. INCONTINENT OF B/B FREQUENTLY. BECOMES AGITATED WHEN HE MUST WAIT HIS TURN FOR CARES. CALL LIGHT IN REACH. FALL PRECAUTIONS IN PLACE.
[2020-10-01 20:30] VITALS: BP 112/41
--- NOTE | 2020-10-02 00:42 | NUR ---
ASSUMED CARE AT 1920. PATIENT RESTING IN BED. ASSISTED WITH TURNS. INCONTINENT OF LARGE AMOUNT OF URINE. SKIN CARE DONE, ZINC OINTMENT AND NYSTATIN APPLIED. TAKES PILLS WHOLE WITH SODA. WAS WEARING OWN CPAP WITH 3L/NC BLED IN. CHANGED TO BIPAP WITH 3L AT HS WITH A GREAT DEAL OF EDUCATION OF NEED FOR IT AND PLAN TO ASSESS BLOOD GASES IN THE MORNING. R.T. PROVIDED EDUCATION AND ADJUSTED MASK OF BIPAP. NO C/O PAIN. HOURLY ROUNDS CONTINUE. BED ALARM ON. CALL LITE IN REACH.
[2020-10-02 05:32] LABS: CALCIUM 8.8 mg/dL (8.5-10.1); MAGNESIUM 1.9 mg/dL (1.8-2.4); POTASSIUM 4.4 mmol/L (3.5-5.1); TOTAL BILIRUBIN 0.3 mg/dL (<0.1-1.0); TOTAL PROTEIN 6.1 g/dL (6.4-8.2)
[2020-10-02 05:34] LABS: HEMATOCRIT 26.7 % (42.0-52.0); HEMOGLOBIN 8.5 gm/dL (14.0-18.0); MCH 26.8 pg (26.0-34.0); MCHC 31.7 g/dL (28.0-37.0); MCV 84.4 fL (80.0-100.0); MPV 7.2 fl. (7.2-11.1); NUCLEATED RBCS 0 /100WBC; PLATELET COUNT* 56 thou/uL (150-400); RBC 3.17 mil/uL (4.50-6.00); RDW-CV 17.4 % (10.5-14.5)
[2020-10-02 05:38] LABS: WBC 1.9 thou/uL (4.0-11.0)
--- NOTE | 2020-10-02 06:07 | NUR ---
SLEPT MOST OF THE SHIFT. DID ALLOW HOSPITAL BIPAP ALL NITE THUS FAR, AFTER RECEIVING MUCH EDUCATION ABOUT NEED TO EXPEL EXTRA CO2 PER BIPAP, AND THAT HE WILL BE GETTING LABS (ABG) THIS AM TO ASSESS CO2 RETENTION. LAB CALLED THAT HIS WBC IS 1.9. PHYSICIAN NOTIFIED PER CHRISTINA, NO NEW ORDERS RECEIVED, DR. BORREGO STATES SHE WILL FOLLOW UP. NEUTROPENIC PRECAUTIONS INITIATED. INCONTINENT OF URINE, SKIN CARE DONE, MOISTURE BARRIER APPLIED. TUBIGRIPS REMOVED EARLIER, SHINS HAVE SCALY SKIN AND LOTION APPLIED LIBERALLY TO THESE AREAS. NO C/O PAIN. HOURLY ROUNDS CONTINUE. BED ALARM ON. CALL LITE IN REACH. TV ON LOUDLY ALL NIGHT.
--- NOTE | 2020-10-02 06:30 | NUR ---
PATIENT REQUESTING TO BE TAKEN OFF THE HOSPITAL BIPAP AND PUT BACK ON HIS HOME BIPAP. R.T. CALLED AND PERMISSION GIVEN BY THEM TO SWITCH PATIENT FROM HOSPITAL TO HOME BIPAP. THIS DONE, PATIENT CONTENT.
[2020-10-02 07:20] LABS: ABSOLUTE LYMPHOCYTES 0.4 thou/uL (0.8-5.3); ABSOLUTE MONOCYTES 0.1 thou/uL (0.0-1.2); ABSOLUTE NEUTROPHILS 1.4 thou/uL (1.6-8.1); PLATELET ESTIMATE ADEQUATE
[2020-10-02 07:32] LABS: BE 10.6 mmol/L (-2 to +3); pH 7.387 (7.340-7.450)
[2020-10-02 07:48] LABS: PCO2 63.8 mmHg (35.0-45.0)
--- NOTE | 2020-10-02 07:56 | NUR ---
CRITICAL PCO2 RESULT SENT TO DR VALE. NO NEW ORDERS RECEIVED.
[2020-10-02 08:37] VITALS: BP 133/69
--- NOTE | 2020-10-02 11:15 | NUR ---
PATIENT WORE HOSP BIPAP 10/01 2300 TILL 0500 10/02. SETTINGS AVAPS MODE VT 520 PMIN 10-PMAX 25, FIO2 32%. AT 0500 HE SWITCHED TO HIS HOME UNIT, ABG WAS DRAWN @ 0725 ON PATIENT HOME UNIT.
--- NOTE | 2020-10-02 17:18 | NUR ---
PT UP WITH SIT TO STAND. PT UP FREQUENTLY TO BSC WITH SIT TO STANT. INCONTINENT OF B/B FREQUENTLY. O2 3L NC WHILE AWAKE. WEARS HOME CPAP WHILE NAPPING. PT EDUCATED ON NEED TO WEAR BIPAP BUT HE REFUSED IT. DENIES PAIN. CALL LIGHT IN REACH. FALL PRECAUTIONS IN PLACE.
[2020-10-02 19:00] VITALS: BP 121/56
--- NOTE | 2020-10-03 05:47 | NUR ---
ASSUMED CARE AT 1920. ALERT AND ORIENTED. NEUTROPENIC PRECAUTIONS. O2 3L NC. WORE HOSP BIPAP UNTIL MIDNIGHT AND SWITCHED TO HOME BIPAP. INCONTINENCE. CREAM/POWDER APPLIED TO EXCORIATED GROINA DN BOTTOM. SLEPT OFF AND ON. CALL LIGHT IN REACH.
[2020-10-03 07:09] VITALS: BP 132/70
--- NOTE | 2020-10-03 17:23 | NUR ---
PT UP WITH SIT TO STAND. DENIES PAIN. FREQUENTLY INCONT OF B/B. KIT CARE PROVIDED. NEUTROPENIC PRECAUTIONS OBSERVED. O2 3LNC WHILE AWAKE. PT TO WEAR BIPAP AT HS AND WHILE NAPPING.
[2020-10-03 20:00] VITALS: BP 126/62
--- NOTE | 2020-10-04 05:33 | NUR ---
ASSUMED CARE AT 1915. PATIENT RESTING IN BED. TAKES PILLS WHOLE WITH WATER. INCONTINENT OF URINE, SOMETIMES AWARE, OTHER TIMES NOT. WANTED CASE MANAGEMENT TO KNOW HE WAS WILLING TO GO TO EITHER [facility], [facility]ICHE[facility] COULD TAKE HIM FASTER ([place] [facility] [place]) AND NOTE LEFT FOR CM. USED HOME BIPAP WITH 3L BLED IN WHILE AWAKE. HAD TO STRONGLY ENCOURAGE USE OF HOSPITAL BIPAP. WORE HOSPITAL BIPAP FROM APPROX 2340 TO 0300 DESPITE EDUCATION THAT HE NEEDS IT ALL NIGHT. RETURNED TO HOME CPAP WITH 3L/O2 BLED IN AT THAT TIME. REFUSED TURNS. SKIN CARE DONE, ZINC OINTMENT APPLIED AFTER INCONTINENCE. SLEPT OFF AND ON, WITH TV ON LOUDLY THROUGH NIGHT. HOURLY ROUNDS CONTINUE. BED ALARM ON. CALL LITE IN REACH.
[2020-10-04 08:30] VITALS: BP 130/64
--- NOTE | 2020-10-04 17:16 | NUR ---
ALERT AND ORIENTED X4. UP WITH 2 ASSIST, AND SIT TO STAND LIFT. DENIED NEED FOR PAIN MEDICATION. ON LACTULOSE AND HAD 4 LOOSE STOOLS TODAY. FREQUENTLY INCONTINENT OF BOWEL AND BLADDER. CREAM APPLIED TO RASH ON BUTTOCK AND GROIN. USES CALL LIGHT FREQUENTLY FOR ASSIST. FALL PRECAUTIONS IN PLACE.
--- NOTE | 2020-10-04 18:53 | NUR ---
REMAINS ON NEUTROPENIC PRECAUTIONS.
[2020-10-04 20:00] VITALS: BP 125/46
[2020-10-05 04:46] LABS: ABSOLUTE LYMPHOCYTES 0.4 thou/uL (0.8-5.3); ABSOLUTE MONOCYTES 0.2 thou/uL (0.0-1.2); ABSOLUTE NEUTROPHILS 1.4 thou/uL (1.6-8.1); BASOPHILS 0.7 %; EOSINOPHILS 1.2 %; HEMATOCRIT 28.7 % (42.0-52.0); HEMOGLOBIN 9.2 gm/dL (14.0-18.0); LYMPHOCYTES 20.2 %; MCH 26.9 pg (26.0-34.0); MONOCYTES 8.7 %; MPV 7.1 fl. (7.2-11.1); NUCLEATED RBCS 1 /100WBC; PLATELET COUNT* 63 thou/uL (150-400); POLYS 69.2 %; RBC 3.41 mil/uL (4.50-6.00); RDW-CV 17.3 % (10.5-14.5)
--- NOTE | 2020-10-05 04:54 | NUR ---
ASSUMED CARE AT 191. PATIENT RESTING IN BED. ATTEMPTED BM PER BEDPAN, UNSUCCESSFUL. INCONTINENT OF LARGE AMOUNTS OF URINE, SKIN CARE ODNE, ZINC OINTMENT APPLIED, BED AND PADS CHANGED. ASSISTED WITH TURNS, HOWEVER, REFUSES MOST TURNS. DR. NORIEGA ROUNDED, HE EXPLAINED NEED FOR WEARING HOSPITAL BIPAP RATHER THAN HIS HOME BIPAP. PATIENT BECAME HIGHLY MOTIVED TO USE HOSPITAL BIPAP. THIS APPLIED PER THIS NURSE. PATIENT STATES THAT HE IS NOT OPPOSED TO WEARING A BIPAP DEVICE, BUT THE MASK IS UNCOMFORTABLE, AND HE PERFERS A NASAL PILLOW OVER FACIAL MASK. HAS BEEN WEARING HOSPTIAL BIPAP SINCE 2129. TOLERATING WELL. TAKES PILLS WHOLE WITH WATER. NO C/O PAIN. OBSERVED SLEEPING OFF AND ON, BUT STATES HE DOES NOT SLEEP WELL WITH THE MASK. HOURLY ROUNDS CONTINUE. BED ALARM ON. CALL LITE IN REACH.
[2020-10-05 05:12] LABS: ALBUMIN 3.1 g/dL (3.4-5.0); CALCIUM 8.9 mg/dL (8.5-10.1); CREATININE 1.1 mg/dL (0.6-1.3); POTASSIUM 4.1 mmol/L (3.5-5.1); TOTAL BILIRUBIN 0.4 mg/dL (<0.1-1.0); TOTAL PROTEIN 6.1 g/dL (6.4-8.2)
--- NOTE | 2020-10-05 06:20 | NUR ---
[facility]15. R.T. CHANGED PATIENT TO HIS HOME BIPAP WITH 3L/ BLED IN.
[2020-10-05 07:43] VITALS: BP 125/55
--- NOTE | 2020-10-05 17:38 | NUR ---
PT WORKED WITH THERAPIES. UP WITH SIT TO STAND AND ASSIST X2. INCONT OF B/B. TUBAGRIP TO BLE. O2 3LNC. WEARS HOME BIPAP WHILE RESTING DESPITE BEING EDUCATED OH THE NEED TO WEAR THE HOPITAL ONE. DR NORIEGA TO SIGN ORDERS FOR A HOME ASTRAL BIPAP. PAPERWORK ON PT CHART. PT TO DISCHARGE [place] TO [facility] AFTER ASTRAL IS OBTAINED. CALL LIGHT IN REACH. FALL PRECAUTIONS IN PLACE.
[2020-10-05 19:00] VITALS: BP 126/63
[2020-10-06 04:55] LABS: HEMATOCRIT 30.8 % (42.0-52.0); HEMOGLOBIN 9.7 gm/dL (14.0-18.0); MCH 26.5 pg (26.0-34.0); MCHC 31.4 g/dL (28.0-37.0); MCV 84.4 fL (80.0-100.0); MPV 7.2 fl. (7.2-11.1); RBC 3.65 mil/uL (4.50-6.00); RDW-CV 17.1 % (10.5-14.5)
--- NOTE | 2020-10-06 05:10 | NUR ---
ASSUMED PT CARE AT 1930. PT RESTING IN BED AT SHIFT CHANGE. INCONTINENT OF LARGE AMOUNTS OF URINE, SKIN CARE DONE, BED AND PADS CHANGED. PT WORE BIPAP UNTIL 229 WHEN HE CHANGED TO HIS HOME CPAP. TAKES PILLS WHOLE WITH WATER. NO C/O PAIN. PT TO DISCHARGE TO [facility] TODAY. CALL LIGHT IN REACH, BED ALARM ON FOR SAFETY. HOURLY ROUNDING IN PROGRESS, WILL CONTINUE TO MONITOR.
[2020-10-06 05:12] LABS: CALCIUM 8.9 mg/dL (8.5-10.1); POTASSIUM 3.8 mmol/L (3.5-5.1)
[2020-10-06 07:46] VITALS: BP 112/56
--- NOTE | 2020-10-06 16:46 | NUR ---
PT UP WITH GAIT BELT AND LIFT. PT COMPLETED ALL THERAPY TODAY. PT HAS LT UPPER ARM IV LOCKED. PT USES BIPAP ON 3.5L. NO COMPLAINTS OF PAIN. PT DID HAVE BM.BARRIER CREAM APPLIED. PT IS RESTING WITH CALL LIGHT IN REACH AND FALL PRECAUTIONS IN PLACE
--- NOTE | 2020-10-06 17:52 | NUR ---
[employer] MEETING HELD TODAY. PT AND SPOUSE INFORMED OF MEETING AND PLAN REMAINS TO D/C PT TO SNF AT [facility] PENDING ARRANGEMENTS OF TRILOGY/ASTRAL AND PULM CLEARANCE. [facility] TO DELIVER ASTRAL TO THE PT'S BEDSIDE TODAY FOR PT TO USE TONIGHT. PT WILL NEED TO BE ABLE TO TOLERATE TRILOGY PRIOR TO D/C. CM ALSO INFORMED PULM OF THE NEED TO INDICATE NEED FRO ASTRAL IN PROGRESS NOT TO ASSIST WITH APPROVAL FOR ASTRAL. CM ALSO FAXED UPDATED CLINICAL INFO TO [facility]. CM WILL REMAIN AVAILABLE TO ASSIST AND FOLLOW NEEDED. [facility] PHONE: [phone] FAX: [phone]
[2020-10-06 19:00] VITALS: BP 107/54
[2020-10-07 08:16] VITALS: BP 107/43
[2020-10-07] MEDS ORDERED: PREDNISONE 20 M20 MG PO (10:49)
[2020-10-07] MEDS ORDERED: XANAX 0.5 MG0.5 M1 PO (10:49)
[2020-10-07] MEDS ORDERED: KLOR-CON 10 ER10 MEQ PO (10:49)
--- NOTE | 2020-10-07 15:14 | NUR ---
I AGREE WITH ERIC GARCIA'S DOCUMENTATION FOR TODAY. BARRY GUZMAN, NICKOLAST
--- NOTE | 2020-10-07 15:28 | NUR ---
PT UP WITH GAIT BELT AND SIT TO STAND. PT COMPLETED ALL THERAPY.PT HAD BM TODAY. PT DCING TODAY TO [facility] TODAY AT 1500 . PT IN WAITING FOR W/C VAN WITH CALL LIGHT IN REACH AND FALL PRECAUTIONS IN PLACE.
--- NOTE | 2020-10-07 16:10 | NUR ---
KARLEY SPK WITH ANGY FROM [facility] WHO INDICATED THEY ARE ACCEPTING OF PT AND SHE WOULD ARRANGE TRANSPORTATION TO INCLUDE O2. CM FAXED ORDERS AND PROVIDED ANGY WITH ASTARAL SETTINGS GIVEN BY LOR RT, WITH [facility]. RN PROVIDED NUMBER TO CALL REPORT. KARLEY MADE CHART COPY. KARLEY ATTEMPTED TO NOTIFY PT'S , BUT GOT NO ANSWER.
--- NOTE | 2020-10-07 16:11 | NUR ---
DISCHARGE INSTRUCTIONS PROVIDED TO PATIENT. REPORT CALLED TO [facility], CHART COPIED AND SENT WITH PATIENT AT DISCHARGE. PT WAS PICKED UP BY [facility] AND WAS DISCHARGED IN STABLE CONDITION.
--- NOTE | 2020-10-11 07:43 | NUR ---
I AGREE WITH ERIC GARCIA'S DISCHARGE DOCUMENTATION. BARRY GUZMAN, NICKOLAST
== END 2020-10-07 16:13 | DRG 947 ==
LOC: M.REH 07:46
PROVIDERS: Family Medicine; Internal Medicine; Internal Medicine Critical Care Medicine; ADMIT Physical Medicine & Rehabilitation; ATTEND Physical Medicine & Rehabilitation
PROC: 5A09357 Assistance with Respiratory Ventilation, Less than 24 Consecutive Hours, Continuous Positive Airway Pressure (ICD-10-PCS; principal; 2020-09-16)
PROC: 5A09357 Assistance with Respiratory Ventilation, Less than 24 Consecutive Hours, Continuous Positive Airway Pressure (ICD-10-PCS; 2020-09-17)
PROC: 5A09357 Assistance with Respiratory Ventilation, Less than 24 Consecutive Hours, Continuous Positive Airway Pressure (ICD-10-PCS; 2020-09-18)
PROC: 5A09357 Assistance with Respiratory Ventilation, Less than 24 Consecutive Hours, Continuous Positive Airway Pressure (ICD-10-PCS; 2020-09-20)
PROC: 5A09357 Assistance with Respiratory Ventilation, Less than 24 Consecutive Hours, Continuous Positive Airway Pressure (ICD-10-PCS; 2020-09-21)
PROC: 5A09457 Assistance with Respiratory Ventilation, 24-96 Consecutive Hours, Continuous Positive Airway Pressure (ICD-10-PCS; 2020-09-22)
PROC: 5A09357 Assistance with Respiratory Ventilation, Less than 24 Consecutive Hours, Continuous Positive Airway Pressure (ICD-10-PCS; 2020-09-23)
PROC: 5A09357 Assistance with Respiratory Ventilation, Less than 24 Consecutive Hours, Continuous Positive Airway Pressure (ICD-10-PCS; 2020-09-24)
PROC: 5A09357 Assistance with Respiratory Ventilation, Less than 24 Consecutive Hours, Continuous Positive Airway Pressure (ICD-10-PCS; 2020-09-25)
PROC: 5A09357 Assistance with Respiratory Ventilation, Less than 24 Consecutive Hours, Continuous Positive Airway Pressure (ICD-10-PCS; 2020-09-26)
PROC: 5A09357 Assistance with Respiratory Ventilation, Less than 24 Consecutive Hours, Continuous Positive Airway Pressure (ICD-10-PCS; 2020-09-27)
PROC: 5A09357 Assistance with Respiratory Ventilation, Less than 24 Consecutive Hours, Continuous Positive Airway Pressure (ICD-10-PCS; 2020-09-28)
PROC: 5A09357 Assistance with Respiratory Ventilation, Less than 24 Consecutive Hours, Continuous Positive Airway Pressure (ICD-10-PCS; 2020-09-29)
PROC: 5A09357 Assistance with Respiratory Ventilation, Less than 24 Consecutive Hours, Continuous Positive Airway Pressure (ICD-10-PCS; 2020-09-30)
PROC: 5A09357 Assistance with Respiratory Ventilation, Less than 24 Consecutive Hours, Continuous Positive Airway Pressure (ICD-10-PCS; 2020-10-01)
PROC: 5A09357 Assistance with Respiratory Ventilation, Less than 24 Consecutive Hours, Continuous Positive Airway Pressure (ICD-10-PCS; 2020-10-02)
PROC: 5A09357 Assistance with Respiratory Ventilation, Less than 24 Consecutive Hours, Continuous Positive Airway Pressure (ICD-10-PCS; 2020-10-03)
PROC: 5A09357 Assistance with Respiratory Ventilation, Less than 24 Consecutive Hours, Continuous Positive Airway Pressure (ICD-10-PCS; 2020-10-04)
PROC: 5A09357 Assistance with Respiratory Ventilation, Less than 24 Consecutive Hours, Continuous Positive Airway Pressure (ICD-10-PCS; 2020-10-05)
PROC: 5A09357 Assistance with Respiratory Ventilation, Less than 24 Consecutive Hours, Continuous Positive Airway Pressure (ICD-10-PCS; 2020-10-06)
PROC: 5A09357 Assistance with Respiratory Ventilation, Less than 24 Consecutive Hours, Continuous Positive Airway Pressure (ICD-10-PCS; 2020-10-07)
DX: R53.81 Other malaise (principal); J18.9 Pneumonia, unspecified organism; J96.21 Acute and chronic respiratory failure with hypoxia; J96.22 Acute and chronic respiratory failure with hypercapnia; Z68.42 Body mass index [BMI] 45.0-49.9, adult; J44.0 Chronic obstructive pulmonary disease with (acute) lower respiratory infection; D61.818 Other pancytopenia; J44.1 Chronic obstructive pulmonary disease with (acute) exacerbation; E66.2 Morbid (severe) obesity with alveolar hypoventilation; J98.11 Atelectasis; D68.69 Other thrombophilia; I50.32 Chronic diastolic (congestive) heart failure; I11.0 Hypertensive heart disease with heart failure; I25.10 Atherosclerotic heart disease of native coronary artery without angina pectoris; E11.42 Type 2 diabetes mellitus with diabetic polyneuropathy; E11.51 Type 2 diabetes mellitus with diabetic peripheral angiopathy without gangrene; E53.8 Deficiency of other specified B group vitamins; B36.9 Superficial mycosis, unspecified; I48.0 Paroxysmal atrial fibrillation; K74.60 Unspecified cirrhosis of liver; Z90.49 Acquired absence of other specified parts of digestive tract; Z88.0 Allergy status to penicillin; Z85.6 Personal history of leukemia; Z88.8 Allergy status to other drugs, medicaments and biological substances; Z95.5 Presence of coronary angioplasty implant and graft; Z99.81 Dependence on supplemental oxygen; Z79.01 Long term (current) use of anticoagulants; Z79.4 Long term (current) use of insulin; Z98.41 Cataract extraction status, right eye; Z98.42 Cataract extraction status, left eye; Z87.891 Personal history of nicotine dependence